=== PATIENT | female | born 1970 | race Caucasian/White ===

== ENCOUNTER → 2017-08-10 10:23 | Outpatient (POV) | payer BC, SELFPAY | PROVIDERS: Family Provider Nurse Practitioner Family; PCP Nurse Practitioner Family; Visit Provider Otolaryngology | DX: Z00.00 Encounter for general adult medical examination without abnormal findings (principal) ==

== ENCOUNTER → 2017-08-24 08:34 | Outpatient (CLI) | payer BC, SELFPAY ==
--- NOTE | 2017-08-24 08:46 | MR_ITS ---
MR lumbar spine wo/w con, MR 3-d myelogram/MRCP CLINICAL INDICATION: Low back pain with bilateral leg pain and numbness and tingling ITS.REASON: LOWER BACK INJURY ORDERING PHYSICIAN: Laura Smith PATIENT AGE: 46 years TECHNIQUE: Multiplanar multiecho sequences are performed without and with contrast. COMPARISON: None FINDINGS: There is normal alignment. The spinal cord ends at the L1-L2 level. There is a 2.3 x 1.4 cm well-circumscribed oval mass within the spinal cord epicentered at the T12-L1 level. This is intramedullary. This is hypointense on T1 and hyperintense on T2. No enhancement apparent. There is expansion of the spinal cord at this region. This is approximately 2 cm proximal to the cauda equina. L1-L2, L2-L3, and L3-L4 have an unremarkable appearance. L4-L5: Minimal bulging disc with mild facet and ligamentum hypertrophy with mild lateral recess and foraminal narrowing. L5-S1: Degenerative disc disease with decrease in the disc space and bulging disc with very minimal central disc protrusion. There is mild bilateral foraminal narrowing slightly greater on the left. No disc herniation or canal stenosis. 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 Differential diagnosis includes a spinal dermoid cyst or arachnoid cyst. Would recommend repeating the exam with [facility] for more specific catheterization as epidermoid cysts show restricted diffusion. A dermoid cyst and arachnoid cyst do not show restricted diffusion. Differential diagnosis would also include a spinal ependymoma however, one would expect contrast enhancement. Degenerative disc disease at L5-S1 with mild bulging disc at L4-L5 and L5-S1 and mild bilateral foraminal narrowing at L4-L5 and L5-S1
== END ==
PROVIDERS: Family Provider Nurse Practitioner Family; PCP Nurse Practitioner Family; Visit Provider Nurse Practitioner Family
DX: S39.92XA Unspecified injury of lower back, initial encounter (principal)
CPT/HCPCS: 72158; 76376; A9576

== ENCOUNTER → 2017-09-06 08:33 | Outpatient (CLI) | payer BC, SELFPAY ==
--- NOTE | 2017-09-06 08:36 | MR_ITS ---
MR head/brain wo/w con Ordering Physician: Rosy Lopez Age: 46 years: Female HISTORY: ITS.REASON: HX CVA, ISCHEMIC STROKE LEFT EYE To previous strokes reported last one occurred in June 2016. Patient reports memory loss blurred vision and comes and goes right hand weakness TECHNIQUE: : Precontrast Multiplanar FLAIR, T1, T2 weighted images along with axial diffusion/ADC imaging performed on 1.5 T. Siemens, MRI. Postcontrast imaging Following 18 mL mL ProHance T1-weighted images axial & coronal plane performed COMPARISON :Previous CT head without contrast 06/24/2020 FINDINGS . No mass lesion... . No areas of enhancement seen on the postcontrast images.. No extra-axial collections. No prior infarct evident on today's study No definitive deep white matter lesions are seen on the sensitive FLAIR image set. Only note & question an equivocal small less than 2 mm deep white matter high signal focus left frontal lobe axial image 17., Coronal FLAIR slice 6. Nonspecific. Equivocal \ Cervical cranial junction appears satisfactory. Sella and pituitary survey unremarkable.Ventricles and basal cisterns appear satisfactory. The small CSF space signal just inferior to the left basal ganglia, reflects extension of basal cistern recess beneath this area.-No gliosis is associated to suggest prior ischemic feature. I do not have any previous MR for comparison but this possibly may have been reported as old lacunar, but I do not believe this is the case given the lack of gliosis. Rather merely slight generous CSF space Posterior fossa appears satisfactory. CP angles, IACs ,unremarkable. No lesion nor enhancement along the course either cranial nerve cranial nerve VII and VIII.. Skinny with no significant findings. Only note trace signal from perivascular space at right cerebral peduncle.- No gliosis here on FLAIR images, which speaks against prior ischemia.. Mastoid air cells well-developed and clear. . Paranasal sinuses well-developed and clear with only borderline mucosal thickening at ethmoid air cells. Orbits are unremarkable. Globes unremarkable. Minimal dural venous sinuses IMPRESSION: No evidence of prior territorial infarct . No mass lesion. No abnormal areas of enhancement. Only equivocal less than 2 mm deep white matter focus left frontal lobe, peripheral to the anterior horn left lateral ventricle.. Barely appreciable.... Otherwise negative MR brain with no additional white matter findings.
== END ==
PROVIDERS: Family Provider Nurse Practitioner Family; PCP Nurse Practitioner Family; Visit Provider Physician Assistant
DX: Z86.73 Personal history of transient ischemic attack (TIA), and cerebral infarction without residual deficits (principal); R41.3 Other amnesia
CPT/HCPCS: 70553; A9576

== ENCOUNTER 2017-09-21 10:40 | Emergency (ER) | payer BC, SELFPAY ==
[2017-09-21 11:13] VITALS: BP 134/84; PULSE 83; RESP 26; TEMP 36.3; O2SAT 100; BMI 31.6
[2017-09-21 11:22] VITALS: BP 134/81; PULSE 77; RESP 22; TEMP 37; O2SAT 100; BMI 31.6
--- NOTE | 2017-09-21 11:22 | PC.NURSE ---
Triage nurse alerted me to pt's RR and labored breathing. pt reporting sudden worsening in SOA overnight. similar symptoms last week. Was seen in [place] where she reports she rcvd diuretics and lost 9 pounds allowing me to breath easier . Hx of COPD. Sees Dr. Lewis, probation officer. Sleeps w/ home oxygen. Referred to voice instructor last week. Appt not for several weeks. Reports they were concerned about new onset CHF. Worked yesterday. Mild SOA x one month. Sudden acute worsening last night. SPO2 stable but feels wearing her oxygen helps. Denies CP. Discussed possible differentials. pt agreeable to transfer to ER. Dr. West not available. Report called to Pb [facility]. Room 5 available. I assisted pt over via wheelchair. Helped her into bed, reattached her oxygen at 2LNC. Notified Pb she was in the room. Pt stable.
--- NOTE | 2017-09-21 11:34 | XR_ITS ---
XR chest 2V HISTORY: Shortness of breath ITS.REASON: sob ORDERING PHYSICIAN: Kathy West MD PATIENT AGE: 46 years COMPARISON: 06/21/2017 FINDINGS: The cardiomediastinal silhouette and pulmonary vascularity are within normal limits. The lungs are clear without infiltrates, suspicious nodules, or pleural effusions. No acute bony abnormalities. IMPRESSION: Negative chest, no acute finding
--- NOTE | 2017-09-21 12:00 | HMH.EDSOB ---
ED Disposition Clinical Impression: Congestive heart failure, COPD exacerbation, Respiratory alkalosis Disposition: Xfer Short-Term Hosp Condition on Discharge: Fair Referrals: Laura Smith [Primary Care Provider] - Forms: Transfer Record - ED - Critical Care Critical Care Time: No Attestation: On 09/21/17, the high probability of a clinically significant, sudden or life threatening deterioration of the following system(s) required my full and direct attention, intervention and personal management. The time I documented below is in addition to time spent performing reported procedures but includes the following listed in this critical care notation. Medical Decision Making - Medical Records Medical records reviewed: Yes: I reviewed the patient's medical records. Vital Signs: 09/21/17 11:13 09/21/17 11:22 Temperature 97.3 F L 98.6 F Temperature Source Temporal Artery Scan Oral Pulse Rate [Right Brachial] 83 77 Respiratory Rate 26 H 22 Blood Pressure [Right Arm] 134/84 134/81 Blood Pressure Mean [Right Arm] 100 98 Blood Pressure Source [Right Arm] Automatic Cuff Automatic Cuff Blood Pressure Position [Right Arm] Sitting Sitting 02 Sat by Pulse Oximetry 100 100 Oxygen Delivery Method Room Air Nasal Cannula Oxygen Flow Rate (LPM) 2 2 - Lab Data Lab Results 09/21/17 11:34: Specimen Source R brachial, O2 % 2lpm, ABG pH 7.67 H*, ABG pCO2 15.2 L, ABG pO2 82.0, ABG HCO3 17.2 L, ABG Total CO2 17.7 L, ABG O2 Saturation 98, ABG Base Excess -3.2 L, Balaji Test N/a 09/21/17 11:40: WBC 8.6, RBC 4.82, Hgb 14.0, Hct 40.2, MCV 83.3, MCH 29.0, MCHC 34.8, RDW 12.4, Plt Count 257, MPV 7.6, Neut % (Auto) 63.2, Lymph % (Auto) 28.6, [place] % (Auto) 4.8, Eos % (Auto) 2.6, Baso % (Auto) 0.9, Neut # (Auto) 5.4, Lymph # (Auto) 2.4, [place] # (Auto) 0.4, Eos # (Auto) 0.2, Baso # (Auto) 0.1 09/21/17 11:40: Sodium 142, Potassium 3.3 L, Chloride 105, Carbon Dioxide 24, Anion Gap 16.3 H, BUN 16, Creatinine 1.08 H, Estimated Creat Clear 87, Estimated GFR 54 L, Est GFR ( Amer) 66, Glucose 89, Calcium 9.7, Total Bilirubin 1.0, AST 61 H, ALT 91 H, Alkaline Phosphatase 194 H, Total Creatine Kinase 63, CK-MB (CK-2) < 0.5, CK-MB (CK-2) Rel Index 0.8, Troponin I < 0.02, Total Protein 8.4 H, Albumin 4.0, Globulin 4.4 H, Albumin/Globulin Ratio 0.9 L 09/21/17 11:40: B-Natriuretic Peptide 128 H 09/21/17 12:20: Lactic Acid 4.0 H 09/21/17 12:35: D-Dimer < 100 Result diagrams: 09/21/17 11:40 09/21/17 11:40 Orders (Tests/Meds): ED MEDICATIONS Discontinued Medications Generic Name Dose Route Start Last Admin Trade Name Lesvia PRN Reason Stop Dose Admin Albuterol/Ipratropium 3 ml 09/21/17 12:07 Duoneb 3ml Neb IH 09/21/17 12:08 ONCE ONE Famotidine 20 mg 09/21/17 12:07 09/21/17 12:48 Pepcid 20mg/2ml Vial IV 09/21/17 12:08 20 mg ONCE ONE Administration Ceftriaxone Sodium 1 gm/ 50 mls @ 100 mls/hr 09/21/17 12:07 09/21/17 12:47 Sodium Chloride IV 09/21/17 12:36 100 mls/hr ONCE ONE Administration Sodium Chloride 1,000 mls @ 999 mls/hr 09/21/17 13:30 09/21/17 13:25 Sod Chlor 0.9% 1000ml Bag IV 09/21/17 14:30 999 mls/hr .Q1H1M MARTINE Administration Methylprednisolone Sodium Succinate 125 mg 09/21/17 12:07 09/21/17 12:48 Solu-Medrol 125mg/2ml Vial IV 09/21/17 12:08 125 mg ONCE ONE Administration ORDERS Category Date Time Status Blood Culture Stat Micro 09/21/17 12:20 Received Sputum Culture & Gram Stain Stat Micro 09/21/17 12:07 Ordered - Radiology Data #1 Image(s): Chest Image Reviewed: Yes I reviewed the patient's radiology image Preliminary Findings: Abnormal (Chronic changes no acute finding. ) - ECG Data Tracing #1 Normal sinus rhythm 82/min right axis deviation and poor R-wave progression no acute finding. ECG initial impression date: 09/21/17 ECG initial impression time: 12:18 - Kevin Inquiry Pt receiving controlled substance: No Kevin was sid
[2017-09-21 12:01] LABS: Basophils # 0.1 K/mm3 (0-0.2); Basophils % 0.9 % (0.1-2.0); Eosinophils # 0.2 K/mm3 (0.0-0.4); Eosinophils % 2.6 % (0.1-12.0); Hematocrit 40.2 % (37.0-47.0); Lymphocytes # 2.4 K/mm3 (0.7-4.5); Lymphocytes % 28.6 K/mm3 (10-50); Mean Corpuscular HGB Conc 34.8 g/dL (31.8-35.4); Mean Corpuscular Volume 83.3 fl (81-99); Mean Platelet Volume 7.6 fl (7.4-10.4); Monocytes # 0.4 K/mm3 (0.1-1.0); Monocytes % 4.8 % (1.7-9.3); Neutrophils # 5.4 K/mm3 (1.8-7.8); Neutrophils % 63.2 % (37.0-80.0); Platelet Count 257 K/mm3 (142-424); Red Blood Count 4.82 M/mm3 (4.20-5.40); Red Cell Distribution Width 12.4 % (11.5-17.5); White Blood Count 8.6 K/mm3 (4.8-10.8)
--- NOTE | 2017-09-21 12:04 | ED_ITS ---
ED Disposition Clinical Impression: Congestive heart failure, COPD exacerbation, Respiratory alkalosis Disposition: Xfer Short-Term Hosp Condition on Discharge: Fair Referrals: Laura Smith [Primary Care Provider] - Forms: Transfer Record - ED - Critical Care Critical Care Time: No Attestation: On 09/21/17, the high probability of a clinically significant, sudden or life threatening deterioration of the following system(s) required my full and direct attention, intervention and personal management. The time I documented below is in addition to time spent performing reported procedures but includes the following listed in this critical care notation. Medical Decision Making - Medical Records Medical records reviewed: Yes: I reviewed the patient's medical records. Vital Signs: 09/21/17 11:13 09/21/17 11:22 Temperature 97.3 F L 98.6 F Temperature Source Temporal Artery Scan Oral Pulse Rate [Right Brachial] 83 77 Respiratory Rate 26 H 22 Blood Pressure [Right Arm] 134/84 134/81 Blood Pressure Mean [Right Arm] 100 98 Blood Pressure Source [Right Arm] Automatic Cuff Automatic Cuff Blood Pressure Position [Right Arm] Sitting Sitting 02 Sat by Pulse Oximetry 100 100 Oxygen Delivery Method Room Air Nasal Cannula Oxygen Flow Rate (LPM) 2 2 - Lab Data Lab Results 09/21/17 11:34: Specimen Source R brachial, O2 % 2lpm, ABG pH 7.67 H*, ABG pCO2 15.2 L, ABG pO2 82.0, ABG HCO3 17.2 L, ABG Total CO2 17.7 L, ABG O2 Saturation 98, ABG Base Excess -3.2 L, Balaji Test N/a 09/21/17 11:40: WBC 8.6, RBC 4.82, Hgb 14.0, Hct 40.2, MCV 83.3, MCH 29.0, MCHC 34.8, RDW 12.4, Plt Count 257, MPV 7.6, Neut % (Auto) 63.2, Lymph % (Auto) 28.6 , [place] % (Auto) 4.8, Eos % (Auto) 2.6, Baso % (Auto) 0.9, Neut # (Auto) 5.4, Lymph # (Auto) 2.4, [place] # (Auto) 0.4, Eos # (Auto) 0.2, Baso # (Auto) 0.1 09/21/17 11:40: Sodium 142, Potassium 3.3 L, Chloride 105, Carbon Dioxide 24, Anion Gap 16.3 H, BUN 16, Creatinine 1.08 H, Estimated Creat Clear 87, Estimated GFR 54 L, Est GFR ( Amer) 66, Glucose 89, Calcium 9.7, Total Bilirubin 1.0, AST 61 H, ALT 91 H, Alkaline Phosphatase 194 H, Total Creatine Kinase 63, CK-MB (CK-2) < 0.5, CK-MB (CK-2) Rel Index 0.8, Troponin I < 0.02, Total Protein 8.4 H, Albumin 4.0, Globulin 4.4 H, Albumin/Globulin Ratio 0.9 L 09/21/17 11:40: B-Natriuretic Peptide 128 H 09/21/17 12:20: Lactic Acid 4.0 H 09/21/17 12:35: D-Dimer < 100 Result diagrams: 09/21/17 11:40 09/21/17 11:40 Orders (Tests/Meds): ED MEDICATIONS Discontinued Medications Generic Name Dose Route Start Last Admin Trade Name Lesvia PRN Reason Stop Dose Admin Albuterol/Ipratropium 3 ml 09/21/17 12:07 Duoneb 3ml Neb IH 09/21/17 12:08 ONCE ONE Famotidine 20 mg 09/21/17 12:07 09/21/17 12:48 Pepcid 20mg/2ml Vial IV 09/21/17 12:08 20 mg ONCE ONE Administration Ceftriaxone Sodium 1 gm/ 50 mls @ 100 mls/hr 09/21/17 12:07 09/21/17 12:47 Sodium Chloride IV 09/21/17 12:36 100 mls/hr ONCE ONE Administration Sodium Chloride 1,000 mls @ 999 mls/hr 09/21/17 13:30 09/21/17 13:25 Sod Chlor 0.9% 1000ml Bag IV 09/21/17 14:30 999 mls/hr .Q1H1M MARTINE Administration Methylprednisolone Sodium Succinate 125 mg 09/21/17 12:07 09/21/17 12:48 Solu-Medrol 125mg/2ml Vial IV 09/21/17 12:08 125 mg ONCE ONE Administration
[2017-09-21 12:25] LABS: Alanine Aminotransferase 91 U/L (12-78); Albumin/Globulin Ratio 0.9 (1.1-1.8); Alkaline Phosphatase 194 U/L (46-116); Anion Gap 16.3 mEq/L (5-15); Aspartate Amino Transferase 61 U/L (15-37); Blood Urea Nitrogen 16 mg/dL (7-18); CKMB Relative Index 0.8 U/L (0-4.0); Calcium 9.7 mg/dL (8.5-10.1); Carbon Dioxide 24 mmol/L (21.0-32.0); Chloride 105 mmol/L (98-107); Creatine Kinase 63 U/L (26-192); Creatine Kinase MB < 0.5 mg/ml (0.0-3.6); Creatinine Clearance Estimated 87 mL/min (0-300); Creatinine,Serum 1.08 mg/dL (0.55-1.02); Estimated Glomerular Filt Rate 54 ml/min (>60); GFR (African American) 66 ML/MIN (>60); Globulin 4.4 gm/dl (1.3-3.2); Glucose 89 mg/dL (74-106); Potassium 3.3 mmoL/L (3.5-5.1); Sodium 142 mmol/L (136-145); Total Protein,Serum 8.4 gm/dL (6.4-8.2); Troponin I < 0.02 ng/ml (0.00-0.06)
--- NOTE | 2017-09-21 12:57 | PC.NURSE ---
notified ER of lactic acid critical
[2017-09-21 13:04] LABS: ABG Base Excess -3.2 mmol/L (-2.4-2.3); ABG HCO3 17.2 mmhg (22.0-26.0); ABG Oxygen Saturation 98 % (90-100); ABG TCO2 17.7 mmhg (23-27)
[2017-09-21 13:05] LABS: Oxygen 2LPM %; Source R BRACHIAL
[2017-09-21 13:06] LABS: ABG PH 7.67 mmol/L (7.35-7.45)
[2017-09-21 13:07] LABS: ABG PCO2 15.2 mmhg (35.0-45.0)
--- NOTE | 2017-09-21 13:29 | PC.NURSE ---
Drake has accetpted Pt by Dr Faith, to [address],
[2017-09-21 13:38] LABS: D-Dimer < 100 (0-400)
[2017-09-21 16:00] VITALS: BP 132/77; PULSE 85; RESP 18; TEMP 37; O2SAT 99
[2017-09-21 16:51] LABS: Reflex Lactic Add Lactic Reflex
== END 2017-09-21 16:05 | disposition short-term general hospital (02) ==
LOC: UTC 10:41 → ER 11:20
PROVIDERS: Emergency Provider Emergency Medicine; Family Provider Nurse Practitioner Family; PCP Nurse Practitioner Family
DX: J44.1 Chronic obstructive pulmonary disease with (acute) exacerbation (principal); Z91.040 Latex allergy status; Z88.1 Allergy status to other antibiotic agents; Z88.6 Allergy status to analgesic agent
CPT/HCPCS: 71046; 80053; 82550; 82553; 82803; 83605; 83880; 84484; 85025; 85378; 87040; 93005; 93041; 96365; 96367; 96375; 99284; 99291

== ENCOUNTER → 2017-10-11 09:25 | Outpatient (POV) | payer BC, SELFPAY | PROVIDERS: PCP Nurse Practitioner Family; Visit Provider Nurse Practitioner Acute Care | DX: Z00.00 Encounter for general adult medical examination without abnormal findings (principal) ==

== ENCOUNTER 2017-10-15 09:38 | Day surgery (SDC) | payer BC, SELFPAY ==
[2017-10-12 11:04] VITALS: BMI 33.3
[2017-10-15] VITALS (7 sets, daily range): BP systolic 110–147; BP diastolic 60–93; PULSE 67–84; RESP 18–20; TEMP 37–37.1; O2SAT 92–97
--- NOTE | 2017-10-15 11:28 | P.PCN_ITS ---
[facility] Procedure Note Procedure Note:: Upper Endoscopy Procedure Report: Esophagogastroduodenoscopy with cold biopsies and TTS balloon dilation Endoscopost: Clint Joseph II, MD Referring Physician: None Date of Procedure: October 15, 2017 Equipment: Olympus GIF 180 standard upper endoscope Sedation: MAC sedation Indications: Mrs. Carpio is a 46-year-old female with chronic GERD, dyspepsia and a history of Bill's esophagus. The patient does have some dysphagia. She reports epigastric abdominal discomfort, nausea, bloating, belching and regurgitation. She does get occasional retrosternal chest discomfort. EGD is performed for further evaluation. She does have loose bowel movements and attributes this to methotrexate. She reports no rectal bleeding, melena or weight loss. Procedure: Prior to the procedure, a history and physical exam was performed, and patient' s medications and allergies were reviewed. The risks, benefits and alternatives of the sedation and procedure were discussed with the patient. All questions were answered and informed consent was obtained. The patient was brought to the procedure room. Patient identification and proposed procedure were verified by the physician and the nurse. The patient was placed in a left lateral decubitus position and the scope was passed under direct vision. Throughout the procedure, the patient's blood pressure, pulse, and oxygen saturations were monitored continuously. The upper GI endoscopy was accomplished without difficulty. The patient tolerated the procedure well. Findings: The scope was passed directly into the upper esophagus and advanced to the third portion of the duodenum. The post bulbar duodenum and duodenal bulb were normal with normal mucosa and conniventes. The scope was withdrawn through a normal duodenal bulb and pylorus into the stomach. There was some linear erythema of the antrum with bile reflux consistent with mild linear reactive gastritis. The remainder of the antrum, body and fundus of the stomach were grossly normal. Upon retroflexion there was a small 2 cm hiatal hernia. 2 biopsies were taken in the antrum and along the lesser curvature for histology to rule out gastritis and/or H pylori. The scope was then withdrawn into the esophagus. There was no evidence of reflux esophagitis. There was a very short tongue of salmon colored mucosa that was biopsied to rule out very short segment esophagus Bill's esophagus. There were tertiary contractions and evidence of mild esophageal dysmotility. The entire esophagus was dilated to 60 Marshallese/20 mm with a TTS hydrostatic balloon was some resistance at the cricopharyngeus/upper esophageal sphincter. The remainder of the esophageal mucosa was normal. Impression: 1. Cricopharyngeal spasm status post dilation to 20 mm 2. Nonerosive GERD with mild esophageal dysmotility and small 2 cm hiatal hernia 3. Bile reflux with mild linear reactive gastritis Plan: I will follow up the biopsies. I do feel that the patient has functional dyspepsia and functional GERD. We will discuss additional dietary measures. I will follow up the biopsies to exclude Bill's esophagus. Certainly if there is histologic evidence of Bill's this is very short segment and I do not think that there is any dysplastic changes. I would continue PPI therapy if there is evidence of Bill's.
--- NOTE | 2017-10-15 14:45 | P.PN_ITS ---
[facility] Anesthesia Checklist - Patient Identification Patient Identification: Arm Band - Structural Data Admitted From: Home Planned Operative Procedure/s: egd Consent for Planned Operative Procedure(s) Verified: Yes Verified Documents: Surgical Consent, History and Physical - NPO Status Verified Time NPO: 00:00 - Additional verifications Anesthesia Reactions: Yes (ponv) - Airway Assessment C-Spine Mobility Assessed: Yes (mp2) TMJ Mobility Assessed: Yes - Neurological Assessment Level of Consciousness: Awake, Alert - Anesthesia Plan Anesthesia Risk discussed: Yes Anesthesia Plan: Verified ASA Class: III Anesthesia Type: MAC [facility] Anesthesia HX I have reviewed the patient's past medical history: Yes Medical History: Reports:: Congestive Heart Failure, Chronic Obstructive Pulmonary Disease (COPD), Heart Murmur, Hyperlipidemia, Hypertension, Lung Disease (copd,resp alkalosis,CHF) Denies:: Diabetes Mellitus Type 1, Diabetes Mellitus Type 2, Internal Pacemaker, Seizures Laterality Cases: Bilateral: Tonsillectomy Other Surgeries: Yes: Appendectomy, Cardiac Catheterization (2018), Other (maico ). No: Pacemaker
== END 2017-10-15 12:20 | disposition home or self-care (01) ==
LOC: OUTP 09:40
PROVIDERS: Family Provider Nurse Practitioner Family; PCP Nurse Practitioner Family; Visit Provider Internal Medicine Gastroenterology
PROC: 0DJ08ZZ Inspection of Upper Intestinal Tract, Via Natural or Artificial Opening Endoscopic (ICD-10-PCS; CPT 43235; principal; 2017-10-15 11:00)
DX: J39.2 Other diseases of pharynx (principal); K21.9 Gastro-esophageal reflux disease without esophagitis; K22.4 Dyskinesia of esophagus; K44.9 Diaphragmatic hernia without obstruction or gangrene; K29.60 Other gastritis without bleeding
CPT/HCPCS: 43239; 43249; C1726

== ENCOUNTER → 2017-10-27 13:16 | Outpatient (CLI) | payer BC, SELFPAY ==
--- NOTE | 2017-10-27 13:18 | CT_ITS ---
CT chest wo con HISTORY: ITS.REASON: RHEUMATOID ARTHRITIS, NOCTURAL HYPOXEMIA, DYSPNEA ON EXERTION ORDERING PHYSICIAN: José Miguel Chung MD PATIENT AGE: 46 years Technique: Axial images obtained. Sagittal and coronal reformatted images are also generated and reviewed. All CT scans at the facility use one or more dose reduction, viz: automated exposure control; ma/kV adjustment per patient size (including targeted exams where dose is matched to indication; i.e. head); or iterative reconstruction technique. CONTRAST: None COMPARISON: 05/04/2017 FINDINGS: No mediastinal or hilar mass or adenopathy. Normal heart size. No evidence of pericardial effusion. Bilateral subpectoral breast implants. There are minimal atelectatic/fibrotic changes in the left lung base posteriorly and within the lingula. Calcified granuloma is present within the left upper lobe medially. No lobar consolidation or collapse. No central obstructing lesions. High-resolution images are also obtained showing no evidence of interstitial fibrosis. No suspicious nodules are evident. No cavitating nodules. IMPRESSION: 1. Overall no significant change with no acute finding. 2. Minimal atelectatic or fibrotic change in the lingula and left lung base posteriorly. 3. No evidence of interstitial fibrosis or suspicious nodules
== END ==
PROVIDERS: Family Provider Nurse Practitioner Family; PCP Nurse Practitioner Family; Visit Provider Internal Medicine
DX: M06.9 Rheumatoid arthritis, unspecified (principal); R06.09 Other forms of dyspnea; G47.34 Idiopathic sleep related nonobstructive alveolar hypoventilation
CPT/HCPCS: 71250

== ENCOUNTER → 2017-11-26 16:10 | Outpatient (CLI) | payer BC, SELFPAY ==
--- NOTE | 2017-11-26 | MM_ITS ---
MM Dig SC mamm implant BI CAD UPDATED CORRECTED FINAL REPORT ORDERING PHYSICIAN : Laura Smith PATIENT AGE: 47 years GENDER: Female COMPARISON:. None Available. Prior studies requested from [facility] but were never obtained. INDICATION: 47-year-old with.. Routine screening study of the left breast. No hormones no new complaints Family history. Great grandmother . TECHNIQUE: Damian technique utilized. CC & MLO images were obtained of the breast tissue overlying implant, as well as a second set of images including the breast implant. Mammography is inherently limited due to the implants is a could obscure areas of breast R2 CAD reviewed. Standard CC and MLO images were obtained.. R2 CAD reviewed. FINDINGS: Mild to moderate fibroglandular elements throughout both breast breast.. Moderate density breast . No dominant mass nor suspicious calcifications in either breast.. Bilateral breast implants in place which do obscure areas of the breast but I see no areas of significant concern on today's study. Addendum may follow up prior studies do become available No areas of significant concern bilateral follow-up in one year recommended IMPRESSION: No areas of significant concern Moderate density breast with bilateral breast implants. Follow follow-up in one year recommended (We have been waiting prior studies from [facility] but they have never become available) BI-RADS Category: 1 Negative RECOMMENDED FOLLOW-UP: 1YR - 1 YEAR FOLLOW-UP (A letter has been sent to the patient regarding results of the study.)
== END ==
PROVIDERS: Family Provider Nurse Practitioner Family; PCP Nurse Practitioner Family; Visit Provider Nurse Practitioner Family
DX: Z12.31 Encounter for screening mammogram for malignant neoplasm of breast (principal)
CPT/HCPCS: 77067

== ENCOUNTER → 2017-12-15 11:00 | Outpatient (CLI) | payer BC, SELFPAY ==
--- NOTE | 2017-12-15 11:01 | MR_ITS ---
MR shoulder LT wo con HISTORY: Left shoulder pain radiating down the arms with limited range of motion ITS.REASON: Possible LT rotator cuff tear ORDERING PHYSICIAN: José Miguel Antonio MD PATIENT AGE: 47 years COMPARISON: 11/17/2017 TECHNIQUE: Standard multiplanar multiecho sequences are performed without contrast. FINDINGS: There are mild hypertrophic changes of the acromioclavicular joint. This however millimeters projects superiorly. There is however a low-lying acromion laterally with subacromial stenosis. The subacromial space measures approximately 5 mm at its lowest point. There is mild thickening of the supraspinatus and infraspinatus tendons with slight increased T2 signal distally consistent with tendinopathy/tendinosis. No obvious tear of the supraspinatus or infraspinatus tendon. The subscapularis and teres minor tendons are intact. There is slight increased T2 signal with mild thickening of the subscapularis tendon at its insertion on the humeral head consistent with tendinopathy/tendinosis. No labral tear apparent. The bicipital tendon is in place. No fracture or dislocation. Unremarkable glenohumeral joint. There is a small amount fluid in the subdeltoid region anteriorly IMPRESSION: 1. Mild acromioclavicular arthropathy with subacromial stenosis which may result in impingement symptomatology. 2. Tendinopathy/tendinosis of supraspinatus and infraspinatus and subscapularis tendons. 3. No evidence of rotator cuff tear or labral tear.
== END ==
PROVIDERS: Family Provider Nurse Practitioner Family; PCP Nurse Practitioner Family; Visit Provider Orthopaedic Surgery
DX: M25.512 Pain in left shoulder (principal)
CPT/HCPCS: 73221

== ENCOUNTER → 2018-01-05 08:52 | Outpatient (CLI) | payer BC, SELFPAY | PROVIDERS: PCP Emergency Medicine; Visit Provider Emergency Medicine | DX: R07.89 Other chest pain (principal); R00.2 Palpitations; I49.9 Cardiac arrhythmia, unspecified | CPT/HCPCS: 93225; 93226 ==

== ENCOUNTER → 2018-01-10 19:58 | Outpatient (CLI) | payer BC, SELFPAY | PROVIDERS: PCP Nurse Practitioner Family; Visit Provider Nurse Practitioner Family | DX: G47.10 Hypersomnia, unspecified (principal) | CPT/HCPCS: 95810 ==

== ENCOUNTER → 2018-02-28 07:54 | Outpatient (CLI) | payer BC, SELFPAY ==
[2018-02-28 08:20] VITALS: BP 133/92; BP 149/90; PULSE 58; PULSE 68; RESP 12; RESP 18; O2SAT 94; O2SAT 95
== END ==
PROVIDERS: Family Provider Nurse Practitioner Family; PCP Nurse Practitioner Family; Visit Provider Internal Medicine
DX: J44.9 Chronic obstructive pulmonary disease, unspecified (principal)
CPT/HCPCS: 94618

== ENCOUNTER → 2018-04-05 12:36 | Outpatient (POV) | payer BC, SELFPAY | PROVIDERS: Family Provider Nurse Practitioner Family; PCP Nurse Practitioner Family; Visit Provider Internal Medicine | DX: Z00.00 Encounter for general adult medical examination without abnormal findings (principal) ==

== ENCOUNTER → 2018-07-05 14:09 | Outpatient (POV) | payer BC, SELFPAY | PROVIDERS: Visit Provider Internal Medicine | DX: Z00.00 Encounter for general adult medical examination without abnormal findings (principal) ==

== ENCOUNTER → 2018-07-28 13:29 | Outpatient (CLI) | payer BC, SELFPAY ==
--- NOTE | 2018-07-28 13:32 | NVE_ITS ---
Venous Exam Indications: 729.5 Pain in limb left groin areasecondary to fall IMPRESSIONS 1. There is no evidence of significant Reflux. 2. No evidence of deep or superficial vein thrombosis involving the left lower extremity Left lower extremity venous duplex evaluation. Doppler flow study including spectral analysis, color and gregg scale imaging. CRITICAL FINDINGS - Reported to: Leonie Murcia - Read back and verified. - 07/28/18 - 1350 - GEOFF Fried Tables: Venous flow and imaging: + +-------+ + Location Overall Flow properties + +-------+ + Left common femoral Patent Normal phasicity; spontaneous; normal augmentation; compressible + +-------+ + Left saphenofemoral junction Patent Compressible + +-------+ + Left profunda femoral Patent Compressible + +-------+ + Left femoral Patent Normal phasicity; spontaneous; normal augmentation; compressible + +-------+ + Left greater saphenous Patent Normal phasicity; spontaneous; normal augmentation; compressible + +-------+ + Left popliteal Patent Normal phasicity; spontaneous; normal augmentation; compressible + +-------+ + Left posterior tibial Patent Compressible + +-------+ + Left peroneal Patent Compressible + +-------+ + Left gastrocnemius Patent Compressible + +-------+ + Left soleal Patent Compressible + +-------+ + (Report amended ) Electronically signed by: Balaji Welsh [id number]
== END ==
PROVIDERS: PCP Nurse Practitioner Family; Visit Provider Nurse Practitioner
DX: M79.606 Pain in leg, unspecified (principal)
CPT/HCPCS: 93971

== ENCOUNTER → 2018-09-13 13:05 | Outpatient (POV) | payer BC, SELFPAY ==
[2018-09-13 14:05] LABS: Adenovirus,PCR Not Detected (NotDetected); Bordetella Pertussis Not Detected (NotDetected); Chlamydophila Pneumoniae, PCR Not Detected (NotDetected); Coronavirus 229E Not Detected (NotDetected); Coronavirus NL63 Not Detected (NotDetected); Coronavirus OC43 Not Detected (NotDetected); Coronovirus HKU1,PCR Not Detected (NotDetected); Human Metapneumovirus Not Detected (NotDetected); Influenza A, PCR Not Detected (NotDetected); Influenza AH1, 2009 Not Detected (NotDetected); Influenza AH1, PCR Not Detected (NotDetected); Influenza AH3,PCR Not Detected (NotDetected); Influenza B, PCR Not Detected (NotDetected); Mycoplasma Pneumoniae, PCR Not Detected (NotDetected); Parainfluenza 1, PCR Not Detected (NotDetected); Parainfluenza 2, PCR Not Detected (NotDetected); Parainfluenza 3, PCR Not Detected (NotDetected); Parainfluenza 4, PCR Not Detected (NotDetected); Respiratory Syncytial Virus Not Detected (NotDetected); Rhinovirus/Enterovirus Not Detected (NotDetected)
== END ==
PROVIDERS: Visit Provider Internal Medicine
DX: R05 Cough (principal)
CPT/HCPCS: 87486; 87581; 87633; 87798

== ENCOUNTER → 2018-12-27 07:45 | Outpatient (CLI) | payer BC, SELFPAY ==
[2018-12-27 10:47] LABS: Alanine Aminotransferase 29 U/L (12-78); Albumin Level 4.2 gm/dL (3.4-5.0); Albumin/Globulin Ratio 1.3 (1.1-1.8); Alkaline Phosphatase 116 U/L (46-116); Anion Gap 15.9 mEq/L (5-15); Aspartate Amino Transferase 20 U/L (15-37); Bilirubin,Total 0.4 mg/dL (0.2-1.0); Blood Urea Nitrogen 20 mg/dL (7-18); Calcium 8.8 mg/dL (8.5-10.1); Carbon Dioxide 25 mmol/L (21.0-32.0); Chloride 103 mmol/L (98-107); Chol/HDL Ratio 4.9 (1-3.5); Cholesterol 216 mg/dL (140-200); Estimated Glomerular Filt Rate 53 ml/min (>60); Free T4 (Free Thyroxine) 1.04 ng/dl (0.76-1.46); GFR (African American) 64 ML/MIN (>60); Globulin 3.2 gm/dl (1.3-3.2); Glucose 88 mg/dL (74-106); HDL Cholesterol 44 mg/dL (29-89); LDL Cholesterol 137 mg/dL (0-130); Potassium 3.9 mmoL/L (3.5-5.1); Sodium 140 mmol/L (136-145); Thyroid Stimulating Hormone 0.15 uIU/ml (0.358-3.740); Total Protein,Serum 7.4 gm/dL (6.4-8.2); Triglycerides 177 mg/dL (30-200); VLDL Cholesterol 35 mg/dL (0-40)
[2018-12-28 10:07] LABS: Triiodothyronine (T3) Free 3.2 pg/mL (2.0-4.4); Vitamin D 25 Hydroxy 41.3 ng/mL (30.0-100.0)
== END ==
PROVIDERS: Visit Provider Nurse Practitioner Family
DX: E78.2 Mixed hyperlipidemia (principal); E55.9 Vitamin D deficiency, unspecified; E89.0 Postprocedural hypothyroidism
CPT/HCPCS: 36415; 80053; 80061; 82652; 84439; 84443; 84481

== ENCOUNTER → 2019-03-14 12:56 | Outpatient (POV) | payer BC, SELFPAY | PROVIDERS: Visit Provider Internal Medicine | DX: Z00.00 Encounter for general adult medical examination without abnormal findings (principal) ==

== ENCOUNTER → 2019-07-03 08:52 | Outpatient (CLI) | payer BC, SELFPAY ==
--- NOTE | 2019-07-03 08:57 | MR_ITS ---
PROCEDURE: MR HEAD/BRAIN WO/W CON CLINICAL INDICATION: POOR SHORT TERM MEMORY Short-term memory loss, headache, vertigo, history of Meniere's disease COMPARISON: No exams were available for comparison TECHNIQUE: Routine multiplanar multi echo sequences are performed without and with gadolinium enhancement. FINDINGS: No midline shift, mass effect, intracranial hemorrhage, hydrocephalus, or acute infarction. The cerebellopontine angles, cerebellum, and brainstem have an unremarkable appearance. There is a small linear area of increased T2 signal in the right aspect of pravin and may be due to perivascular dilated space nonspecific. There are other perivascular dilated spaces in the basal ganglia and there is a small cystic area in the left basal ganglia at approximately 6 mm which may be due to a choroidal fissure cyst, perivascular dilated space, or an old lacunar infarction with cystic changes. The pituitary, optic chiasm, corpus callosum, and craniocervical junction have an unremarkable appearance. No enhancing lesions are evident. No mastoid effusion or sinus air-fluid level. IMPRESSION: 1. Essentially negative MRI of the brain without and with contrast. No acute findings 2. Nonspecific nonacute findings as described above. Dictated by: Balaji Welsh MD 07/03/2019 20:03 Electronically signed by Balaji Welsh MD in [place] 07/04/2019 07:31
--- NOTE | 2019-07-03 09:53 | HMH.ITSHM ---
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 []ACTEMRA ALLOPURINOL BETAMETHASONE DIPROPIONATE BUSPIRONE AUTALBITAL-ACETAMINOPHEN CALCIUM CALCIUM CARBONATE DIAZEPAM DICYCLOMINE ELIQUIS FOLIC ACID FUROSEMIDE HYDROXYZINE HCL IPRATROPIUM ALBUTEROL KLOR-CON M20 MIRTAZAPINE NEXIUM NORCO POLYMYXIN B SULFATE PROMETHAZINE QUETIAPINE REQUIP SYNTHROID TRELEGY ELLIPTA TRETINOIN TRINTELLIX VENTOLIN VERAPAMIL VITAMIN D3
== END ==
PROVIDERS: PCP Nurse Practitioner Family; Visit Provider Nurse Practitioner Family
DX: R41.3 Other amnesia (principal)
CPT/HCPCS: 70553; A9576

== ENCOUNTER 2020-06-05 09:48 | Outpatient (CLI) | payer MEDICARE, SELFPAY ==
[2020-06-05] VITALS (10 sets, daily range): BP systolic 111–142; BP diastolic 71–88; PULSE 77–88; RESP 18; O2SAT 97
== END 2020-06-05 12:57 | disposition home or self-care (01) ==
LOC: INF 09:48
PROVIDERS: Visit Provider Internal Medicine
DX: M06.9 Rheumatoid arthritis, unspecified (principal)
CPT/HCPCS: 96413; 96415; J1745

== ENCOUNTER 2020-06-19 09:38 | Outpatient (CLI) | payer MEDICARE, SELFPAY ==
[2020-06-19] VITALS (9 sets, daily range): BP systolic 144–165; BP diastolic 87–98; PULSE 70–92; RESP 18; TEMP 36.6; O2SAT 97–98
== END 2020-06-19 13:00 | disposition home or self-care (01) ==
LOC: INF 09:38
PROVIDERS: Visit Provider Internal Medicine
DX: M06.9 Rheumatoid arthritis, unspecified (principal)
CPT/HCPCS: 96413; 96415; J1745

== ENCOUNTER 2020-07-18 12:15 | Outpatient (CLI) | payer MEDICARE, SELFPAY ==
[2020-07-18] VITALS (8 sets, daily range): BP systolic 123–140; BP diastolic 71–85; PULSE 81–97; RESP 18; TEMP 36.4; O2SAT 96
== END 2020-07-18 15:30 | disposition home or self-care (01) ==
LOC: INF 12:20
PROVIDERS: Visit Provider Internal Medicine
DX: M06.9 Rheumatoid arthritis, unspecified (principal)
CPT/HCPCS: 96413; 96415; J1745

== ENCOUNTER → 2022-06-09 14:40 | Outpatient (CLI) | payer MEDICARE, SELFPAY ==
--- NOTE | 2022-06-09 14:45 | MR_ITS ---
FINAL REPORT CLINICAL HISTORY: PSORIATIC ARTHRITIS left leg pain loss feeling in left leg x 2 years recent fall back in october 2021 , pain has gotten worse since COMPARISON: 08/24/2017 FINDINGS: MRI LUMBAR SPINE W/O CONTRAST Multiplanar MR imaging of the lumbar spine was performed without contrast. On the sagittal T2-weighted images, disc degeneration is seen at multiple levels. There is disc space narrowing and endplate changes at L5-S1. There is mild anterolisthesis of L4 on L5. There is no evidence of fracture. There is a cystic area in the conus centered at T12 which measures 12 mm transverse and 28 mm in height. This is similar to the prior and likely represents a focal syrinx, cystic mass is not entirely excluded. T11-12: An annular disc bulge is present. T12-L1: An annular disc bulge is present. L1-2: An annular disc bulge is present. L2-3: An annular disc bulge is present. L3-4: An annular disc bulge is present. A right foraminal disc protrusion with mild right neural foraminal narrowing is new. L4-5: There is an annular disc bulge with facet arthropathy. There is mild bilateral neural foraminal narrowing. L5-S1: There is an annular disc bulge with facet arthropathy and vertebral osteophytes. There is a small central disc protrusion which is similar to the prior with mild bilateral neural foraminal narrowing. IMPRESSION: Multilevel disc degeneration and spondylosis with neural foraminal narrowing at L3-4 through L5-S1. New right foraminal disc protrusion at L3-4 and a small central disc protrusion at L5-S1 which is similar to the prior. Cystic area in the conus similar to the prior exam and likely represents a focal syrinx, cystic mass not entirely excluded. If indicated, follow-up with contrast may be helpful. Reviewed, Interpreted and Dictated by Reginaldo Mcdermott III, MD Transcribed by Amanda Parsons Authenticated and [facility]
--- NOTE | 2022-06-09 14:59 | MR_ITS ---
FINAL REPORT CLINICAL HISTORY: PSORIATIC ARTHRITIS left leg pain loss feeling in left leg x 2 years recent fall back in october 2021 , pain has gotten worse since FINDINGS: Multiplanar MR images of the pelvis were performed without contrast. There is no fracture, bone bruising or marrow edema. There is mild spurring and sclerosis of the sacroiliac joints. There is no evidence of avascular necrosis. No significant joint effusion is seen. The musculature is intact. The tendons are intact. There is no soft tissue mass or cyst identified. IMPRESSION: Spurring and sclerosis of the sacroiliac joints. No acute abnormality identified. Reviewed, Interpreted and Dictated by Reginaldo Mcdermott III, MD Transcribed by Jessica Dasilva Authenticated and [facility]
--- NOTE | 2022-06-09 16:27 | MM_ITS ---
PROCEDURE INFORMATION: Exam: MG Bilateral Screening 3D Mammography Exam date and time: 06/09/2022 4:36 PM Age: 51 years old Clinical indication: Screening examination TECHNIQUE: Imaging protocol: Bilateral Screening tomosynthesis and 2D mammography including computer-aided detection (CAD) when performed. COMPARISON: 1. MG SCIMPBI MM Dig SC mamm implant BI CAD 11/26/2017 4:32 PM 2. MG MAMMO SCREEN DIGITAL IMPLNT 12/13/2014 10:20 AM FINDINGS: MAMMOGRAPHY: Breast composition: There are scattered areas of fibroglandular density. Mass: None. Architectural distortion: No new or suspicious architectural distortion. Calcifications: No new or suspicious calcifications are present Asymmetric density: No new or suspicious asymmetric density is present Skin thickening: None. Axillary adenopathy: None. Implants: Subpectoral saline augmentation implants are present. IMPRESSION: No mammographic evidence of malignancy. Recommend annual screening mammography unless otherwise clinically indicated. ASSESSMENT: BI-RADS category 2: Benign
== END ==
PROVIDERS: PCP Nurse Practitioner Family; Visit Provider Nurse Practitioner Family
DX: Z12.31 Encounter for screening mammogram for malignant neoplasm of breast (principal); M48.061 Spinal stenosis, lumbar region without neurogenic claudication; L40.50 Arthropathic psoriasis, unspecified
CPT/HCPCS: 72148; 72195; 76376; 77063; 77067

== ENCOUNTER → 2023-05-31 16:03 | Outpatient (CLI) | payer MEDICARE, SELFPAY ==
--- NOTE | 2023-05-31 16:08 | MR_ITS ---
FINAL REPORT CLINICAL HISTORY: POOR SHORT TERM MEMORY. headache, dizziness and blurred vision COMPARISON: September 06, 2017 FINDINGS: Multiplanar MR imaging of the brain was performed without contrast. There is no evidence of intracranial hemorrhage or mass. The ventricular size is normal. There is no evidence of shift of the midline structures. No area of restricted diffusion is identified. The posterior fossa and brainstem have an unremarkable appearance. Normal major vessel vascular flow voids are seen. IMPRESSION: Unremarkable brain with no focal abnormality identified. Authenticated and [facility]
== END ==
LOC: RAD 16:04
PROVIDERS: PCP Nurse Practitioner Family; Visit Provider Nurse Practitioner Family
DX: R41.3 Other amnesia (principal)
CPT/HCPCS: 70551

== ENCOUNTER 2023-12-04 12:51 | Emergency (ER) | payer MEDICARE, SELFPAY ==
[2023-12-04 12:52] VITALS: BP 159/75; PULSE 60; RESP 18; TEMP 36.8; O2SAT 100; BMI 22.4
[2023-12-04 13:48] LABS: Apearance,Urine Cloudy (Clear); Color,Urine Dark Yellow (Yellow); Specific Gravity, Urine 1.025 (1.005-1.030)
[2023-12-04 13:49] LABS: Bilirubin,Urine Negative (Negative); Blood, Urine 3+ (Negative); Glucose,Urine (UA) Negative (Negative); Ketones,Urine Negative (Negative); Protein,Urine 3+ (Negative); UTC Leukocyte Esterase,Urine 3+ (Negative); UTC Nitrate,Urine Negative (Negative); Urobilinogen,Urine 0.2 EU/dl (0.2)
--- NOTE | 2023-12-04 13:55 | EXP.UTC ---
Discharge Plan Disposition Patient Disposition: Home, Self-Care Condition: Good Prescriptions Prescriptions: New cephalexin 500 mg tablet 500 mg PO BID 7 Days Qty: 14 0RF No Action albuterol sulfate [Ventolin HFA] 90 MCG HFA aerosol inhaler 90 mcg inhalation NEEDED PRN (Reason: soa) loperamide 2 MG tablet 2 mg PO DAILY hydroxyzine pamoate [Vistaril] 50 MG capsule 50 mg PO HS buspirone 10 MG tablet 15 mg PO DAILY promethazine 25 MG tablet 25 mg PO Q8HP PRN (Reason: Nausea And Vomiting) dicyclomine 10 MG capsule 10 mg PO DAILY vortioxetine [Trintellix] 20 MG tablet 20 mg PO DAILY benzonatate [Tessalon Perles] 100 MG capsule 100 mg PO TID PRN (Reason: Cough) Qty: 30 0RF atorvastatin 40 MG tablet 40 mg PO HS prednisone 10 MG tablet 10 mg PO DAILY pantoprazole 40 MG tablet,delayed release (DR/EC) 40 mg PO HS azelastine 137 MCG/0.137 ML bottle 137 mcg NS DAILY isfsqnpfqp-cywuliuaosmwx-hfmx 1 EACH capsule 1 each PO DAILY PRN (Reason: migraines) furosemide 40 MG tablet 40 mg PO DAILY Patient Comments: levothyroxine 75 MCG tablet 112 mcg PO DAILY Patient Comments: potassium chloride [Klor-Con] 20 MEQ packet 20 meq PO DAILY folic acid 1 MG tablet 1 mg PO DAILY Patient Comments: apixaban [Eliquis] 5 MG tablet 5 mg PO BID Patient Comments: quetiapine 100 MG tablet 100 mg PO DAILY diazepam 5 MG tablet 5 mg PO DAILY PRN (Reason: Anxiety) efwkvmxlkdl-rzsxxkjpl-ihgvdpvm [Trelegy Ellipta] 100-62. blister with device 1 inh inhalation DAILY sarilumab [Kevzara] 200MG/1 pen injector 200 mg IM QOW ipratropium-albuterol 3 ML solution for nebulization 3 ml inhalation Q6HP PRN (Reason: Wheezing/cough) Qty: 30 0RF Referrals Follow up/Referrals: Provider,Referral, MD [Primary Care Provider] - See instructions Activity Restrictions/Add. Instructions Additional Instructions/Restrictions: Increase fluids, water and not soda or tea. Can drink cranberry juice or cranberry extract. Wipe front to back Wear cotton underwear Empty bladder after intercourse Start antibiotics immediately and make sure you take the full course although you may start to see improvement over the next 48 hours. You can eat yogurt or take probiotics to decrease diarrhea or yeast infection caused by the antibiotic Be sure to follow-up anytime for new or worsening symptoms in 48 hours for wound urine culture results be sure to let you PCP no recent urine for culture so they can request records and ensure that you have appropriate antibiotic if you are not getting better or getting worse. If symptoms worsen or do not improve return or be seen in the ER. Follow-up with primary care this week. Clinical Impressions Clinical Impression: UTI (urinary tract infection) Instructions Patient Instructions: DI for Urinary Tract Infection (UTI) Discharge ED Provider: Howard ([facility])Jonathan [facility] [place] HPI General Stated complaint: uti pain Mode of Arrival: Ambulatory Source of Information: Patient Time Seen by Provider: 12/04/23 13:55 Description of Symptoms (Recalled from Triage Doc. by RN): UTI, blood in urine, pressure and pulling sensation HEENT Symptoms (Recalled from RN notes): No Resp Symptoms (Recalled from RN notes): No Skin Symptoms (Recalled from RN notes): No MS Symptoms (Recalled from RN notes): No Functional Status (Recalled from RN notes): na History of Present Illness Provider Complaint: 53 yr old female presents for blood in urine, pressure and pulling sensation Related Data Home Medications Medication Instructions Recorded Confirmed apixaban 5 mg tablet (Eliquis) 5 mg PO BID blood clots 10/12/17 06/19/20 folic acid 1 mg tablet 1 mg PO DAILY Supplement 10/12/17 06/19/20 furosemide 40 mg tablet 40 mg PO DAILY fluid lungs 10/12/17 06/19/20 levothyroxine 75 mcg tablet 112 mcg PO DAILY thyroid 10/12/17 06/19/20 potassium chloride 20 mEq oral 20 meq PO DAILY Supplement 10/12/17 06/19/20 packet (Klor-Con) diazepam 5 mg tablet 5 mg PO DAILY PRN Anxiety 04/04/18 06/19/20 fluticasone fur. 100 mcg-umeclid 1 inh inhalation DAILY COPD 04/04/18 06/19/20 62.5 mcg-vilant 25 mcg inhalat.powder (Trelegy Ellipta) quetiapine 100 mg tablet 100 mg PO DAILY mood 04/04/18 06/19/20 sarilumab 200 mg/1.14 mL 200 mg IM QOW Rheumatoid arthritis 04/04/18 06/19/20 subcutaneous pen injector (Kevzara) albuterol sulfate 90 mcg/actuation 90 mcg inhalation NEEDED PRN soa 07/16/18 06/19/20 aerosol inhaler (Ventolin HFA) buspirone 10 mg tablet 15 mg PO DAILY Anxiety 08/27/18 06/19/20 dicyclomine 10 mg capsule 10 mg PO DAILY bowels 08/27/18 06/19/20 hydroxyzine pamoate 50 mg capsule 50 mg PO HS Anxiety 08/27/18 06/19/20 (Vistaril) loperamide 2 mg tablet 2 mg PO DAILY bowels 08/27/18 06/19/20 promethazine 25 mg tablet 25 mg PO Q8HP PRN Nausea And 08/27/18 06/19/20 Vomiting vortioxetine 20 mg tablet 20 mg PO DAILY Depression 08/27/18 06/19/20 (Trintellix) atorvastatin 40 mg tablet 40 mg PO HS Cholesterol 06/05/20 06/19/20 azelastine 137 mcg (0.1 %) nasal 137 mcg NS DAILY Breathing problems 06/05/20 06/19/20 spray aerosol jlnamghpfb-xbwnsuuccnqai-pdzsntiw 1 each PO DAILY PRN migraines 06/05/20 06/19/20 50 mg-300 mg-40 mg capsule pantoprazole 40 mg tablet,delayed 40 mg PO HS GERD 06/05/20 06/19/20 release prednisone 10 mg tablet 10 mg PO DAILY Breathing problems 06/05/20 06/19/20 Previous Rx's Medication Instructions Recorded ipratropium 0.5 mg-albuterol 3 mg 3 ml inhalation Q6HP PRN 07/15/18 (2.5 mg base)/3 mL nebulization Wheezing/cough #30 neb soln benzonatate 100 mg capsule 100 mg PO TID PRN Cough #30 caps 08/30/18 (Testejal Kim) cephalexin 500 mg tablet 500 mg PO BID 7 days #14 tabs 12/04/23 Allergies Allergy/AdvReac Type Severity Reaction Status Date / Time latex [LATEX] Allergy Intermediate I-RASH Verified 06/05/20 11:43 morphine [MORPHINE] Allergy Intermediate Verified 06/05/20 11:43 fentanyl [FENTANYL] Allergy Unknown Verified 06/05/20 11:43 lisinopril [LISINOPRIL] Allergy Unknown Verified 06/05/20 11:43 ofloxacin [From FLOXIN] Allergy Unknown Verified 06/05/20 11:43 prazosin AdvReac Verified 06/05/20 11:43 Worker's Comp Is this a Worker's Comp case?: No [facility] Dis[facility]: The information contained in this section may have been updated after the patient was seen, as this information can be updated by other users. Social History , [employer]OCK [employer]) Smoking Status: Never smoker alcohol intake: never current occupational status: employed Travel in the last 8 weeks: None household members: family housing: house caffeine: Yes ROS Obtained: Yes All systems reviewed & no additional complaints except as documented Constitutional Constitutional: Reports system reviewed and no additional complaints, except as documented Eyes Eyes: Reports system reviewed and no additional complaints, except as documented ENT Ears, Nose, Mouth, and Throat: Reports system reviewed and no additional complaints, except as documented Cardiovascular Cardiovascular: Reports system reviewed and no additional complaints, except as documented Respiratory Respiratory: Reports system reviewed and no additional complaints, except as documented Gastrointestinal Gastrointestingal: Reports system reviewed and no additional complaints, except as documented Genitourinary Female Genitourinary: Reports system reviewed and no additional complaints, except as documented, Reports as per HPI, Reports hematuria, Reports urinary frequency, Reports urinary hesitancy and Reports urinary urgency Musculoskeletal Musculoskeletal: Reports system reviewed and no additional complaints, except as documented Integumentary/Breasts Skin/Breast: Reports system reviewed and no additional complaints, except as documented Neurologic Neurologic: Reports system reviewed and no additional complaints, except as documented Hematologic/Lymphatic Henatologic/Lymphatic: Reports system reviewed and no additional complaints, except as documented Allergic/Immunologic Allergic/Immunologic: Reports system reviewed and no additional complaints, except as documented Physical Exam General General appearance: alert and in no apparent distress Head Head exam: atraumatic Eye Eye exam: Present normal appearance and PERRL ENT ENT exam: Present normal exam Respiratory Respiratory exam: Present normal lung sounds bilaterally Cardiovascular Cardiovascular exam: Present regular rate and normal rhythm Neurological Exam Neurological exam: Present alert and oriented X3 Medical Decision Making Medical Records Medical records reviewed: Yes I reviewed the patient's medical records. Kevin Inquiry Pt receiving controlled substance: No Kevin was queried for this patient: No Vital Signs: 12/04/23 12:52 Temperature 98.2 F Temperature Source Oral Pulse Rate [Left Radial] 60 Respiratory Rate 18 Blood Pressure [Right Arm] 159/75 H Blood Pressure Mean [Right Arm] 103 02 Sat by Pulse Oximetry 100 Oxygen Delivery Method Room Air Lab Data Lab results reviewed: Yes I reviewed the patient's lab results. Lab Results 12/04/23 13:47: Urine Color Dark yellow, Urine Appearance Cloudy, Urine pH 6.0, Ur Specific [place] 1.025, Urine Protein 3+, Urine Glucose (UA) Negative, Urine Ketones Negative, Urine Blood 3+, Urine Nitrate Negative, Urine Bilirubin Negative, Urine Urobilinogen 0.2, Ur Leukocyte Esterase 3+ A Orders (Tests/Meds): ORDERS Category Date Time Status Urine Culture Stat Micro 12/04/23 13:47 Ordered
[2023-12-04 14:12] VITALS: BP 159/75; PULSE 60; RESP 16; TEMP 36.8; O2SAT 100
== END 2023-12-04 14:15 | disposition home or self-care (01) ==
PROVIDERS: Emergency Provider Nurse Practitioner Family
DX: N39.0 Urinary tract infection, site not specified (principal); B96.89 Other specified bacterial agents as the cause of diseases classified elsewhere
CPT/HCPCS: 81003; 87086; 99204; 99212; G0463

== ENCOUNTER 2024-11-01 14:03 | Outpatient (CLI) | payer MEDICARE, MEDICAID, SELFPAY ==
--- NOTE | 2024-11-01 14:10 | MR_ITS ---
PROCEDURE INFORMATION: Exam: MR Head Without and With Contrast Exam date and time: 11/01/2024 4:57 PM Age: 53 years old Clinical indication: Pain; Headache; Additional info: Memory loss, forgetfulness of words and phrases TECHNIQUE: Imaging protocol: Magnetic resonance imaging of the head without and with contrast. Contrast material: ISOVUE; Contrast volume: 13 ml; Contrast route: IV; COMPARISON: MR HEAD/BRAIN WO CON 05/31/2023 4:40 PM FINDINGS: Brain: Normal. No acute infarct. No hemorrhage. No edema. No space-occupying masses or abnormal areas of enhancement. Few small nodular T2 hyperintensities within the periventricular white matter bilaterally secondary to chronic microvascular changes slightly progressed from prior study. Incidental perivascular space within the left basal ganglia, unchanged. Cerebral ventricles: Normal. No ventriculomegaly. Bones: Unremarkable. Paranasal sinuses: Normal as visualized. No acute sinusitis. Mastoid air cells: Normal as visualized. No mastoid effusion. Orbital cavities: Unremarkable. Soft tissues: Unremarkable. IMPRESSION: Minimal, chronic white matter microvascular changes otherwise unremarkable MRI examination of the brain.
--- NOTE | 2024-11-01 14:11 | MR_ITS ---
PROCEDURE INFORMATION: Exam: MR Left Upper Extremity Other Than Joint Without Contrast, Humerus. Exam date and time: 11/01/2024 3:36 PM Age: 53 years old Clinical indication: Pain; Additional info: Patient has pain and swelling / mass on the distal humerus. Area indicated with markers. TECHNIQUE: Imaging protocol: Magnetic resonance imaging of the left upper extremity other than joint without contrast. Exam focused on the humerus. COMPARISON: No relevant prior studies available. FINDINGS: Bones/joints: Unremarkable. No bone abnormalities. No underlying osseous lesion. There is a left breast implant partially visualized, intact. Soft tissues: Unremarkable. No soft tissue mass or soft tissue swelling detected. Muscle bundles are unremarkable. Vasculature: There are some linear shaped flow voids within the paired brachial veins that may be technical and artifactual in nature and inconclusive for venous thrombosis which could be further assessed on venous Doppler exam if clinically warranted. IMPRESSION: 1. Findings are inconclusive for venous thrombosis involving portion of the paired brachial veins within the left arm which could be clarified on venous Doppler exam. 2. Remainder of the study is unremarkable.
[2024-11-01 14:50] LABS: Blood Urea Nitrogen 19 mg/dl (7-17); Estimated Glomerular Filt Rate 65 ml/min (>60); GFR (African American) 79 ML/MIN (>60)
[2024-11-01] MEDS: GADOTERIDOL INJ 20ML SYRINGE 13 ML IV (18:14)
[2024-11-01] MEDS: SODIUM CHLORIDE 0.9% 10ML SYR (RAD ONLY) 10 ML IV (18:14)
== END 2024-11-01 23:59 | disposition home or self-care (01) ==
LOC: RAD 14:04
PROVIDERS: Visit Provider Nurse Practitioner Family
DX: Z12.31 Encounter for screening mammogram for malignant neoplasm of breast (principal); R41.3 Other amnesia; R22.32 Localized swelling, mass and lump, left upper limb; M79.622 Pain in left upper arm
CPT/HCPCS: 36415; 70553; 73218; 82565; 84520; A9576

== ENCOUNTER 2025-02-21 13:27 | Outpatient (CLI) | payer MEDICARE, MEDICAID, SELFPAY ==
--- NOTE | 2025-02-21 13:28 | MM_ITS ---
PROCEDURE INFORMATION: Exam: MG Bilateral Screening 3D Mammography Exam date and time: 02/21/2025 1:59 PM Age: 54 years old Clinical indication: Screening examination TECHNIQUE: Imaging protocol: Bilateral Screening tomosynthesis and 2D mammography including computer-aided detection (CAD) when performed. COMPARISON: 1. MG MM DIG SC MAMM IMPLANT BI CAD 06/09/2022 4:36 PM 2. MG SCIMPBI MM Dig SC mamm implant BI CAD 11/26/2017 4:32 PM FINDINGS: MAMMOGRAPHY: Breast composition: There are scattered areas of fibroglandular density. Mass: None. Architectural distortion: None. Calcifications: No suspicious calcifications. Asymmetric density: None. Skin thickening: None. Axillary adenopathy: None. Implants: Subpectoral saline breast implants are present. IMPRESSION: No mammographic evidence of malignancy. Annual screening is recommended unless otherwise clinically indicated. ASSESSMENT: BI-RADS Category 1: Negative.
--- OUTSIDE RECORDS SUMMARY | 2025-02-21 13:30 | XMS_ITS | Continuity of Care Document ---
Author Organization [facility] [address] [place] [id number] Care Team Providers Care Event Designer Name Role Phone [facility] Primary Care Provi emerita Assessment No assessment recorded. Plan of Treatment Reminders Order Date Submit Date Provider Last Modified By Organization Details Last Modified Time Details Appointments OV EST 15 2024 03:00P ABI FERNANDO Not available Not available Not available Lab drug confirmat ion, urine 2024 025 [facility] (Lab Registration) , [address] [place] [address] [place], [address], 02/06/2025 13:36:04 Referral None recorded. Procedures None recorded. Surgeries None recorded. Imaging None recorded. Medication Orders hydrocodo ne 7.5 mg-acetam inophen 325 mg tablet [address], [address], 01/31/2025 16:55:27 hydrocodo ne 7.5 mg-acetam inophen 325 mg tablet 2024 [email or web address], [address], 02/01/2025 14:59:09 Patient TargetsNo targets recorded. Patient Instructions Encounter Date Encounter Id Patient Instructions Last Modified By Organization Details Last Modified Time 01/31/2025 [id number] Treatment plan: Interventions: As detailed above Rehabilitation: Encouraged activity, home exercise and stretching as tolerated Screenings/Behavi oral: ORT Score: Low Risk Score: 0 Date of ORT: 04/05/2023. UDS performed today to monitor compliance and deter misuse and diversion. Medications: Kevin report was reviewed and appropriate prior to prescribing any controlled substances. Medications refilled for 2 months. We discussed safe use and storage of medications. Counseled patient to only take medications as prescribed, never to combine medications with other substances including sedatives and alcohol. Advised patient to never use pain medications from other sources without prior notification or approval and not to drive or operate equipment or machinery while taking medications. I have educated the patient on utilizing non-pharmacologic measures to alleviate pain such as heat, ice, rest, relaxation, repositioning, exercise, stretches, TENS unit and/or massage. Follow up in 2 months. An electronic signature was used to sign this document. Ricky James PA-C A total of 35 minutes was spent on this encounter. In addition to the time spent examining, evaluating and counseling the patient, this includes time spent reviewing labs, previous notes/documentati on and Kevin reports, interpreting results, placing orders/referrals and documenting the encounter. [email or web address] Not available 01/31/2025 14:03:46 Reason for Referral None Reported. Problems Name Problem SNOMED Code Status Onset Date Resolution Date Notes Provider Name and Address Organization Details Recorded Time History of cardiac catheteriza tion 6368021396936 0 Active Ronna Adi eric smith, [facility] - [place] & [place] 5 14:46:04 M ni re's disease 35641888 Active Briseida smith, [place] - [facility] - [place] & [place] 3 13:12:26 Chronic obstructive pulmonary disease 83459182 Active Briseida smith, [facility] - [place] & [place] 3 13:12:26 Psoriatic arthritis 070344471 Active 2021 [facility]ett [facility] - [place] & [place] 3 13:12:26 History of deep vein thrombosis 514133204 Active 2020 [facility] - [place] & [place] 3 13:12:26 Insomnia 799583713 Active Briseida smith, [place] [facility] & [place] 3 13:12:26 Fibromyalgi a 106016274 Active 2018 Briseida Ward null, [place] - [facility] - [place] & [place] 3 13:12:26 Cerebrovasc ular accident 373118392 Active Briseida smith[place] - [facility] - [place] & [place] 3 13:12:26 Gastroesoph ageal reflux disease 874927283 Active Briseida Ward null[place] - [facility] - [place] & [place] 3 13:12:26 Headache 74327515 Active Briseida Ward null[place] - [facility] - [place] & [place] 3 13:12:26 Gastroesoph ageal reflux disease without esophagitis 533856460 Active 2020 Briseida smith[place] - [facility] - [place] & [place] 3 13:12:26 Mixed hyperlipide demetrius 793317210 Active 2020 Briseida smith[place] - [facility] - [place] & [place] 3 13:12:26 Postoperati ve hypothyroid ism 28423385 Active 2020 Briseida smith[place] - [facility] - [place] & [place] 3 13:12:26 History of cerebrovasc ular accident 396708904 Active 2020 Briseida smith[place] - [facility] - [place] & [place] 3 13:12:26 Chest pain 81761524 Active Briseida Ward null[place] - [facility] - [place] & [place] 3 13:12:26 Restless legs 59147606 Active 2020 Briseida Ward null[place] - [facility] - [place] & [place] 3 13:12:26 Vitamin D deficiency 16179334 Active 2020 Briseida Ward null[place] - [facility] - [place] & [place] 3 13:12:26 Depressive disorder 32229059 Active Briseida Ward null[place] - [facility] - [place] & [place] 3 13:12:26 Panic disorder 047476764 Active Briseida smith, [facility] & [place] 3 13:12:26 Hypertensiv e disorder 91468039 Active Briseida smith, [place] - [facility] - [place] & [place] 3 13:12:26 Neuropathy 405635104 Active 2017 [facility] & [place] 3 13:12:26 Disorder of pituitary gland 366494845 Active Briseida smith, [place] - [facility] - [place] & [place] 3 13:12:26 Hypothyroid ism 79367153 Active Briseida smith, [facility] - [place] & [place] 3 13:12:26 Congestive heart failure 62507191 Active 2018 [facility] Lovett [facility] - [facility] & [place] 3 13:12:26 Hypokalemia 02498705 Active Briseida smith, [place] - [facility] - [place] & [place] 3 13:12:26 Pulmonary embolism 73765350 Active LOPE[facility] Lovett - [facility] - [place] & [place] 3 13:12:26 Rheumatoid arthritis 42845608 Active 2020 [facility]ett [facility] - & [place] 3 13:12:26 Long-term current use of anticoagula nt 216722648 Active 2020 Briseida smith, [place] - [facility] - [place] & [place] 3 13:12:26 Acquired absence of cervix and uterus 109620648 Active 2020 Briseida smith, [place] - [facility] - [place] & [place] 3 13:12:26 Gout 60673609 Active 2020 [facility] Lovett - [facility] - [place] & [place] 3 13:12:26 Chronic migraine without aura 5847019411508 05 Active 2022 Kyler Johnson MD [address], [address], [place], [address], [place] [facility] & [place] 3 14:31:10 Lumbar spondylosis 863233080 Active 2022 Kyler Johnson MD [address], [address], [place], [address], [place] - [facility] - [facility] & [place] 3 14:31:19 Cervical radiculitis 91633622 Active 2022 Kyler Johnson MD [address], [address], [place], [address], [place] - [facility] - [facility] & [place] 3 14:31:27 Arthritis of facet joint of cervical spine 4943282616771 9106 Active 2022 Kyler Johnson MD [address], [address], [place], [address], [place] - [facility] - [place] & [place] 3 16:30:05 Cervicogeni c headache 105267782 Active 2022 Kyler Johnson MD [address], [address], [place], [address], [place] - [facility] - [place] & [place] 3 16:30:17 Chronic pain syndrome 679842854 Active 2023 Kyler Johnson MD [address], [address], [place], [address], [place] [facility] & [place] 4 15:35:45 Notes:Some problems listed i n Document: #[id number] could not be added to this patient's chart. Please review this document and add these problems to the patient's chart manually as needed. Problem Notes None recorded. Procedures Surgical History Date Name Laterality Status Provider Name and Address Organization Details Recorded Time 08/09/19 24 Other completed Abbi Valdez [place] - [facility] - [place] & [place] 10/04/2024 13:35:14 08/09/19 23 Back Surgery completed Briseida Ward [place] - [facility] - [place] & [place] 12/09/2023 14:41:25 05/12/20 22 Most Recent Bone Density completed Fabiana MALCOLM [facility] & [place] 07/19/2024 14:37:25 08/09/19 15 Thyroid Surgery completed Briseida MALCOLM [facility] & [place] 12/09/2023 14:41:25 08/09/19 06 Head or Neck Surgery completed Briseida MALCOLM [facility] & [place] 12/09/2023 14:41:25 laparoscopic sleeve gastrectomy completed Briseida MALCOLM [facility] & [place] 04/05/2023 13:50:58 Other completed Fabiana MALCOLM [facility] & [place] 07/19/2024 14:37:34 Appendectomy completed Fabiana MALCOLM [facility] & [place] 07/19/2024 14:37:34 Cholecystectomy completed Fabiana MALCOLM [facility] & [place] 07/19/2024 14:37:34 Imaging Results None recorded. Procedure Notes None recorded. Medical Equipment None Reported. Allergies Allergen ID Allergen Name Allergen Category Reaction Reaction Severity Criticality Documentation Date Start Date Code Code System Note Provider Name and Address Organization Details Recorded Time 423459 latex environme nt,medica tion hives severe Not available 07/19/20242017 08928 91 RxNorm [facility]onna smith[facility] & [place] 5 14:45:41 299369 ofloxacin medicatio n rash severe Not available 08/28/20242017 7623 RxNorm Ronna griffiths luis, [place] - [facility] & [place] 5 14:45:41 372709 tramadol medicatio n Not available Not available Not available 08/28/20242017 08623 RxNorm Ronna griffiths luis, [facility] Kerr [facility] & [place] 5 14:45:41 [address]47[address] Substance with sulfonami de structure and antibacte rial mechanism of action (substanc e) medicatio n eye redness severe Not available 04/05/20232019 24199 8003 SNOMED Briseida smith, [facility] MALCOLM [facility] & [place] 13:12:22 [address] lisinopri l medicatio n cough severe Not available 04/05/20232017 11601 RxNorm Ronna [facility] eric smith, [facility] Kerr [facility] & [place] 5 14:45:41 07016 morphine medicatio n Not available Not available Not available 04/05/20232017 7052 RxNorm Ronna [facility] eric smith, [facility] & [place] 5 14:45:41 [address] fentanyl medicatio n anaphylax is severe Not available 04/05/20232017 4337 RxNorm Ronna [facility] eric smith, [facility] & [place] 14:45:41 [address]143 levothyro xine sodium medicatio n diarrhea Not available Not available 04/05/2023 [address]1212 RxNorm Briseida smith, [facility] & [place] 13:12:22 Medications Name Sig Start Date Stop Date Status Note LastModified by Organization Details LastModified Time verapamil ER (SR) 120 mg tablet,exte nded release 120 mg by oral route. active Not Available Not Available No t Available cyclobenzap rine 10 mg tablet TAKE ONE (1) TABLET EVERY DAY BY ORAL ROUTE AT BEDTIME FOR 90 DAYS. active Not Available Not Available No t Available amoxicillin 500 mg capsule TAKE ONE (1) CAPSULE EVERY 8 HOURS BY ORAL ROUTE FOR 7 DAYS. 12/05 completed Not Available Not Available Not Available furosemide 40 mg tablet 40 mg by oral route. 07/12 completed Not Available Not Available Not Available atorvastati n 40 mg tablet 1 q day 08/10 completed Not Available Not Available Not Available buspirone 5 mg tablet 5 mg by oral route. 07/12 completed Not Available Not Available Not Available hydralazine 10 mg tablet TAKE ONE (1) TABLET THREE (3) TIMES A DAY BY ORAL ROUTE. 11/26 completed Not Available Not Available Not Available promethazin e-DM 6.25 mg-15 mg/5 mL oral syrup TAKE FIVE (5) ML EVERY FOUR (4) HOURS BY ORAL ROUTE NEEDED. active Not Available Not Available No t Available clonidine HCl 0.1 mg tablet TAKE ONE (1) TABLET TWICE A DAY BY ORAL ROUTE NEEDED, FOR BP. active Not Available Not Available No t Available acetaminoph en 325 mg tablet 650 mg by oral route. 04/10 completed Not Available Not Available Not Available prednisone 10 mg tablet 10 mg by oral route. 07/12 completed Not Available Not Available Not Available ipratropium 0.5 mg-albutero l 3 mg (2.5 mg base)/3 mL nebulizatio n soln INHALE THREE (3) ML FOUR (4) TIMES A DAY BY NEBULIZAT ION ROUTE DIRECTED FOR FIVE (5) DAYS. 09/29 completed Not Available Not Available Not Available quetiapine 300 mg tablet 07/12 completed Not Available Not Available Not Available loperamide 2 mg capsule 06/22 completed Not Available Not Available Not Available trazodone 50 mg tablet TAKE ONE (1) TABLET EVERY DAY BY ORAL ROUTE AT BEDTIME. active Not Available Not Available No t Available azithromyci n 250 mg tablet TAKE 2 TABLETS TODAY, THEN TAKE 1 TABLET EVERY DAY FOR 4 DAYS 06/18 completed Not Available Not Available Not Available fluconazole 150 mg tablet TAKE ONE (1) TABLET BY MOUTH NOW AND REPEAT IN THREE (3) DAYS IF NOT RESOLVED active Not Available Not Available No t Available hydrocodone 5 mg-acetamin ophen 325 mg tablet 2023 active Not Available Not Available Not Avai lable prazosin 1 mg capsule 06/22 completed Not Available Not Available Not Available ondansetron HCl 8 mg tablet 8 mg by oral route. active Not Available Not Available No t Available Synthroid 125 mcg tablet TAKE ONE (1) TABLET(S) EVERY DAY BY ORAL ROUTE DIRECTED 03/04 completed Not Available Not Available Not Available prednisone 20 mg tablet TAKE TWO (2) TABLETS BY ORAL ROUTE ONCE DAILY FOR FIVE (5) DAYS 11/05 completed Not Available Not Available Not Available Synthroid 100 mcg tablet TAKE ONE (1) TABLET EVERY DAY BY ORAL ROUTE DIRECTED active Not Available Not Available No t Available prednisone 5 mg tablet TAKE ONE BY MOUTH THREE (3) TIMES DAILY X ONE (1) WEEK; ONE BY MOUTH TWICE DAILY X ONE (1) WEEK THEN ONE BY MOUTH DAILY X ONE (1) WEEK 04/04 completed Not Available Not Available Not Available quetiapine 200 mg tablet 1 tab qhs 02/22 completed Not Available Not Available Not Available hydroxyzine pamoate 50 mg capsule 50 mg by oral route. 07/12 completed Not Available Not Available Not Available potassium chloride ER 10 mEq tablet,exte nded release TAKE TWO (2) TABLETS EVERY DAY BY ORAL ROUTE BEFORE MEALS FOR 90 DAYS. active Not Available Not Available No t Available metronidazo le 500 mg tablet Take 1 tablet twice a day by oral route for 7 days. 09/06 completed Not Available Not Available Not Available hydroxyzine HCl 50 mg tablet TAKE 1 TABLET 3 TIMES DAILY. 09/29 completed Not Available Not Available Not Available allopurinol 100 mg tablet TAKE TWO (2) TABLETS EVERY DAY BY ORAL ROUTE DIRECTED active Not Available Not Available No t Available tretinoin 0.05 % topical cream APPLY TO THE AFFECTED AREA(S) BY TOPICAL ROUTE ONCE DAILY AT BEDTIME 09/08 completed Not Available Not Available Not Available doxepin 10 mg capsule TAKE ONE (1) ORAL CAPSULE AT BEDTIME 09/29 completed Not Available Not Available Not Available methotrexat e sodium 25 mg/mL injection solution 1 q weekly 06/22 completed Not Available Not Available Not Available ciprofloxac in 500 mg tablet Take 1 tablet twice a day by oral route for 7 days. 08/13 completed Not Available Not Available Not Available sulfamethox azole 800 mg-trimetho prim 160 mg tablet Take 1 tablet every 12 hours by oral route for 10 days. 06/24 completed Not Available Not Available Not Available hydrocodone 10 mg-acetamin ophen 325 mg tablet TAKE ONE (1) TABLET TWO (2) TO THREE (3) TIMES A DAY NEEDED 04/04 completed Not Available Not Available Not Available leflunomide 20 mg tablet 06/23 completed Not Available Not Available Not Available quetiapine 100 mg tablet TAKE 1 TABLET AT BEDTIME 09/29 completed Not Available Not Available Not Available triamterene 37.5 mg-hydrochl orothiazide 25 mg capsule 1 q day 08/10 completed Not Available Not Available Not Available butalbital- acetaminoph en-caffeine 50 mg-325 mg-40 mg tablet TAKE ONE (1) TABLET BY MOUTH THREE TIMES DAILY NEEDED active Not Available Not Available No t Available ondansetron 8 mg disintegrat ing tablet TAKE ONE (1) TABLET DISSOLVE ON TONGUE/SW ALLOW- THREE (3) TIMES A DAY NEEDED active Not Available Not Available No t Available levothyroxi ne 75 mcg tablet 0.075 mg by oral route. 07/12 completed Not Available Not Available Not Available Nitro-Bid 2 % transdermal ointment 1 in by transderm . route. 04/10 completed Not Available Not Available Not Available verapamil 120 mg tablet TAKE 1 TABLET TWICE A DAY. 07/07 completed Not Available Not Available Not Available oxycodone-a cetaminophe n 5 mg-325 mg tablet TAKE 1 TABLET BY MOUTH EVERY FOUR HOURS FOR PAIN 12/16 completed Not Available Not Available Not Available calcium 600 mg (as calcium carbonate 1,500 mg) tablet 600 mg by oral route. active Not Available Not Available No t Available amoxicillin 875 mg tablet TAKE ONE (1) TABLET EVERY 12 HOURS BY ORAL ROUTE FOR 7 DAYS. 04/04 completed Not Available Not Available Not Available potassium chloride ER 20 mEq tablet,exte nded release(par t/cryst) 07/12 completed Not Available Not Available Not Available amitriptyli ne 25 mg tablet TAKE ONE (1) TABLET EVERY DAY BY ORAL ROUTE AT BEDTIME FOR 90 DAYS. 12/05 completed Not Available Not Available Not Available methocarbam ol 750 mg tablet TAKE ONE (1) TABLET THREE (3) TIMES A DAY BY ORAL ROUTE NEEDED active Not Available Not Available No t Available famciclovir 500 mg tablet TAKE THREE (3) TABLETS BY MOUTH X ONE (1) DOSE active Not Available Not Available No t Available methotrexat e sodium 2.5 mg tablet 2.5 mg by oral route. 07/12 completed Not Available Not Available Not Available trazodone 100 mg tablet Take 1 tablet every day by oral route at bedtime for 30 days. 02/28 completed Not Available Not Available Not Available dicyclomine 20 mg tablet TAKE ONE (1) TABLET FOUR (4) TIMES A DAY BY ORAL ROUTE FOR 90 DAYS. active Not Available Not Available No t Available meclizine 25 mg tablet Take 1 tablet every day by oral route as needed for 5 days. 03/28 completed Not Available Not Available Not Available benzonatate 100 mg capsule Take 1 capsule 3 times a day by oral route as needed for 10 days. 03/28 completed Not Available Not Available Not Available doxycycline monohydrate 100 mg capsule 05/14 completed Not Available Not Available Not Available potassium chloride 40 mEq/15 mL oral liquid 06/23 completed Not Available Not Available Not Available hydrocodone 7.5 mg-acetamin ophen 325 mg tablet TAKE ONE (1) TABLET FOUR (4) TIMES A DAY BY ORAL ROUTE FOR 30 DAYS. active Not Available Not Available No t Available Betasept Surgical Scrub 4 % topical liquid SHOWER EACH DAY WITH SOLUTION FOR FIVE (5) DAYS BEGINNING FIVE (5) DAYS BEFORE SURGERY. 01/23 completed Not Available Not Available Not Available cephalexin 500 mg capsule TAKE 1 CAPSULE BY MOUTH TWICE DAILY FOR 7 DAYS 01/23 completed Not Available Not Available Not Available pantoprazol e 40 mg tablet,jeannette yed release TAKE ONE (1) TABLET EVERY DAY BY ORAL ROUTE DIRECTED FOR 90 DAYS. active Not Available Not Available No t Available erythromyci n 5 mg/gram (0.5 %) eye ointment 05/14 completed Not Available Not Available Not Available oseltamivir 75 mg capsule 12/26 completed Not Available Not Available Not Available tobramycin 0.3 % eye drops INSTILL 1 DROP INTO AFFECTED EYE(S) BY OPHTHALMI C ROUTE EVERY 4 HOURS 02/28 completed Not Available Not Available Not Available ropinirole 0.5 mg tablet TAKE ONE (1) TABLET BY MOUTH EVERY NIGHT AT BEDTIME 06/24 completed Not Available Not Available Not Available nystatin 100,000 unit/gram topical cream APPLY TO THE AFFECTED AREA(S) BY TOPICAL ROUTE 2 TIMES PER DAY 01/23 completed Not Available Not Available Not Available prednisone 50 mg tablet 08/10 completed Not Available Not Available Not Available promethazin e 25 mg tablet TAKE ONE (1) TABLET EVERY FOUR (4) TO SIX (6) HOURS NEEDED 09/29 completed Not Available Not Available Not Available polymyxin B sulfate 10,000 unit-trimet hoprim 1 mg/mL eye drops INSTILL 1 DROP INTO AFFECTED EYE(S) BY OPHTHALMI C ROUTE EVERY 6 HOURS 12/07 completed Not Available Not Available Not Available warfarin 5 mg tablet 06/23 completed Not Available Not Available Not Available indomethaci n 25 mg capsule TAKE ONE (1) CAPSULE THREE (3) TIMES A DAY BY ORAL ROUTE NEEDED FOR FIVE (5) DAYS. 07/16 completed Not Available Not Available Not Available acetylcyste ine 100 mg/mL (10 %) solution 08/10 completed Not Available Not Available Not Available nitroglycer in 0.4 mg sublingual tablet 0.4 mg by sublingua l route. 04/10 completed Not Available Not Available Not Available docusate sodium 100 mg capsule 100 mg by oral route. active Not Available Not Available No t Available gabapentin 300 mg capsule 09/29 completed Not Available Not Available Not Available triamterene 37.5 mg-hydrochl orothiazide 25 mg tablet 09/23 completed Not Available Not Available Not Available omeprazole 20 mg capsule,del ayed release active Not Available Not Available Not Available aspirin 81 mg chewable tablet 324 mg by oral route. 04/10 completed Not Available Not Available Not Available zinc gluconate 50 mg tablet 50 mg by oral route. active Not Available Not Available No t Available folic acid 1 mg tablet 1 mg by oral route. 07/12 completed Not Available Not Available Not Available codeine 10 mg-guaifene sin 100 mg/5 mL oral liquid 06/23 completed Not Available Not Available Not Available allopurinol 300 mg tablet 300 mg by oral route. active Not Available Not Available No t Available hydrochloro thiazide 25 mg tablet TAKE ONE (1) TABLET EVERY DAY BY ORAL ROUTE NEEDED active Not Available Not Available No t Available mupirocin 2 % topical ointment APPLY TO THE INSIDE OF EACH NOSTRIL WITH A COTTON SWAB TWO TIMES DAILY, MORNING AND EVENING, FOR FIVE (5) DAYS BEFORE SURGERY. DO NOT TOUCH Q-TIP TO TUBE AFTER APPLICATI ON 12/05 completed Not Available Not Available Not Available furosemide 20 mg tablet TAKE 1 TABLET ONCE DAILY DIRECTED. active Not Available Not Available No t Available Synthroid 112 mcg tablet Take 1 tablet every day by oral route as directed for 30 days. 09/28 completed Not Available Not Available Not Available mirtazapine 15 mg tablet Take 1 tablet every day by oral route at bedtime for 30 days. 06/24 completed Not Available Not Available Not Available gabapentin 100 mg capsule 100 mg by oral route. 07/12 completed Not Available Not Available Not Available dexamethaso ne sodium phosphate 4 mg/mL injection solution 8mg x1 dose now 07/07 completed Not Available Not Available Not Available azelastine 137 mcg (0.1 %) nasal spray [place] 1 spray every day by nasal route for 25 days. 03/28 completed Not Available Not Available Not Available hydroxychlo roquine 200 mg tablet 06/23 completed Not Available Not Available Not Available prednisone 5 mg tablets in a dose pack 05/10 completed Not Available Not Available Not Available polyethylen e glycol 3350 17 gram/dose oral powder 06/23 completed Not Available Not Available Not Available estradiol 0.01% (0.1 mg/gram) vaginal cream INSERT ONE (1) GRAM PER VAGINA WEDNESDAY, WEDNESDAY , AND WEDNESDAY. RX WILL LAST DAY SUPPLY active Not Available Not Available No t Available levofloxaci n 750 mg tablet 06/23 completed Not Available Not Available Not Available zolpidem 10 mg tablet TAKE ONE (1) TABLET ONCE DAILY AT BEDTIME. active Not Available Not Available No t Available methylpredn isolone 4 mg tablets in a dose pack TAKE ONE (1) DOSE PACKET BY ORAL ROUTE DIRECTED. active Not Available Not Available No t Available albuterol sulfate HFA 90 mcg/actuati on aerosol inhaler INHALE TWO (2) PUFFS EVERY FOUR (4) HOURS NEEDED FOR WHEEZING OR SHORTNESS OF BREATH (OR PROLONGED COUGH, CHEST CONGESTIO N, OR CHEST TIGHTNESS ). active Not Available Not Available No t Available colchicine 0.6 mg tablet TAKE TWO (2) TABS NOW THEN ONE (1) TAB ONE HOUR LATER 12/05 completed Not Available Not Available Not Available betamethaso ne dipropionat e 0.05 % topical ointment APPLY A THIN LAYER TO THE AFFECTED AREA(S) BY TOPICAL ROUTE 2-3 times DAILY 02/28 completed Not Available Not Available Not Available ondansetron 4 mg disintegrat ing tablet TAKE 1 TABLET EVERY SIX TO EIGHT HOURS NEEDED FOR NAUSEA. 09/29 completed Not Available Not Available Not Available cefdinir 300 mg capsule TAKE 1 CAPSULE TWICE DAILY FOR 7 DAYS active Not Available Not Available No t Available topiramate 100 mg tablet 06/23 completed Not Available Not Available Not Available dexamethaso ne sodium phosphate 10 mg/mL injection solution Take 10 mg by injection route. 08/10 completed Not Available Not Available Not Available fluticasone propionate 50 mcg/actuati on nasal spray,suspe nsion ADMINISTE R TWO (2) SPRAYS INTO EACH NOSTRIL DAILY. SHAKE GENTLY. BEFORE FIRST USE, PRIME PUMP. AFTER USE, CLEAN TIP AND REPLACE CAP. active Not Available Not Available No t Available cholecalcif vi (vitamin D3) 125 mcg (5,000 unit) capsule active Not Available Not Available Not Available dicyclomine 10 mg capsule 05/10 completed Not Available Not Available Not Available naproxen 500 mg tablet 06/23 completed Not Available Not Available Not Available diazepam 5 mg tablet TAKE ONE -MAY TAKE UP TO TWO TABLETS IF NEEDED- EVERY 8 HOURS NEEDED active Not Available Not Available No t Available metoclopram jose luis 10 mg tablet 10 mg by oral route. active Not Available Not Available No t Available amoxicillin 875 mg-potassiu m clavulanate 125 mg tablet TAKE ONE (1) TABLET EVERY 12 HOURS BY ORAL ROUTE DIRECTED FOR 7 DAYS. 07/16 completed Not Available Not Available Not Available amoxicillin 500 mg-potassiu m clavulanate 125 mg tablet TAKE ONE (1) TABLET THREE (3) TIMES A DAY BY ORAL ROUTE FOR 14 DAYS. active Not Available Not Available No t Available buspirone 15 mg tablet Take 1 tablet 3 times a day by oral route. 06/24 completed Not Available Not Available Not Available tobramycin 0.3 %-dexametha sone 0.1 % eye drops,suspe nsion INSTILL ONE (1) DROP INTO AFFECTED EYE(S) BY OPHTHALMI C ROUTE EVERY SIX (6) HOURS 09/29 completed Not Available Not Available Not Available hydroxyzine pamoate 25 mg capsule bid as needed 09/27 completed Not Available Not Available Not Available enoxaparin 60 mg/0.6 mL subcutaneou s syringe INJECT ONE (1) MG/KG BY SUBCUTANE OUS ROUTE EVERY IN THE MORNING BEFORE SURGERY DIRECTED BY OFFICE 11/05 completed Not Available Not Available Not Available enoxaparin 100 mg/mL subcutaneou s syringe INJECT 100MG SUBCUTANE OUSLY IN THE MORNING 09/29 completed Not Available Not Available Not Available enoxaparin 40 mg/0.4 mL subcutaneou s syringe INJECT 0.4 ML EVERY DAY BY SUBCUTANE OUS ROUTE FOR FIVE (5) DAYS. DISCARD ANY REMAINDER active Not Available Not Available No t Available morphine 2 mg/mL injection syringe 1 mg by injection route. 04/10 completed Not Available Not Available Not Available azithromyci n 500 mg tablet Take 1 tablet every day by oral route for 3 days. 02/22 completed Not Available Not Available Not Available escitalopra m 20 mg tablet 06/23 completed Not Available Not Available Not Available Humira 40 mg/0.8 mL subcutaneou s syringe kit 06/23 completed Not Available Not Available Not Available Restasis 0.05 % eye drops in a dropperette INSTILL ONE (1) DROP INTO AFFECTED EYE(S) BY OPHTHALMI C ROUTE EVERY 12 HOURS 07/16 completed Not Available Not Available Not Available Phenadoz 25 mg rectal suppository 06/23 completed Not Available Not Available Not Available Ciprodex 0.3 %-0.1 % ear drops,suspe nsion INSTILL 4 DROPS INTO AFFECTED EAR(S) BY OTIC ROUTE 2 TIMES PER DAY FOR 7 DAYS 02/28 completed Not Available Not Available Not Available potassium chloride ER 10 mEq tablet,exte nded release(par t/cryst) active Not Available Not Available Not Available nitrofurant oin monohydrate /macrocryst als 100 mg capsule active Not Available Not Available Not Available Enbrel 50 mg/mL (1 mL) subcutaneou s syringe 06/23 completed Not Available Not Available Not Available pregabalin 75 mg capsule TAKE ONE (1) CAPSULE TWICE A DAY BY ORAL ROUTE FOR 90 DAYS. active Not Available Not Available No t Available ramelteon 8 mg tablet TAKE ONE (1) ORAL TABLET AT BEDTIME 06/24 completed Not Available Not Available Not Available quetiapine 50 mg tablet Take 1 tablet every day by oral route. 03/28 completed Not Available Not Available Not Available calcium 600 mg (as carbonate)- vitamin D3 10 mcg (400 unit) tablet Take 1 tablet every day by oral route for 90 days. 09/29 completed Not Available Not Available Not Available ondansetron HCl (PF) 4 mg/2 mL injection solution 4 mg by injection route. 04/10 completed Not Available Not Available Not Available Alaway 0.025 % (0.035 %) eye drops INSTILL 1 DROP INTO AFFECTED EYE(S) BY OPHTHALMI C ROUTE EVERY 12 HOURS 02/28 completed Not Available Not Available Not Available BD PosiFlush Normal Saline 0.9 % injection syringe 10 mL by injection route. 04/10 completed Not Available Not Available Not Available diclofenac 1 % topical gel APPLY FOUR (4) GRAM(S) UP TO FOUR (4) TIMES A DAY 01/23 completed Not Available Not Available Not Available Vitamin D 2,000 unit capsule Take 1 capsule every day by oral route. 04/07 completed Not Available Not Available Not Available Cimzia 400 mg/2 mL (200 mg/mL x 2) subcutaneou s syringe kit INJECT TWO (2) ML EVERY FOUR (4) WEEKS BY SUBCUTANE OUS ROUTE FOR 30 DAYS. active Not Available Not Available No t Available Mucus Relief ER 600 mg tablet, extended release TAKE ONE (1) TABLET EVERY 12 HOURS BY ORAL ROUTE FOR 10 DAYS. 11/05 completed Not Available Not Available Not Available butalbital- acetaminoph en-caffeine 50 mg-300 mg-40 mg capsule TAKE 1 CAPSULE BY MOUTH THREE TIMES DAILY NEEDED FOR 30 DAYS 06/24 completed Not Available Not Available Not Available Vitamin D3 50 mcg (2,000 unit) capsule Take 3 capsules every day by oral route for 90 days. 01/12 completed Not Available Not Available Not Available Xeljanz 5 mg tablet 06/23 completed Not Available Not Available Not Available linaclotide 145 mcg capsule 07/12 completed Not Available Not Available Not Available Linzess 290 mcg capsule TAKE ONE (1) CAPSULE EVERY DAY BY ORAL ROUTE FOR 90 DAYS. active Not Available Not Available No t Available Eliquis 5 mg tablet TAKE ONE (1) TABLET TWICE A DAY. active Not Available Not Available No t Available Breo Ellipta 100 mcg-25 mcg/dose powder for inhalation Inhale 1 puff twice a day by inhalatio n route as needed for 30 days. 05/31 completed Not Available Not Available Not Available Actemra 162 mg/0.9 mL subcutaneou s syringe 05/14 completed Not Available Not Available Not Available Cosentyx 150 mg/mL subcutaneou s syringe INJECT ONE (1) ML EVERY FOUR (4) WEEKS BY SUBCUTANE OUS ROUTE. 04/04 completed Not Available Not Available Not Available Cosentyx Pen 150 mg/mL subcutaneou s pen injector 04/04 completed Not Available Not Available Not Available Nexium 24HR 20 mg tablet,jeannette yed release Take 2 tablets every day by oral route. 08/10 completed Not Available Not Available Not Available Trintellix 20 mg tablet TAKE ONE (1) TABLET ONCE DAILY. active Not Available Not Available No t Available Orencia ClickJect 125 mg/mL subcutaneou s auto-inject or 1 q week 12/05 completed Not Available Not Available Not Available Restasis MultiDose 0.05 % eye drops INSTILL 1 DROP INTO AFFECTED EYE(S) BY OPHTHALMI C ROUTE EVERY 12 HOURS 12/05 completed Not Available Not Available Not Available Dilaudid (PF) 0.5 mg/0.5 mL injection syringe 0.5 mg by injection route. 04/10 completed Not Available Not Available Not Available Nexium 24HR 20 mg capsule,del ayed release Take 1 capsule every day by oral route. 09/08 completed Not Available Not Available Not Available oxygen active Not Available Not Availa ble Not Available Trelegy Ellipta 100 mcg-62.5 mcg-25 mcg powder for inhalation INHALE ONE (1) PUFF BY MOUTH DAILY. active Not Available Not Available No t Available Kevzara 200 mg/1.14 mL subcutaneou s pen injector SQ every 2 weeks 03/28 completed Not Available Not Available Not Available Actemra ACTPen 162 mg/0.9 mL subcutaneou s pen injector medicatio n:Actemra ACTPen Subcutane ous Solution Auto-inje ctor 162 MG/0.9ML dose:0.0 route:CAMPBELL BCUT freq uency:ONC E WEEKLY 05/14 completed Not Available Not Available Not Available Bariatric Multivitami ns active Not Available Not Available Not Available Rinvoq 15 mg tablet,exte nded release TAKE ONE (1) TABLET EVERY DAY BY ORAL ROUTE. active Not Available Not Available No t Available allopurinol 200 mg tablet Take 1 tablet every day by oral route for 90 days. 2022 active Not Available Not Available Not Avai lable Vitals Date Recorded Body height Body mass index (BMI) Body weight Body temperature Heart rate Oxygen saturation Oxygen saturation in Arterial blood by Pulse oximetry Respiratory rate Systolic And Diastolic Provider Name and Address Organization Details Last Updated DateTime 5 165.1 cm 23.8 kg/m2 46951.7 1 g 97.7 [degF] 63 /min 99 % 99 % 20 /min 200/113 mm[Hg] Domi Wil [facility] & [place] 5 13:42:51 Social History Question Answer Notes LastModified by Organizat ion Details LastModified Time Tobacco Smoking Status Never Smoker [facility] [place] 04/05/2023 13:50:31 Do You Have An Advance Directive? No [email or web address] Information not available 07/19/2024 Are You Blind Or Do You Have Difficulty Seeing? Yes [email or web address] Information not available 07/19/2024 Are You Passively Exposed To Smoke? No [email or web address] Information not available 07/19/2024 Sex: Female Functional Status Question Answer Note LastModified by Organizat ion Details LastModified Time Do you use any illicit or recreational drugs? No Information not available 07/19/2024 What is your level of alcohol consumption? None Information not available 04/05/2023 What is your exercise level? None Information not available 12/09/2023 Mental Status None recorded. Family History Relationship Description Onset Age of this Age Resolved Age Notes LastModified by Organization Details LastModified Time Father No current problems or disability [email or web address] Not available 01/31/2025 13:22:52 Mother Hypertensive disorder 73 [email or web address] Not available 2022 13:52:31 Sister Neoplasm of brain 54 [email or web address] Not available 01/31 13:22:52 Medical History Condition Response Anxiety Disorder Y Gout Y Arthritis Y Congestive Heart Failure (CHF) Y Back Problems Y Stroke Y Thyroid Problems Y Depression Y COPD Y Asthma Y Clotting Disorder Y Reflux/GERD Y Rheumatoid Arthritis Y Fibromyalgia Y Headaches Y Hypertension Y Gynecological History Statement/Question Response Menses Monthly N Current Control Method Hysterectom y Date of LMP 07/12/2024 Most Recent Bone Density 05/12/2022 Sexually Active? Y Obstetrics History GPAL:G 0 P 0 0 0 0 Immunizations Vaccine Type Date Status Note Provider Nam e and Address Organization Details Recorded Time Influenza, split virus, quadrivalent, preservative 9 completed Briseida Ward null, [place] - [facility] - [place] & [place] 04/05/2023 13:12:27 Influenza, split virus, quadrivalent, preservative 8 completed Briseida Ward null, [place] - [facility] [place] & [place] 04/05/2023 13:12:27 COVID-19, mRNA, LNP-S, PF, 100 mcg/0.5mL dose or 50 mcg/0.25mL dose 2 completed Briseida Ward null, [place] - [facility] - [place] & [place] 12/09/2023 14:37:50 COVID-19, mRNA, LNP-S, PF, 100 mcg/0.5mL dose or 50 mcg/0.25mL dose 1 completed Briseida Ward null, [place] - [facility] - [place] & [place] 12/09/2023 14:37:50 Hep A, adult 9 completed Briseida Ward null, [place] - [facility] [place] & [place] 04/05/2023 13:12:27 Hep A, adult 8 completed Briseida smith, LOPEZ MALCOLM [facility] & [place] 04/05/2023 13:12:27 Influenza, split virus, quadrivalent, PF 0 completed Briseida smith, LOPEZ Kerr [facility] - [place] & [place] 12/09/2023 14:37:50 Influenza, split virus, quadrivalent, PF 8 completed Briseida smith, LOPEZ Kerr LPJEFF [facility] & [place] 04/05/2023 13:12:27 Influenza, split virus, quadrivalent, preservative 3 completed Kita smith, LOPEZ Kerr LPJEFF [facility] & [place] 07/31/2024 13:08:12 Past Encounters Encounter ID Performer Location Encounter Start Date Encounter Closed Date Diagnosis/Indication Diagnosis SNOMED-CT Code Diagnosis ICD10 Code Diagnosis Note [id number] Kyler Johnson MD [facility] - [address] [place] [phone] 01/31/2025 13:22:42 01/31/2025 14:08:10 Cervical post-laminectomy syndrome 562839612 M96.1 - Known history of C5-6 ACDF on 03/18/2009- Patient is s/p C4/C5 and C6/C7 discectomy and fusion on 12/19/[address] Zaldivar. I did personally review patients hospital notes Cervical spondylosis 387 577526 M47.812 - History, exam and imaging consistent with cervical spondylosi s and facet arthropath y- Patient has tried the following conservati ve treatments with minimal improvemen ts: OTC analgesics , NSAIDs, muscle relaxers, physical therapy, home exercise plan (completed since 03/2023)- Patient reports the following activities are difficult to complete because of their pain: prolonged standing, walking and activities of daily living- Patient did not respond well to cervical MBBs, had worsening neck pain- Patient did not tolerate 10 mg of hydrocodon e but reports tolerating the 7.5 mg without side effects. increasing patient's hydrocodon e to 4 times daily dosing for the month of February as patient recovers from her cervical fusion. Unfortunat nisha she has had a difficult recovery with some complicati ons. Reducing back to TID dosing for Aguust script. Patient in agreement and understand with plan of care. She has a follow-up appointmen t coming up with Dr. Zaldivar Cervical radiculopathy [id number] M54.12 Cervicogenic headache 27 [id number] G44.86 - Severe bilateral occipital neuralgia. Severe tenderness over the bilateral occiput. Likely due to underlying cervical facet arthritis. Could not consider bilateral occipital nerve block, patient currently on anticoagul ation with Eliquis. Lumbar post-laminectomy syndrome [id number] M96.1 - History of T12-L1 laminectom y in October 2022 Lumbar spondylosis 70934 0009 M47.896 - History, exam and imaging consistent with lumbar spondylosi s and facet arthropath y- Patient has tried the following conservati ve treatments with minimal improvemen ts: OTC analgesics , NSAIDs, muscle relaxers, physical therapy, home exercise plan (completed since 03/2023)- Patient reports the following activities are difficult to complete because of their pain: prolonged standing, walking and activities of daily living- Symptoms are currently well controlled with oral medication s and conservati ve treatments Rheumatoid arthritis 698 82417 M06.9 - Known loistania cullen history of rheumatoid arthritis, follows with [facility]- Patient is currently on immunosupp ression M ni re's disease [id number] H81.09 - Patient has loistania cullen history of Meniere's Disease, is prescribed Valium QHS for this. Report sthis is stable- Patient does utilize benzodiaze pines with opiate medication s. We have reviewed the FDA warning regarding risks and side effects of using these medication s together. Patient understand s not to take these medication s together, must allow for two hours in between. Patient has been prescribed Narcan and understand s how and when to use this. Anticoagulant therapy 18 [id number] Z79.01 - Patient is on anticoagul ation therapy due to previous CVA x2- Would need to obtain cardiac clearance should any procedures be considered in the future Chronic id iopathic constipation [id number] K59.04 - History of CIC, well controlled with fiber gummies. Will continue to monitor Chronic pain syndrome 37 2600442 G89.4 Long-term current use of opiate analgesic drug [id number] 05248 Z79.891 - Patient does utilize benzodiaze pines with opiate medication s. We have reviewed the FDA warning regarding risks and side effects of using these medication s together. Patient understand s not to take these medication s together, must allow for two hours in between. Patient has been prescribed Narcan and understand s how and when to use this. Health Concerns Section Related Observation LastModified by Organization Audra ls LastModified Time None Recorded Concern Status LastModified by Organization Details LastModified Time None Recorded Payers Encounter Date Sequence Insurance Name Policy Number Policy Hilliard Covered Member ID Hilliard Member ID Guarantor Name 01/31/2025 1 [employer] - DUAL ELIGIBLE (MEDICARE REPLACEMENT/A DVANTAGE - HMO) Imani Casanova [id number] Imani Casanova Notes Date Note Type Note Provider Name and Address Organization Details Recorded Time 01/31/2025 text/html Ms. 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 presented to clinic with complaints of significant neck and low back pain. Follow-up Visit 01/31/25Ms. Carpio presents today for a medication management follow up visit. Since her last appointment patient had a C4/C5 and C6/C7 discectomy and fusion on 12/19/[address] Zaldivar. States the recovery has been difficult. States about two weeks after she was still in a considerable amount of pain, had to be put on steroids. Does note she had a hard fall recently. She does not notice a significant improvement in her symptoms since her surgery. Reports she has a follow up with Dr. Zaldivar on February 12. Patient reports her primary complaints remain her neck, low back and global joint pain secondary to rheumatoid arthritis. Patient states that her neck pain has started to radiate into the left arm, stopping at the elbow. She continues to have numbness and tingling in the left hand despite recently having carpal tunnel surgery. She describes her low back pain as a constant ripping pain, this will radiate into the legs going all the way into the feet. She reports numbness and tingling in her feet but denies or weakness. Patient reports her pain is aggravated with prolonged standing, walking and activities of daily living. Patient reports current medication regimen continues to provide adequate relief. Denies any related side effects including constipation or oversedation. They have no other new changes or concerns to report today. Procedural HistoryCervical median branch block 07/15/23 - complicated by severe weakness on the left side, had worsening of neck pain ImagingMRI Cervical Spine OMPARISON: None.FINDINGS:BONES AND MARROW: The marrow signal is within normal limits. 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 Normal cervical lordosis.DEGENERATIVE CHANGES: Multilevel degenerative changes, as discussed below:C2-C3: No significant stenosis or degeneration.C3-C4: Intervertebral disc space narrowing with tiny posterior disc osteophyte complex. Facet arthropathy and uncovertebral hypertrophy resulting in moderate right neural foraminal stenosis.C4-C5: Intervertebral disc space narrowing with broad posterior disc osteophyte complex with facet arthropathy and uncovertebral hypertrophy.i??i??Mil d spinal canal and neural foraminal stenosis.C5-C6: Fusion with no significant stenosis.C6-C7: Intervertebral disc space narrowing with broad posterior disc osteophyte complex with facet arthropathy and uncovertebral hypertrophy. Right paracentral disc protrusion is present as well.i??i??Moderate spinal canal and mild neural foraminal stenosis.C7-T1: No significant stenosis or degeneration.CORD: Mild heterogeneous signal at the level C4-C5 with associated volume loss.CSF: Unremarkable.Posterio r FOSSA: The posterior fossa and visualized portions of the brain are normal in signal. There is no tonsillar herniation.PARASPINAL SOFT TISSUE: No focal soft tissue abnormality.IMPRESSIO N:Multilevel degenerative changes of the cervical spine, as discussed above. 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 Mild heterogeneous signal at the level C4-C5 with associated volume loss,likely representing myelomalacia. MRI of lumbar spine from March 2023Well circumscribed cyst within the right dorsal margin of conus medullaris at T12. Measuring about 1.3 cm and 0.6 cm in diameter.T12-L1, L1-L2 no focal disc protrusion or extrusion.L2-L3 no focal disc protrusion or extrusion. Facet joints unremarkable.L3-L4 broad-based disc bulge. Normal facet joint hypertrophy and ligamentum flavum thickening.L4-L5 circumferential disc bulge. Moderate facet joint arthropathy and ligamentum flavum thickening.L5-S1 circumferential disc bulge. Facet arthropathy and ligamentum flavum thickening. X-ray cervical spine May 2023Multilevel degenerative disc disease, severe at C4-C5 C6 and C7.No evidence of spondylolisthesis.C5- C6 vertebral bodies are completely fused.Straightening of cervical spine [facility] [address] [place] [address], [address], [place], [address], [place] - [facility] - [place] & [place] 02/01/2025 14:59:12 OBGyn Episode No OBEpisode recorded.
--- OUTSIDE RECORDS SUMMARY | 2025-02-21 13:30 | XMS_ITS | Clinical Summary ---
Author Organization [employer] ([place], [place], [place], [place]) Address [address] [place] [address] Care Team Providers Care Outboard Motorboat Operator Name Role Phone Laura Smith Primary Care Provider [phone] Allergies Active Allergy Reactions Criticality Noted Date Comments Chlorhexidine Rash Low 10/19/2022 Wipes caused rash and irritation. Hibiclens shower solution caused no issues. Fentanyl Anaphylaxis,Other (See Comments),Shortnes s Of Breath High 07/18/2012 reports it causes pulmonary edema reports it causes pulmonary edema; tolerated hydromorphone reports it causes pulmonary edema; tolerated hydromorphone reports it causes pulmonary edema reports it causes pulmonary edema; tolerated hydromorphone reports it causes pulmonary edema; tolerated hydromorphone reports it causes pulmonary edema reports it causes pulmonary edema; tolerated hydromorphone fentanyl Latex Rash,Hives,Itching ,Other (See Comments) High 10/24/2015 Levothyroxine Diarrhea Low 03/15/2023 levothyroxine sodium Lisinopril Other (See Comments) High 06/15/2016 Morphine Other (See Comments),Palpitat ions,Shortness Of Breath High 09/04/2016 Chest pains Chest pains; tolerated hydromorphone Chest pains; tolerated hydromorphone Chest pains Chest pains; tolerated hydromorphone Chest pains; tolerated hydromorphone Chest pains Chest pains; tolerated hydromorphone Ofloxacin Rash High 09/21/2017 Sulfa (Sulfonamide Antibiotics) Other (See Comments) High 12/08/2019 Tramadol Other (See Comments) 12/13/2024 Medications * This document contains information received from the source organization and may not represent a complete record from that organization. Synthroid 100 mcg tablet Take 1 tablet (100 mcg total) by mouth Daily (0600). Active albuterol 90 mcg/actuation inhaler Inhale 2 puffs by mouth every 4 (four) hours as needed. Active allopurinoL (ZYLOPRIM) 100 MG tablet Take 2 tablets (200 mg total) by mouth daily. Active butalbital-acetamin ophen-caffeine (FIORICET, ESGIC) 50-325-40 mg per tablet Take 1 tablet by mouth 3 (three) times daily. Active dicyclomine (BENTYL) 20 mg tablet Take 1 tablet (20 mg total) by mouth 4 (four) times daily. Active furosemide (LASIX) 20 MG tablet Take 1 tablet (20 mg total) by mouth daily. Active Linzess 290 mcg cap Take 1 capsule (290 mcg total) by mouth every morning before breakfast. Active methocarbamoL (ROBAXIN) 750 MG tablet Take 1 tablet (750 mg total) by mouth 3 (three) times daily. Active metoclopramide (REGLAN) 10 MG tablet Take 1 tablet (10 mg total) by mouth every 4 (four) hours as needed. Active fluticasone-umeclid in-vilanter 100-62.5-25 mcg dsdv Inhale 1 puff by mouth daily. Active zolpidem (AMBIEN) 10 mg tablet Take 1 tablet (10 mg total) by mouth every night as needed. Active pregabalin (LYRICA) 75 MG capsule Take 1 capsule (75 mg total) by mouth 2 (two) times daily. Active ondansetron (ZOFRAN-ODT) 8 MG disintegrating tablet Take 1 tablet (8 mg total) by mouth every 8 (eight) hours as needed. Active pantoprazole (PROTONIX) 40 MG tablet Take 1 tablet (40 mg total) by mouth Daily (0600). Active potassium chloride (KLOR-CON) 10 MEQ CR tablet Take 1 tablet (10 mEq total) by mouth 2 (two) times daily. Active Rinvoq 15 mg Take 1 tablet (15 mg total) by mouth daily. Active Trintellix 20 mg tablet Take 1 tablet (20 mg total) by mouth daily. Active rzzlhvoexdji-fum-dc on-FA-vit K (Bariatric Multivitamins) 45 mg iron- 800 mcg-120 mcg cap Take 1 tablet by mouth daily. Active lactobacillus acidophilus-L.bulga ricus (LACTINEX) 100 million cell oral granules Take 1 packet (1 g total) by mouth 2 (two) times daily. Active nicotinamide riboside chloride (NICOTINAMIDE RIBOSIDE, BULK, MISC) Take 900 mg by mouth daily. Active pumpkin seed oil/saw palmetto (SAW PALMETTO-PUMPKIN SEED OIL ORAL) Take 3,000 mg by mouth daily. Active Eliquis 5 MG tablet Take 1 tablet (5 mg total) by mouth 2 (two) times daily Hold for 7 days to follow 12/19/2024 surgery. Active HYDROcodone-acetami nophen (NORCO) 7.5-325 mg per tablet Take 1 tablet by mouth every 6 (six) hours as needed for pain. Max Daily Amount: 4 tablets Active Active Problems Problem Noted Date Diagnosed Date Acquired hypothyroidism 12/13/2024 Primary hypertension 12/13/2024 PONV (postoperative nausea and vomiting) 025 Encounters Date Type Department Care Team Description 12/19/2024 11:28 AM EDT - 12/19/2024 2:08 PM EDT Surgery [facility] Operating Room [address] [place] [address] Zachary Zaldivar MD C4 TO C7 ACDF (PREVIOUS C5 TO C6) 12/19/2024 10:34 AM EDT Anesthesia Event [facility] Operating [facility] 1 [place] [address] Jen Hutton MD [place], Keith, MD 12/19/2024 8:06 AM EDT - 12/20/2024 6:30 PM EDT Hospital Encounter [facility] [address] [place] [address] Zachary Zaldivar MD Discharge Disposition: Home or Self Care 12/19/2024 Travel 12/13/2024 8:49 AM EDT - 12/13/2024 11:59 PM EDT Hospital Encounter [facility] Preadmission Testing 1 [place] [address] Zachary Zaldivar MD Preop testing (Primary Dx); Acquired hypothyroidism; Primary hypertension; PONV (postoperative nausea and vomiting) Discharge Disposition: Home or Self Care from Last 3 Months Social History Tobacco Use Types Packs/Day Years Used Date Smoking Tobacco: Never Smokeless Tobacco: Never Tobacco Cessation:Counseling Given: Not Answered Alcohol Use Standard Drinks/Week Comments Never 0 (1 standard drink = 0.6 oz pur e alcohol) [facility] - Mental Health Answer Date Recorde d Little interest or pleasure in doing things Not at all 12/13/2024 Feeling down, depressed, or hopeless Not at all 12/13/2024 Feeling of Stress Not on file 12/13/2024 Family and Community Support Answer Kt e Recorded Help with Day to Day Activities Not on file 11/11/2023 Feeling Lonely or Isolated Not on file 11/10 Educational Attainment Answer Date Scott rded Speak language other than Peruvian at home Not on file 11/11/2023 Want help with school or training Not on file 11/11/2023 Substance Use Answer Date Recorded Used prescription meds for non-medical reasons N ot on file 11/11/2023 Used illegal drugs past 12 months Not on file 11/11/2023 Comments Unknown Sex and Gender Information Value Date Recorded Sex Assigned at Not on file Legal Sex Female 4:34 PM CDT Gender Identity Not on file Sexual Orientation Not on file Last Filed Vital Signs Vital Sign Reading Time Taken Comments Blood Pressure 148/72 12/20/2024 11:25 AM EDT Pulse 91 12/20/2024 11:25 AM EDT Temperature 37 C (98.6 F) 12/20/2024 11:25 AM EDT Respiratory Rate 20 12/20/2024 11:2 5 AM EDT Oxygen Saturation 99% 12/20/2024 11: 25 AM EDT Inhaled Oxygen Concentration - - Weight 66.1 kg (145 lb 12.8 oz) 12/19/2024 8:34 AM EDT Height 165.1 cm (5' 5 ) 12/13/2024 9:46 AM EDT Body Mass Index 24.26 12/13/2024 9:46 AM EDT Plan of Treatment Health Maintenance Due Date Last Done Comments CT Colonography 1968 Colonoscopy 1968 Colorectal Cancer Screening 1968 FOBT/FIT 1968 Fit-DNA (Cologuard) 1968 Sigmoidoscopy 1968 HIV Screening 11/22/1983 Hepatitis C Screening 1986 DTAP/TDAP/TD VACCINES (1 - Tdap) 11/22/1987 Pap Smear 1989 Breast Cancer Screening 2008 Lipid Panel 2013 Pneumococcal 50+ years (1 of 1 - PCV) 2018 Shingles Vaccine (Zoster) (1 of 2) 2018 COVID-19 VACCINE (3 - season) 04/09/202402/2022, 07/24/2021 Medicare Initial AWV [id number] 08/10/2024 Influenza Vaccine (#1) 2025 Depression Screening (12+) 12/13/2025 12/13/2024 Tobacco Cessation Counseling and Screening (12+) 12/13/2025 12/13/2024 Medical Devices Implanted Type Area Clay Washer Device Identifier Shelf Expiration Date Model / Serial / Lot Bone Vivigen Formable Bl-1600-001 - [id number] Implanted:Qt y: 1 on 12/19/2024 by Zachary Zaldivar MD at [facility] IMPLANTS N/A: Spine Cervical LIFENET:LIFENET TRANSPLANT SRV [id number] 08/15/2025 BL-[id number] 001 / [id number] / Cage Eit Cif H 5mm 8d L Enc2800g - [id number] Implanted:Qt y: 1 on 12/19/2024 by Zachary Zaldivar MD at [facility] IMPLANTS N/A: Spine Cervical J &J:DEPUY:DEPUY SPINE [id number] 02/05/2034 [id number] / / [id number] Cage Eit Cif H 4mm L [id number] - [id number] Implanted:Qt y: 1 on 12/19/2024 by Zachary Zaldivar MD at [facility] IMPLANTS N/A: Spine Cervical J &J:DEPUY:DEPUY SPINE 09/08/2026 [id number] / / [id number] Plt Ant Skyln Hybrd Lvl3 48 Mm - [id number] Implanted:Qt y: 1 on 12/19/2024 by Zachary Zaldivar MD at [facility] IMPLANTS N/A: Spine Cervical J &J:DEPUY:DEPUY ORTHOPAEDIC / / Scr Skyln Vari Sd 14mm 50-014 - [id number] Implanted:Qt y: 5 on 12/19/2024 by Zachary Zaldivar MD at [facility] IMPLANTS N/A: Spine Cervical J &J:DEPUY:DEPUY SPINE 1868-50- 014 / [id number] / Scr Skyln Vari-Ovsz 14mm 54-014 - [id number] Implanted:Qt y: 1 on 12/19/2024 by Zachary Zaldivar MD at [facility] IMPLANTS N/A: Spine Cervical J &J:DEPUY:DEPUY SPINE 854- 014 / 54- 014 / Scr Skyln Vari Sd 16mm 50-016 - [id number] Implanted:Qt y: 3 on 12/19/2024 by Zachary Zaldivar MD at [facility] IMPLANTS N/A: Spine Cervical J &J:DEPUY:DEPUY SPINE 850- 016 / 50- 016 / Procedures Procedure Name Priority Date/Time Associated Diagnosis Comments BASIC METABOLIC PANEL Routine 12/20/2024 3:18 AM EDT CBC HEMOGRAM (SJ-BKR) Routine 12/20/2024 3:18 AM EDT [place] C-ARM < 1 HOUR Routine 12/19/2024 12: 03 PM EDT ANESTHESIA INTUBATION Routine 12/19/2024 10:42 AM EDT [place] ARTHRD ANT INTERBODY DECOMPRESS CERVICAL BELW C2 12/19/2024 10:34 AM EDT Brachial neuritis Case Notes IN 0830, 2h(R), PASS NOVA GLUCOSE POC Routine 12/19/2024 9:36 AM EDT NOVA GLUCOSE POC Routine 12/19/2024 9:07 AM EDT ABO/RH CONFIRMATION/RETYPE ([place] BKR) STAT 12/13/2024 10:48 AM EDT Preop testing URINALYSIS W/ MICROSCOPIC Routine 12/13/2024 9:17 AM EDT Preop testing CBC W/ AUTO DIFF STAT 12/13/2024 9:17 AM EDT Preop testing BASIC METABOLIC PANEL STAT 12/13/2024 9:17 AM EDT Preop testing from Last 3 Months Results * (ABNORMAL) CBC - Hemogram (12/20/2024 3:18 AM EDT) [facility] WBC 8.0 4.0 - 10.0 K/ L 12/20/2024 4:10 AM EDT [facility] RBC 3.37(L) 3.93 - 5.22 M/ L 12/20/2024 4:10 AM EDT [facility] Hemoglobin 11.0(L) 11.2 - 15.7 GM/DL 12/20/2024 4:10 AM EDT [facility] Hematocrit 31.8(L) 34.1 - 44.9 % 12/20/2024 4:10 AM EDT [facility] MCV 94 79 - 95 fL 12/20/2024 4:10 AM EDT [facility] MCH 32.6(H) 25.6 - 32.2 pg 12/20/2024 4:10 AM EDT [facility] MCHC 34.6 32.2 - 35.5 GM/DL 12/20/2024 4:10 AM EDT [facility] RDW 11.6(L) 11.7 - 14.4 % 12/20/2024 4:10 AM EDT [facility] Platelets 128(L) 140 - 375 K/CU MM 12/20/2024 4:10 AM EDT [facility] MPV 10.2 9.4 - 12.3 fL 12/20/2024 4:10 AM EDT [facility] Blood Venipuncture / Unknown 12/20/2024 3:18 AM EDT 12/20/2024 3:44 AM EDT Jordyn Concepcion PA-C LAB BLOOD ORDERABLES Final Result [facility] [address] [phone] * (ABNORMAL) Basic Metabolic Panel (12/20/2024 3:18 AM EDT) Only the most recent of2 resultswithin the time period is included. Sodium 138 136 - 145 meq/L 12/20/2024 4:05 AM EDT [facility] Potassium 4.1 3.4 - 5.1 meq/L 12/20/2024 4:05 AM EDT [facility] CO2 28 22 - 29 meq/L 12/20/2024 4:05 AM EDT [facility] Chloride 104 98 - 112 meq/L 12/20/2024 4:05 AM EDT [facility] Glucose 106(H) 74 - 100 mg/dL 12/20/2024 4:05 AM EDT [facility] BUN 12.6 9.8 - 20.1 mg/dL 12/20/2024 4:05 AM EDT [facility] Creatinine 0.78 0.57 - 1.11 mg/dL 12/20/2024 4:05 AM EDT [facility] BUN/Creatinine 16 8 - 20 12/20/2024 4:05 AM EDT [facility] Calcium 8.9 8.4 - 10.2 mg/dL 12/20/2024 4:05 AM EDT [facility] Anion Gap 10 4 - 12 12/20/2024 4:05 AM EDT [facility] eGFR (mL/min/1.73m2) 89 >=60 mL/min/1.7 3m2 12/20/2024 4:05 AM EDT [facility] Osmolality Calc 276.1 mOsm/kg 4:05 AM EDT [facility] Blood Venipuncture / Unknown 12/20/2024 3:18 AM EDT 12/20/2024 3:44 AM EDT Jordyn Concepcion PA-C LAB BLOOD ORDERABLES Final Result [facility] [address] [phone] * FL C-ARM < 1 HOUR (12/19/2024 12:03 PM EDT) Anatomical Region Laterality Modality X-Ray 12/20/2024 7:43 AM EDT Impressions 12/20/2024 9:53 AM EDT See above. Please see the operative report. Images reviewed, interpreted, and dictated by Dr. Debbie Flores. Transcribed by Jordyn Estrada PA-C. Narrative 12/20/2024 9:53 AM EDT FLUORO TIME HISTORY: C4-C7 ACDF. PROCEDURE: Fluoroscopy in the operating room. FINDINGS: Fluoroscopy time was provided by the radiology department for the clinical service. 2 images demonstrate anterior cervical spine fusion. Fluoroscopy exposure time: 0.56 minutes. Radiation exposure in Reference air Kerma: 1 mGy Procedure Note Debbie Flores MD - 12/20/2024 FLUORO TIME HISTORY: C4-C7 ACDF. PROCEDURE: Fluoroscopy in the operating room. FINDINGS: Fluoroscopy time was provided by the radiology department for the clinical service. 2 images demonstrate anterior cervical spine fusion. Fluoroscopy exposure time: 0.56 minutes. Radiation exposure in Reference air Kerma: 1 mGy IMPRESSION: See above. Please see the operative report. Images reviewed, interpreted, and dictated by Dr. Debbie Flores. Transcribed by Jordyn Estrada PA-C. Zachary Zaldivar MD IMG FLUOROSCOPY ORDERABLES Final Result * AN SINGLE LUMEN INTUBATION (12/19/2024 10:42 AM EDT) Narrative Cassy Johnson CRNA - 12/19/2024 10:42 AM EDT Cassy Johnson CRNA 12/19/2024 11:01 AM Intubation Authorized by: Jen Hutton MD Performed by: Cassy Johnson CRNA Date/Time: 12/19/2024 10:42 AM Urgency: elective Indications and Patient Condition Indications for airway management: anesthesia and airway protection Spontaneous Ventilation: absent Sedation level: general anesthesia Preoxygenated: yes Patient position: sniffing MILS maintained throughout: yes Mask difficulty assessment: 1 - vent by mask Planned trial extubation: yes Final Airway Details Final airway type: endotracheal airway Endotracheal tube type: ETT Cuffed: yes Successful intubation technique: video laryngoscopy Facilitating devices/methods: intubating stylet Endotracheal tube insertion site: oral Blade: [place] Blade size: #3 ETT size (mm): 7.0 Cormack-Lehane Classification: grade IIa - partial view of glottis Placement verified by: chest auscultation and capnometry Cuff volume (mL): 8 Measured from: lips Number of attempts at approach: 1 Number of other approaches attempted: 0 Additional Comments Mac 3 hyhper ProView. Atraumatic Intubation. Lips, gums, and dentition unchanged and as preop. Bilateral BS and chest rise, ETCO2 confirmed Jen Hutton MD ANESTHESIA ORDERABLES Final Re sult * (ABNORMAL) Glucose, Nova Meter (12/19/2024 9:36 AM EDT) Only the most recent of2 resultswithin the time period is included. POC-GLUCOSE 121(H) 70 - 110 mg/dL 12/19/2024 9:38 AM EDT [facility] Comment: In the event of poor peripheral blood flow, venous or arterial blood should be used due to the potential of erroneous results. Protocols Followed Missile Inspector Preflight [id number] 12/19/2024 9:38 AM T [facility] Blood WHOLE BLOOD / Unknown 12/19/2024 9:36 AM EDT 12/19/2024 9:38 AM EDT Narrative [facility] - 12/19/2024 9:38 AM EDT Missile Inspector Preflight ID is - [id number] us Zachary Zaldivar MD POINT OF CARE TEST ORDERABLES Fi nal Result [facility] 1 [place], [place] [id number] [place] [address] * ABO/RH CONFIRMATION/RETYPE (12/13/2024 10:48 AM EDT) RETYPE A Positive 12/12/2024 8:00 PM EDT [facility] Blood Venipuncture / Unknown 12/13/2024 10:48 AM EDT 12/13/2024 12:13 PM EDT us Chapito Laboy MD [facility] TEST ORDERABLES Final Result Performing Organization Address [facility]/ZIP Co de Phone Number [facility]) [address] [place] [address], [place] [phone] * (ABNORMAL) CBC with automated diff (12/13/2024 9:17 AM EDT) WBC 4.5 4.0 - 10.0 K/ L 12/13/2024 9:56 AM EDT [facility] RBC 4.20 3.93 - 5.22 M/ L 12/13/2024 9:56 AM EDT [facility] Hemoglobin 13.6 11.2 - 15.7 GM/DL 12/13/2024 9:56 AM EDT [facility] Hematocrit 38.7 34.1 - 44.9 % 12/13/2024 9:56 AM EDT [facility] MCV 92 79 - 95 fL 12/13/2024 9:56 AM EDT [facility] MCH 32.4(H) 25.6 - 32.2 pg 12/13/2024 9:56 AM EDT [facility] MCHC 35.1 32.2 - 35.5 GM/DL 12/13/2024 9:56 AM EDT [facility] RDW 11.2(L) 11.7 - 14.4 % 12/13/2024 9:56 AM EDT [facility] Platelets 209 140 - 375 K/CU MM 12/13/2024 9:56 AM EDT [facility] MPV 9.9 9.4 - 12.3 fL 12/13/2024 9:56 AM EDT [facility] % Neutros 45 34 - 71 % 12/13/2024 9:56 AM EDT [facility] % Lymphs 44 19 - 52 % 12/13/2024 9:56 AM EDT [facility] % Monos 8 5 - 13 % 12/13/2024 9:56 AM EDT [facility] % Eos 1 1 - 6 % 12/13/2024 9:56 AM EDT [facility] % Baso 1 0 - 1 % 12/13/2024 9:56 AM EDT [facility] NRBC Absolute <0.01 0 - 0.012 K/ul 12/13/2024 9:56 AM EDT [facility] # Neutros 2.04 1.56 - 6.13 K/ L 12/13/2024 9:56 AM EDT [facility] # Lymphs 1.99 1.18 - 3.74 K/ L 12/13/2024 9:56 AM EDT [facility] # Monos 0.37 0.24 - 0.86 K/ L 12/13/2024 9:56 AM EDT [facility] # Eos 0.06 0.04 - 0.36 K/ L 12/13/2024 9:56 AM EDT [facility] # Baso 0.05 0.01 - 0.08 K/ L 12/13/2024 9:56 AM EDT [facility] Immature Granulocytes-Re lative 0.40 0.01 - 0.43 % 12/13/2024 9:56 AM EDT [facility] # IG <0.03 0.00 - 0.03 K/uL 12/13/2024 9:56 AM EDT [facility] Blood Venipuncture / Unknown 12/13/2024 9:17 AM EDT 12/13/2024 9:49 AM EDT [facility] - 12/13/2024 9:56 AM EDT When CBC w/ Auto Diff is ordered the lab will add a Manual Differential as a quality check at no additional charge if: Lymphocytes greater than seventy five percent with normal or increased WBC Monocytes greater than Fifteen percent Basophil greater than four percent Bands >10% or several immature myeloids are seen on scan Blast? Flag noted Atypical Lymph flag noted us Zachary Zaldivar MD LAB BLOOD ORDERABLES Final Resul t [facility] [address] [phone] * Urinalysis w/Microscopic (12/13/2024 9:17 AM EDT) Color, UA Colorless 12/13/2024 10:13 AM EDT [facility] Clarity, UA Clear Clear 12/13/2024 10:13 AM EDT [facility] Specific [place], UA 1.007 1.005 - 1.030 12/13/2024 10:13 AM EDT [facility] pH, UA 6.5 6.0 - 8.0 12/13/2024 10:13 AM EDT [facility] Leukocytes, UA Negative Negative 12/13/2024 10:13 AM EDT [facility] Nitrite, UA Negative Negative 12/13/2024 10:13 AM EDT [facility] Protein, UA Negative Negative 12/13/2024 10:13 AM EDT [facility] Glucose, UA Normal Normal 12/13/2024 10:13 AM EDT [facility] Ketones, UA Negative Negative 12/13/2024 10:13 AM EDT [facility] Urobilinogen, UA Normal Normal 12/13/2024 10:13 AM EDT [facility] Bilirubin, UA Negative Negative 12/13/2024 10:13 AM EDT [facility] Blood, UA Negative Negative 12/13/2024 10:13 AM EDT [facility] RBC, UA None Seen None Seen /HPF 12/13/2024 10:13 AM EDT [facility] WBC, UA None Seen None Seen /HPF 12/13/2024 10:13 AM EDT [facility] Bacteria, UA None Seen None Seen, Trace 12/13/2024 10:13 AM EDT [facility] SQUAMOUS EPITHELIAL None Seen None Seen /HPF 12/13/2024 10:13 AM EDT [facility] Specimen Source Urine, Clean Catch 12/13/2024 10:13 AM EDT [facility] Urine URINE SPECIMEN COLLECTION, CLEAN CATCH / Unknown 12/13/2024 9:17 AM EDT 12/13/2024 9:49 AM EDT us Zachary Zaldivar MD URINE ORDERABLES Final Result [facility] [address] [phone] from Last 3 Months Insurance [employer] MEDICARE HMO Advance Directives For more information, please contact: [phone] * Full Code (Latest Code Status on File) Date Activated Date Inactivated Comments 12/19/2024 1:19 PM 12/20/2024 7:43 PM Care Teams Outboard Motorboat Operator Relationship Specialty Start Date End Date Laura Smith [address] [place] [address] PCP - General 01/05/24
--- OUTSIDE RECORDS SUMMARY | 2025-02-21 13:30 | XMS_ITS | Encounter Summary ---
Author Organization [employer] ([place], [place], [place], [place]) Address [address] [place] [address] Care Team Providers Care Valet Parking Attendant Name Role Phone Laura Smith Tony Primary Care Provider [phone] Reason for Referral * Consultation (Routine) - Closed Specialty Diagnoses / Procedures Referred By Kylah hatch Referred To Contact Behavioral Health / Psychiatry Diagnoses Amnesia Isela Hamlin PA-C [address] [place] [address] [place] [address] Phone: tel: Referral ID Status Reason Start Date Expiration Date V isits Requested Visits Authorized [id number] Closed Specialty Services Required 11/11/2023 11/10/2024 1 1 Encounter Details Date Type Department Care Team (Late st Contact Info) Description 11/11/[address] [facility] Central Scheduling [address] [place] [address] Isela Hamlin PA-C [address] [place], [place] [id number] Amnesia (Primary Dx) Social History Tobacco Use Types Packs/Day Years Used Date Smoking Tobacco: Never Assessed C - Mental Health Answer Date Recorde d [...] Date Scott rded Speak language other than Salvadorean at home Not on file 11/11/2023 Want [...] on file Sexual Orientation Not on file documented as of this encounter Functional Status documented as of this encounter Plan of Treatment Scheduled Referrals Name Type Priority Associated Diagnoses Order Schedule Ambulatory referral to Behavioral Health Outpatient Referral Routine Amnesia Expected: 11/11/2023, Expires: 11/10/2024 documented as of this encounter Visit Diagnoses Diagnosis Amnesia- Primary Memory loss documented in this encounter Care Teams Valet Parking Attendant Relationship Specialty Start Date End Date Laura Smith [address] [place] [address] [place] [id number] PCP - General 01/05/24 documented as of this encounter
--- OUTSIDE RECORDS SUMMARY | 2025-02-21 13:31 | XMS_ITS | Data Portability ---
Author Organization [facility] & GOLD Chavez ADMIN Address [address] [place] [id number] Care Team Providers Care Kicking Machine Operator Name Role Phone [facility] Care Provi emerita Assessment No assessment recorded. Plan of Treatment Reminders Order Date Submit Date Provider Last Modified By Organization Details Last Modified Time Details Appointments OV EST 15 2024 03:00P M ABI LUKE Not available Not available Not available Lab drug confirmat ion, urine 2024 025 [id number] [facility] (Lab Registration) , [address] [place] [address] [place], [address], 02/06/2025 13:36:04 drug confirmat ion, urine 2024 025 [email or web address] [facility] (Lab Registration) , [address] [place] [address] [place], [address], 10/09/2024 08:35:27 Referral None recorded. Procedures None recorded. Surgeries None recorded. Imaging MRI, cervical spine, w/o contrast 2024 025 marcel Juan (Centralized Scheduling), [address] [place] [address] [place], [address], 09/14/2024 08:20:13 Medication Orders hydrocodo ne 7.5 mg-acetam inophen 325 mg tablet 2024 025 [facility], [address] [place] [address], [place], [address], 01/31/2025 16:55:27 hydrocodo ne 7.5 mg-acetam inophen 325 mg tablet [address], [address], 02/01/2025 14:59:09 hydrocodo ne 7.5 mg-acetam inophen 325 mg tablet [address], [address], 12/06/2024 17:12:52 hydrocodo ne 7.5 mg-acetam inophen 325 mg tablet [address], [address], 12/06/2024 17:12:52 hydrocodo ne 7.5 mg-acetam inophen 325 mg tablet [address], [address], 10/04/2024 15:59:41 hydrocodo ne 7.5 mg-acetam inophen 325 mg tablet [address], [address], 10/04/2024 15:59:41 Patient TargetsNo targets recorded. Patient InstructionsNo instructions recorded. Reason for Referral None Reported. Results Created Date Observation Date Name Description Value Unit Range Abnormal Flag Note LastModifiedBy Organization Detail LastModifiedTime 10/04/1910/04/2024 COMPL IANCE DRUG ANDREE SIS, UR note Unles s other ramachandran noted testi ng perfo rmed at: [facility] [address] [place] [address] Kurt perla MD Not Available [facility] (Pre-Op Clinic) [address] [place] [address] [place], [address], 10/12/2024 11:13:53 10/04/1910/12/2024 COMPL IANCE DRUG ANDREE SIS, UR summary FINAL ===== ===== ===== ===== ===== ===== ===== ===== ===== ===== ===== ===== ===== === TOXAS SURE COMP DRUG ANDREE SIS,U R ===== ===== ===== ===== ===== ===== ===== ===== ===== ===== ===== ===== ===== === Test Resul t Flag Uni ts Drug Prese nt Desme thyld iazep am 511 ng/ mg creat Oxaze elsa 582 ng/ mg creat Temaz epam 510 ng/ mg creat Desme thyld iazep am, oxaze elsa, and temaz epam are benzo diaze pine drugs , but may also be prese nt as commo n metab olite s of o ther benzo diaze pine drugs , inclu ding diaze elsa. [place] codon e 2224 ng/ mg creat [place] morph one 467 ng/ mg creat Dihyd rocod eine 260 ng/ mg creat Norhy droco done 2007 ng/ mg creat Sourc es of hydro codon e inclu de sched uled presc ripti on medic ation s. [place] morph one, dihyd rocod eine and norhy droco done are expec lucero metab olite s of hydro codon e. [place] morph one and dihyd rocod eine are also avail able as sched uled presc ripti on medic ation s. Butal bital PRESE NT Prega balin PRESE NT Metho carba mol PRESE NT Trazo done PRESE NT 1,3 chlor ophen yl piper azine PRESE NT 1,3-c hloro pheny l piper azine is an expec lucero metab olite of trazo done. Aceta minop hen PRESE NT Doxyl amine PRESE NT Verap oneida PRESE NT ===== ===== ===== ===== ===== ===== ===== ===== ===== ===== ===== ===== ===== === Test Resul t Flag Units Ref Ra nge Creat inine 104 mg/dL >=20 ===== ===== ===== ===== ===== ===== ===== ===== ===== ===== ===== ===== ===== === Decla red Medic ation s: Medic ation list was not provi ded. ===== ===== ===== ===== ===== ===== ===== ===== ===== ===== ===== ===== ===== === For clini johnny consu ltati on, pleas e call [phone]. ===== ===== ===== ===== ===== ===== ===== ===== ===== ===== ===== ===== ===== === Not Available [facility] (Pre-Op Clinic) [address] [place] [address] [place], [address], 10/12/2024 11:13:53 10/04/19 25 10/12/2024 COMPL IANCE DRUG ANDREE SIS, UR pdf . Perfo rmed at: [facility] [address], [place] [address] Lab Direc tor: Madonna velázquez [facility] , Phone : [phone] Perfo rmed at: [facility] [address], [place] [address] Lab Direc tor: Madonna velázquez PhrmD , Phone : [phone] Not Available [facility] (Pre-Op Clinic) [address] [place] [address] [place], [address], 10/12/2024 11:13:53 02/01/20 25 01/31/2025 COMPL IANCE DRUG ANDREE SIS, UR note Unles s other ramachandran noted testi ng perfo rmed at: [facility] [address] [place] [address] Kurt perla MD Not Available [facility] (Pre-Op Clinic) [address] [place] [address] [place], [address], 02/06/2025 10:13:08 02/01/20 25 02/06/2025 COMPL IANCE DRUG ANDREE SIS, UR summary FINAL ===== ===== ===== ===== ===== ===== ===== ===== ===== ===== ===== ===== ===== === TOXAS SURE COMP DRUG ANDREE SIS,U R ===== ===== ===== ===== ===== ===== ===== ===== ===== ===== ===== ===== ===== === Test Resul t Flag Uni ts Drug Prese nt Desme thyld iazep am 479 ng/ mg creat Oxaze elsa 817 ng/ mg creat Temaz epam 714 ng/ mg creat Desme thyld iazep am, oxaze elsa, and temaz epam are benzo diaze pine drugs , but may also be prese nt as commo n metab olite s of o ther benzo diaze pine drugs , inclu ding diaze elsa. [place] codon e 1879 ng/ mg creat [place] morph one 562 ng/ mg creat Dihyd rocod eine 269 ng/ mg creat Norhy droco done 1993 ng/ mg creat Sourc es of hydro codon e inclu de sched uled presc ripti on medic ation s. [place] morph one, dihyd rocod eine and norhy droco done are expec lucero metab olite s of hydro codon e. [place] morph one and dihyd rocod eine are also avail able as sched uled presc ripti on medic ation s. Prega balin PRESE NT Metho carba mol PRESE NT Zolpi dem PRESE NT Zolpi dem Acid PRESE NT Zolpi dem acid is an expec lucero metab olite of zolpi dem. Aceta minop hen PRESE NT ===== ===== ===== ===== ===== ===== ===== ===== ===== ===== ===== ===== ===== === Test Resul t Flag Units Ref Ra nge Creat inine 29 mg/dL >=20 ===== ===== ===== ===== ===== ===== ===== ===== ===== ===== ===== ===== ===== === Decla red Medic ation s: Medic ation list was not provi ded. ===== ===== ===== ===== ===== ===== ===== ===== ===== ===== ===== ===== ===== === For clini johnny consu ltati on, pleas e call . ===== ===== ===== ===== ===== ===== ===== ===== ===== ===== ===== ===== ===== === Not Available [facility] (Pre-Op Clinic) [address] [place] [address] [place], [address], 02/06/2025 10:13:08 02/01/20 25 02/06/2025 COMPL IANCE DRUG ANDREE SIS, UR pdf . Perfo rmed at: [facility] [address] [place], [place] [id number] Lab Direc tor: Madonna velázquez PhrmD , Phone : [phone] Not Available [facility] (Pre-Op Clinic) [address] [place] [address] [place], [address], 02/06/2025 10:13:08 09/13/19 25 09/13/2024 MRI, cervi johnny spine , w/o contr ast [facility] al [address] [place] [address] Phone: Fax: Name: IMANI SIERRA Exam Date: 09/13/19 : [birth year] Age 53 years Gender : F Access ion: [id number] Physic dago: HARI NAJERA Facili ty: [facility] HSV: Outpat ient Exam: MRI SPINE CERVIC AL WO CLINIC AL DATA: Neck pain with LUE radicu lopath y. Numbne ss in finger s on left hand TECHNI JOHNNY DATA: Multip lanar multie cho sequen tom were obtain ed of the cervic al spine utiliz ing T1 and T2 weight ing withou t the admini strati on of intrav enous contra st. COMPAR ANITRA: None. FINDIN GS: BONES AND MARROW : The marrow signal is within normal limits .i??i? ?Conge nital fusion involv ing the C5-C6 verteb ral bodies .i??i? ?Madeleine l cervic al lordos is. DEGENE RATIVE CHANGE S: Multil evel degene rative change s, as discus sed below: C2-C3: No signif icant stenos is or degene ration . C3-C4: Interv ertebr al disc space narrow ing with tiny quality assurance group leader ior disc osteop hyte comple x.i??i ??Face t arthro zoë and uncove rtebra l hypert rophy result ing in modera te right neural forami nal stenos is. C4-C5: Interv ertebr al disc space narrow ing with broad quality assurance group leader ior disc osteop hyte comple x with facet arthro zoë and uncove rtebra l hypert rophy. i??i?? Mild spinal canal and neural forami nal stenos is. C5-C6: Fusion with no signif icant stenos is. C6-C7: Interv ertebr al disc space narrow ing with broad quality assurance group leader ior disc osteop hyte comple x with facet arthro zoë and uncove rtebra l hypert rophy. Right parace ntral disc protru bernice is presen t as well.i ??i??M oderat e spinal canal and mild neural forami nal stenos is. C7-T1: No signif icant stenos is or degene ration . CORD: Mild hetero geneou s signal at the level C4-C5 with associ ated volume loss. CSF: Unrema rkable . Railroad Car Loader ior FOSSA: The quality assurance group leader ior fossa and visual ized portio ns of the brain are normal in signal . There is no tonsil lar hernia tion. PARASP INAL SOFT TISSUE : No focal soft tissue abnorm ality. IMPRES BERNICE: *i??i? ?Multi level degene rative change s of the cervic al spine, as discus sed above. *i??i? ?Conge nital fusion involv ing the C5-C6 verteb ral bodies . *i??i? ?Mild hetero geneou s signal at the level C4-C5 with associ ated volume loss, likely repres enting myelom alacia . COMMUN ICATIO N: Per this writte n report . CRITIC AL RESULT : No Electr onical ly Signed by: Ric Whittington MD Dictat ed By: Ric Whittington Transc ribed By: Transc ribed On: 09/13/19 12:15 PM Electr onical ly signed by: Ric Whittington 09/13/19 Legall y authen ticate d by GRAEME Beltre 09-13 12:15: 12 Thank you for referr IMANI Cummings to [facility]. Legall y authen ticate d by GRAEME Beltre 09-13 12:15: 12 CC'ed Logic: Orderi ng Provid er: PB MATUTE Attend ing Provid er: PB MATUTE Referr ing Provid er: PB MATUTE Admitt ing Provid er: PB enrique [facility] (Imaging) [address] [place] [address], [address], 09/13/2024 12:53:10 Result Notes Documentation Provider Name and Address Organization Details Recorded Time Mri, Cervical Spine, W/o Contrast : [address] [address] Name: IMANI SIERRA Exam Date: 09/13/2024 : 1970 Age 53 years Gender: F Physician: HARI NAJERA Facility: [facility] HSV: Outpatient Exam: MRI SPINE CERVICAL WO CLINICAL DATA: Neck pain with LUE radiculopathy. Numbness in fingers on left hand TECHNICAL DATA: Multiplanar multiecho sequences were obtained of the cervical spine utilizing T1 and T2 weighting without the administration of intravenous contrast. COMPARISON: None. FINDINGS: BONES AND MARROW: The marrow signal is within normal limits.i??i??Congenital fusion involving the C5-C6 vertebral bodies.i??i??Normal cervical lordosis. DEGENERATIVE CHANGES: Multilevel degenerative changes, as discussed below: C2-C3: No significant stenosis or degeneration. C3-C4: Intervertebral disc space narrowing with tiny posterior disc osteophyte complex.i??i??Facet arthropathy and uncovertebral hypertrophy resulting in moderate right neural foraminal stenosis. C4-C5: Intervertebral disc space narrowing with broad posterior disc osteophyte complex with facet arthropathy and uncovertebral hypertrophy.i??i??Mild spinal canal and neural foraminal stenosis. C5-C6: Fusion with no significant stenosis. C6-C7: Intervertebral disc space narrowing with broad posterior disc osteophyte complex with facet arthropathy and uncovertebral hypertrophy. Right paracentral disc protrusion is present as well.i??i??Moderate spinal canal and mild neural foraminal stenosis. C7-T1: No significant stenosis or degeneration. CORD: Mild heterogeneous signal at the level C4-C5 with associated volume loss. CSF: Unremarkable. Posterior FOSSA: The posterior fossa and visualized portions of the brain are normal in signal. There is no tonsillar herniation. PARASPINAL SOFT TISSUE: No focal soft tissue abnormality. IMPRESSION: *i??i??Multilevel degenerative changes of the cervical spine, as discussed above. 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 *i??i??Mild heterogeneous signal at the level C4-C5 with associated volume loss, likely representing myelomalacia. COMMUNICATION: Per this written report. CRITICAL RESULT: No Electronically Signed by: Ric Whittington MD Dictated By: Ric Whittington Transcribed By: Transcribed On: 09/13/2024 12:15 PM Electronically signed by: Ric Whittington 09/13/2024 Legally authenticated by GRAEME Beltre 2024-09-13 12:15:12 Thank you for referring IMANI SIERRA to [facility]. Legally authenticated by GRAEME Beltre 2024-09-13 12:15:12 CC'ed Logic: Ordering Provider: PB MATUTE Attending Provider: PB MATUTE Referring Provider: PB MATUTE Admitting Provider: PB Meadows luis, [place] - [facility] - [place] & [place] 09/13/2024 12:53:10 Problems Name Problem SNOMED Code Status Onset Date Resolution Date Notes Provider Name and Address Organization Details Recorded Time History of cardiac catheteriza tion 3867904395310 0 Active Ronna Baron-Kip reyes null, [place] - [facility] - [place] & [place] 5 14:46:04 M ni re's disease 93854343 Active Briseida Ward null, [place] - [facility] & Kathy 3 13:12:26 Chronic obstructive pulmonary disease 12187492 Active Briseida Ward null, [place] - [facility] - [facility] & [place] 3 13:12:26 Psoriatic arthritis 746376211 Active 2021 Briseida smith, [place] - [facility] - [facility] & [place] 3 13:12:26 History of deep vein thrombosis 135268425 Active 2020 Briseida Ward null, [place] - [place] - [place] & [place] 3 13:12:26 Insomnia 678613010 Active Briseida smith, [place] - [facility] - [place] & [place] 3 13:12:26 Fibromyalgi a 583954164 Active 2018 Briseida smith, [place] - [place] - [place] & [place] 3 13:12:26 Cerebrovasc ular accident 039810467 Active Briseida smith, [place] - [place] - & [place] 3 13:12:26 Gastroesoph ageal reflux disease 604825975 Active Briseida smith, [place] - [place] - & [place] 3 13:12:26 Headache 97677499 Active Briseida smith, [place] - [place] - & [place] 3 13:12:26 Gastroesoph ageal reflux disease without esophagitis 575309370 Active 2020 Briseida smith, [place] - [facility] - & [place] 3 13:12:26 Mixed hyperlipide demetrius 285487034 Active 2020 Briseida smith, [place] - [facility] - & [place] 3 13:12:26 Postoperati ve hypothyroid ism 51345676 Active 2020 Briseida smith, [place] - [facility] - & [place] 3 13:12:26 History of cerebrovasc ular accident 624476533 Active 2020 Briseida smith, [place] - [facility] - [place] & [place] 3 13:12:26 Chest pain 50058346 Active Briseida smith, [place] - [place] - [place] & [place] 3 13:12:26 Restless legs 25637358 Active 2020 Briseida smith, [place] - [place] - [place] & [place] 3 13:12:26 Vitamin D deficiency 76945153 Active 2020 Briseida smith, [place] - [facility] - & [place] 3 13:12:26 Depressive disorder 85061490 Active LOPEZ Lovett - [facility] - [facility] & [place] 3 13:12:26 Panic disorder 560507589 Active Briseida smith, [place] - [facility] - & Kathy 3 13:12:26 Hypertensiv e disorder 43418574 Active Briseida smith, [place] - [facility] - & [place] 3 13:12:26 Neuropathy 401167083 Active 2017 LOPEZ Lovett - [place] - [place] & [place] 3 13:12:26 Disorder of pituitary gland 133304636 Active LOPEZ Lovett - [facility] - & [place] 3 13:12:26 Hypothyroid ism 62102760 Active Briseida smith, [place] - [place] - [place] & [place] 3 13:12:26 Congestive heart failure 37828271 Active 2018 LOPEZ Lovett - [place] - [place] & [place] 3 13:12:26 Hypokalemia 73231465 Active LOPEZ Lovett - LP[facility] - & [place] 3 13:12:26 Pulmonary embolism 23297080 Active LOPEZ Lovett - [facility] - [place] & [place] 3 13:12:26 Rheumatoid arthritis 47703579 Active 2020 LOPEZ Lovett - [place] - [place] & [place] 3 13:12:26 Long-term current use of anticoagula nt 343529653 Active 2020 LOPEZ Lovett - [facility] - [place] & [place] 3 13:12:26 Acquired absence of cervix and uterus 933133174 Active 2020 LOPEZ Lovett - [facility] - [facility] & [place] 3 13:12:26 Gout 19133753 Active 2020 LOPEZ Lovett - [facility] - [place] & [place] 3 13:12:26 Chronic migraine without aura 5082304915954 05 Active 2022 Kyler Johnson MD [address], [address], [place], [address], [place] - [facility] - [place] & [place] 3 14:31:10 Lumbar spondylosis 724887250 Active 2022 Kyler Johnson MD [address], [address], [place], [address], [place] - [place] - [place] & [place] 3 14:31:19 Cervical radiculitis 43456325 Active 2022 Kyler Johnson MD [address], [address], [place], [address], [place] - [place] - [place] & [place] 3 14:31:27 Arthritis of facet joint of cervical spine 2754253875378 9106 Active 2022 Kyler Johnson MD [address], [address], [place], [address], [place] - [place] - [place] & [place] 3 16:30:05 Cervicogeni c headache 837201116 Active 2022 Kyler Johnson MD [address], [address], [place], [address], [place] - [place] - [place] & [place] 3 16:30:17 Chronic pain syndrome 011767858 Active 2023 Kyler Johnson MD [address], [address], [place], [address], [place] - [facility] - [place] & [place] 4 15:35:45 Notes:Some problems listed i n Document: #[id number] could not be added to this patient's chart. Please review this document and add these problems to the patient's chart manually as needed. Problem Notes None recorded. Procedures Surgical History Date Name Laterality Status Provider Name and Address Organization Details Recorded Time 08/09/19 24 Other completed Abbi Valdez [place] - [facility] - [place] & [place] 10/04/2024 13:35:14 08/09/19 23 Back Surgery completed Briseidamariam [facility] & [place] 12/09/2023 14:41:25 05/12/20 22 Most Recent Bone Density completed Fabiana [facility] & [place] 07/19/2024 14:37:25 08/09/19 15 Thyroid Surgery completed Briseida [facility] & [place] 12/09/2023 14:41:25 08/09/19 06 Head or Neck Surgery completed Briseida [facility] & [place] 12/09/2023 14:41:25 laparoscopic sleeve gastrectomy completed Briseida [facility] & [place] 04/05/2023 13:50:58 Other completed Fabiana [facility] & [place] 07/19/2024 14:37:34 Appendectomy completed Fabiana [facility] & [place] 07/19/2024 14:37:34 Cholecystectomy completed Fabiana [facility] & [place] 07/19/2024 14:37:34 Imaging Results None recorded. Procedure Notes None recorded. Medical Equipment None Reported. Allergies Allergen ID Allergen Name Allergen Category Reaction Reaction Severity Criticality Documentation Date Start Date Code Code System Note Provider Name and Address Organization Details Recorded Time 344209 latex environme nt,medica tion hives severe Not available 07/19/20242017 82015 91 RxNorm Ronna BaronKip griffiths luis, [place] [facility] & [place] 5 14:45:41 425210 ofloxacin medicatio n rash severe Not available 08/28/20242017 7623 RxNorm Ronna Joshi akis null, [place] - [facility] & [place] 5 14:45:41 413519 tramadol medicatio n Not available Not available Not available 08/28/20242017 44443 RxNorm Ronna Joshi akis null, [place] - [facility] & [place] 5 14:45:41 82318 Substance with sulfonami de structure and antibacte rial mechanism of action (substanc e) medicatio n eye redness severe Not available 04/05/20232019 01705 8003 SNOMED Briseida smith, [place] Kerr [facility] & [place] 3 13:12:22 09741 lisinopri l medicatio n cough severe Not available 04/05/20232017 03598 RxNorm Ronna [facility] eric smith, [place] Kerr [facility] & [place] 5 14:45:41 08169 morphine medicatio n Not available Not available Not available 04/05/20232017 7052 RxNorm Ronna [facility] eric smith, [place] Kerr [facility] & [place] 5 14:45:41 16928 fentanyl medicatio n anaphylax is severe Not available 04/05/20232017 4337 RxNorm Ronna [facility] eric smith, [place] Kerr [facility] & [place] 5 14:45:41 38519 levothyro xine sodium medicatio n diarrhea Not available Not available 04/05/2023 86155 RxNorm Briseida smith, [place] Kerr [facility] & [place] 3 13:12:22 Medications Name Sig Start Date Stop [...] azelastine 137 mcg (0.1 %) nasal spray Keller 1 spray every day by nasal route [...] WEDNESDAY , AND WEDNESDAY. RX WILL LAST 105 DAY SUPPLY active Not Available Not Available [...] subcutaneou s syringe INJECT 100MG SUBCUTANE OUSLY 1 IN THE MORNING 09/29 completed Not Available [...] saturation in Arterial blood by Pulse oximetry Systolic And Diastolic Provider Name and Address Organization Details Last Updated DateTime 5 165.1 cm 22.5 kg/m2 40712.9 7 g 98.1 [degF] 58 /min 97 % 97 % 149/79 mm[Hg] Abbi José Miguel MARROQUIN [facility] 5 13:31:12 Date Recorded Body height Body mass index (BMI) Body weight Body temperature Heart rate Oxygen saturation Oxygen saturation in Arterial blood by Pulse oximetry Systolic And Diastolic Provider Name and Address Organization Details Last Updated DateTime 5 165.1 cm 23.6 kg/m2 66351.1 2 g 98.1 [degF] 72 /min 97 % 97 % 134/77 mm[Hg] [facility] & [place] 5 13:03:39 Date Recorded Body height Body mass index (BMI) Body weight Body temperature Heart rate Oxygen saturation Oxygen saturation in Arterial blood by Pulse oximetry Respiratory rate Systolic And Diastolic Provider Name and Address Organization Details Last Updated DateTime 5 165.1 cm 23.8 kg/m2 98514.7 1 g 97.7 [degF] 63 /min 99 % 99 % 20 /min 200/113 mm[Hg] Domi De La Torre [facility] & [place] 13:42:51 Social History Question Answer Notes LastModified by Organizat ion Details LastModified Time Tobacco Smoking Status Never Smoker LOPEZ Lovett [facility] & [place] 04/05/2023 13:50:31 Do You Have An Advance Directive? No [email or web address] Information not available 07/19/2024 Are You Blind Or Do You Have Difficulty Seeing? Yes [email or web address] Information not available 07/19/2024 Are You Passively Exposed To Smoke? No [email or web address] Information not available 07/19/2024 Sex: Female Functional Status Question Answer Note LastModified by Organizat ion Details LastModified Time Do you use any illicit or recreational drugs? No [email or web address] Information not available 07/19/2024 What is your level of alcohol consumption? None Information not available 04/05/2023 What is your exercise level? None Information not available 12/09/2023 Mental Status None recorded. Family History Relationship Description Onset Age of this Age Resolved Age Notes LastModified by Organization Details LastModified Time Father No current problems or disability deceas ed [email or web address] Not available 01/31/2025 13:22:52 Mother Hypertensive disorder 73 [email or web address] Not available 2022 13:52:31 Sister Neoplasm of brain 54 [email or web address] Not available 01/31 13:22:52 Medical History Condition Response Anxiety Disorder Y Gout Y Arthritis Y Congestive Heart Failure (CHF) Y Back Problems Y Thyroid Problems Y Stroke Y Asthma Y COPD Y Depression Y Clotting Disorder Y Reflux/GERD Y Rheumatoid Arthritis Y Headaches Y Fibromyalgia Y Hypertension Y Gynecological History Statement/Question Response Menses Monthly N Current Control Method Hysterectom y Date of LMP 07/12/2024 Most Recent Bone Density 05/12/2022 Sexually Active? Y Obstetrics History GPAL:G 0 P 0 0 0 0 Immunizations Vaccine Type Date Status Note Provider Nam e and Address Organization Details Recorded Time Influenza, split virus, quadrivalent, preservative 9 completed LOPEZ Lovett [facility] & [place] 04/05/2023 13:12:27 Influenza, split virus, quadrivalent, preservative 8 completed Briseida Ward null, [place] - [facility] & [place] 04/05/2023 13:12:27 COVID-19, mRNA, LNP-S, PF, 100 mcg/0.5mL dose or 50 mcg/0.25mL dose 2 completed Briseida Ward null, [place] [facility] - [place] & [place] 12/09/2023 14:37:50 COVID-19, mRNA, LNP-S, PF, 100 mcg/0.5mL dose or 50 mcg/0.25mL dose 1 completed Briseida Ward null, [place] [facility] - [place] & [place] 12/09/2023 14:37:50 Hep A, adult 9 completed Briseida Ward [place] [facility] [place] & [place] 04/05/2023 13:12:27 Hep A, adult 8 completed Briseida Ward [place] [facility] [place] & [place] 04/05/2023 13:12:27 Influenza, split virus, quadrivalent, PF 0 completed Briseida Ward null[place] [facility] & [place] 12/09/2023 14:37:50 Influenza, split virus, quadrivalent, PF 8 completed Briseida Ward null[place] [facility] & [place] 04/05/2023 13:12:27 Influenza, split virus, quadrivalent, preservative 3 completed Kita Meadows null, [place] - [facility] & [place] 07/31/2024 13:08:12 Past Encounters Encounter ID Performer Location Encounter Start Date Encounter Closed Date Diagnosis/Indication Diagnosis SNOMED-CT Code Diagnosis ICD10 Code Diagnosis Note [id number] Kyler Johnson MD [facility] - [address] [place] [address] [id number] 04/05/2023 12:36:19 04/05/2023 14:22:36 Long-term drug therapy 109036972 Z79.899 Chronic opioid therapy: narcotic pain medication s is one of the number of treatment options for chronic pain patients and has been shown to be beneficial when used in conjugatio n with other treatment modalities . Narcotic pain medication s allow the patient with chronic pain to function and perform their activities of daily living, which may include, sleep, and physical activity like walking, sitting for prolonged, and to improve their overall quality of life. Narcotic pain medication s are known to have high abuse and addiction potential and have a narrow therapeuti c range. The goal of our treatment is to find the right balance of maximizing pain control and minimizing the adverse effects of narcotic use which including dependence , tolerance and addiction and other side effects. This was very clearly explained to the patient in detail. Significan t amount of time was spent explaining the uses, complicati ons, limitation s of the treatment. Chronic mi graine without aura [id number] 54877 G43.709 Symptoms confined to back of her neck. Patient has a significan t component of cervicogen ic headaches. Might benefit from cervical median branch blocks and RFA in the future Lumbar spondylosis 23652 0009 M47.896 Lumbar radiculiti s Bilateral L4-L5 radiculiti s Examinatio n history consistent with lumbar radiculiti s. Patient has history of lower back pain radiating down the legs bilaterall y, examinatio n has positive SLR, recent MRI of lumbar spine also supports the diagnosis. Patient has failed 1 Conservati ve management for more than six months 2 Oral opioids, hydrocodon e 3 Topical diclofenac gel 4 Gabapentin 5 NSAID 6 Home physical therapy Meanwhile treat the patient right oral opioids and membrane stabilizer s. Might consider intratheca l pain pump if she does not respond long-term to the epidural steroid injections . Cervical radiculitis 110 44991 M54.12 Significan t pain in the neck and radiating to the shoulders only No radicular signs +ve [place] No [facility] Recent MRI has shown changes consistent with the diagnosis. Has failed conservati ve therapy including rest, Physical therapy, oral opioids, Topical and Oral NSAID. We will schedule patient for cervical Median Branch Blocks only if patient has more than 80% pain relief will consider for RFA in the future. Rheumatoid arthritis 698 26060 M06.9 Known longstandi ng history of rheumatoid arthritis on immunosupp ression. She is also known to have gouty arthritis on allopurino l. [id number] Kyler Johnson MD [facility] - [address] [place] [address] LOPEZ HUGGINS [phone] 05/17/2023 15:21:34 05/17/2023 16:30:44 Long-term drug therapy [id number] Z79.899 Chronic opioid therapy: narcotic pain medication s is one of the number of treatment options for chronic pain patients and has been shown to be beneficial when used in conjugatio n with other treatment modalities . Narcotic pain medication s allow the patient with chronic pain to function and perform their activities of daily living, which may include, sleep, and physical activity like walking, sitting for prolonged, and to improve their overall quality of life. Narcotic pain medication s are known to have high abuse and addiction potential and have a narrow therapeuti c range. The goal of our treatment is to find the right balance of maximizing pain control and minimizing the adverse effects of narcotic use which including dependence , tolerance and addiction and other side effects. This was very clearly explained to the patient in detail. Significan t amount of time was spent explaining the uses, complicati ons, limitation s of the treatment. Chronic mi graine without aura [id number] 63857 G43.709 Symptoms confined to back of her neck. Patient has a significan t component of cervicogen ic headaches. Might benefit from cervical median branch blocks and RFA in the future Lumbar spondylosis 43672 0009 M47.896 Lumbar radiculiti s Bilateral L4-L5 radiculiti s Examinatio n history consistent with lumbar radiculiti s. Patient has history of lower back pain radiating down the legs bilaterall y, examinatio n has positive SLR, recent MRI of lumbar spine also supports the diagnosis. Patient has failed 1 Conservati ve management for more than six months 2 Oral opioids, hydrocodon e 3 Topical diclofenac gel 4 Gabapentin 5 NSAID 6 Home physical therapy Meanwhile treat the patient right oral opioids and membrane stabilizer s. Might consider intratheca l pain pump if she does not respond long-term to the epidural steroid injections . Rheumatoid arthritis 698 39014 M06.9 Known longstandi ng history of rheumatoid arthritis on immunosupp ression. She is also known to have gouty arthritis on allopurino l. Arthritis of facet joint of cervical spine [id number] 2624821 M46.92 Significan t pain in the neck and radiating to the shoulders only No radicular signs +ve [place] No [facility] We will get x-rays of cervical spine to delineate the pathology. Has failed conservati ve therapy including rest, Physical therapy, oral opioids, Topical and Oral NSAID. Patient has failed 1 Conservati ve management for more than six months 2 Oral opioids, hydrocodon e 3 Topical diclofenac gel 4 Gabapentin 5 NSAID 6 Home physical therapy 7 Patient does not like to take long-term oral opioids. Would like to consider interventi ons We will schedule the patient for cervical median branch blocks as soon as possible. Cervicogenic headache 27 0928915 G44.86 Severe bilateral occipital neuralgia. Severe tenderness over the bilateral occiput. Likely due to underlying cervical facet arthritis. Could not consider bilateral occipital nerve block, patient currently on anticoagul ation with Eliquis. [id number] Kyler Johnson MD [facility] - [address] [place] [address] [id number] 06/14/2023 14:38:49 06/14/2023 14:50:40 Long-term drug therapy [id number] Z79.899 Chronic opioid therapy: narcotic pain medication s is one of the number of treatment options for chronic pain patients and has been shown to be beneficial when used in conjugatio n with other treatment modalities . Narcotic pain medication s allow the patient with chronic pain to function and perform their activities of daily living, which may include, sleep, and physical activity like walking, sitting for prolonged, and to improve their overall quality of life. Narcotic pain medication s are known to have high abuse and addiction potential and have a narrow therapeuti c range. The goal of our treatment is to find the right balance of maximizing pain control and minimizing the adverse effects of narcotic use which including dependence , tolerance and addiction and other side effects. This was very clearly explained to the patient in detail. Significan t amount of time was spent explaining the uses, complicati ons, limitation s of the treatment. Chronic mi graine without aura [id number] 57857 G43.709 Symptoms confined to back of her neck. Patient has a significan t component of cervicogen ic headaches. Might benefit from cervical median branch blocks and RFA in the future Lumbar spondylosis 91062 0009 M47.896 Lumbar radiculiti s Bilateral L4-L5 radiculiti s Examinatio n history consistent with lumbar radiculiti s. Patient has history of lower back pain radiating down the legs bilaterall y, examinatio n has positive SLR, recent MRI of lumbar spine also supports the diagnosis. Patient has failed 1 Conservati ve management for more than six months 2 Oral opioids, hydrocodon e 3 Topical diclofenac gel 4 Gabapentin 5 NSAID 6 Home physical therapy Meanwhile treat the patient right oral opioids and membrane stabilizer s. Might consider intratheca l pain pump if she does not respond long-term to the epidural steroid injections . Rheumatoid arthritis 698 77065 M06.9 Known longstandi ng history of rheumatoid arthritis on immunosupp ression. She is also known to have gouty arthritis on allopurino l. Arthritis of facet joint of cervical spine [id number] 1812028 M46.92 Significan t pain in the neck and radiating to the shoulders only No radicular signs +ve [place] No [facility] We will get x-rays of cervical spine to delineate the pathology. Has failed conservati ve therapy including rest, Physical therapy, oral opioids, Topical and Oral NSAID. Patient has failed 1 Conservati ve management for more than six months 2 Oral opioids, hydrocodon e 3 Topical diclofenac gel 4 Gabapentin 5 NSAID 6 Home physical therapy 7 Patient does not like to take long-term oral opioids. Would like to consider interventi ons We will schedule the patient for cervical median branch blocks as soon as possible. if no response we might consider intratheca l pump trial. Cervicogenic headache 27 7590785 G44.86 Severe bilateral occipital neuralgia. Severe tenderness over the bilateral occiput. Likely due to underlying cervical facet arthritis. Could not consider bilateral occipital nerve block, patient currently on anticoagul ation with Eliquis. Cervical spondylosis 387 858380 M47.812 [id number] Kyler Johnson MD [facility] - [address] [place] [address] [id number] 07/16/2023 13:57:39 07/16/2023 14:20:42 Long-term drug therapy 986387004 Z79.899 Chronic opioid therapy: narcotic pain medication s is one of the number of treatment options for chronic pain patients and has been shown to be beneficial when used in conjugatio n with other treatment modalities . Narcotic pain medication s allow the patient with chronic pain to function and perform their activities of daily living, which may include, sleep, and physical activity like walking, sitting for prolonged, and to improve their overall quality of life. Narcotic pain medication s are known to have high abuse and addiction potential and have a narrow therapeuti c range. The goal of our treatment is to find the right balance of maximizing pain control and minimizing the adverse effects of narcotic use which including dependence , tolerance and addiction and other side effects. This was very clearly explained to the patient in detail. Significan t amount of time was spent explaining the uses, complicati ons, limitation s of the treatment. Chronic mi graine without aura [id number] 70150 G43.709 Symptoms confined to back of her neck. Patient has a significan t component of cervicogen ic headaches. Might benefit from cervical median branch blocks and RFA in the future Lumbar spondylosis 18986 0009 M47.896 Lumbar radiculiti s Bilateral L4-L5 radiculiti s Examinatio n history consistent with lumbar radiculiti s. Patient has history of lower back pain radiating down the legs bilaterall y, examinatio n has positive SLR, recent MRI of lumbar spine also supports the diagnosis. Patient has failed 1 Conservati ve management for more than six months 2 Oral opioids, hydrocodon e 3 Topical diclofenac gel 4 Gabapentin 5 NSAID 6 Home physical therapy Meanwhile treat the patient right oral opioids and membrane stabilizer s. Might consider intratheca l pain pump if she does not respond long-term to the epidural steroid injections . Rheumatoid arthritis 698 88623 M06.9 Known longstandi ng history of rheumatoid arthritis on immunosupp ression. She is also known to have gouty arthritis on allopurino l. Arthritis of facet joint of cervical spine [id number] 2569227 M46.92 Significan t pain in the neck and radiating to the shoulders only No radicular signs +ve [place] No [facility] developed stroke-lik e symptoms following cervical median branch block. Fortunatel y her workup was negative for strokeWe will treat the patient conservati vely. Has failed conservati ve therapy including rest, Physical therapy, oral opioids, Topical and Oral NSAID. Patient has failed 1 Conservati ve management for more than six months 2 Oral opioids, hydrocodon e 3 Topical diclofenac gel 4 Gabapentin 5 NSAID Cervicogenic headache 27 5977839 G44.86 Severe bilateral occipital neuralgia. Severe tenderness over the bilateral occiput. Likely due to underlying cervical facet arthritis. Could not consider bilateral occipital nerve block, patient currently on anticoagul ation with Eliquis. Cervical spondylosis 387 235453 M47.812 [id number] Kyler Johnson MD [facility] - [address] [place] [address] LOPEZ Velázquez [id number] 09/13/2023 13:35:36 09/13/2023 14:35:04 Lumbar spondylosis 390193873 M47.896 - History, exam and imaging consistent with lumbar spondylosi s and facet arthropath y- Might consider intratheca l pain pump if she does not respond long-term Rheumatoid arthritis 698 08633 M06.9 - Known longstandi ng history of rheumatoid arthritis on immunosupp ression. She is also known to have gouty arthritis on allopurino l. Cervicogenic headache 27 8989588 G44.86 - Severe bilateral occipital neuralgia. Severe tenderness over the bilateral occiput. Likely due to underlying cervical facet arthritis. Could not consider bilateral occipital nerve block, patient currently on anticoagul ation with Eliquis. Cervical spondylosis 387 661631 M47.812 - History, exam and imaging consistent with cervical spondylosi s and facet arthropath y- Patient did not respond well to cervical MBBs, had worsening neck pain Lumbar post-laminectomy syndrome 218305372 M96.1 - History of T12-L1 laminectom y in October 2022 Cervical post-laminectomy syndrome 189542703 M96.1 - Known history of C5-6 ACDF on 03/18/2009 Anticoagulant therapy 18 2796236 Z79.01 - Patient is on anticoagul ation therapy due to previous CVA x2- Would need to obtain cardiac clearance should any procedures be considered in the future Chronic pain syndrome 37 7750758 G89.4 Long-term current use of opiate analgesic drug [id number] 49538 Z79.891 - Patient asks about increasing medication today, does not feel it is helping her enough. Advised patient she would need to discuss this with Dr. Johnson as she is high risk due to her age, valium use and use of fiorcet. Patient voiced understand ing [id number] MD [facility] - [address] [place] [address] LOPEZ HUGGINS [phone] 11/05/2023 14:09:24 11/05/2023 15:29:03 Cervical post-laminectomy syndrome 380141166 M96.1 - Known history of C5-6 ACDF on 03/18/2009 Cervical spondylosis 387 477701 M47.812 - History, exam and imaging consistent with cervical spondylosi s and facet arthropath y- Patient did not respond well to cervical MBBs, had worsening neck pain Cervicogenic headache 27 8855591 G44.86 - Severe bilateral occipital neuralgia. Severe tenderness over the bilateral occiput. Likely due to underlying cervical facet arthritis. Could not consider bilateral occipital nerve block, patient currently on anticoagul ation with Eliquis. Lumbar spondylosis 62679 0009 M47.896 - History, exam and imaging consistent with lumbar spondylosi s and facet arthropath y- Might consider intratheca l pain pump if she does not respond long-term Lumbar post-laminectomy syndrome 769940696 M96.1 - History of T12-L1 laminectom y in October 2022 Rheumatoid arthritis 698 41149 M06.9 - Known longstandi ng history of rheumatoid arthritis on immunosupp ression. She is also known to have gouty arthritis on allopurino l. Anticoagulant therapy 18 4542670 Z79.01 - Patient is on anticoagul ation therapy due to previous CVA x2- Would need to obtain cardiac clearance should any procedures be considered in the future Chronic pain syndrome 37 1601968 G89.4 Chronic opioid therapy: narcotic pain medication s is one of the numberof treatment options for chronic pain patients and has been shown tim beneficial when used in conjugatio n with other treatmentm odalities. Narcotic pain medication s allow the patient with chronicpai n to function and perform their activities of daily living, whichmay include, sleep, and physical activity like walking, sitting forprolong ed, and to improve their overall quality of life.Narco tic pain medication s are known to have high abuse and addictionp otential and have a narrow therapeuti c range. The goal of ourtreatme nt is to find the right balance of maximizing pain control andminimiz ing the adverse effects of narcotic use which includingd ependence, tolerance and addiction and other side effects. This wasvery clearly explained to the patient in detail. Significan t amount oftime was spent explaining the uses, complicati ons, limitation s of thetreatme nt. Patient has agreed to discontinu e Fioricet. I could not stop the Valium because of her Meniere's disease. Long-term current use of opiate analgesic drug [id number] 92773 Z79.548 [id number] Kyler Johnson MD [facility] - [address] [place] [address] [phone] 12/09/2023 14:34:23 12/09/2023 15:22:32 Cervical post-laminectomy syndrome 193102711 M96.1 - Known history of C5-6 ACDF on 03/18/2009 Cervical spondylosis 387 744337 M47.812 - History, exam and imaging consistent with cervical spondylosi s and facet arthropath y- Patient did not respond well to cervical MBBs, had worsening neck pain Cervicogenic headache 27 8637465 G44.86 - Severe bilateral occipital neuralgia. Severe tenderness over the bilateral occiput. Likely due to underlying cervical facet arthritis. Could not consider bilateral occipital nerve block, patient currently on anticoagul ation with Eliquis. Lumbar spondylosis 43233 0009 M47.896 - History, exam and imaging consistent with lumbar spondylosi s and facet arthropath y- Might consider intratheca l pain pump if she does not respond long-term Lumbar post-laminectomy syndrome 051736538 M96.1 - History of T12-L1 laminectom y in October 2022 Rheumatoid arthritis 698 70203 M06.9 - Known longstandi ng history of rheumatoid arthritis on immunosupp ression. She is also known to have gouty arthritis on allopurino l. Anticoagulant therapy 18 0371361 Z79.01 - Patient is on anticoagul ation therapy due to previous CVA x2- Would need to obtain cardiac clearance should any procedures be considered in the future Chronic pain syndrome 37 0828636 G89.4 Chronic opioid therapy: narcotic pain medication s is one of the numberof treatment options for chronic pain patients and has been shown tim beneficial when used in conjugatio n with other treatmentm odalities. Narcotic pain medication s allow the patient with chronicpai n to function and perform their activities of daily living, whichmay include, sleep, and physical activity like walking, sitting forprolong ed, and to improve their overall quality of life.Narco tic pain medication s are known to have high abuse and addictionp otential and have a narrow therapeuti c range. The goal of ourtreatme nt is to find the right balance of maximizing pain control andminimiz ing the adverse effects of narcotic use which includingd ependence, tolerance and addiction and other side effects. This wasvery clearly explained to the patient in detail. Significan t amount oftime was spent explaining the uses, complicati ons, limitation s of thetreatme nt. Patient has agreed to discontinu e Fioricet. I could not stop the Valium because of her Meniere's disease. Long-term current use of opiate analgesic drug [id number] 16083 Z79.886 [id number] Kyler Johnson MD [facility] - [address] [place] [address] [phone] 01/26/2024 14:25:59 01/26/2024 15:13:51 Cervical post-laminectomy syndrome 758881268 M96.1 - Known history of C5-6 ACDF on 03/18/2009 Cervical spondylosis 387 188046 M47.812 - History, exam and imaging consistent [...] to cervical MBBs, had worsening neck pain- Symptoms are currently well controlled with oral medication s and conservati ve treatments . Patient did not tolerate 10 mg of hydrocodon e but reports tolerating the 7.5 mg without side effect Cervicogenic headache 27 3756073 G44.86 - Severe bilateral occipital neuralgia. Severe tenderness over the bilateral occiput. Likely due to underlying cervical facet arthritis. Could not consider bilateral occipital nerve block, patient currently on anticoagul ation with Eliquis. Lumbar spondylosis 64806 0003 M47.896 - History, exam and imaging consistent with lumbar spondylosi s and facet arthropath y- Patient has tried the following conservati ve treatments with minimal improvemen ts: OTC analgesics , NSAIDs, muscle relaxers, physical therapy, home exercise plan (completed since 03/2023)- Patient reports the following activities are difficult to complete because of their pain: prolonged standing, walking and activities of daily living- Might consider intratheca l pain pump if she does not respond long-term Lumbar post-laminectomy syndrome 151193618 M96.1 - History of T12-L1 laminectom y in October 2022 Rheumatoid arthritis 698 68972 M06.9 - Known longstandi ng history of rheumatoid arthritis on immunosupp ression. She is also known to have gouty arthritis on allopurino l. Anticoagulant therapy 18 1552333 Z79.01 - Patient is on anticoagul ation therapy due to previous CVA x2- Would need to obtain cardiac clearance should any procedures be considered in the future Chronic pain syndrome 37 4835742 G89.4 Long-term current use of opiate analgesic drug 2253971650 51839 Z79.012 [id number] Kyler Johnson MD [facility] - [address] [place] [address] [phone] 04/05/2024 13:34:04 04/05/2024 14:17:12 Cervical post-laminectomy syndrome 102372211 M96.1 - Known history of C5-6 ACDF on 03/18/2009 Cervical spondylosis 387 083001 M47.812 - History, exam and imaging consistent [...] to cervical MBBs, had worsening neck pain- Symptoms are currently well controlled with oral medication s and conservati ve treatments . Patient did not tolerate 10 mg of hydrocodon e but reports tolerating the 7.5 mg without side effect Cervicogenic headache 27 6745072 G44.86 - Severe bilateral occipital neuralgia. Severe tenderness over the bilateral occiput. Likely due to underlying cervical facet arthritis. Could not consider bilateral occipital nerve block, patient currently on anticoagul ation with Eliquis. Lumbar post-laminectomy syndrome 915345334 M96.1 - History of T12-L1 laminectom y in October 2022 Lumbar spondylosis 52345 0009 M47.896 - History, exam and imaging [...] and conservati ve treatments Rheumatoid arthritis 698 15839 M06.9 - Known longstandi ng history of rheumatoid arthritis on immunosupp ression Anticoagulant therapy 18 [id number] Z79.01 - Patient is on anticoagul ation therapy due to previous CVA x2- Would need to obtain cardiac clearance should any procedures be considered in the future Chronic pain syndrome 37 7759276 G89.4 Long-term current use of opiate analgesic drug [id number] 45100 Z79.302 [id number] Kyler Johnson MD [facility] [address] [place] [phone] 8 06/07/2024 14:21:04 06/07/2024 16:07:44 Cervical post-laminectomy syndrome 820230759 M96.1 - Known history of C5-6 ACDF on 03/18/2009 Cervical spondylosis 387 392101 M47.812 - History, exam and imaging consistent [...] to cervical MBBs, had worsening neck pain- Symptoms are currently well controlled with oral medication s and conservati ve treatments . Patient did not tolerate 10 mg of hydrocodon e but reports tolerating the 7.5 mg without side effects Cervicogenic headache 27 0512952 G44.86 - Severe bilateral occipital neuralgia. Severe tenderness over the bilateral occiput. Likely due to underlying cervical facet arthritis. Could not consider bilateral occipital nerve block, patient currently on anticoagul ation with Eliquis. Lumbar post-laminectomy syndrome 618918501 M96.1 - History of T12-L1 laminectom y in October 2022 Lumbar spondylosis 71530 0009 M47.896 - History, exam and imaging [...] and conservati ve treatments Rheumatoid arthritis 698 11172 M06.9 - Known ronny cullen history of rheumatoid arthritis, follows with [facility] Rheumatolo [facility]- Patient is currently on immunosupp ression Anticoagulant therapy 18 3338155 Z79.01 - Patient is on anticoagul ation therapy due to previous CVA x2- Would need to obtain cardiac clearance should any procedures be considered in the future Chronic pain syndrome 37 4963398 G89.4 Long-term current use of opiate analgesic drug 6276179542 54297 Z79.891 - Patient does utilize benzodiaze pines with opiate medication s. We have reviewed the FDA warning regarding risks and side effects of using these medication s together. Patient understand s not to take these medication s together, must allow for two hours in between. Patient has been prescribed Narcan and understand s how and when to use this. M ni re's disease 27740849 H81.09 - Patient has ronny cullen history of Meniere's Disease, is prescribed [...] s how and when to use this. [id number] ABI LUKE [facility] - [address] [place] [phone] 8 07/19/2024 14:24:40 07/19/2024 15:09:34 Cervical post-laminectomy syndrome 120744743 M96.1 - Known history of C5-6 ACDF on 03/18/2009 Cervical spondylosis 387 132411 M47.812 - History, exam and imaging consistent [...] to cervical MBBs, had worsening neck pain- Symptoms are currently well controlled with oral medication s and conservati ve treatments . Patient did not tolerate 10 mg of hydrocodon e but reports tolerating the 7.5 mg without side effects. Will continue current regimen and provide refills today Cervicogenic headache 27 8872731 G44.86 - Severe bilateral occipital neuralgia. Severe tenderness over the bilateral occiput. Likely due to underlying cervical facet arthritis. Could not consider bilateral occipital nerve block, patient currently on anticoagul ation with Eliquis. Lumbar post-laminectomy syndrome 111035851 M96.1 - History of T12-L1 laminectom y in October 2022 Lumbar spondylosis 39413 0009 M47.896 - History, exam and imaging [...] and conservati ve treatments Rheumatoid arthritis 698 29702 M06.9 - Known longstandi ng history of rheumatoid arthritis, follows with [facility] Rheumatolo [facility]- Patient is currently on immunosupp ression M ni re's disease 41391503 H81.09 - Patient has longstandi ng history of Meniere's Disease, is prescribed Valium [...] when to use this. Anticoagulant therapy 18 5529586 Z79.01 - Patient is on anticoagul ation therapy due to previous CVA x2- Would need to obtain cardiac clearance should any procedures be considered in the future Chronic pain syndrome 37 8611978 G89.4 Long-term current use of opiate analgesic drug 4227343961 72111 Z79.891 - Patient does utilize benzodiaze pines with opiate medication s. We have reviewed the FDA warning regarding risks and side effects of using these medication s together. Patient understand s not to take these medication s together, must allow for two hours in between. Patient has been prescribed Narcan and understand s how and when to use this. Chronic id iopathic constipation 54598147 K59.04 - History of CIC, well controlled with fiber gummies. Will continue to monitor [id number] Hari Najera MD [facility] [place] [address] 9 07/19/2024 09:41:32 07/19/2024 10:36:04 Carpal tunnel syndrome of left wrist 5924280232 82808 G56.02 Ulnar nerv e entrapment at elbow 102847922 G56.22 [id number] Hari Najera MD [facility] [place] [address] 9 07/31/2024 12:55:09 07/31/2024 13:31:22 Follow-up orthopedic assessment 973669702 Z47.89 [id number] JULIÁN HITCHCOCK NP [facility] [place] [phone] 08/07/2024 10:59:53 08/07/2024 12:01:12 Carpal tunnel syndrome of left wrist 5755466440 41379 G56.02 Follow-up orthopedic assessment 900128160 Z47.89 [id number] JULINÁ HITCHCOCK NP [facility] [place] [phone] 08/28/2024 14:35:09 08/28/2024 15:14:32 Follow-up orthopedic assessment 891706640 Z47.89 [id number] Hari Najera MD [facility] [address] [place] [address] 09/06/2024 08:18:03 09/06/2024 08:38:02 Follow-up orthopedic assessment 182890037 Z47.89 Cervical radiculitis 110 86671 M54.12 History of cervical spine fusion 1165631497 101 Z98.1 [id number] MD [facility] [address] [place] [phone] 09/20/2024 12:59:51 09/20/2024 13:27:05 Cervical radiculitis 88404724 M54.12 History of cervical spine fusion 1645247944 101 Z98.1 [id number] Kyler Johnson MD [facility] - [address] [place] [phone] 10/04/2024 13:20:40 10/04/2024 13:52:02 Cervical post-laminectomy syndrome 980186679 M96.1 - Known history of C5-6 ACDF on 03/18/2009 Cervical spondylosis 387 721742 M47.812 - History, exam and imaging consistent [...] to cervical MBBs, had worsening neck pain- Symptoms are currently well controlled with oral medication s and conservati ve treatments . Patient did not tolerate 10 mg of hydrocodon e but reports tolerating the 7.5 mg without side effects. Will continue current regimen and provide refills today Cervicogenic headache 27 2610627 G44.86 - Severe bilateral occipital neuralgia. Severe tenderness over the bilateral occiput. Likely due to underlying cervical facet arthritis. Could not consider bilateral occipital nerve block, patient currently on anticoagul ation with Eliquis. Lumbar post-laminectomy syndrome 587936327 M96.1 - History of T12-L1 laminectom y in October 2022 Lumbar spondylosis 43441 0009 M47.896 - History, exam and imaging [...] and conservati ve treatments Rheumatoid arthritis 698 09994 M06.9 - [facility], follows with [facility]- Patient is currently on immunosupp ression M ni re's disease 52907529 H81.09 - [facility] of Meniere's Disease, is prescribed Valium [...] when to use this. Anticoagulant therapy 18 2431911 Z79.01 - Patient is on anticoagul ation therapy due to previous CVA x2- Would need to obtain cardiac clearance should any procedures be considered in the future Chronic id iopathic constipation 16891081 K59.04 - History of CIC, well controlled with fiber gummies. Will continue to monitor Chronic pain syndrome 37 3114381 G89.4 Long-term current use of opiate analgesic drug 6336395556 62311 Z79.891 - Patient does utilize benzodiaze pines with opiate medication s. We have reviewed the FDA warning regarding risks and side effects of using these medication s together. Patient understand s not to take these medication s together, must allow for two hours in between. Patient has been prescribed Narcan and understand s how and when to use this. Cervical radiculopathy 07997761 M54.12 - Patient's orthopedic surgeon who performed carpal tunnel surgery on her left wrist believes that neuropathy in the left hand and upper extremity is due to pathology in the cervical spine. He ordered a cervical MRI and referred her to Neurosurge ry. I have personally reviewed the last 3 orthopedic notes and updated MRI.Jeannine hatch has appointmen t with Neurosurge ry coming up, we will follow-up at her next appointmen t [id number] Kyler Johnson MD [facility] - [address] [place] [address] LOPEZ HUGGINS [phone] 12/06/2024 12:54:12 12/06/2024 13:17:13 Cervical post-laminectomy syndrome 717286805 M96.1 - Known history of C5-6 ACDF on 03/18/2009 Cervical spondylosis 387 350931 M47.812 - History, exam and imaging consistent [...] to cervical MBBs, had worsening neck pain- Symptoms are currently well controlled with oral medication s and conservati ve treatments . Patient did not tolerate 10 mg of hydrocodon e but reports tolerating the 7.5 mg without side effects. Will continue current regimen and provide refills today Cervical radiculopathy 05916756 M54.12 - Patient's orthopedic surgeon who performed carpal tunnel surgery on her left wrist believes that neuropathy in the left hand and upper extremity is due to pathology in the cervical spine- Since her last appointmen t patient had her neurosurge ry consult with Dr. Zaldivar in October. She is scheduled for a cervical fusion revision on December 19. Discussed post op medication s with patient today Cervicogenic headache 27 8863625 G44.86 - Severe bilateral occipital neuralgia. Severe tenderness over the bilateral occiput. Likely due to underlying cervical facet arthritis. Could not consider bilateral occipital nerve block, patient currently on anticoagul ation with Eliquis. Lumbar post-laminectomy syndrome 454325798 M96.1 - History of T12-L1 laminectom y in October 2022 Lumbar spondylosis 03454 0009 M47.896 - History, exam and imaging [...] and conservati ve treatments Rheumatoid arthritis 698 75978 M06.9 - Known longstandi ng history of rheumatoid arthritis, follows with [facility]- Patient is currently on immunosupp ression M ni re's disease 41721857 H81.09 - Patient has longstandi ng history of Meniere's Disease, is prescribed Valium [...] when to use this. Anticoagulant therapy 18 9336833 Z79.01 - Patient is on anticoagul ation therapy due to previous CVA x2- Would need to obtain cardiac clearance should any procedures be considered in the future Chronic id iopathic constipation 31854882 K59.04 - History of CIC, well controlled with fiber gummies. Will continue to monitor Chronic pain syndrome 37 4853885 G89.4 Long-term current use of opiate analgesic drug 0425231117 63902 Z79.891 - Patient does utilize benzodiaze pines with opiate medication s. We have reviewed the FDA warning regarding risks and side effects of using these medication s together. Patient understand s not to take these medication s together, must allow for two hours in between. Patient has been prescribed Narcan and understand s how and when to use this. [id number] Kyler Johnson MD [facility] - [address] [place] [phone] 01/31/2025 13:22:42 01/31/2025 14:08:10 Cervical post-laminectomy syndrome 168062628 M96.1 - Known history of C5-6 ACDF on 03/18/2009- Patient is s/p C4/C5 and C6/C7 discectomy and fusion on 12/19/[address] Zaldivar. I did personally review patients hospital notes Cervical spondylosis 387 448122 M47.812 - History, exam and imaging consistent [...] coming up with Dr. Zaldivar Cervical radiculopathy 20024173 M54.12 Cervicogenic headache 27 9955729 G44.86 - Severe bilateral occipital neuralgia. Severe tenderness over the bilateral occiput. Likely due to underlying cervical facet arthritis. Could not consider bilateral occipital nerve block, patient currently on anticoagul ation with Eliquis. Lumbar post-laminectomy syndrome 027724047 M96.1 - History of T12-L1 laminectom y in October 2022 Lumbar spondylosis 23239 0009 M47.896 - History, exam and imaging [...] and conservati ve treatments Rheumatoid arthritis 698 48363 M06.9 - Known longstandi history of rheumatoid arthritis, follows with [facility]- Patient is currently on immunosupp ression M ni re's disease 73220620 H81.09 - Patient has longstandi ng history of Meniere's Disease, is prescribed Valium [...] when to use this. Anticoagulant therapy 18 5032422 Z79.01 - Patient is on anticoagul ation therapy due to previous CVA x2- Would need to obtain cardiac clearance should any procedures be considered in the future Chronic id iopathic constipation 68916433 K59.04 - History of CIC, well controlled with fiber gummies. Will continue to monitor Chronic pain syndrome 37 7126139 G89.4 Long-term current use of opiate analgesic drug 5173682717 98217 Z79.891 - Patient does utilize benzodiaze pines [...] Concerns Section Related Observation LastModified by Organization Detai ls LastModified Time None Recorded Concern Status LastModified by Organization Details LastModified Time None Recorded Advance Directives Directive N: Payers Insurance Date Sequence Insurance Name Policy Number Policy Hilliard Covered Member ID Hilliard Member ID Guarantor Name 01/28/2025 1 [employer] - DUAL ELIGIBLE (MEDICARE REPLACEMENT/AD VANTAGE - O) Imani Sierra [id number] Imani Sierra 12/05/2024 1 [place] - [place] (MEDICARE REPLACEMENT [facility]) [id number] Imani Sierra [id number] Imani Sierra Notes Date Note Type Note Provider Name and Address Organization Details Recorded Time 09/06/2024 text/html 53 y/o female he re today for follow up little over 5 weeks post op left carpal tunnel release; DOS- 07/28/2024. Pt saw Julián last visit and wanted pt to f/u with Dr. Najera. Symptoms are unchanged, still having a burning type pain. States she has to sleep in a chair with her hand propped upPatient takes Lyrica and [place] regularly. E3AP Hari Najera MD [address] [place] [address],[address], [place], [address], [facility] & [place] 09/08/2024 09:39:36 09/20/2024 text/html 53 y/o female he re today for MRI results. Symptoms are unchanged. 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 Hari Najera MD [address] [place] [address],[address], [place], [address], [facility] & [place] 09/21/2024 15:37:21 10/04/2024 text/html Ms. 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 Follow-up Visit 10/04/24Ms. Carpio presents today for a medication management follow up visit. since patient's last follow-up visit she has had carpal tunnel surgery on her left hand. States the surgery did not help at all and she feels like she is in worse shape than she was to begin with. She continues to have numbness and tingling in the left hand. The surgeon believes that this is coming from her neck, ordered an MRI and has referred her to Neurosurgery. States she has an appointment with Dr. Zaldivar on 11/06 for a neurosurgery consult. Patient reports her primary complaints remain her [...] the way into the feet. She reports tingling in her feet but denies any numbness or weakness. Patient reports her pain is [...] completely fused.Straightening of cervical spine ABI LUKE [address] [place] [address], [address], [place], [address], [facility] & [place] 10/05/2024 11:41:19 12/06/2024 text/html Ms. 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 Follow-up Visit 12/06/24Ms. Carpio presents today for a medication management follow up visit. Since her last appointment patient had her neurosurgery consult with Dr. Zaldivar in October. She is scheduled for a cervical fusion revision on December 19. Will be staying in the hospital following this. Patient states her neck pain has become very severe along with numbness, tingling and weakness in the hands as well as headaches. Patient reports her primary complaints remain her [...] completely fused.Straightening of cervical spine ABI LUKE [address] [place] [address], [address], [place], [address], [facility] & [place] 12/06/2024 21:50:34 01/31/2025 text/html Ms. 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
--- OUTSIDE RECORDS SUMMARY | 2025-02-21 13:31 | XMS_ITS | Data Portability ---
Author Organization [facility] Address [address] [place] [address] Care Team Providers Care Caretaker Name Role Phone KAYCEE DIMAS Referring Provider Assessment Encounter Date Assessment Date Assessment LastModified by Organization Details LastModified Time 11/06/2024 11/06/2024 Mrs. Sierra is a 53-year-old female with a history of a C5-6 ACDF, now with severe foraminal stenosis both above and below the fusion. She also has some right sided foraminal stenosis at C3-4. I think her best option at this time is to extend her fusion to C4-C7. She understands that she does have some issues going on in the right at C3-4, and to a much lesser degree bilaterally at C7-T1, and has a chance of needing these addressed in the future. However, C4-5 and C6-7 have some central stenosis which is most concerning. I also think her distribution of pain fits well with these segments. With a history of a prior cervical fusion, and thyroid resection, the approach to her anterior spine will present some additional risks. I told her that she is at an increased risk of swallowing difficulties and hoarseness. These are likely temporary, but and a rare instance may be permanent. She voiced good understanding of this and wishes to proceed. Other risks discussed included general anesthesia, infection, hardware failure, pseudoarthrosis, need for further levels addressed in the future. She will speak with Ann Marie, our surgery coordinator and find a date for surgery. We will have her fitted for a cervical collar. We may also give her a soft collar (from the hospital) to use at night. Not available 11/06/2024 13:45:22 02/12/2025 02/12/2025 Mrs. Perez is a 54-year-old female status post C4-C7 ACDF. Her x-rays today look great. I told her she may wean out of her cervical collar. I plan on seeing her back in 2 to 3 months with repeat x-rays of the cervical spine. At that follow-up visit I plan to order some standing flexion/extensio n lumbar x-rays as well as a lumbar MRI. We need to revisualize the lower thoracic cyst, to make sure it is stable. I also suspect that she may becoming symptomatic from a slight L4-5 spondylolisthesi s, last visualized on MRI back in 2022. Not available 02/12/2025 10:53:45 Plan of Treatment Reminders Order Date Submit Date Provider Last Modified By Organization Details Last Modified Time Details Appointments RHEUM RECHECK 2024 03:45P M GREGORIO RAM MD Not available Not available Not available RECHECK 2024 10:50A M CONSUELO GRANDE III, MD Not available Not available Not available RECHECK r 2024 10:45A M TASHA LAWRENCE MD Not available Not available Not available Lab Mycobacte rium tuberculo sis stimulate d gamma interfero n, qual, blood 2023 024 [facility] [address] [place] [address] , [place], [address], 07/17/2024 08:05:25 CBC w/ auto diff 2023 024 [email or web address] [id number] [facility] [address] [place] [address] [place], [address], 07/17/2024 08:05:24 CMP, serum or plasma 2023 024 [email or web address] [facility] [address] [place] [address] [place], [address], 07/17/2024 08:05:24 Referral None recorded. Procedures None recorded. Surgeries None recorded. Imaging None recorded. Medication Orders Rinvoq 15 mg tablet,ex tended release [address], [address], 07/10/2024 11:58:52 Cimzia 400 mg/2 mL (200 mg/mL x 2) subcutane ous syringe kit 2023 024 [facility], [address] [place] [address], [address], 06/20/2024 15:12:14 Patient TargetsNo targets recorded. Patient Instructions Encounter Date Encounter Id Patient Instructions Last Modified By Organization Details Last Modified Time 06/20/2024 [id number] medical record request* - last labs please from pcp [email or web address] Not available 06/27/2024 08:15:33 Reason for Referral None Reported. Results Created Date Observation Date Name Description Value Unit Range Abnormal Flag Note LastModifiedBy Organization Detail LastModifiedTime 01/24/20 25 01/22/2025 XR, cervi johnny spine , 2 or 3 view [facility] [address] [place] [address] Jackie hatch Name: IMANI hatch : 969 Jackie hatch 5 Orderi ng Provid er: PRESLI GERMÁN EXAM DATE: 2024 EXAM: XR CERVIC AL AP/LAT CLINIC AL INFORM ATION: Recent multil evel fusion . Follow -up evalua tion. IMAGES PROVID ED: AP, latera l, open mouth and submen george views of the cervic al spine COMPAR ANITRA: None. FINDIN GS AND IMPRES BERNICE: The jackie t has anteri or fusion extend ing from C4 to C7 with interb pau grafts and anteri or plate with screws . The alignm ent appear s satisf actory and no compli cating featur es are seen by plain film. There is mild disc space narrow ing and spurri ng at C3-4 above the fusion . Interp reted By: Jonathan almaguer MD Electr onical ly Signed By: Jonathan almaguer MD on 025 4:47 AM [email or web address] [facility] [address] [place], [address], 01/25/2025 19:01:54 02/13/20 25 02/12/2025 XR, cervi johnny spine , 2 or 3 view [facility] [address] [place] [address] [id number] Patien t Name: IMANI hatch : 969 Jackie hatch 5 Orderi ng Provid er: MARGIE LAWRENCE EXAM DATE: 2024 EXAM: XR CERVIC AL AP/LAT CLINIC AL INFORM ATION: Surger y follow -up IMAGES PROVID ED: AP, latera l, open mouth and submen george views of the cervic al spine COMPAR ANITRA: 025 FINDIN GS: Previo us C4-C7 anteri or fixati on and interb pau fusion . No hardwa re compli cation . No eviden ce of hardwa re fractu re or loosen ing. No prever tebral soft tissue swelli ng. No radiog raphic eviden ce of injury is seen. IMPRES BERNICE: Uncomp licate d appear ing C4-C7 fusion Interp reted By: Daniel Patel MD Electr onical ly Signed By: Daniel Patel MD on 02/13/20 10:26 AM SB [facility] [address] [place], [address], 02/12/2025 16:05:38 Result Notes Documentation Provider Name and Address Organization Details Recorded Time Xr, Cervical Spine, 2 Or 3 View : [facility] [address] [place] [address] Patient Name: IMANI SIERRA Patient : 1970 Patient Ordering Provider: SELVIN DUNLAP EXAM DATE: 01/22/2025 EXAM: XR CERVICAL AP/LAT CLINICAL INFORMATION: Recent multilevel fusion. Follow-up evaluation. IMAGES PROVIDED: AP, lateral, open mouth and submental views of the cervical spine COMPARISON: None. FINDINGS AND IMPRESSION: The patient has anterior fusion extending from C4 to C7 with interbody grafts and anterior plate with screws. The alignment appears satisfactory and no complicating features are seen by plain film. There is mild disc space narrowing and spurring at C3-4 above the fusion. Interpreted By: Jonathan Dominique MD IN DUNLAP PA-C [address] [place] [address], [phone] 01/25/2025 19:01:54 Xr, Cervical Spine, 2 Or 3 View : [facility] [address] [place] [address] Patient Name: IMANI SIERRA Patient : 1970 Patient Ordering Provider: TASHA LAWRENCE EXAM DATE: 02/12/2025 EXAM: XR CERVICAL AP/LAT CLINICAL INFORMATION: Surgery follow-up IMAGES PROVIDED: AP, lateral, open mouth and submental views of the cervical spine COMPARISON: 01/22/2025 FINDINGS: Previous C4-C7 anterior fixation and interbody fusion. No hardware complication. No evidence of hardware fracture or loosening. No prevertebral soft tissue swelling. No radiographic evidence of injury is seen. IMPRESSION: Uncomplicated appearing C4-C7 fusion Interpreted By: Daniel Patel MD A LAWRENCE MD [address] [place] [address], [phone], [facility] 02/12/2025 13:10:22 Problems Name Problem SNOMED Code Status Onset Date Resolution Date Notes Provider Name and Address Organization Details Recorded Time Hypertens margot disorder 08611818 Active 2014 From Automated Load;Provi emerita: Tacho Reis;Stat us: Active Not Available [facility] 6 01:25:55 Clinical finding Active 2014 From Automated Load;Provi emerita: Tacho Reis;Stat us: Active Not Available [facility] 6 01:25:55 Headache 08794265 Active 2014 From Automated Load;Provi emerita: Smiley, Tacho;Stat us: Active Not Available [facility] 6 01:25:55 Acute pulmonary embolism 761586798 Active 2014 From Automated Load;Provi emerita: Lauryn Celeste;S tatus: Active Not Available [facility] 6 01:25:55 Notes:Some problems listed i n Document: #[id number] could not be added to this patient's chart. Please review this document and add these problems to the patient's chart manually as needed. Problem Notes None recorded. Procedures Surgical History Date Name Laterality Status Provider Name and Address Organization Details Recorded Time 01/05/[address] [facility] 01/05/2024 09:36:50 01/05/[address] [facility] 01/05/2024 09:36:47 01/05/20 24 Cerumen removal - Instruments, Bilateral completed Chrystal Ward [facility] 01/05/2024 09:32:47 Back Surgery completed Jazmyne Petersen [facility] 11/22/2023 10:17:48 hysterectomy completed [facility] 11/06/2024 12:58:46 thyroidectomy completed [facility] 11/06/2024 12:58:53 Neck Surgery completed [facility] 11/06/2024 12:59:06 Appendectomy completed [facility] 11/06/2024 12:59:13 Breast augmentation w/implt completed [facility] 11/06/2024 12:59:36 Cholecystectomy completed [facility] 11/06/2024 12:59:48 placement of stent in cardiac conduit completed [facility] 11/06/2024 13:00:11 Imaging Results None recorded. Procedure Notes None recorded. Medical Equipment None Reported. Allergies Allergen ID Allergen Name Allergen Category Reaction Reaction Severity Criticality Documentation Date Start Date Code Code System Note Provider Name and Address Organization Details Recorded Time 307721 Floxin medicatio n Not available Not available Not available 07/02/20162007 8 RxNorm Comme nt: RASH Gayle [facility] 4 13:16:59 388091 Ultram medicatio n Not available Not available Not available 07/03/2016200760 6 RxNorm Comme nt: MUSCL E WEAKN ESS Gayle [facility] 4 13:17:07 808784 fentanyl medicatio n Not available Not available Not available 11/03/2023 4337 RxNorm Yamilex Geraldo [facility] 4 13:07:23 652304 morphine medicatio n Not available Not available Not available 11/03/2023 7052 RxNorm Yamilexsteff Chow [facility] 4 13:07:34 225224 lisinopri l medicatio n cough Not available Not available 11/03/2023 12465 RxNorm Yamilexsteff Chow [facility] 4 13:07:44 363073 Substance with sulfonami de structure and antibacte rial mechanism of action (substanc e) medicatio n eye redness severe Not available 12/02/20232019 49851 8003 SNOMED Rochelle Solares [facility] 4 09:06:50 130269 levothyro xine sodium medicatio n diarrhea Not available Not available 12/02/2023 70606 RxNorm Rochelle Solares [facility] 4 09:06:50 Medications Name Sig Start Date Stop Date Status Note LastModified by Organization Details LastModified Time Protonix 40 mg tablet,de layed release Take 1 tablet every day by oral route. active Not Available Not Available No t Available hydrocodo ne 5 mg-acetam inophen 325 mg tablet Take 1 tablet every 6 hours by oral route. active up to a 10 Not Available Not Available Not Available Medrol (Maximilian) 4 mg tablets in a dose pack as directed 2024 active Not Available Not Available Not Avai lable Synthroid 100 mcg tablet Take 1 tablet every day by oral route. active Not Available Not Available No t Available prednison e 5 mg tablet take one po tid x 1 week; one po bid x 1 week then one po daily x 1 week 2023 active Not Available Not Available Not Avai lable Bentyl 20 mg tablet Take 1 tablet 4 times a day by oral route. active Not Available Not Available No t Available methocarb aleks 750 mg tablet Take 1 tablet 3 times a day by oral route. active Not Available Not Available No t Available Valium 5 mg tablet Take 1 tablet twice a day by oral route. active Not Available Not Available No t Available hydrocodo ne 7.5 mg-acetam inophen 325 mg tablet Take 1 tablet every 6 hours by oral route as needed. 2024 active Not Available Not Available Not Avai lable Zofran ODT 8 mg disintegr ating tablet Place 1 tablet twice a day by translin gual route. active Not Available Not Available No t Available allopurin ol 300 mg tablet Take 1 tablet every day by oral route. active Not Available Not Available No t Available zinc 50 mg tablet Take by oral route. active Not Available Not Available No t Available Ortho Tri-Cycle n LO (28) 0.18 mg/0.215 mg/0.25 mg-25 mcg tablet Daily 11/02 completed Frequenc y: daily;Me dication Descript ion: ethinyl estradio l-norges timate; Dosage:1 ; Route:or al; refills: 0 Not Available Not Available Not Available pregabali n 75 mg capsule Take 1 capsule twice a day by oral route. active Not Available Not Available No t Available Cimzia 400 mg/2 mL (200 mg/mL x 2) subcutane ous syringe kit INJECT TWO (2) ML EVERY FOUR (4) WEEKS BY SUBCUTAN EOUS ROUTE FOR 30 DAYS. active Not Available Not Available No t Available Linzess 145 mcg capsule Take 1 capsule every day by oral route. 02/01 completed Not Available Not Available Not Available Eliquis 5 mg tablet Take 1 tablet twice a day by oral route. active Not Available Not Available No t Available Fioricet with Codeine 50 mg-300 mg-40 mg-30 mg capsule Take 1 capsule every 4 hours by oral route. active Not Available Not Available No t Available Cosentyx 150 mg/mL subcutane ous syringe Inject 2 mL every 4 weeks by subcutan eous route. 11/25 /2024 completed Not Available Not Available Not Available Trintelli x 20 mg tablet Take 1 tablet every day by oral route. active Not Available Not Available No t Available Trelenate Ellipta active Not Available Not Available Not Available Rinvoq 15 mg tablet,ex tended release Take by oral route for 30 days. 2024 active Not Available Not Available Not Avai lable albuterol 90 mcg-budes onide 80 mcg/actua tion HFA aerosol inhaler Inhale by inhalati on route. active Not Available Not Available No t Available potassium chloride 10 mEq oral packet Take 1 packet twice a day by oral route. active Not Available Not Available No t Available Vitals Date Recorded Body height Body mass index (BMI) Body weight Systolic And Diastolic Provider Name and Address Organization Details Last Updated DateTime 11/06/2024 165.1 cm 23.3 kg/m2 46957.93 g 126/82 mm[Hg] Celina Rubio [facility] 11/06/2024 13:04:14 Date Recorded Body height Provider Name an d Address Organization Details Last Updated DateTime 06/20/2024 165.1 cm HAYDE FRANZ, OBJECTS CONSERVATOR [address] [place], [address], [facility] 06/20/2024 15:08:47 Social History Question Answer Notes LastModified by Organizat ion Details LastModified Time Tobacco Smoking Status Never Smoker Yamilex Chow luis, [facility] 11/03/2023 13:06:21 What Was The Date Of Your Most Recent Tobacco Screening? 11/22/2023 [email or web address] Information not available 11/22/2023 Sex: Female Functional Status Question Answer Note LastModified by Organizat ion Details LastModified Time Do you use any illicit or recreational drugs? No [email or web address] Information not available 11/03/2023 What is your level of alcohol consumption? None [email or web address] Information not available 11/03/2023 Mental Status None recorded. Family History Relationship Description Onset Age of this Age Resolved Age Notes LastModified by Organization Details LastModified Time Mother Gout [email or web address] Not available 11/03/2023 13:03:31 Mother Arthritis O.A. [email or web address] Not availab le 11/03/2023 13:04:54 Mother Heart disease [email or web address] Not available 2023 13:05:25 Mother M ni re's disease [email or web address] Not available 09:21:55 Sister Autoimmune disease Sjogre ns [email or web address] Not available 11/03/2023 13:04:18 Father Heart disease Not available 2023 13:05:25 Maternal Grandmother Diabetes mellitus [email or web address] Not available 2023 13:05:59 Unspecified Relation Diabetes mellitus Not available 2023 13:05:59 Medical History Condition Response Gout Y Depression Y Anxiety Disorder Y Arthritis Y Fibromyalgia Y Heart Disease Y Hypertension Y Gynecological HistoryNo gynecological history recorded. Obstetrics History GPAL:G 0 P 0 0 0 0 Immunizations Vaccine Type Date Status Note Provider Nam e and Address Organization Details Recorded Time Influenza, split virus, quadrivalent, preservative 3 completed [facility] 12/02/2023 09:06:55 Influenza, split virus, quadrivalent, preservative 9 completed [facility] 12/02/2023 09:06:55 COVID-19, mRNA, LNP-S, PF, 100 mcg/0.5mL dose or 50 mcg/0.25mL dose 2 completed [facility] 12/02/2023 09:06:55 COVID-19, mRNA, LNP-S, PF, 100 mcg/0.5mL dose or 50 mcg/0.25mL dose 1 completed [facility] 12/02/2023 09:06:55 Hep A, adult 9 completed [facility] 12/02/2023 09:06:55 Hep A, adult 8 completed [facility] 12/02/2023 09:06:55 Influenza, split virus, quadrivalent, PF 0 completed [facility] 12/02/2023 09:06:55 Influenza, split virus, quadrivalent, PF 8 completed Rochelle [facility] 12/02/2023 09:06:55 Past Encounters Encounter ID Performer Location Encounter Start Date Encounter Closed Date Diagnosis/Indication Diagnosis SNOMED-CT Code Diagnosis ICD10 Code Diagnosis Note [id number] ILDA TOVAR PA-C NEUROLOGY [facility] [address] [place] [address] 11/03/2023 12:53:31 11/04/2023 04:40:07 Poor short-term memory 384906698 R41.3 [id number] HAYDE FRANZ APRN RHEUMATOL OGY [address] [place] [address] 11/22/2023 09:29:22 11/23/2023 04:21:01 Psoriatic arthritis 608349444 L40.50 behind the earcurrent ly on cosentyx and after 2 years it is now starting to be ineffectiv eshe is wanting to change to cimzia based on her sister having increased resultssee s pain management at [facility] will request coverage on cimzia with labs, TB test and request todayshe will start maintenanc e 400 mg SC x1 on wk 0, 2, 4she will further maintain 400 mg q 4 weeksshe has failed: mtx caused severe diarrhea, plaquenil, humira, enbrel, cosentyx, stelara, remicade, actemra, xeljanz, orencia Rheumatoid arthritis 698 [address]505 M06.9 will assess new labs today Tuberculos is screening 525705602 Z11.1 Gout 88112968 M10.9 h/otreated with pcp on allopurino l 300 mg daily x 5 years Pain of mu ltiple joints 39106882 M25.50 Long-term current use of immunosuppressive drug 853917045 Z79.60 [id number] SHARON MATAMOROS MD ENT [address] [place] [address] 01/05/2024 08:48:00 01/05/2024 13:00:51 Impacted cerumen of bilateral ears 8946964813 939648 H61.23 Removed from each canal. TMs look good. Dizziness 716771829 R42 Describes a history of Meniere's disease diagnosed by Dr. Pruett. Unsure which ear. Current dizziness does not sound consistent with Meniere's. Audiogram reviewed and interprete d. Hearing is normal. May have been the cerumen that was causing her hearing decrease. F/u prn [id number] SHAI ROLLINS, DILIA ENT [address] [place] [address] 01/05/2024 09:36:10 01/05/2024 11:00:10 Hearing examination 377591028 Z01.10 [id number] ILDA TOVAR PA-C NEUROLOGY [facility] [address] [place] [address] 02/02/2024 13:16:04 02/03/2024 04:05:30 Disturbance of attention 18612727 R41.840 [id number] HAYDE FRANZ APRN RHEUMATOL OGY [address] [place] [address] 02/21/2024 14:14:26 03/28/2024 04:49:00 Psoriatic arthritis 256841303 L40.50 behind the earcurrent ly on cosentyx and after 2 years it is now starting to be ineffectiv eshe is wanting to change to cimzia based on her sister having increased resultssee s pain management at [facility] will request coverage on cimzia with labs, TB test and request todayshe will start maintenanc e 400 mg SC x1 on wk 0, 2, 4she will further maintain 400 mg q 4 weeksshe has failed: mtx caused severe diarrhea, plaquenil, humira, enbrel, cosentyx, stelara, remicade, actemra, xeljanz, orencia Rheumatoid arthritis 698 17258 M06.9 will assess new labs today Tuberculos is screening 214386465 Z11.1 Gout 90674050 M10.9 h/otreated with pcp on allopurino l 300 mg daily x 5 years Long-term current use of immunosuppressive drug 810009772 Z79.60 [id number] HAYDE FRANZ APRN RHEUMATOL OGY [address] [place] [address] 06/20/2024 15:07:28 06/21/2024 04:31:43 Psoriatic arthritis 845648241 L40.50 behind the earcurrent ly on cosentyx and after 2 years it is now starting to be ineffectiv barb is wanting to change to cimzia based on her sister having [facility] with labs, TB test and request todayshe will maintenanc e 400 mg SC x1 q weeks she has failed: mtx caused severe diarrhea, plaquenil, humira, enbrel, cosentyx, stelara, remicade, actemra, xeljanz, orencia Rheumatoid arthritis 698 32952 M06.9 will assess new labs today Tuberculos is screening 377670878 Z11.1 11/22/2023 negative Gout 35596353 M10.9 h/otreated with pcp on allopurino l 300 mg daily x 5 years Long-term current use of immunosuppressive drug 408210680 Z79.60 [id number] HAYDE FRANZ APRN RHEUMATOL OGY [address] [place] [address] 07/10/2024 11:54:29 07/12/2024 14:43:46 Psoriatic arthritis 427803814 L40.50 behind the earcurrent ly on cosentyx and after 2 years it is now starting to be ineffectiv barb is wanting to change to cimzia based on her sister having increased resultssee s pain management at [facility] she has failed: mtx caused severe diarrhea, plaquenil, humira, enbrel, cosentyx, stelara, remicade, actemra, xeljanz, orencia and cimzia now with outbreaks 11/22/2023 negative TB Rheumatoid arthritis 698 30208 M06.9 will assess new labs today Tuberculos is screening 157191707 Z11.1 11/22/2023 negative Gout 68126941 M10.9 h/otreated with pcp on allopurino l 300 mg daily x 5 years Long-term current use of immunosuppressive drug 108829002 Z79.60 [id number] TASHA LAWRENCE MD NEUROSURG [facility]LEX [facility] [address] [place] [address] 11/06/2024 12:36:57 11/07/2024 07:05:28 Cervical radiculopathy 78870285 M54.12 [id number] TASHA LAWRENCE MD SURGERY SCHEDU[address] [place] [address] 12/26/2024 14:24:46 12/29/2024 08:34:05 [id number] TASHA LAWRENCE MD NEUROSURG ALEX [address] [place] [address] 02/12/2025 10:13:37 02/13/2025 04:43:01 Postoperative visit 142445694 Z48.89 Health Concerns Section Related Observation LastModified by Organization Detai ls LastModified Time None Recorded Concern Status LastModified by Organization Details LastModified Time None Recorded Advance Directives Directive None Recorded Payers Insurance Date Sequence Insurance Name Policy Number Policy Hilliard Covered Member ID Hilliard Member ID Guarantor Name 11/06/2024 1 BCBS-MD: [place] [employer] [place] [facility] MED[employer]UE ACCESS (MEDICARE REPLACEMENT REGIONAL PPO) [id number] Imani Sierra [id number] Imani Sierra 02/15/2025 2 MEDICAID-[facility] CHO[facility] - FFS/TRADITIONA L Imani Sierra [id number] Imani Sierra 11/03/2023 1 MEDICA[facility] CHO[facility] - FFS/TRADITIONA L Imani Carpio [id number] Imani Sierra 11/03/2023 1 [employer] - GOLD PLUS (MEDICARE REPLACEMENT/AD VANTAGE - HMO) Imani Carpio [id number] Imani Sierra 02/09/2025 1 [employer] - GOLD PLUS (MEDICARE REPLACEMENT/AD VANTAGE - HMO) Imani Sierra [id number] Imani Sierra 11/06/2024 2 [employer] (MEDICARE REPLACEMENT/AD VANTAGE - HMO) Imani Sierra [id number] Imani Sierra 11/03/2023 1 [employer] (MEDICARE REPLACEMENT/AD VANTAGE - PPO) Imani Carpio [id number] Imani Sierra Notes Date Note Type Note Provider Name and Address Organization Details Recorded Time 06/20/2024 text/html Visit today is b eing conducted via telehealth using both audio/video. The patient confirms that he/she is physically located in [place] at the time of this visit. Patient expressed understanding of audio/video telehealth as a billable visit and has consented. Patient also expressed understanding that not every condition can be appropriately addressed via telehealth and that this telehealth visit may need to be converted to an in-person visit or may even result in a recommendation to go to the E.R. at the provider s discretion in order to provide the best possible care.f/u on psa; she is currently on cimzia 400 mg q month; she has recurring multiple joint pain; she has increased h/o gout and is concerned about Ra; she is here for this assessment and treatment; all others are negativeshe cannot take nsaids due to gastric sleeveshe does take norco daily HAYED FRANZ APRN [address] [place], [address], [facility] 06/20/2024 15:14:27 11/06/2024 text/html Imani Sierra is a 53-year-old female with a history of a C5-[address] Jorge rosen. She has had 5 years of increasing neck pain, headaches and bilateral shoulder and arm pain. The pain is now 9 out of 10 and described as burning, sharp, stabbing with tightness and spasms. The pain is constant and getting worse. She denies any alleviating factors. The pain is increased with standing. She describes bilateral arm numbness, weakness. Some balance difficulties. No loss of bowel or bladder control. She has done physical therapy, TENS unit, [place], gabapentin and Valium as needed. She had a history of a cervical injection without improvement. She presents today with an MRI of the cervical spine performed at [facility] on September 13, 2024. TASHA LAWRENCE MD [address] [place], [address], [facility] 11/06/2024 13:45:55 02/12/2025 text/html Imani Sierra is a 54-year-old female status post C4-C7 ACDF, which was an extension up and down from her previous C5-6. This was performed at [facility] on December 19, 2024. She is doing well with relief of some of her pain. She continues to have pain, but it is slowly improving. She also has some hoarseness to her voice, but it seems strong today. With regards to her low back, this seems to be her primary issue now. She describes low back pain and left L5 radicular pain. She has a history of a lower thoracic cyst removed By Dr. Patel. TASHA LAWRENCE MD [facility] [place], [address], [facility] 02/12/2025 10:57:05 OBGyn Episode No OBEpisode recorded.
--- OUTSIDE RECORDS SUMMARY | 2025-02-21 13:32 | XMS_ITS | Encounter Summary ---
Author Organization Healthcare Address [address] [place] [address] Care Team Providers Care Siding Mechanic Name Role Phone Laura Smith Zuleima SINCLAIR Primary Care Provider [phone] Encounter Details Date Type Department Care Team (Late st Contact Info) Description 03/22/2023 Orders Only External Location [address] [place] [address] Provider, External Social History Tobacco Use Types Packs/Day Years Used Date Smoking Tobacco: Never Passive Smoke Exposure: Never Smokeless Tobacco: Never Alcohol Use Standard Drinks/Week Comments No 0 (1 standard drink = 0.6 oz pur e alcohol) PHQ-2 Answer Date Recorded Patient Health Questionnaire-2 Score 0 03/15/2023 PHQ-2A Answer Date Recorded Patient Health Questionnaire-2 Score 0 03/15/2023 Comments Unknown Sex and Gender Information Value Date Recorded Sex Assigned at Not on file Legal Sex Female 6:31 PM EDT Gender Identity Not on file Sexual Orientation Not on file documented as of this encounter Plan of Treatment Upcoming Encounters Date Type Department Care Team (Late st Contact Info) Description 11/06/2025 2:00 PM EDT Ancillary Procedure [facility] [address] [place] [address] 11/06/2025 3:10 PM EDT Office Visit [facility] [address] [place] [address] Nicole Beckman APRN [address] [place] [address] documented as of this encounter Procedures Procedure Name Priority Date/Time Associated Diagnosis Comments CT OUTSIDE IMAGES 03/22/2023 1:55 PM EDT documented in this encounter Results * CT OUTSIDE IMAGES (03/22/2023 1:55 PM EDT) Anatomical Region Laterality Modality Computed Tomogra phy 03/22/2023 1:55 PM EDT External Provider IMG CT PROCEDURES Final Result documented in this encounter Visit Diagnoses Not on filedocumented in this encounter Additional Health Concerns Assessment Noted Time A fall risk assessment has been complete d for the patient 03/15/2023 3:51 PM EDT documented as of this encounter Care Teams Siding Mechanic Relationship Specialty Start Date End Date Laura Smith APRN [address] [place] [id number] PCP - General 12/20/20 documented as of this encounter
--- OUTSIDE RECORDS SUMMARY | 2025-02-21 13:32 | XMS_ITS | Encounter Summary ---
Author Organization [employer] ([place], [place], [place], [place]) Address [address] [place] [address] Care Team Providers Care Assistance Coordinator Name Role Phone Laura Smith Primary Care Provider [phone] Encounter Details Date Type Department Care Team (Late st Contact Info) Description 03/20/2020 Transcribed Document [facility] [place] [address] [place] [address] ProviderShoshana MD [address], [place] [id number] Social History Tobacco Use Types Packs/Day Years Used Date Smoking Tobacco: Never Assessed Comments Unknown Sex and Gender Information Value Date Recorded Sex Assigned at Not on file Legal Sex Female 4:34 PM CDT Gender Identity Not on file Sexual Orientation Not on file documented as of this encounter Miscellaneous Notes * Cerner Conversion Note - Shoshana ProviderMD - 03/20/2020 2:09 PM CDT [facility] IntraOp Summary Primary Physician: DEYSI ARREGUIN MD-OPT Finalized Date/Time: 03/20/20 16:12:32 Pt. Name: IMANI FARR/Sex: 1970 Female Med Rec #: [id number] Physician: DEYSI ARREGUIN MD-OPT Financial #: [id number] Pt. Type: O Room/Bed: [facility] Admit/Disch: 03/20/20 10:14:00 - Institution: [facility] [place] Case Attendance Entry 1 Entry 2 Entry 3 Case Attendee DEYSI ARREGUIN ABNEY, MARSHALL, Sara Torres MD-OPT Pellet Machine Operator Role Performed Surgeon/Proceduralist, NUT SHELLER/Nurse Continuous Process Machine Operator Scrub, First First Time In 03/20/20 13:34:00 03/20/20 13:34:00 03/20/20 13:34:00 Time Out 03/20/20 16:13:00 03/20/20 16:13:00 03/20/20 16:13:00 Procedure Ptosis Repair Ptosis Repair Ptosis Repair Other Attendee Superficial Wound Closed By: Last Modified By: TABATHA CHAVEZ, TABATHA RITTER, TABATHA RITTER, GEOFF 03/20/20 16:12:28 03/20/20 16:12:28 03/20/20 16:12:28 Entry 4 Case Attendee TABATHA CHAVEZ RN Role Performed Skilled Nursing Facilities Professional, First Time In 03/20/20 13:34:00 Time Out 03/20/20 16:13:00 Procedure Ptosis Repair Other Attendee Superficial Wound Closed By: Last Modified By: TABATHA CHAVEZ, GEOFF 03/20/20 16:12:28 [facility] [place] Case Attendance Audit 03/20/20 16:12:28 Train Starter: TANJA Modifier: SHARMILANSU 1 <+> Time Out 1 <*> Procedure Ptosis Repair 2 <+> Time Out 2 <*> Procedure Ptosis Repair 3 <+> Time Out 3 <*> Procedure Ptosis Repair 4 <+> Time Out 4 <*> Procedure Ptosis Repair 03/20/20 14:32:30 Train Starter: TANJA Modifier: LEINSU <+> 1 Procedure 2 <*> Procedure Ptosis Repair 3 <*> Procedure Ptosis Repair 4 <*> Procedure Ptosis Repair 03/20/20 14:14:43 Train Starter: TANJA Modifier: LEINSU <+> 1 Time In 2 <+> Time In 2 <*> Procedure Ptosis Repair 3 <+> Time In 3 <*> Procedure Ptosis Repair 4 <+> Time In 4 <*> Procedure Ptosis Repair [facility] [place] Case Times Entry 1 Patient In Room Time 03/20/20 13:34:00 Out Room Time 03/20/20 16:13:00 Anesthesia Start Time 03/20/20 13:34:00 Stop Time 03/20/20 16:13:00 Anesthesia Ready 03/20/20 13:34:00 Surgery / Procedure Times Start Time 03/20/20 14:09:00 Stop Time 03/20/20 16:04:00 Last Modified By: TABATHA CHAVEZ RN 03/20/20 14:06:19 [facility] IntraOp Case Times Audit 03/20/20 16:12:19 Train Starter: LEINSU Modifier: LEINSU <+> 1 Out Room Time <+> 1 Stop Time 03/20/20 16:05:01 Train Starter: LEINSU Modifier: LEINSU <+> 1 Stop Time 03/20/20 14:09:23 Train Starter: LEINSU Modifier: LEINSU 1 <*> Start Time 03/20/20 14:01:00 [facility] IntraOp Cautery Entry 1 ESU Identification Cautery Type Monopolar ESU ID Number [id number] ID Type Hospital Number Cautery Settings Cut Setting 20 Coag Setting 20 ESU Grounding Pad Grounding Pad Site Left thigh Grounding Pad TABATHA CHAVEZ, RN Applied By Last Modified By: TABATHA CHAVEZ, GEOFF 03/20/20 14:06:46 [facility] IntraOp Communication Entry 1 Communication To Family/Significant other Communication By TABATHA CHAVEZ, RN Date and Time 03/20/20 14:25:00 Last Modified By: TABATHA CHAVEZ, GEOFF 03/20/20 14:28:15 [facility] IntraOp Counts Verification Entry 1 Procedure Ptosis Repair Count Info Count Type Sponge, Sharps Counts Verification Baseline/pre-procedure Sequence Count Results Correct, surgeon notified Counts Performed By Count Performed By Sara Weathers (Scrub) Pellet Machine Operator Count Performed By TABATHA CHAVEZ, RN (RN) Last Modified By: TABATHA CHAVEZ RN 03/20/20 14:07:41 [facility] IntraOp Counts Final Entry 1 Procedure Ptosis Repair Final Count Info Count Type Sponge, Sharps Counts Verification Skin Closure/end of Sequence procedure Count Results Correct, surgeon notified Counts Performed By Count Performed By Sara Weathers (Scrub) Pellet Machine Operator Count Performed By TABATHA CHAVEZ RN (RN) Last Modified By: TABATHA CHAVEZ RN 03/20/20 16:06:01 [facility] IntraOp Departure from OR Entry 1 Integumentary Assessment Transfer/Handoff Transfer to PACU Phase I Handoff Method Bedside/Face to face Post-op Transport Stretcher/Gurney Via Patient Transport TABATHA CHAVEZ, RN Accompanied by Last Modified By: TABATHA CHAVEZ RN 03/20/20 14:36:54 [facility] IntraOp Dressing and Packing Entry 1 Type Dressing Location bilateral upper l;ids Wound Dressing Item Steristrip Last Modified By: TABATHA CHAVEZ RN 03/20/20 16:05:47 [facility] IntraOp Fire Risk Assessment Entry 1 Fire Info Surgical Site or 1- Yes Incision Above the Xyphoid Open O2 Source 0- No (Mask or Cannula) Available Ignition 1- Yes (ESU, Laser, Light Source) Fire Risk 2 Assessment Score Fire Score Fire Risk Yes Assessment Complete Fire Risk TABATHA CHAVEZ RN Assessment Verified By Fire Risk 03/20/20 14:01:00 Assessment Verified Date/Time Fire Risk High Risk Protocol Yes Implemented Last Modified By: TABATHA CHAVEZ RN 03/20/20 14:25:27 [facility] IntraOp Fire Risk Assessment Audit 03/20/20 14:25:27 Train Starter: TANJA Modifier: TANJA <+> 1 Fire Risk Assessment Verified Date/Time <+> 1 High Risk Protocol Implemented [facility] IntraOp General Case Php Architect 1 Case Information OR OR 09 SJE Case Level 1 Room Verified Yes Wound Class I - Clean Specialty SN Ophthalmology Anesthesia Type General ASA Class 3 Diagnosis Preop Diagnosis upper lid ptosis Postop Same As Preop Yes Postop Diagnosis upper lid ptosis Last Modified By: TABATHA CHAVEZ RN 03/20/20 14:08:49 [facility] IntraOp Intraoperative Assessment Entry 1 Valid History / Yes Physical in Chart Preoperative Yes Checklist Reviewed/Evaluated Allergies Reviewed Yes Patient is Latex Yes, protocol initiated Sensitive Isolation Not applicable Precautions Noted Present Upon IVs Arrival to OR Last Modified By: TABATHA CHAVEZ RN 03/20/20 14:09:40 [facility] IntraOp Intraoperative Equipment Entry 1 Equipment Intraop Monitoring Electrocardiogram Three lead placement (ECG) Electrode Placement Antiembolic Devices Antiembolic Devices Sequential compression device, knee high Antiembolic Device Bilateral Location Antiembolic Device [id number] ID Number Scopes Photo/Video Documentation Last Modified By: TABATHA CHAVEZ RN 03/20/20 14:33:08 E IntraOp Medication Admin Entry 1 Medication/Irrigant Erythromycin 3.5Gm ophthalmic ointment - [id number] Route of topical on operative Administration eyes Dose Volume qs Administered By DEYSI ARREGUIN MD-OPT Procedure Irrigation Last Modified By: TABATHA CHAVEZ RN 03/20/20 14:37:32 General Comments: 2% lidocaine plain 10ml plus 1mg epenephrine, total ml injected E IntraOp Patient Positioning Entry 1 Procedure Ptosis Repair Body Position Supine Left Arm Position Tucked and padded at side Right Arm Position Tucked and padded at side Left Leg Position Uncrossed, parallel Right Leg Position Uncrossed, parallel Feet Uncrossed Yes Pressure Points Yes Checked Positioned By TABATHA CHAVEZ RN, DYLAN CHANEL CRNA Position Verified Positioning Yes Verified by Anesthesia Positioning Yes Verified by Surgeon Last Modified By: TABATHA CHAVEZ RN 03/20/20 14:32:52 [facility] IntraOp Patient Positioning Audit 03/20/20 14:32:52 Train Starter: TANJA Modifier: TANJA 1 <*> Body Position Supine 1 <*> Right Arm Position Tucked and padded at side 1 <*> Left Arm Position Tucked and padded at side 1 <*> Right Leg Position Uncrossed, parallel 1 <*> Left Leg Position Uncrossed, parallel 1 <*> Feet Uncrossed Yes 1 <*> Pressure Points Checked Yes 1 <*> Procedure Ptosis Repair 1 <+> Positioning Verified by Anesthesia 1 <+> Positioning Verified by Surgeon 1 <+> Positioned By Entry 2 was deleted. Higher numbered entries shifted one position to fill the gap. <-> 2 Body Position Supine <-> 2 Right Arm Position Tucked and padded at side <-> 2 Left Arm Position Tucked and padded at side <-> 2 Right Leg Position Uncrossed, parallel <-> 2 Left Leg Position Uncrossed, parallel <-> 2 Feet Uncrossed Yes <-> 2 Pressure Points Checked Yes <-> 2 Procedure Ptosis Repair <-> 2 Positioning Devices Pillows <-> 2 Positioning Verified by Anesthesia Yes <-> 2 Positioning Verified by Surgeon Yes <-> 2 Positioned By DYLAN CHANEL CRNA 03/20/20 14:32:27 Train Starter: TANJA Modifier: TANJA <+> 2 Body Position <+> 2 Right Arm Position <+> 2 Left Arm Position <+> 2 Right Leg Position <+> 2 Left Leg Position <+> 2 Feet Uncrossed <+> 2 Pressure Points Checked <+> 2 Procedure <+> 2 Positioning Devices <+> 2 Positioning Verified by Anesthesia <+> 2 Positioning Verified by Surgeon <+> 2 Positioned By [facility] IntraOp Sign In Entry 1 Patient, Site, Yes Procedure Identified Surgical Consent Yes Confirmed Relevant Surgical Yes Documents Available Surgical Site Yes Marked by person performing procedure Anesthesia Machine Yes Check Completed Medication Checks Yes Completed Allergies Yes Airway Difficult No Airway/Aspiration Risk Difficult Yes Airway/Aspiration Intervention Equipment Available Blood Loss Risk No Blood Loss No Intervention Equipment Prepared and Ready Blood Identifiers Not applicable Verified Per Policy Hypothermia Risk Yes Warming Measures Yes Taken Last Modified By: TABATHA CHAVEZ RN 03/20/20 14:14:35 [facility] Intra Op Sign Out Entry 1 RN Confirmation Surgical Yes Procedure(s) Identified Instrument, Sponge Yes and Sharps Counts Correct/Documented Equipment Problems N/A Documented Specimen Labeled N/A Correctly Urinary Catheter N/A Documented in IView Campos Patient Yes Recovery Concerns Reviewed with Anesthesia Provider, Surgeon and RN Campos Patient Yes Management Concerns Reviewed with Anesthesia Provider, Surgeon and RN Safety Checklist Yes Elements Complete? RN Sign Out TABATHA CHAVEZ, GEOFF Signature RN Sign Out 03/20/20 16:13:00 Signature Date/Time Plan of Care Outcome - Fire Risk OUTCOME STATEMENT: Goal met Patient is free from injury related to surgical fire Plan of Care Outcome - Pt Positioning OUTCOME STATEMENT: Goal met Absence of signs and symptoms of positioning injury. Plan of Care Outcome - Skin Prep OUTCOME STATEMENT: Goal met Intraoperative care is consistent with measures to prevent infection Plan of Care Outcome - Xray/Images OUTCOME STATEMENT: N/A Absence of observable signs or symptoms of radiation injury Plan of Care Outcome - Counts OUTCOME STATEMENT: Goal met Absence of signs and symptoms of injury related to extraneous objects Last Modified By: TABATHA CHAVEZ RN 03/20/20 14:25:53 [facility] Intra Op Sign Out Audit 08/12/20 16:12:25 Train Starter: TANJA Modifier: TANJA <+> 1 RN Sign Out Signature Date/Time [facility] IntraOp Skin Prep Entry 1 Procedure Ptosis Repair Prescribed N/A Pre-Surgical Prep Completed Prep Area full face Intraop Prep Prep Agents Betadine solution Prep by TABATHA CHAVEZ RN Hair Removal Last Modified By: TABATHA CHAVEZ RN 03/20/20 14:24:45 [facility] IntraOp Surgical Procedures Entry 1 Procedure Ptosis Repair Additional BILATERAL UPPER AND Procedure LOWER PTOSIS Description Primary Procedure Yes Primary Surgeon DEYSI ARREGUIN MD-OPT Start 03/20/20 14:09:00 Stop 03/20/20 16:04:00 Anesthesia Type General Specialty SN Ophthalmology Wound Class I - Clean Last Modified By: TABATHA CHAVEZ RN 03/20/20 14:32:29 [facility] IntraOp Surgical Procedures Audit 03/20/20 16:06:13 Train Starter: TANJA Modifier: TANJA 1 <*> Procedure Ptosis Repair 1 <+> Specialty 03/20/20 16:05:04 Train Starter: TANJA Modifier: TANJA <+> 1 Stop [facility] IntraOp Time Out Entry 1 Procedure to be Ptosis Repair Performed Time Out Time Out Pause Time 03/20/20 14:01:00 All activity Yes suspended (unless life threatening emergency) Team Verbally Correct patient Confirms Information identity, Correct side and site are marked, Consent form is present and accurate, Agreement on the procedure to be done, Correct patient position, Relevant images/results properly labeled/appropriately displayed, Confirm antibiotics have been administered, Confirm the skin prep has dried, Confirm prosthesis/implant/devic e is present, Performed in location of procedure after prepped/draped, Performed before each procedure if multiple procedures, Reconcile problems if responses among team members differ Antibiotic N/A Prophylaxis Administered Or In Progress Within the Last 60 Minutes Beta Delbert N/A Administered Venous Yes Thromboembolism Prophylaxis Required Anticipated Critical Events Surgeon None expected Anesthesia Provider Patient specific concerns Nursing Assures Sterility of instruments, Implant Availability Essential Imaging Yes Labeled and Displayed Last Modified By: TABATHA CHAVEZ RN 03/20/20 14:08:15 Case Comments <None> Finalized By: TABATHA CHAVEZ, RN Document Signatures Signed By: TABATHA CHAVEZ RN 03/20/20 16:12 documented in this encounter Plan of Treatment Not on file documented as of this encounter Visit Diagnoses Not on filedocumented in this encounter Care Teams Assistance Coordinator Relationship Specialty Start Date End Date Laura Smith [address] [place] [id number] PCP - General 01/05/24 documented as of this encounter
--- OUTSIDE RECORDS SUMMARY | 2025-02-21 13:32 | XMS_ITS | Encounter Summary ---
Author Organization [employer] ([place], [place], [place], [place]) Address [address] [place] [address] Care Team Providers Care Physician Coder Name Role Phone Laura Smith Primary Care Provider [phone] Encounter Details Date Type Department Care Team (Late st Contact Info) Description 03/20/2020 Transcribed Document [facility] [place] [address] [place] [address] ProviderShoshana MD [address] [place], [place] [id number] Social History Tobacco Use Types Packs/Day Years [...] 03/20/2020 2:09 PM CDT [facility] PostOp Summary Primary Physician: DEYSI ARREGUIN MD-OPT Finalized Date/Time: 03/20/20 17:48:27 Pt. Name: IMANI FARR/Sex: 1970 Female Med Rec #: [id number] Physician: DEYSI ARREGUIN MD-OPT Financial #: [id number] Pt. Type: O Room/Bed: [facility] Admit/Disch: 03/20/20 10:14:00 - Institution: [facility] OR PostOp Case Times Entry 1 In PACU II 03/20/20 16:57:00 Ready for PACU II 03/20/20 17:45:00 Discharge Discharge from PACU 03/20/20 17:45:00 II Last Modified By: Chastity Snyder, GEOFF 03/20/20 17:48:25 Finalized By: Chastity Snyder, RN Document Signatures Signed By: Chastity Snyder RN 03/20/20 17:48 documented in this encounter Plan of Treatment Not on file documented as of this encounter Visit Diagnoses Not on filedocumented in this encounter Care Teams Physician Coder Relationship Specialty Start Date End Date Laura Smith [address] [place] [phone] PCP - General 01/05/24 documented as of this encounter
--- OUTSIDE RECORDS SUMMARY | 2025-02-21 13:32 | XMS_ITS | Encounter Summary ---
Author Organization [facility] ([place], [place] Address [address] [place] [address] Care Team Providers Care Bale Tie Machine Operator Name Role Phone Laura Smith Primary Care Provider [phone] Encounter Details Date Type Department Care Team (Late st Contact Info) Description 03/20/2020 Transcribed Document [facility] [place] [address] Shoshana Whatley MD [address], [place] [id number] Social History Tobacco Use Types Packs/Day Years Used Date Smoking Tobacco: Never Assessed Comments Unknown Sex and Gender Information Value Date Recorded Sex Assigned at Not on file Legal Sex Female 4:34 PM CDT Gender Identity Not on file Sexual Orientation Not on file documented as of this encounter Miscellaneous Notes * Cerner Conversion Note - Shoshana Whatley MD - 03/20/2020 5:11 PM CDT Patient Education Materials Follows: General Anesthesia, Adult, Care After This sheet gives you information about how to care for yourself after your procedure. Your health care provider may also give you more specific instructions. If you have problems or questions, contact your health care provider. What can I expect after the procedure? After the procedure, the following side effects are common: ??? Pain or discomfort at the IV site. ??? Nausea. ??? Vomiting. ??? Sore throat. ??? Trouble concentrating. ??? Feeling cold or chills. ??? Weak or tired. ??? Sleepiness and fatigue. ??? Soreness and body aches. These side effects can affect parts of the body that were not involved in surgery. Follow these instructions at home: For at least 24 hours after the procedure: ??? Have a responsible adult stay with you. It is important to have someone help care for you until you are awake and alert. ??? Rest as needed. ??? Do not: ? Participate in activities in which you could fall or become injured. ? Drive. ? Use heavy machinery. ? Drink alcohol. ? Take sleeping pills or medicines that cause drowsiness. ? Make important decisions or sign legal documents. ? Take care of children on your own. Eating and drinking ??? Follow any instructions from your health care provider about eating or drinking restrictions. ??? When you feel hungry, start by eating small amounts of foods that are soft and easy to digest (bland), such as toast. Gradually return to your regular diet. ??? Drink enough fluid to keep your urine pale yellow. ??? If you vomit, rehydrate by drinking water, juice, or clear broth. General instructions ??? If you have sleep apnea, surgery and certain medicines can increase your risk for breathing problems. Follow instructions from your health care provider about wearing your sleep device: ? Anytime you are sleeping, including during daytime naps. ? While taking prescription pain medicines, sleeping medicines, or medicines that make you drowsy. ??? Return to your normal activities as told by your health care provider. Ask your health care provider what activities are safe for you. ??? Take bkmh-ucl-gormlxr and prescription medicines only as told by your health care provider. ??? If you smoke, do not smoke without supervision. ??? Keep all follow-up visits as told by your health care provider. This is important. Contact a health care provider if: ??? You have nausea or vomiting that does not get better with medicine. ??? You cannot eat or drink without vomiting. ??? You have pain that does not get better with medicine. ??? You are unable to pass urine. ??? You develop a skin rash. ??? You have a fever. ??? You have redness around your IV site that gets worse. Get help right away if: ??? You have difficulty breathing. ??? You have chest pain. ??? You have blood in your urine or stool, or you vomit blood. Summary ??? After the procedure, it is common to have a sore throat or nausea. It is also common to feel tired. ??? Have a responsible adult stay with you for the first 24 hours after general anesthesia. It is important to have someone help care for you until you are awake and alert. ??? When you feel hungry, start by eating small amounts of foods that are soft and easy to digest (bland), such as toast. Gradually return to your regular diet. ??? Drink enough fluid to keep your urine pale yellow. ??? Return to your normal activities as told by your health care provider. Ask your health care provider what activities are safe for you. This information is not intended to replace advice given to you by your health care provider. Make sure you discuss any questions you have with your health care provider. Document Released: 11/01/2001 Document Revised: 07/29/2018 Document Reviewed: 03/11/2018 [employer] Patient Education ? 2020 [employer]. Ptosis Repair, Care After This sheet gives you information about how to care for yourself after your procedure. Your health care provider may also give you more specific instructions. If you have problems or questions, contact your health care provider. What can I expect after the procedure? After the procedure, it is common to have: ??? Pain. ??? Swelling. ??? Bruising. ??? Trouble closing your eye, especially at night. ??? Dry eye. Follow these instructions at home: Incision care ??? Follow instructions from your health care provider about how to take care of the incision area. ??? You may have removable or absorbable stitches (sutures) in your eyelid incision. You may also have tiny adhesive strips placed over the incision. Leave the sutures or adhesive strips in place. They may need to stay in place for 2 weeks or longer. You may need to return to your surgeon to have these sutures and strips removed. ??? Check your incision area every day for signs of infection. Check for: ? More redness, swelling, or pain. ? Fluid or blood. ? Warmth. ? Pus or a bad smell. Medicines ??? Take jdov-zbc-mvvqngo and prescription medicines only as told by your health care provider. This includes any moistening eye drops. ??? If you were prescribed antibiotic eye drops, use them as told by your health care provider. Do not stop using the antibiotic even if your condition improves. General instructions ??? If directed, put ice on the affected eye. ? Put ice in a plastic bag. ? Place a towel between your skin and the bag. ? Leave the ice on for 20 minutes, 2?3 times a day. ??? Keep your head raised (elevated) on a few pillows when resting and sleeping. ??? Avoid rubbing your eye. ??? Do not take baths, swim, or use a hot tub until your health care provider approves. Ask your health care provider if you may take showers. You may only be allowed to take sponge baths. ??? Do not wear contact lenses until your health care provider approves. ??? Return to your normal activities as told by your health care provider. Ask your health care provider what activities are safe for you. ??? Keep all follow-up visits as told by your health care provider. This is important. Contact a health care provider if: ??? You have more redness, swelling, or pain in your eye. ??? You have a fever. ??? You have trouble closing your eye. ??? You develop new or worsening dry eye several weeks after surgery. ??? Your incision breaks open after being closed. ??? Your incision area feels warm to the touch. ??? You have a change in your vision. Get help right away if: ??? You have fluid, blood, or pus coming from your eyelids or eye. ??? You have severe loss of vision. Summary ??? Follow instructions from your health care provider about how to take care of the incision area. ??? Take ysoq-tlk-dyoewak and prescription medicines only as told by your health care provider. This includes any moistening eye drops. ??? Keep your head raised (elevated) on a few pillows when resting and sleeping. ??? Keep all follow-up visits as told by your health care provider. This information is not intended to replace advice given to you by your health care provider. Make sure you discuss any questions you have with your health care provider. Document Released: 08/21/2016 Document Revised: 07/31/2019 Document Reviewed: 07/31/2019 [employer] Patient Education ? 2019 [employer]. documented in this encounter Plan of Treatment Not on file documented as of this encounter Visit Diagnoses Not on filedocumented in this encounter Care Teams Bale Tie Machine Operator Relationship Specialty Start Date End Date Laura Smith [address] [place] [address] [place] [phone] PCP - General 01/05/24 documented as of this encounter
--- OUTSIDE RECORDS SUMMARY | 2025-02-21 13:32 | XMS_ITS | Continuity of Care Document ---
Author Organization [facility] c, NEUROSURGERY [address] [place] [address] Care Team Providers Care Circulation Man Name Role Phone KAYCEE DIMAS Referring Provider Assessment Encounter Date Assessment Date Assessment LastModified by Organization Details LastModified Time 02/12/2025 02/12/2025 Mrs. Perez is a 54-year-old female status post C4-C7 ACDF. Her x-rays today look great. I told her she may wean out of her cervical collar. I plan on seeing her back in 2 to 3 months with repeat x-rays of the cervical spine. At that follow-up visit I plan to order some standing flexion/extens ion lumbar x-rays as well as a lumbar MRI. We need to revisualize the lower thoracic cyst, to make sure it is stable. I also suspect that she may becoming symptomatic from a slight L4-5 spondylolisthe sis, last visualized on MRI back in 2022. [email or web address] Not available 02/12/2025 10:53:45 Plan of Treatment [...] Not available Not available Not available Lab None recorded . Referral None recorded . Procedures None recorded . Surgeries None recorded . Imaging None recorded . Medication Orders None recorded . Patient TargetsNo targets recorded. Patient InstructionsNo instructions recorded. Reason for Referral None Reported. Results Created Date Observation Date Name Description Value Unit Range Abnormal Flag Note LastModifiedBy Organization Detail LastModifiedTime 01/24/20 25 01/22/2025 XR, cervi johnny spine , 2 or 3 view [place] [facility] [address] [facility] [place] [address] [phone] Patigregorio t Name: IMANI hatch : [address] 5 Orderi ng Provid er: SELVIN GERMÁN EXAM DATE: 2024 EXAM: XR CERVIC AL AP/LAT CLINIC AL INFORM ATION: Recent multil evel fusion . Follow -up evalua tion. IMAGES PROVID ED: AP, latera l, open mouth and submen george views of the cervic al spine COMPAR ANITRA: None. FINDIN GS AND IMPRES BERNICE: The patien t has anteri or fusion extend ing [...] [email or web address] MD on 025 4:47 AM [email or web address] [facility] Radiology [address] [place], [address], 01/25/2025 19:01:54 02/13/20 25 02/12/2025 XR, cervi johnny spine , 2 or 3 view [place] [facility] [address] [facility] [place] [address] [phone] Patigregorio t Name: IMANI hatch : [address] 5 Orderi ng Provid er: MARGIE LAWRENCE EXAM DATE: 2024 EXAM: XR CERVIC AL AP/LAT CLINIC AL INFORM ATION: Surger y follow -up IMAGES PROVID ED: AP, latera l, open mouth and submen george views of the cervic al spine COMPAR ANITRA: 6/16/2 025 FINDIN GS: Previo us C4-C7 anteri [...] Daniel Patel MD on 02/13/20 10:26 AM [facility] Radiology [address] [place], [phone], 02/12/2025 16:05:38 Result Notes Documentation Provider Name and Address Organization Details Recorded Time Xr, Cervical Spine, 2 Or 3 View : [facility] [address] [place] [id number] Patient Name: IMANI SIERRA Patient : 1970 [...] By: Daniel Patel MD A LAWRENCE MD [address] [place] [address], [phone], [facility] 02/12/2025 13:10:22 Problems Name Problem SNOMED Code Status Onset Date Resolution Date Notes Provider Name and Address Organization Details Recorded Time 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 Active 2014 From Automated Load;Provi emerita: Tacho Reis;Stat us: Active Not Available [facility] 6 01:25:55 Clinical finding Active 2014 From Automated Load;Provi emerita: Tacho Reis;Stat us: Active Not Available [facility] 6 01:25:55 Headache 82134531 Active 2014 From Automated Load;Provi emerita: Tacho Reis;Stat us: Active Not Available [facility] 6 01:25:55 Acute pulmonary embolism 088747565 Active 2014 From Automated Load;Provi emerita: Celeste Combs;S tatus: Active Not Available [facility] 6 01:25:55 Notes:Some problems listed i n Document: #[id number] could not be added to this patient's chart. Please review this document and add these problems to the patient's chart manually as needed. Problem Notes None recorded. Procedures Surgical History Date Name Laterality Status Provider Name and Address Organization Details Recorded Time 01/05/20 24 Tympanogram completed [facility] 01/05/2024 09:36:50 01/05/20 24 Audiogram completed [facility] 01/05/2024 09:36:47 01/05/20 24 Cerumen removal - Instruments, Bilateral completed Chrystal Ward [facility] 01/05/2024 09:32:47 Back Surgery completed Jazmyne Petersen [facility] 11/22/2023 10:17:48 hysterectomy completed [facility] 11/06/2024 12:58:46 thyroidectomy completed [facility] 11/06/2024 12:58:53 Neck Surgery completed [facility] 11/06/2024 12:59:06 Appendectomy completed [facility] 11/06/2024 12:59:13 Breast augmentation w/implt completed [facility] 11/06/2024 12:59:36 Cholecystectomy completed [facility] 11/06/2024 12:59:48 placement of stent in cardiac conduit completed [facility] 11/06/2024 13:00:11 Imaging Results None recorded. Procedure Notes None recorded. Medical Equipment None Reported. Allergies Allergen ID Allergen Name Allergen Category Reaction Reaction Severity Criticality Documentation Date Start Date Code Code System Note Provider Name and Address Organization Details Recorded Time 822222 Floxin medicatio n Not available Not available Not available 07/02/2016200745 8 RxNorm Comme nt: RASH Gayle Melody [facility] 4 13:16:59 892194 Ultram medicatio n Not available Not available Not available 07/03/2016200760 6 RxNorm Comme nt: MUSCL E WEAKN ESS Gayle Melody [facility] 4 13:17:07 924901 fentanyl medicatio n Not available Not available Not available 11/03/2023 4337 RxNorm Yamilex Geraldo [facility] 4 13:07:23 159710 morphine medicatio n Not available Not available Not available 11/03/2023 7052 RxNorm Yamilexsteff Chow [facility] 4 13:07:34 304638 lisinopri l medicatio n cough Not available Not available 11/03/2023 19503 RxNorm Yamilexsteff Chow [facility] 4 13:07:44 486600 Substance with sulfonami de structure and antibacte rial mechanism of action (substanc e) medicatio n eye redness severe Not available 12/02/20232019 01251 8003 SNOMED Rochelle Solares [facility] 4 09:06:50 226405 levothyro xine sodium medicatio n diarrhea Not available Not available 12/02/2023 41045 RxNorm Rochelle Solares [facility] 4 09:06:50 Medications Name Sig Start Date [...] every 4 weeks by subcutan eous route. 07/03 completed Not Available Not Available Not Available Trintelli x 20 mg tablet Take 1 tablet every day by oral route. active Not Available Not Available No t Available Trelegy Ellipta active Not Available Not Available Not [...] Available Not Available No t Available Vitals None Recorded Social History Question Answer Notes LastModified by Organizat ion Details LastModified Time Tobacco Smoking Status Never Smoker Yamilex Geraldo [facility] 11/03/2023 13:06:21 What Was The Date Of Your Most Recent Tobacco Screening? 11/22/2023 [email or web address] Information not available 11/22/2023 Sex: Female Functional Status Question Answer Note LastModified by Organizat ion Details LastModified Time Do you use any illicit or recreational drugs? No [email or web address] Information not available 11/03/2023 What is your level of alcohol consumption? None [email or web address] Information not available 11/03/2023 Mental Status None recorded. Family History Relationship Description Onset Age of this Age Resolved Age Notes LastModified by Organization Details LastModified Time Mother Gout [email or web address] Not available 11/03/2023 13:03:31 Mother Arthritis O.A. [email or web address] Not availab le 11/03/2023 13:04:54 Mother Heart disease [email or web address] Not available 2023 13:05:25 Mother M ni re's disease [email or web address] Not available 09:21:55 Sister Autoimmune disease Sjogre ns [email or web address] Not available 11/03/2023 13:04:18 Father Heart disease Not available 2023 13:05:25 Maternal Grandmother Diabetes mellitus [email or web address] Not available 2023 13:05:59 Unspecified Relation Diabetes [...] Influenza, split virus, quadrivalent, preservative 3 [facility] 12/02/2023 09:06:55 Influenza, split virus, quadrivalent, preservative 9 completed [facility] 12/02/2023 09:06:55 COVID-19, mRNA, LNP-S, PF, 100 mcg/0.5mL dose or 50 mcg/0.25mL dose 2 completed [facility] 12/02/2023 09:06:55 COVID-19, mRNA, LNP-S, PF, 100 mcg/0.5mL dose or 50 mcg/0.25mL dose 1 completed [facility] 12/02/2023 09:06:55 Hep A, adult 9 completed [facility] 12/02/2023 09:06:55 Hep A, adult 8 completed [facility] 12/02/2023 09:06:55 Influenza, split virus, quadrivalent, PF 0 completed [facility] 12/02/2023 09:06:55 Influenza, split virus, quadrivalent, PF 8 completed [facility] 12/02/2023 09:06:55 Past Encounters Encounter ID Performer Location Encounter Start Date Encounter Closed Date Diagnosis/Indication Diagnosis SNOMED-CT Code Diagnosis ICD10 Code Diagnosis Note [id number] TASHA LAWRENCE MD NE[facility] [address] [place] [address] 02/12/2025 10:13:37 02/13/2025 04:43:01 Postoperative visit 212604397 Z48.89 Health Concerns Section Related Observation LastModified by Organization Detai ls LastModified Time None Recorded Concern Status LastModified by Organization Details LastModified Time None Recorded Payers Encounter Date Sequence Insurance Name Policy Number Policy Hilliard Covered Member ID Hilliard Member ID Guarantor Name 02/12/2025 1 [employer] - GOLD PLUS (MEDICARE REPLACEMENT/A DVANTAGE - HMO) Imani Sierra [id number] Imani Sierra Notes Date Note Type Note Provider Name and Address Organization Details Recorded Time 02/12/2025 text/html Imani Sierra is a 54-year-old female status post C4-C7 ACDF, which was an extension up and down from her previous C5-6. This was performed at [facility] on December 19, 2024. She is [...] removed By Dr. Patel. TASHA LAWRENCE MD [facility] [place], [address], [facility] 02/12/2025 10:57:05 OBGyn Episode No OBEpisode recorded.
--- OUTSIDE RECORDS SUMMARY | 2025-02-21 13:32 | XMS_ITS | Encounter Summary ---
Author Organization Healthcare Address [address] [place] [address] Care Team Providers Care Summer Clerk Name Role Phone Laura Smith Zuleima SINCLAIR Primary Care Provider [phone] Reason for Visit * Reason Onset Date Comments Med Refill 01/15/2025 Encounter Details Date Type Department Care Team (Late st Contact Info) Description 01/15/2025 [facility] [address] [place] [address] Nicole Beckman S, GEOLOGY TEACHER [address] [place] [address] Moderate persistent asthma without complication Social History Tobacco Use Types Packs/Day Years Used Date Smoking Tobacco: Never Passive Smoke Exposure: Never Smokeless Tobacco: Never Alcohol Use Standard Drinks/Week Comments No 0 (1 standard drink = 0.6 oz pur e alcohol) PHQ-2 Answer Date Recorded Patient Health Questionnaire-2 Score 0 11/02/2024 PHQ-9 Answer Date Recorded Patient Health Questionnaire-9 Score 0 11/02/2024 PHQ-2A Answer Date Recorded Depression Risk 0 11/02/2024 PHQ-9A Answer Date Recorded Depression Risk Score 0 11/02/2024 Comments Unknown Sex and Gender Information Value Date Recorded Sex Assigned at Not on file Legal Sex Female 6:31 PM EDT Gender Identity Not on file Sexual Orientation Not on file documented as of this encounter Plan of Treatment Upcoming Encounters Date Type Department Care Team (Late st Contact Info) Description 11/06/2025 2:00 PM EDT Ancillary Procedure [facility] [address] [place] [address] 11/06/2025 3:10 PM EDT Office Visit [facility] [address] [place] [address] Nicole Beckman APRN [address] [place] [address] documented as of this encounter Visit Diagnoses Diagnosis Moderate persistent asthma without complication documented in this encounter Additional Health Concerns Assessment Noted Time PHQ-9 Depression Total Score: 0 11/03/19 25 3:46 PM EDT A fall risk assessment has been complete d for the patient 11/02/2024 3:47 PM EDT A Body Mass Index follow-up plan has been documented for the patient 11/02/2024 4:15 PM EDT documented as of this encounter Care Teams Summer Clerk Relationship Specialty Start Date End Date Laura Smith APRN [address] [place] [id number] PCP - General 12/20/20 documented as of this encounter
--- OUTSIDE RECORDS SUMMARY | 2025-02-21 13:32 | XMS_ITS | Encounter Summary ---
Author Organization [employer] ([place], [place], [place], [place]) Address [address] [place] [address] Care Team Providers Care Gold Marker Name Role Phone Laura Smith Primary Care Provider [phone] Encounter Details Date Type Department Care Team (Late st Contact Info) Description 03/20/2020 Transcribed Document [facility] [place] Family Medicine [address] [place] [address] ProviderShoshana MD [address] [place], [place] [id number] Social History Tobacco Use Types Packs/Day Years [...] 03/20/2020 2:09 PM CDT [facility] PreOp Summary Primary Physician: DEYSI ARREGUIN MD-OPT Finalized Date/Time: 04/18/20 08:36:15 Pt. Name: IMANI FARR/Sex: 1970 Female Med Rec #: [id number] Physician: DEYSI ARREGUIN MD-OPT Financial #: [id number] Pt. Type: O Room/Bed: [facility] Admit/Disch: 03/20/20 10:14:00 - 03/20/20 17:45:00 Institution: [facility] PreOp Case Times Entry 1 In Preop 03/20/20 11:30:00 Ready for Holding n/a Room Patient Ready for n/a Surgery Patient Out of Preop 03/20/20 13:34:00 Patient Out of n/a Holding Room Last Modified By: SUSSY JON 04/18/20 08:36:13 Finalized By: SUSSY JON Document Signatures Signed By: SUSSY JON 04/18/20 08:36 documented in this encounter Plan of Treatment Not on file documented as of this encounter Visit Diagnoses Not on filedocumented in this encounter Care Teams Gold Marker Relationship Specialty Start Date End Date Laura Smith [address] [place] [address] [place] [phone] PCP - General 01/05/24 documented as of this encounter
--- OUTSIDE RECORDS SUMMARY | 2025-02-21 13:32 | XMS_ITS | Data Portability ---
Author Organization [facility] Address [address] [place] [address] Assessment No assessment recorded. Plan of Treatment Reminders Order Date Submit Date Provider Last Modified By Organization Details Last Modified Time Details Appointments [facility] PT 30 2024 09:00A M Laura Smith, DEMAND EQUIPMENT REPAIRER Not available Not available Not available Lab drug screen, 14 drugs (detecti med), urine 2024 025 [facility], [address], [address], [place], [address], 02/21/2025 07:33:54 noninvas margot colorect al cancer DNA + occult blood screenin g, QL, stool [address] TATTOFF (Cologuard Orders Only), [address], [address], [place], [address], 02/14/2025 14:51:43 urinalys is, dipstick 2024 025 [email or web address], [address] [facility], [place], [address], 12/01/2024 14:46:58 culture, urine 2024 025 SB [facility], [address], [address], [place], [address], 12/05/2024 22:10:24 BMP, serum or plasma 2024 025 SB [facility], [address], [address], [place], [address], 10/10/2024 04:09:52 uric acid, serum or plasma 2023 024 SB [facility], [address], [address], [place], [address], 06/15/2024 08:31:39 TSH + free T4, serum 2023 024 SB [facility], [address], [address], [place], [address], 06/15/2024 08:31:37 T3, free, serum or plasma 2023 024 SB [facility], [address], [address], [place], [address], 06/15/2024 08:31:40 vitamin D, 25-hydro xy, total, serum 2023 024 SB [facility], [address], [address], [place], [address], 06/15/2024 08:31:38 unlisted lab - complian ce drug anne, no THC 2023 024 SB [facility], [address], [address], [place], [address], 06/22/2024 17:10:42 Referral otolaryn gologist referral 2024 025 Janes Sanderson III, MD, [address] [facility], [facility] [address], [place], [address], 02/21/2025 07:54:25 orthoped ic surgeon referral 2023 024 SB Najera MD, [address] [facility] , [place], [address], 07/27/2024 12:54:22 Procedures None recorded . Surgeries None recorded . Imaging MAMMO, screenin g, bilatera l 2024 025 [facility] (X-Ray), [address], [place], [address], 02/14/2025 15:21:58 MRI, brain + brain stem, w/wo contrast - approval # [id number] 9 10/17/24 - 5 2024 025 [facility] (X-Ray), [address], [place], [address], 11/01/2024 22:04:14 US, upper arm - to rule out DVT 2024 025 SB Not available 10/09/2024 16:42:58 XR, chest, 2 view 2024 025 SB Not available 10/10/2024 11:27:43 MAMMO, screenin g, bilatera l [address] [place] [address] (X-Ray), [address], [place], [address], 01/16/2025 10:09:55 Medication Orders butalbit al-aceta minophen -caffein e 50 mg-325 mg-40 mg tablet 2024 025 [facility], [address] [place] [address], [place], [address], 02/14/2025 14:51:37 hydrochl orothiaz jose luis 25 mg tablet 2024 025 [facility], [address] [place] [address], [place], [address], 02/14/2025 14:51:33 diazepam 5 mg tablet 2024 025 [facility], [address] [place] [address], [address], 02/14/2025 14:51:37 Levbid 0.375 mg tablet,e xtended release [address], [address], 02/14/2025 14:51:33 Lyrica 75 mg capsule [address], [address], 02/14/2025 14:51:38 allopuri nol 100 mg tablet [address], [address], 02/14/2025 14:51:35 cycloben zaprine 10 mg tablet 2024 025 [facility], [address] [place] [address], [address], 02/14/2025 14:51:35 Medrol (Maximilian) 4 mg tablets in a dose pack [address], [address], 02/14/2025 14:51:34 zolpidem 10 mg tablet [address], [address], 02/14/2025 14:51:38 prometha zine-DM 6.25 mg-15 mg/5 mL oral syrup [address] [place], [address], 12/01/2024 14:46:59 amoxicil lis 500 mg-potas sium clavulan ate 125 mg tablet 2024 025 [facility], [address] [place] [address], [address], 12/22/2024 05:01:42 Trulance 3 mg tablet [address], [address], 10/09/2024 12:58:59 clonidin e HCl 0.1 mg tablet [address], [address], 10/09/2024 12:58:58 butalbit al-aceta minophen -caffein e 50 mg-325 mg-40 mg tablet 2024 025 [facility], [address] [place] [address], [address], 10/09/2024 12:59:03 hydrochl orothiaz jose luis 25 mg tablet 2024 025 [facility], [address] [place] [address], [address], 11/27/2024 14:39:05 Lyrica 75 mg capsule [address], [address], 10/09/2024 12:59:03 zolpidem 10 mg tablet [address], [address], 10/09/2024 12:59:03 potassiu m chloride ER 10 mEq tablet,e xtended release 2024 025 [facility], [address] [place] [address], [address], 10/09/2024 12:58:58 Lyrica 75 mg capsule [address], [address], 06/14/2024 14:38:09 butalbit al-aceta minophen -caffein e 50 mg-325 mg-40 mg tablet [address], [address], 06/14/2024 14:38:09 Patient TargetsNo targets recorded. Patient Instructions Encounter Date Encounter Id Patient Instructions Last Modified By Organization Details Last Modified Time 06/14/2024 [id number] lumbar spinal stenosis: care instructions rjessee Not available 06/14/2024 14:38:07 weight managemen t education rjessee Not available 06/14/2024 14:38:08 Refilled meds as discussed. We will call you with your lab results. Follow up with your other health care providers as scheduled. I would like to see you back in 3 months. rjessee Not available 06/14/2024 12:44:32 06/26/2024 [id number] carpal tunnel syndrome: care instructions [email or web address] Not available 06/26/2024 16:12:21 carpal tunnel syndrome: exercises [email or web address] Not available 06/26/2024 16:12:21 Plan: - RTC if s/sx persist or worsen. [email or web address] Not available 06/26/2024 16:17:35 10/09/2024 [id number] learning about tuberculosis (TB) rjessee Not available 10/09/2024 12:58:56 weight managemen t education rjessee Not available 10/09/2024 12:58:56 lumbar spinal stenosis: care instructions rjessee Not available 10/09/2024 12:58:56 learning about breast cancer screening rjessee Not available 10/09/2024 12:58:56 We will call you with test results. Follow up with your other health care providers as scheduled. I would like to see you back in 3 months. rjessee Not available 10/09/2024 13:06:03 12/01/2024 [id number] Urinary Tract Infection (UTI) in Women: Care Instructions [email or web address] Not available 12/01/2024 14:46:58 Acute Sinusitis: Care Instructions [email or web address] Not available 12/01/2024 14:46:58 Plan: - RTC if s/sx persist or worsen. [email or web address] Not available 12/01/2024 14:52:47 02/14/2025 [id number] mammogram: about this test rjessee Not available 02/14/2025 14:51:28 weight managemen t education rjessee Not available 02/14/2025 14:51:29 lumbar spinal stenosis: care instructions rjessee Not available 02/14/2025 14:51:28 hypothyroidism: care instructions rjessee Not available 02/14/2025 14:51:29 Change Dicyclomine to Levbid twice a day. Change Lyrica to brand name only. I refilled your diazepam, fioricet, and ambien. CLIVE ran and UDS obtained. Referred you to ENT for your Meniere's. Will get you set up for mammogram. Ordered cologuard. Follow up with your other health care providers as scheduled. I would like to see you back in 3 months. rjessee Not available 02/14/2025 14:57:56 Reason for Referral Orthopedic Surgeon Referral for Carpal tunnel syndrome of left wrist Referring Physician: Angel Mario, Family Medicine, Encounter Date: 06/26/2024 Luggage Attendant Referral fo r Bilateral Meniere's disease of inner ears Referring Physician: Laura Smith, Family Medicine, Encounter Date: 02/14/2025 Results Created Date Observation Date Name Description Value Unit Range Abnormal Flag Note LastModifiedBy Organization Detail LastModifiedTime 06/14/20 24 06/15/2024 TSH+F REE T4 TSH 0.068 uIU/m L 0.450- 4.500 below low normal Not Available [facility] ([facility]) [address] [facility], [place], [address], 06/15/2024 08:31:37 06/14/20 24 06/15/2024 TSH+F REE T4 T4,free(dire ct) 1.47 NG/dL 0.82-1 .77 normal Not Available [facility] ([facility]) [address] [facility], [place], [address], 06/15/2024 08:31:37 06/14/20 24 06/15/2024 VITAM IN D, 25-HY DROXY vitamin D, 25-hydroxy 101.0 NG/mL 30.0-1 00.0 above high normal Vitam in D defic iency has been defin ed by the Insti tute of Medic ine and an Endoc rine Socie ty pract ice guide line as a level of serum 25-OH vitam in D less than 20 ng/mL (1,2) . The Endoc rine Socie ty went on to furth er defin e vitam in D insuf ficie ncy as a level betwe en 21 and 29 ng/mL (2). 1. IOM (Inst itute of Medic ine). 2010. Casie ry refer ence yo es for calci um and D. Emy simmons [place]: The Natio nal [facility] Press . 2. Diana montes [place], Mel becerra [place], [place] off-F errar i DAVIS, et al. Evalu ation , treat ment, and preve ntion of vitam in D defic iency : an Endoc rine Socie ty clini johnny pract ice guide line. JCEM. 2010; 96(7) :1911 -30. Not Available [facility] ([facility]) [address] [facility], [place], [address], 06/15/2024 08:31:38 06/14/20 24 06/15/2024 URIC ACID uric acid 4.6 mg/dL 3.0-7. 2 normal Thera peuti c targe t for gout patie nts: <6.0 Not Available [facility] ([facility]) [address] [facility], [place], [address], 06/15/2024 08:31:39 06/14/20 24 06/15/2024 TRIIO DOTHY JAMA E (T3), FREE triiodothyro nine (T3), free 3.0 pg/mL 2.0-4. 4 normal Not Available [facility] ([facility]) [address] [facility], [place], [address], 06/15/2024 08:31:40 06/14/20 24 06/22/2024 COMPL IANCE DRUG ANNE , NO THC summary report (summary) FINAL ===== ===== ===== ===== ===== ===== ===== ===== ===== ===== ===== ===== ===== === TOXAS SURE COMP DRUG ANNE SIS,N O THC,U R ===== ===== ===== ===== ===== ===== ===== ===== ===== ===== ===== ===== ===== === Test Resul t Flag Units Drug Prese nt Desme thyld iazep am 236 ng/mg creat Oxaze elsa 544 ng/mg creat Temaz epam 489 ng/mg creat Desme thyld iazep am, oxaze elsa, and temaz epam are benzo diaze pine drugs , but may also be prese nt as commo n metab olite s of other benzo diaze pine drugs , inclu ding diaze elsa. [place] codon e 1305 ng/mg creat [place] morph one 675 ng/mg creat Dihyd rocod eine 135 ng/mg creat Norhy droco done 1725 ng/mg creat Sourc es of hydro codon e inclu de sched uled presc ripti on medic ation s. [place] morph one, dihyd rocod eine and norhy droco done are expec lucero metab olite s of hydro codon e. [place] morph one and dihyd rocod eine are also avail able as sched uled presc ripti on medic ation s. Butal bital PRESE NT Prega balin PRESE NT Metho carba mol PRESE NT Aceta minop hen PRESE NT Diphe nhydr amine PRESE NT Verap oneida PRESE NT ===== ===== ===== ===== ===== ===== ===== ===== ===== ===== ===== ===== ===== === Test Resul t Flag Units Ref Range Creat inine 134 mg/dL >=20 ===== ===== ===== ===== ===== ===== ===== ===== ===== ===== ===== ===== ===== === Decla red Medic ation s: Medic ation list was not provi ded. ===== ===== ===== ===== ===== ===== ===== ===== ===== ===== ===== ===== ===== === For clini johnny consu ltati on, pleas e call [phone]. ===== ===== ===== ===== ===== ===== ===== ===== ===== ===== ===== ===== ===== === Not Available [facility] ([facility]) [address], [place], [address], 06/22/2024 17:10:42 06/14/20 24 06/22/2024 COMPL HEATHE DRUG ANNE , NO THC pdf . Not Available [facility] ([facility]) [address] [facility] [place], [address], 06/22/2024 17:10:42 10/10/19 25 10/10/2024 BASIC METAB OLIC PANEL (8) glucose 78 mg/dL 70-99 normal Not Available [facility] ([facility]) [address] [facility] [place], [address], 10/10/2024 04:09:51 10/10/19 25 10/10/2024 BASIC METAB OLIC PANEL (8) BUN 16 mg/dL 6-24 normal Not Available [facility] ([facility]) [address] [facility] [place] [place], [address], 10/10/2024 04:09:51 10/10/19 25 10/10/2024 BASIC METAB OLIC PANEL (8) creatinine 0.81 mg/dL 0.57-1 .00 normal Not Available [facility] ([facility]) [address] [facility] [place] [place], [address], 10/10/2024 04:09:51 10/10/19 25 10/10/2024 BASIC METAB OLIC PANEL (8) eGFR 86 mL/mi n/1.7 3 >59 normal Not Available [facility] ([facility]) [address] [facility] [place] [place], [address], 10/10/2024 04:09:51 10/10/19 25 10/10/2024 BASIC METAB OLIC PANEL (8) BUN/creatini ne ratio 20 9-23 normal Not Available [facility] ([facility]) [address] [facility] [place] [place], [address], 10/10/2024 04:09:51 10/10/19 25 10/10/2024 BASIC METAB OLIC PANEL (8) sodium 142 mmol/ L 134-14 4 normal Not Available [facility] ([facility]) [address] [place], [address], 10/10/2024 04:09:51 10/10/1910/10/2024 BASIC METAB OLIC PANEL (8) potassium 4.0 mmol/ L 3.5-5. 2 normal Not Available [facility] ([facility]) [address] [place], [address], 10/10/2024 04:09:51 10/10/19 25 10/10/2024 BASIC METAB OLIC PANEL (8) chloride 104 mmol/ L 96-106 normal Not Available [facility] ([facility]) [address] [place], [address], 10/10/2024 04:09:51 10/10/1910/10/2024 BASIC METAB OLIC PANEL (8) carbon dioxide, total 25 mmol/ L 20-29 normal Not Available [facility] ([facility]) [address] [place], [address], 10/10/2024 04:09:51 10/10/1910/10/2024 BASIC METAB OLIC PANEL (8) calcium 8.9 mg/dL 8.7-10 .2 normal Not Available [facility] ([facility]) [address] [place], [address], 10/10/2024 04:09:51 12/02/1912/05/2024 URINE CULTU PAUL POPE urine culture, routine Final report abnormal Not Available [facility] ([facility]) [address] [place], [address], 12/05/2024 22:10:24 12/02/1912/05/2024 URINE CULTU REPAUL result 1 Escher ichia coli abnormal Cefaz rocio with an SAMAN <=16 predi cts susce ptibi lity to the oral agent s cefac nanci, cefdi katherin, cefpo doxim e, cefpr ozil, cefur oxime , cepha lexin , and lorac arbef when used for thera py of uncom plica lucero urina ry tract infec tions due to E. coli, Klebs iella pneum oniae , and Prote us mirab ilis. 50,00 0-100 ,000 colon y formi ng units per mL Not Available [facility] ([facility]) [address] [place], [address], 12/05/2024 22:10:24 12/02/19 25 12/05/2024 URINE CULTU RE, ROUTI NE result 2 COMMEN T Mixed uroge nital luis 10,00 0-25, 000 colon y formi ng units per mL Not Available [facility] ([facility]) [address] [place], [address], 12/05/2024 22:10:24 12/02/19 25 12/05/2024 URINE CULTU RE, ROUTI NE antimicrobia l susceptibili ty Commen t S = Susce ptibl e; I = Inter media te; R = Resis tant P = Posit margot; N = Negat margot MICS are expre ssed in micro grams per mL Antib iotic RSLT# 1 RSLT# 2 RSLT# 3 RSLT# 4 Amoxi cilli n/Cla vulan ic Acid S =4 Ampic illin R>=32 Cefaz rocio S =8 Cefep king S<=0. 12 Cefox itin S<=4 Cefpo doxim e S<=0. 25 Ceftr iaxon e S<=0. 25 Cipro floxa padmaja S<=0. 06 Ertap enem S<=0. 12 Genta micin S<=1 Levof loxac in S<=0. 12 Merop enem S<=0. 25 Nitro furan toin S<=16 Piper acill in/Ta zobac hua S<=4 Tetra cycli ne S<=1 Tobra mycin S<=1 Trime thopr im/Zelaya lfa S<=20 Not Available [facility] ([facility]) [address] [place], [address], 12/05/2024 22:10:24 12/02/1912/01/2024 urina lysis , dipst ick Leukocytes Modera te Not Available [facility] [address], [place], [address], 12/01/2024 14:32:19 12/02/1912/01/2024 urina lysis , dipst ick Nitrite negati ve Not Available [facility] [address], [place], [address], 12/01/2024 14:32:19 12/02/1912/01/2024 urina lysis , dipst ick Urobilinogen .2 Not Available [facility] [address], [place], [address], 12/01/2024 14:32:19 12/02/19 25 12/01/2024 urina lysis , dipst ick Protein Negati ve Not Available [facility] [address], [place], [address], 12/01/2024 14:32:19 12/02/19 25 12/01/2024 urina lysis , dipst ick pH 6.5 Not [address] [facility] [address], [place], [address], 12/01/2024 14:32:19 12/02/1912/01/2024 urina lysis , dipst ick Blood Non-He molyze d: Modera te Not Available [facility] [address], [place], [address], 12/01/2024 14:32:19 12/02/19 25 12/01/2024 urina lysis , dipst ick Specific [place] 1.020 Not Available [facility] [address], [place], [address], 12/01/2024 14:32:19 12/02/19 25 12/01/2024 urina lysis , dipst ick Ketone Negati ve Not Available [facility] [address], [place], [address], 12/01/2024 14:32:19 12/02/19 25 12/01/2024 urina lysis , dipst ick Bilirubin Negati ve Not Available [facility] [address], [place], [address], 12/01/2024 14:32:19 12/02/19 25 12/01/2024 urina lysis , dipst ick Glucose Negati ve Not Available [facility] [address] [facility], [place], [address], 12/01/2024 14:32:19 12/02/19 25 12/01/2024 urina lysis , dipst ick Appearance Clear Not Available [facility] [address], [place], [address], 12/01/2024 14:32:19 12/02/19 25 12/01/2024 urina lysis , dipst ick Color Pale Yellow Not Available [facility] [address] [facility], [place], [address], 12/01/2024 14:32:19 09/13/19 25 09/13/2024 MRI, cervi johnny spine , w/o contr ast No observ ation record ed. [email or web address] [facility] ([facility]) [address] [facility] , [place], [address], 09/14/2024 08:02:39 10/10/19 25 US, upper arm No observ ation record ed. Not Available 2024 07:53:29 10/11/19 25 XR, chest , 2 view No observ ation record ed. Not Available 2024 15:58:20 11/02/19 25 11/01/2024 MRI, upper extre mity, w/o contr ast No observ ation record ed. [facility] [address], [place], [place], [address], 11/02/2024 11:50:37 11/02/19 25 11/01/2024 MRI, brain + brain stem, w/wo contr ast No observ ation record ed. [facility] [address], [place], [address], 11/02/2024 11:44:30 Result Notes None recorded. Problems Name Problem SNOMED Code Status Onset Date Resolution Date Notes Provider Name and Address Organization Details Recorded Time Gastroesophag eal reflux disease 459573576 Active Crystal Earlywine null, [place] - [facility] 15:12:33 M ni re's disease 93910763 Active Crystal Earlywine [place] - [facility] 15:12:33 Hypertensive disorder 86386877 Active Crystal Earlywine [place] [facility] 15:12:33 Cerebrovascul ar accident 087402263 Active Crystal Earlywine [place] [facility] 15:12:33 Pulmonary embolism 41615134 Active Crystal Earlywine [place] [facility] 15:12:33 Headache 08415582 Active Crystal Earlywine [place] [facility] 15:12:33 Insomnia 155499672 Active Crystal Earlywine [place] [facility] 15:12:33 Depressive disorder 77670617 Active Crystal Earlywine [place] [facility] 15:12:33 Panic disorder 200066300 Active Crystal Earlywine [place] [facility] 15:12:33 Hypokalemia 74183321 Active Crystal Earlywine [place] [facility] 15:12:33 Disorder of pituitary gland 233223009 Active lesion Crystal Earlywine [place] - [facility] 9 15:12:33 Chronic obstructive pulmonary disease 41814980 Active Crystal Earlywine [place] - [facility] 9 15:12:33 Hypothyroidis m 50427968 Active Crystal Earlywine [place] - [facility] 9 15:12:33 Neuropathy 338730897 Active 2017 Crystal Earlywine [place] - [facility] 9 15:12:33 Congestive heart failure 93561096 Active 2018 Crystal Earlywine [place] - [facility] 9 15:12:33 Fibromyalgia 075136416 Active 2018 Crystal Earlywine [place] - [facility] 9 15:12:33 Chest pain 71029815 Active Crystal Earlywine [place] - [facility] 9 15:12:33 History of deep vein thrombosis 137772089 Active 2020 Laura Smith, DEMAND EQUIPMENT REPAIRER [address], [place], [address], [place] - [facility] 1 18:12:55 Rheumatoid arthritis 80349358 Active 2020 Laura Smith, DEMAND EQUIPMENT REPAIRER [address], [place], [address], [place] [facility] 1 18:12:58 Gastroesophag eal reflux disease without esophagitis 773318804 Active 2020 Laura Smith, DEMAND EQUIPMENT REPAIRER [address], [place], [address], [place] [facility] 1 18:13:04 Restless legs 01640569 Active 2020 Laura Smith, DEMAND EQUIPMENT REPAIRER [address], [place], [address], [place] [facility] 1 18:13:05 History of cerebrovascul ar accident 458781131 Active 2020 Laura Smith, DEMAND EQUIPMENT REPAIRER [address], [place], [address], [place] [facility] 1 18:13:15 Mixed hyperlipidemi a 182364595 Active 2020 Laura Smith, DEMAND EQUIPMENT REPAIRER [address], [place], [address], [place] [facility] 1 18:13:16 Vitamin D deficiency 77295880 Active 2020 Laura Smith, DEMAND EQUIPMENT REPAIRER [address], [place], [address], [place] [facility] 1 18:13:22 Postoperative hypothyroidis m 43232277 Active 2020 aLura Smith, DEMAND EQUIPMENT REPAIRER [address], [place], [address], [place] [facility] 1 18:13:24 Long-term current use of anticoagulant 228615411 Active 2020 Laura Smith, DEMAND EQUIPMENT REPAIRER [address], [place], [address], [place] [facility] 1 18:13:54 Gout 11832168 Active 2020 Laura Smith, DEMAND EQUIPMENT REPAIRER [address], [place], [address], [place] [facility] 1 18:13:57 Acquired absence of cervix and uterus 374744328 Active 2020 Laura Smith, DEMAND EQUIPMENT REPAIRER [address], [place], [address], [place] [facility] 1 18:14:19 Exposure to SARS-CoV-2 Active 2020 Jessica smith, [place] - [facility] 1 12:19:41 Psoriatic arthritis 793816564 Active 2021 Laura Smith, DEMAND EQUIPMENT REPAIRER [address], [place], [address], [place] [facility] 2 17:25:52 Acute urinary tract infection 527145397 Active 2022 Callie Filipe, DEMAND EQUIPMENT REPAIRER [address], [place], [address], [place] [facility] 3 14:02:44 Problem Notes None recorded. Procedures Surgical History Date Name Laterality Status Provider Name and Address Organization Details Recorded Time 05/14/20 20 Diastolic B/P less than 80 mm Hg completed Fariha Prajapati [place] - [facility] 05/14/2020 14:47:03 05/14/20 20 Systolic B/P 130-139 mm Hg completed Fariha Richardcell [place] - [facility] 05/14/2020 14:46:52 02/23/20 20 Systolic B/P less than 130 mm Hg completed Sarahi Jorgito [place] - [facility] 02/23/2020 14:49:32 02/23/20 20 Diastolic B/P 80-89 mm Hg completed Sarahi Jorgito [place] - [facility] 02/23/2020 14:49:17 01/29/20 20 Diastolic B/P 80-89 mm Hg completed Jessica Ward [place] - [facility] 01/29/2020 16:24:40 01/29/20 20 Systolic B/P 130-139 mm Hg completed Jessica Ward [place] - [facility] 01/29/2020 16:24:33 12/27/19 20 Systolic B/P less than 130 mm Hg completed Fariha Prajapati [place] - [facility] 12/27/2019 15:50:27 12/27/19 20 Diastolic B/P 80-89 mm Hg completed Fariha Prajapati [place] - [facility] 12/27/2019 15:50:38 09/27/19 20 Systolic B/P less than 130 mm Hg completed Jessica Ward [place] - [facility] 09/27/2019 14:20:14 09/27/19 20 Diastolic B/P less than 80 mm Hg completed Jessica Ward [place] [facility] 09/27/2019 14:20:24 09/08/19 20 Diastolic B/P 80-89 mm Hg completed Helen Simmons [place] [facility] 09/08/2019 15:22:11 09/08/19 20 Systolic B/P 130-139 mm Hg completed Helen Simmons [place] [facility] 09/08/2019 15:22:14 09/08/19 20 Medication Reconcilliation completed Helen Simmons [place] - [facility] 09/08/2019 15:07:10 03/28/20 19 Medication Reconcilliation completed Fariha Prajapati [place] - [facility] 03/28/2019 15:36:47 08/10/19 19 Medication Reconcilliation completed Salma Kessler [place] - [facility] 08/10/2018 08:36:58 01/08/20 17 completed Jessica Ward [place] - [facility] 06/23/2017 15:27:05 11/29/19 15 Date of Last Colonoscopy completed Romelia Coles RN [address], [place], [address], [place] - [facility] 10/29/2021 16:27:13 Hysterectomy completed Jessica Ward [place] - [facility] 10/27/2023 16:48:45 Unlisted px neck/thorax completed Jessica Ward [place] - [facility] 06/23/2017 15:31:00 Appendectomy completed Jessica Ward [facility] 06/23/2017 15:31:21 Tonsillectomy completed Jessica Wrad [facility] 06/23/2017 15:31:45 Cholecystectomy, laparoscopic completed Jessica Ward [facility] 06/23/2017 15:31:52 Imaging Results None recorded. Procedure Notes None recorded. Medical Equipment None Reported. Allergies Allergen ID Allergen Name Allergen Category Reaction Reaction Severity Criticality Documentation Date Start Date Code Code System Note Provider Name and Address Organization Details Recorded Time [id number] levothyro xine sodium medicatio n diarrhea Not available Not available 06/22/2018 25372 RxNorm per pt. cause s sever e diarr hea Fariha Victorina [facility] 8 17:12:49 [id number] lisinopri l medicatio n cough Not available Not available 08/10/2018 24808 RxNorm Salma Kessler [facility] 9 08:37:21 [id number] morphine medicatio n chest pain Not available Not available 09/08/2019 7052 RxNorm Helen Troy [place], [place] - [facility] 0 15:13:43 [id number] Substance with sulfonami de structure and antibacte rial mechanism of action (substanc e) medicatio n eye redness severe Not available 12/08/20192019 53063 8003 SNOMED skin burni ng Crystal Earlywine [facility], [place] - [facility] 0 14:41:24 [id number] fentanyl medicatio n other severe Not available 06/23/2017 4337 RxNorm stopp ed breat axel JessicaBeatrice [place], [place] - [facility] 7 15:11:06 Medications Name Sig Start Date Stop Date Status Note LastModified by Organization Details LastModified Time Prescript ion - New 09/29 completed infusion for covid antibody Not Available Not Available Not Available Prescript ion - Prior Authoriza tion Request active Not Available Not Available Not Available cyclobenz aprine 10 mg tablet Take 1 tablet every day by oral route at bedtime for 90 days. 2024 active Not Available Not Available Not Avai lable amoxicill in 500 mg capsule Take 1 capsule every 8 hours by oral route for 10 days. 07/26 completed Not Available Not Available Not Available furosemid e 40 mg tablet TAKE ONE (1) TABLET EVERY DAY 03/04 completed Not Available Not Available Not Available atorvasta tin 40 mg tablet 1 q day 08/10 completed Not Available Not Available Not Available buspirone 5 mg tablet tid 11/08 completed Not Available Not Available Not Available hydralazi ne 10 mg tablet TAKE ONE (1) TABLET THREE (3) TIMES A DAY BY ORAL ROUTE. 11/26 completed verapami l controll ed her BP better Not Available Not Available Not Available promethaz ine-DM 6.25 mg-15 mg/5 mL oral syrup TAKE FIVE (5) ML EVERY FOUR (4) HOURS BY ORAL ROUTE NEEDED. active Not Available Not Available No t Available clonidine HCl 0.1 mg tablet TAKE ONE (1) TABLET TWICE A DAY BY ORAL ROUTE NEEDED, FOR BP. active Not Available Not Available No t Available acetamino phen 325 mg tablet 650 mg by oral route. 04/10 completed Not Available Not Available Not Available prednison e 10 mg tablet as directed 06/24 completed Not Available Not Available Not Available ipratropi um 0.5 mg-albute rol 3 mg (2.5 mg base)/3 mL nebulizat ion soln INHALE THREE (3) ML FOUR (4) TIMES A DAY BY NEBULIZA TION ROUTE DIRECTED FOR FIVE (5) DAYS. 09/29 completed Not Available Not Available Not Available quetiapin e 300 mg tablet Take 1 tablet every day by oral route at bedtime. 09/29 completed Not Available Not Available Not Available loperamid e 2 mg capsule 06/22 completed Not Available Not Available Not Available trazodone 50 mg tablet TAKE ONE (1) TABLET EVERY DAY BY ORAL ROUTE AT BEDTIME. active Not Available Not Available No t Available azithromy padmaja 250 mg tablet TAKE 2 TABLETS TODAY, THEN TAKE 1 TABLET EVERY DAY FOR 4 DAYS 06/18 completed Not Available Not Available Not Available fluconazo le 150 mg tablet TAKE ONE (1) TABLET BY MOUTH NOW AND REPEAT IN THREE (3) DAYS IF NOT RESOLVED active Not Available Not Available No t Available hydrocodo ne 5 mg-acetam inophen 325 mg tablet TAKE ONE (1) TABLET TO TWO (2) -3 TIMES A DAY NEEDED FOR SEVERE PAIN 01/30 completed Not Available Not Available Not Available prazosin 1 mg capsule 06/22 completed Not Available Not Available Not Available ondansetr on HCl 8 mg tablet TAKE ONE (1) TABLET TWICE A DAY BY ORAL ROUTE NEEDED. 06/26 completed Not Available Not Available Not Available Synthroid 125 mcg tablet TAKE ONE (1) TABLET(S ) EVERY DAY BY ORAL ROUTE DIRECTED 03/04 completed decrease d to 100 mcg Not Available Not Available Not Available Medrol (Maximilian) 4 mg tablets in a dose pack Take 1 dose pk by oral route as directed . 2024 active Not Available Not Available Not Avai lable prednison e 20 mg tablet TAKE TWO (2) TABLETS BY ORAL ROUTE ONCE DAILY FOR FIVE (5) DAYS 11/05 completed Not Available Not Available Not Available Synthroid 100 mcg tablet TAKE ONE (1) TABLET EVERY DAY BY ORAL ROUTE DIRECTED active Not Available Not Available No t Available prednison e 5 mg tablet TAKE ONE BY MOUTH THREE (3) TIMES DAILY X ONE (1) WEEK; ONE BY MOUTH TWICE DAILY X ONE (1) WEEK THEN ONE BY MOUTH DAILY X ONE (1) WEEK 02/14 completed Not Available Not Available Not Available quetiapin e 200 mg tablet 1 tab qhs 02/22 completed Not Available Not Available Not Available hydroxyzi ne pamoate 50 mg capsule Take 1 capsule twice a day by oral route as needed. 05/31 completed switched to hcl TID Not Available Not Available Not Available potassium chloride ER 10 mEq tablet,ex tended release TAKE TWO (2) TABLETS EVERY DAY BY ORAL ROUTE BEFORE MEALS FOR 90 DAYS. active Not Available Not Available No t Available metronida zole 500 mg tablet Take 1 tablet twice a day by oral route for 7 days. 09/06 completed Not Available Not Available Not Available hydroxyzi ne HCl 50 mg tablet TAKE 1 TABLET 3 TIMES DAILY. 09/29 completed Not Available Not Available Not Available allopurin ol 100 mg tablet Take 2 tablets every day by oral route as directed for 90 days. 2024 active Not Available Not Available Not Avai lable tretinoin 0.05 % topical cream APPLY TO THE AFFECTED AREA(S) BY TOPICAL ROUTE ONCE DAILY AT BEDTIME 09/08 completed Not Available Not Available Not Available doxepin 10 mg capsule TAKE ONE (1) ORAL CAPSULE AT BEDTIME 09/29 completed Not Available Not Available Not Available methotrex ate sodium 25 mg/mL injection solution 1 q weekly 06/22 completed Not Available Not Available Not Available ciproflox acin 500 mg tablet Take 1 tablet twice a day by oral route for 7 days. 08/13 completed Not Available Not Available Not Available sulfameth oxazole 800 mg-trimet hoprim 160 mg tablet Take 1 tablet every 12 hours by oral route for 10 days. 06/24 completed Not Available Not Available Not Available hydrocodo ne 10 mg-acetam inophen 325 mg tablet TAKE ONE (1) TABLET TWO (2) TO THREE (3) TIMES A DAY NEEDED 01/30 completed Not Available Not Available Not Available leflunomi de 20 mg tablet 06/23 completed Not Available Not Available Not Available quetiapin e 100 mg tablet TAKE 1 TABLET AT BEDTIME 09/29 completed Not Available Not Available Not Available triamtere ne 37.5 mg-hydroc hlorothia zide 25 mg capsule 1 q day 08/10 completed Not Available Not Available Not Available butalbita l-acetami nophen-ca ffeine 50 mg-325 mg-40 mg tablet TAKE ONE (1) CAPSULE BY MOUTH THREE TIMES DAILY NEEDED 2024 active Not Available Not Available Not Avai lable ondansetr on 8 mg disintegr ating tablet TAKE ONE (1) TABLET DISSOLVE ON TONGUE/S WALLOW- THREE (3) TIMES A DAY NEEDED active Not Available Not Available No t Available levothyro xine 75 mcg tablet Take 1 tablet every day by oral route. 05/10 completed Not Available Not Available Not Available Nitro-Bid 2 % transderm al ointment 1 in by transder m. route. 04/10 completed Not Available Not Available Not Available verapamil 120 mg tablet TAKE 1 TABLET TWICE A DAY. 07/07 completed Not Available Not Available Not Available oxycodone -acetamin ophen 5 mg-325 mg tablet TAKE 1 TABLET BY MOUTH EVERY FOUR HOURS FOR PAIN 12/16 completed Not Available Not Available Not Available amoxicill in 875 mg tablet TAKE ONE (1) TABLET EVERY 12 HOURS BY ORAL ROUTE FOR 7 DAYS. 01/30 completed Not Available Not Available Not Available potassium chloride ER 20 mEq tablet,ex tended release(p art/cryst ) Take 2 tablets twice a day by oral route for 90 days. 09/29 completed Not Available Not Available Not Available amitripty line 25 mg tablet TAKE ONE (1) TABLET EVERY DAY BY ORAL ROUTE AT BEDTIME FOR 90 DAYS. active Not Available Not Available No t Available methocarb aleks 750 mg tablet TAKE ONE (1) TABLET THREE (3) TIMES A DAY BY ORAL ROUTE NEEDED 02/14 completed Not Available Not Available Not Available famciclov ir 500 mg tablet TAKE THREE (3) TABLETS BY MOUTH X ONE (1) DOSE active Not Available Not Available No t Available hyoscyami ne ER 0.375 mg tablet,ex tended release,1 2 hr active Not Available Not Available Not Available trazodone 100 mg tablet Take 1 tablet every day by oral route at bedtime for 30 days. 02/28 completed Not Available Not Available Not Available dicyclomi ne 20 mg tablet TAKE ONE (1) TABLET FOUR (4) TIMES A DAY BY ORAL ROUTE FOR 90 DAYS. 02/14 completed Not Available Not Available Not Available meclizine 25 mg tablet Take 1 tablet every day by oral route as needed for 5 days. 03/28 completed Not Available Not Available Not Available benzonata te 100 mg capsule Take 1 capsule 3 times a day by oral route as needed for 10 days. 03/28 completed Not Available Not Available Not Available doxycycli ne monohydra te 100 mg capsule 05/14 completed Not Available Not Available Not Available potassium chloride 40 mEq/15 mL oral liquid 06/23 completed Not Available Not Available Not Available hydrocodo ne 7.5 mg-acetam inophen 325 mg tablet TAKE ONE (1) TABLET FOUR (4) TIMES A DAY BY ORAL ROUTE FOR 30 DAYS. active Not Available Not Available No t Available Betasept Surgical Scrub 4 % topical liquid SHOWER EACH DAY WITH SOLUTION FOR FIVE (5) DAYS BEGINNIN G FIVE (5) DAYS BEFORE SURGERY. 05/12 completed Not Available Not Available Not Available cephalexi n 500 mg capsule TAKE 1 CAPSULE BY MOUTH TWICE DAILY FOR 7 DAYS 01/30 completed Not Available Not Available Not Available pantopraz ole 40 mg tablet,de layed release TAKE ONE (1) TABLET EVERY DAY BY ORAL ROUTE DIRECTED FOR 90 DAYS. active Not Available Not Available No t Available erythromy padmaja 5 mg/gram (0.5 %) eye ointment 05/14 completed Not Available Not Available Not Available oseltamiv ir 75 mg capsule 12/26 completed Not Available Not Available Not Available tobramyci n 0.3 % eye drops INSTILL 1 DROP INTO AFFECTED EYE(S) BY OPHTHALM IC ROUTE EVERY 4 HOURS 02/28 completed Not Available Not Available Not Available ropinirol e 0.5 mg tablet TAKE ONE (1) TABLET BY MOUTH EVERY NIGHT AT BEDTIME 06/24 completed Not Available Not Available Not Available nystatin 100,000 unit/gram topical cream APPLY TO THE AFFECTED AREA(S) BY TOPICAL ROUTE 2 TIMES PER DAY 03/04 completed Not Available Not Available Not Available prednison e 50 mg tablet 08/10 completed Not Available Not Available Not Available promethaz ine 25 mg tablet TAKE ONE (1) TABLET EVERY FOUR (4) TO SIX (6) HOURS NEEDED 09/29 completed Not Available Not Available Not Available polymyxin B sulfate 10,000 unit-trim ethoprim 1 mg/mL eye drops INSTILL 1 DROP INTO AFFECTED EYE(S) BY OPHTHALM IC ROUTE EVERY 6 HOURS 12/07 completed Not Available Not Available Not Available warfarin 5 mg tablet 06/23 completed Not Available Not Available Not Available indometha padmaja 25 mg capsule TAKE ONE (1) CAPSULE THREE (3) TIMES A DAY BY ORAL ROUTE NEEDED FOR FIVE (5) DAYS. 03/04 completed Not Available Not Available Not Available Calcium-6 00 600 mg (as calcium carbonate 1,500 mg) tablet Take 1 tablet 3 times a day by oral route for 30 days. 12/26 completed Not Available Not Available Not Available acetylcys teine 100 mg/mL (10 %) solution 08/10 completed Not Available Not Available Not Available nitroglyc fabricio 0.4 mg sublingua l tablet 0.4 mg by sublingu al route. 04/10 completed Not Available Not Available Not Available gabapenti n 300 mg capsule 09/29 completed Not Available Not Available Not Available omeprazol e 20 mg capsule,d elayed release TAKE ONE (1) CAPSULE ONCE A DAY active Not Available Not Available No t Available aspirin 81 mg chewable tablet 324 mg by oral route. 04/10 completed Not Available Not Available Not Available folic acid 1 mg tablet Take 1 tablet every day by oral route. 06/24 completed Not Available Not Available Not Available codeine 10 mg-guaife nesin 100 mg/5 mL oral liquid 06/23 completed Not Available Not Available Not Available allopurin ol 300 mg tablet TAKE ONE (1) TABLET(S ) EVERY DAY BY ORAL ROUTE DIRECTED 07/13 completed changed to 200 mg q day, 07/13/22 Not Available Not Available Not Available hydrochlo rothiazid e 25 mg tablet Take 1 tablet every day by oral route as needed for 30 days. 2024 active Not Available Not Available Not Avai lable mupirocin 2 % topical ointment APPLY TO THE INSIDE OF EACH NOSTRIL WITH A COTTON SWAB TWO TIMES DAILY, MORNING AND EVENING, FOR FIVE (5) DAYS BEFORE SURGERY. DO NOT TOUCH Q-TIP TO TUBE AFTER APPLICAT ION 05/12 completed Not Available Not Available Not Available furosemid e 20 mg tablet TAKE 1 TABLET ONCE DAILY DIRECTED . active Not Available Not Available No t Available Synthroid 112 mcg tablet Take 1 tablet every day by oral route as directed for 30 days. 09/28 completed Not Available Not Available Not Available mirtazapi ne 15 mg tablet Take 1 tablet every day by oral route at bedtime for 30 days. 06/24 completed Not Available Not Available Not Available gabapenti n 100 mg capsule qhs 08/10 completed Not Available Not Available Not Available dexametha sone sodium phosphate 4 mg/mL injection solution 8mg x1 dose now 07/07 completed Not Available Not Available Not Available azelastin e 137 mcg (0.1 %) nasal spray [place] 1 spray every day by nasal route for 25 days. 03/28 completed Not Available Not Available Not Available hydroxych loroquine 200 mg tablet 06/23 completed Not Available Not Available Not Available prednison e 5 mg tablets in a dose pack 05/10 completed Not Available Not Available Not Available polyethyl vania glycol 3350 17 gram/dose oral powder 06/23 completed Not Available Not Available Not Available estradiol 0.01% (0.1 mg/gram) vaginal cream INSERT ONE (1) GRAM PER VAGINA WEDNESDAY, , AND WEDNESDAY. RX WILL LAST 105 DAY SUPPLY active Not Available Not Available No t Available levofloxa padmaja 750 mg tablet 06/23 completed Not Available Not Available Not Available zolpidem 10 mg tablet TAKE ONE (1) TABLET ONCE DAILY AT BEDTIME. 2024 active Not Available Not Available Not Avai lable albuterol sulfate HFA 90 mcg/actua tion aerosol inhaler INHALE TWO (2) PUFFS EVERY FOUR (4) HOURS NEEDED FOR WHEEZING OR SHORTNES S OF BREATH (OR PROLONGE D COUGH, CHEST CONGESTI ON, OR CHEST TIGHTNES S). active Not Available Not Available No t Available colchicin e 0.6 mg tablet TAKE TWO (2) TABS NOW THEN ONE (1) TAB ONE HOUR LATER 03/04 completed Not Available Not Available Not Available betametha sone dipropion ate 0.05 % topical ointment APPLY A THIN LAYER TO THE AFFECTED AREA(S) BY TOPICAL ROUTE 2-3 times DAILY 02/28 completed Not Available Not Available Not Available ondansetr on 4 mg disintegr ating tablet TAKE 1 TABLET EVERY SIX TO EIGHT HOURS NEEDED FOR NAUSEA. 09/29 completed Not Available Not Available Not Available cefdinir 300 mg capsule TAKE 1 CAPSULE TWICE DAILY FOR 7 DAYS 12/01 completed Not Available Not Available Not Available topiramat e 100 mg tablet 06/23 completed Not Available Not Available Not Available dexametha sone sodium phosphate 10 mg/mL injection solution Take 10 mg by injectio n route. 08/10 completed Not Available Not Available Not Available fluticaso ne propionat e 50 mcg/actua tion nasal spray,lizet pension ADMINIST ER TWO (2) SPRAYS INTO EACH NOSTRIL DAILY. SHAKE GENTLY. BEFORE FIRST USE, PRIME PUMP. AFTER USE, CLEAN TIP AND REPLACE CAP. active Not Available Not Available No t Available dicyclomi ne 10 mg capsule 05/10 completed Not Available Not Available Not Available naproxen 500 mg tablet 06/23 completed Not Available Not Available Not Available diazepam 5 mg tablet TAKE ONE (1to 2) TABLETS BY MOUTH EVERY 8 HOURS NEEDED 2024 active Not Available Not Available Not Avai lable metoclopr amide 10 mg tablet TAKE ONE (1) TABLET FOUR (4) TIMES A DAY BY ORAL ROUTE FOR 30 DAYS. 02/14 completed Not Available Not Available Not Available amoxicill in 875 mg-potass ium clavulana te 125 mg tablet TAKE ONE (1) TABLET EVERY 12 HOURS BY ORAL ROUTE DIRECTED FOR 7 DAYS. 06/25 completed Not Available Not Available Not Available amoxicill in 500 mg-potass ium clavulana te 125 mg tablet Take 1 tablet 3 times a day by oral route for 14 days. 12/22 completed Not Available Not Available Not Available buspirone 15 mg tablet Take 1 tablet 3 times a day by oral route. 06/24 completed Not Available Not Available Not Available tobramyci n 0.3 %-dexamet hasone 0.1 % eye drops,lizet pension INSTILL ONE (1) DROP INTO AFFECTED EYE(S) BY OPHTHALM IC ROUTE EVERY SIX (6) HOURS 09/29 completed Not Available Not Available Not Available hydroxyzi ne pamoate 25 mg capsule bid as needed 09/27 completed Not Available Not Available Not Available enoxapari n 60 mg/0.6 mL subcutane ous syringe INJECT ONE (1) MG/KG BY SUBCUTAN EOUS ROUTE EVERY IN THE MORNING BEFORE SURGERY DIRECTED BY OFFICE 11/05 completed Not Available Not Available Not Available enoxapari n 100 mg/mL subcutane ous syringe INJECT 100MG SUBCUTAN EOUSLY 07/13/20 21 IN THE MORNING 09/29 completed Not Available Not Available Not Available enoxapari n 40 mg/0.4 mL subcutane ous syringe INJECT 0.4 ML EVERY DAY BY SUBCUTAN EOUS ROUTE FOR FIVE (5) DAYS. DISCAR D ANY REMAINDE R active Not Available Not Available No t Available morphine 2 mg/mL injection syringe 1 mg by injectio n route. 04/10 completed Not Available Not Available Not Available azithromy padmaja 500 mg tablet Take 1 tablet every day by oral route for 3 days. 02/22 completed Not Available Not Available Not Available escitalop ernestina 20 mg tablet 06/23 completed Not Available Not Available Not Available Humira 40 mg/0.8 mL subcutane ous syringe kit 06/23 completed Not Available Not Available Not Available Restasis 0.05 % eye drops in a dropperet te INSTILL ONE (1) DROP INTO AFFECTED EYE(S) BY OPHTHALM IC ROUTE EVERY 12 HOURS 05/12 completed Not Available Not Available Not Available Phenadoz 25 mg rectal supposito ry 06/23 completed Not Available Not Available Not Available Ciprodex 0.3 %-0.1 % ear drops,lizet pension INSTILL 4 DROPS INTO AFFECTED EAR(S) BY OTIC ROUTE 2 TIMES PER DAY FOR 7 DAYS 02/28 completed Not Available Not Available Not Available nitrofura ntoin monohydra te/macroc rystals 100 mg capsule TAKE 1 CAPSULE BY MOUTH TWICE DAILY FOR 7 DAYS 01/30 completed Not Available Not Available Not Available Enbrel 50 mg/mL (1 mL) subcutane ous syringe 06/23 completed Not Available Not Available Not Available ramelteon 8 mg tablet TAKE ONE (1) ORAL TABLET AT BEDTIME 06/24 completed Not Available Not Available Not Available Lyrica 75 mg capsule Take 1 capsule twice a day by oral route for 90 days. 2024 active Not Available Not Available Not Avai lable Miralax OTC active Not Available Not Avail able Not Available quetiapin e 50 mg tablet Take 1 tablet every day by oral route. 03/28 completed Not Available Not Available Not Available calcium 600 mg (as carbonate )-vitamin D3 10 mcg (400 unit) tablet Take 1 tablet every day by oral route for 90 days. 09/29 completed Not Available Not Available Not Available ondansetr on HCl (PF) 4 mg/2 mL injection solution 4 mg by injectio n route. 04/10 completed Not Available Not Available Not Available Alaway 0.025 % (0.035 %) eye drops INSTILL 1 DROP INTO AFFECTED EYE(S) BY OPHTHALM IC ROUTE EVERY 12 HOURS 02/28 completed Not Available Not Available Not Available BD PosiFlush Normal Saline 0.9 % injection syringe 10 mL by injectio n route. 04/10 completed Not Available Not Available Not Available diclofena c 1 % topical gel APPLY FOUR (4) GRAM(S) UP TO FOUR (4) TIMES A DAY 05/12 completed Not Available Not Available Not Available [...] completed Not Available Not Available Not Available butalbita l-acetami nophen-ca ffeine 50 mg-300 mg-40 mg capsule TAKE 1 CAPSULE BY MOUTH THREE TIMES DAILY NEEDED FOR 30 DAYS 06/24 completed Not Available Not Available Not Available Vitamin D3 50 mcg (2,000 unit) capsule Take 3 capsules every day by oral route for 90 days. 01/12 completed per laura gene Not Available Not Available Not Available Xeljanz 5 mg tablet 06/23 completed Not Available Not Available Not Available Linzess 145 mcg capsule TAKE ONE (1) CAPSULE EVERY DAY BY ORAL ROUTE. 05/12 completed Not Available Not Available Not Available Linzess 290 mcg capsule TAKE ONE (1) CAPSULE EVERY DAY BY ORAL ROUTE FOR 90 DAYS. active Not Available Not Available No t Available Eliquis 5 mg tablet TAKE ONE (1) TABLET TWICE A DAY. active Not Available Not Available No t Available Breo Ellipta 100 mcg-25 mcg/dose powder for inhalatio n Inhale 1 puff twice a day by inhalati on route as needed for 30 days. 05/31 completed Not Available Not Available Not Available Actemra 162 mg/0.9 mL subcutane ous syringe 05/14 completed Not Available Not Available Not Available Cosentyx 150 mg/mL subcutane ous syringe INJECT ONE (1) ML EVERY FOUR (4) WEEKS BY SUBCUTAN EOUS ROUTE. active Not Available Not Available No t Available Cosentyx Pen 150 mg/mL subcutane ous pen injector 02/10 completed Not Available Not Available Not Available Nexium 24HR 20 mg tablet,de layed release Take 2 tablets every day by oral route. 08/10 completed Not Available Not Available Not Available Trintelli x 20 mg tablet TAKE ONE (1) TABLET ONCE DAILY. active Not Available Not Available No t Available Orencia ClickJect 125 mg/mL subcutane ous auto-inje ctor 1 q week 05/12 completed Not Available Not Available Not Available Restasis MultiDose 0.05 % eye drops INSTILL 1 DROP INTO AFFECTED EYE(S) BY OPHTHALM IC ROUTE EVERY 12 HOURS 05/12 completed Not Available Not Available Not Available Trulance 3 mg tablet active Not Available Not Available Not Available Dilaudid (PF) 0.5 mg/0.5 mL injection syringe 0.5 mg by injectio n route. 04/10 completed Not Available Not Available Not Available Nexium 24HR 20 mg capsule,d elayed release Take 1 capsule every day by oral route. 09/08 completed Pt states her insuranc e wont pay for this anymore so she is needing a new one Not Available Not Available Not Available Trelegy Ellipta 100 mcg-62.5 mcg-25 mcg powder for inhalatio n INHALE ONE (1) PUFF BY MOUTH DAILY. active Not Available Not Available No t Available Kevzara 200 mg/1.14 mL subcutane ous pen injector SQ every 2 weeks 03/28 completed Not Available Not Available Not Available Actemra ACTPen 162 mg/0.9 mL subcutane ous pen injector medicati on:Actem ra ACTPen Subcutan eous Solution Auto-inj seda 162 MG/0.9ML dose:0. 0 route:S UBCUT fr equency: ONCE WEEKLY 05/14 completed Not Available Not Available Not Available Rinvoq 15 mg tablet,ex tended release TAKE ONE (1) TABLET EVERY DAY BY ORAL ROUTE. active Not Available Not Available No t Available allopurin ol 200 mg tablet Take 1 tablet every day by oral route for 90 days. 03/04 completed Not Available Not Available Not Available Vitals Date Recorded Body height Body mass index (BMI) Body weight Body temperature Heart rate Oxygen saturation Oxygen saturation in Arterial blood by Pulse oximetry Respiratory rate Systolic And Diastolic Provider Name and Address Organization Details Last Updated DateTime 5 167.64 cm 23.3 kg/m2 81401.4 g 98.1 [degF] 66 /min 98 % 98 % 16 /min 145/72 mm[Hg] Jessica Ward [employer] - [facility] 5 12:28:16 Date Recorded Body height Body mass index (BMI) Body weight Body temperature Heart rate Oxygen saturation Oxygen saturation in Arterial blood by Pulse oximetry Respiratory rate Systolic And Diastolic Provider Name and Address Organization Details Last Updated DateTime 5 167.64 cm 23 kg/m2 25577.2 2 g 98.3 [degF] 67 /min 99 % 99 % 17 /min 126/84 mm[Hg] Muriel Goldstein [place] - [facility] 5 14:31:06 Date Recorded Body height Body mass index (BMI) Body weight Body temperature Heart rate Oxygen saturation Oxygen saturation in Arterial blood by Pulse oximetry Respiratory rate Systolic And Diastolic Provider Name and Address Organization Details Last Updated DateTime 5 167.64 cm 22.9 kg/m2 45328.1 2 g 98.4 [degF] 57 /min 98 % 98 % 18 /min 112/60 mm[Hg] Jessica Ward [place] - [facility] 5 14:11:52 Date Recorded Body height Body mass index (BMI) Body weight Body temperature Heart rate Oxygen saturation Oxygen saturation in Arterial blood by Pulse oximetry Respiratory rate Systolic And Diastolic Provider Name and Address Organization Details Last Updated DateTime 4 167.64 cm 22.2 kg/m2 42041.5 5 g 98.4 [degF] 86 /min 98 % 98 % 18 /min 140/64 mm[Hg] Jessica Ward [place] - [facility] 4 14:31:02 Date Recorded Body height Body mass index (BMI) Body weight Body temperature Oxygen saturation Oxygen saturation in Arterial blood by Pulse oximetry Respiratory rate Heart rate Systolic And Diastolic Provider Name and Address Organization Details Last Updated DateTime 4 167.64 cm 22 kg/m2 26362.5 6 g 98.1 [degF] 99 % 99 % 18 /min 77 /min 130/90 mm[Hg] Murielmarla Goldstein [place] - [facility] 4 15:50:54 Social History Question Answer Notes LastModified by Zetoizat ion Details LastModified Time Tobacco Smoking Status Never Smoker Jessica Ward [place], [place] - [facility] 06/23/2017 15:28:42 Able To Swim? Yes Information not available 06/23/2017 Do You Have An Advance Directive? No Information not available 06/23/2017 Do You Wear A Helmet When Biking? No Information not available 06/23/2017 Are You Blind Or Do You Have Difficulty Seeing? No Information not available 06/23/2017 What Is Your Level Of Caffeine Consumption? Moderate Information not available 06/23/2017 Are You Deaf Or Do You Have Serious Difficulty Hearing? No Information not available 06/23/2017 What Type Of Diet Are You Following? REGULAR Information not available 06/23/2017 Which Illicit Or Recreational Drugs Have You Used? None Information not available 06/23/2017 What Is The Highest Grade Or Level Of School You Have Completed Or The Highest Degree You Have Received? [id number] [email or web address] Information not available 01/06/2023 Swimming/diving No Informati on not available 06/23/2017 Hard Of Hearing Or Deaf In One Or Both Ears? 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 With Others Information not available 06/23/2017 What Was The Date Of Your Most Recent Tobacco Screening? 10/09/2024 Information not available 10/09/2024 How Many Children Do You Have? 4 Information not available 06/23/2017 Do You Use Protection During Sex? No Information not available 06/23/2017 What Is Your Relationship Status? Information not available 06/23/2017 Seat Belts Used Routinely Yes Information not available 06/23/2017 Are You Sexually Active? Yes Information not available 06/23/2017 Smoke Alarm In Home Yes Information not available 06/23/2017 General Stress Level High Information not available 06/23/2017 Do You Use Sunscreen Routinely? No Information not available 06/23/2017 Has Tobacco Cessation Counseling Been Provided? Yes Information not available 11/05/2022 On What Date Was Tobacco Cessation Counseling Provided? 10/09/2024 Information not available 10/09/2024 Do You Have Difficulty Walking Or Climbing Stairs? No Information not available 06/23/2017 Do You Want To Talk About Contraception Or Prevention During Your Visit Today? No - I Do Not Want To Talk About Contraception Today Because I Am Here For Something Else [email or web address] Information not available 01/06/2023 Do You Have Any Future Plans To Get ? No, I Don't Want To Become [email or web address] Information not available 01/06/2023 Sex: Female Functional Status Question Answer Note LastModified by Organizat ion Details LastModified Time Do you or have you ever used smokeless tobacco? Never used smokeless tobacco Information not available 09/27/2019 Are you currently employed? Yes Information not available 06/23/2017 Do you have transportation difficulties? No [email or web address] Information not available 01/06/2023 Are you able to care for yourself? Yes Information n ot available 06/23/2017 Do you have difficulty dressing or bathing? No Information not available 06/23/2017 Do you or have you ever used e-cigarettes or vape? Never used electronic cigarettes Information not available 06/28/2019 What is your exercise level? None Information not available 06/23/2017 Do you use any illicit or recreational drugs? No [email or web address] Information not available 01/06/2023 Do you or have you ever used any other forms of tobacco or nicotine? No [email or web address] Information not available 01/06/2023 What is your level of alcohol consumption? None Information not available 06/23/2017 What is your status? Not [email or web address] Information no t available 01/06/2023 Are you able to walk? [email or web address] Information not available 06/23/2017 Do you have difficulty doing errands alone? No Information not available 06/23/2017 What is your occupation? [employer] Information not available 06/23/2017 Mental Status Question Answer Note LastModified by Organization D etails LastModified Time Do you have difficulty concentrating, remembering or making decisions? No Information no t available 06/23/2017 Family History Relationship Description Onset Age of this Age Resolved Age Notes LastModified by Organization Details LastModified Time Maternal Grandfather Cerebrovascu lar accident Not available 15:28:05 Maternal Uncle Malignant tumor of colon Not available 2016 15:28:16 Sister Neoplasm of brain 50 [email or web address] Not available 2019 15:20:28 Mother Hypertensive disorder [email or web address] Not available 2019 15:20:53 Mother Blood coagulation disorder [email or web address] Not available 2019 15:21:03 Medical History Condition Response Anxiety Disorder Y Acid Reflux (GERD) Y Insomnia Y Panic Disorder Y COPD Y Cerebrovascular Disease Y Gynecological History Statement/Question Response Abnormal Pap Y Date of Last Colonoscopy 11/28/2014 Date of Last Mammogram Date of LMP Date of Last Pap Smear Current Control Method Hysterectom y LMP Approximate 01/07/2017 Obstetrics History GPAL:G 4 P 0 0 0 3 Type Value Living 3 Total 4 Immunizations Vaccine Type Date Status Note Provider Nam e and Address Organization Details Recorded Time COVID-19, mRNA, LNP-S, PF, 100 mcg/0.5mL dose or 50 mcg/0.25mL dose 2 completed Helen Simmons null, [place] - [facility] 09/15/2021 16:28:11 Influenza, split virus, quadrivalent, preservative 3 completed Angel Mario, [employer] [address], [place], [address], [place] - [facility] 05/27/2023 11:49:03 Influenza, split virus, quadrivalent, preservative 8 completed Not Available [facility] 07/26/2023 11:31:50 Influenza, split virus, quadrivalent, preservative 9 completed Not Available [facility] 07/26/2023 11:31:50 COVID-19, mRNA, LNP-S, PF, 100 mcg/0.5mL dose or 50 mcg/0.25mL dose 1 completed Ilya [place] null, [place] - [facility] 12/18/2022 10:11:49 Hep A, adult 9 completed Ilya [place], [place] - [facility] 12/18/2022 10:11:49 Hep A, adult 8 completed Ilya [place], [place] - [facility] 12/18/2022 10:11:49 Influenza, split virus, quadrivalent, PF 0 completed Ilya [place] - [facility] 12/18/2022 10:11:49 Influenza, split virus, quadrivalent, PF 8 completed Ilya [place] null, [place] - [facility] 12/18/2022 10:11:49 Past Encounters Encounter ID Performer Location Encounter Start Date Encounter Closed Date Diagnosis/Indication Diagnosis SNOMED-CT Code Diagnosis ICD10 Code Diagnosis Note [id number] Laura Smith APRN [address] [place] [address] 06/23/2017 14:56:10 06/23/2017 16:18:46 Body mass index 30+ - obesity 804615316 Z68.32 Chronic ob structive pulmonary disease 53178117 J44.9 History of cerebrovascular accident 945115118 Z86.73 M ni re's disease 21589514 H81.03 Mixed hyperlipidemia 267 289009 E78.2 Rheumatoid arthritis 698 62409 M06.9 History of deep vein thrombosis 536903326 Z86.718 Fatigue 62865796 R53.83 Depressive disorder 3548 9007 F33.8 Vitamin D deficiency 347 19248 E55.9 Dysphagia 84635901 R13.1 0 Dry eyes 887612213 H04.1 29 [id number] Laura Smith [address] [place] [address] 07/07/2017 09:04:13 07/07/2017 10:23:30 Thyroiditis 23944820 E06.9 Body mass index 30+ - obesity 781012048 Z68.32 Chronic ob structive pulmonary disease 40876639 J44.9 History of cerebrovascular accident 801050423 Z86.73 M ni re's disease 62961151 H81.03 Mixed hyperlipidemia 267 911574 E78.2 Rheumatoid arthritis 698 44334 M06.9 History of deep vein thrombosis 698710895 Z86.718 Depressive disorder 3548 9007 F33.8 Vitamin D deficiency 347 00438 E55.9 Acquired hypothyroidism 849845250 E03.9 [id number] Laura Smith [address] [place] [address] 08/10/2017 14:10:53 08/10/2017 15:09:40 Body mass index 30+ - obesity 023124702 Z68.32 Chronic ob structive pulmonary disease 77731666 J44.9 History of cerebrovascular accident 496086159 Z86.73 M ni re's disease 80275034 H81.03 Mixed hyperlipidemia 267 377628 E78.2 Rheumatoid arthritis 698 42919 M06.9 History of deep vein thrombosis 608684989 Z86.718 Depressive disorder 3548 9007 F33.8 Vitamin D deficiency 347 30588 E55.9 Acquired hypothyroidism 271428201 E03.9 Hypokalemia 40961289 E87 .6 Lower back injury 286944 005 S39.92XA Restless legs 93753126 G 25.81 [id number] Laura Smith [address] [place] [address] 09/27/2017 11:39:04 09/27/2017 12:43:14 Body mass index 30+ - obesity 998854370 Z68.32 Chronic ob structive pulmonary disease 40254166 J44.9 History of cerebrovascular accident 353197210 Z86.73 M ni re's disease 28035674 H81.03 Mixed hyperlipidemia 267 525769 E78.2 Rheumatoid arthritis 698 35832 M06.9 History of deep vein thrombosis 331027199 Z86.718 Depressive disorder 3548 9007 F33.8 Vitamin D deficiency 347 33115 E55.9 Acquired hypothyroidism 994520675 E03.9 Nausea 165864572 R11.0 [id number] Laura Smith [address] [place] [address] 11/08/2017 15:33:41 11/08/2017 16:35:01 Disorder of pituitary gland 758115971 E23.7 Panic disorder 880489722 F41.0 Body mass index 30+ - obesity 686647361 Z68.33 Chronic ob structive pulmonary disease 77728791 J44.9 History of cerebrovascular accident 152447093 Z86.73 M ni re's disease 25118713 H81.03 Mixed hyperlipidemia 267 504999 E78.2 Rheumatoid arthritis 698 99876 M06.9 History of deep vein thrombosis 613978758 Z86.718 Depressive disorder 3548 9007 F33.8 Vitamin D deficiency 347 81282 E55.9 Acquired hypothyroidism 860574486 E03.9 Hypokalemia 78024706 E87 .6 Restless legs 04436742 G 25.81 Screening for malignant neoplasm of breast 221777352 Z12.31 [id number] Laura Smith [address] [place] [address] 02/07/2018 16:29:53 02/07/2018 17:38:51 Long-term drug therapy 123189288 Z79.899 Disorder o f pituitary gland 101392809 E23.7 Panic disorder 551073228 F41.0 Body mass index 30+ - obesity 802812047 Z68.33 Chronic ob structive pulmonary disease 49655159 J44.9 History of cerebrovascular accident 592398965 Z86.73 M ni re's disease 91784343 H81.03 Mixed hyperlipidemia 267 335469 E78.2 Rheumatoid arthritis 698 58202 M06.9 History of deep vein thrombosis 474522124 Z86.718 Depressive disorder 3548 9007 F33.8 Vitamin D deficiency 347 14682 E55.9 Acquired hypothyroidism 536565742 E03.9 Restless legs 87275856 G 25.81 Thyroid nodule 430098069 E04.1 [id number] Laura Smith [address] [place] [address] 03/29/2018 16:08:47 03/29/2018 18:06:30 Gastroesophageal reflux disease without esophagitis 184710632 K21.9 Long-term drug therapy 229022243 Z79.899 Disorder o f pituitary gland 233179063 E23.7 Panic disorder 303684366 F41.0 Body mass index 30+ - obesity 970239784 Z68.33 Chronic ob structive pulmonary disease 37506320 J44.9 History of cerebrovascular accident 171726704 Z86.73 M ni re's disease 39209017 H81.03 Mixed hyperlipidemia 267 918785 E78.2 Rheumatoid arthritis 698 50294 M06.9 History of deep vein thrombosis 254016181 Z86.718 Depressive disorder 3548 9007 F33.8 Vitamin D deficiency 347 75954 E55.9 Acquired hypothyroidism 937398478 E03.9 Restless legs 17324804 G 25.81 Thyroid nodule 509752297 E04.1 [id number] Laura Smith [address] [place] [address] 05/10/2018 14:47:34 05/10/2018 16:38:07 Gastroesophageal reflux disease without esophagitis 629012712 K21.9 Long-term drug therapy 810674254 Z79.899 Disorder o f pituitary gland 759450246 E23.7 Panic disorder 799130130 F41.0 Body mass index 30+ - obesity 288685674 Z68.33 Chronic ob structive pulmonary disease 04950776 J44.9 History of cerebrovascular accident 371984095 Z86.73 M ni re's disease 45783705 H81.03 Mixed hyperlipidemia 267 853817 E78.2 Rheumatoid arthritis 698 55303 M06.9 History of deep vein thrombosis 824628622 Z86.718 Depressive disorder 3548 9007 F33.8 Vitamin D deficiency 347 86401 E55.9 Restless legs 82053476 G 25.81 Postoperat margot hypothyroidism 89181035 E89.0 Hypocalcemia 3653921 E83 .51 Upper resp iratory infection 77532078 J06.9 [id number] Laura Smith [address] [place] [address] 06/22/2018 17:02:56 06/22/2018 18:10:52 M ni re's disease 77458360 H81.03 Gastroesop hageal reflux disease without esophagitis 384885928 K21.9 Nausea 309386245 R11.0 Restless legs 16312635 G 25.81 Long-term drug therapy 974513825 Z79.899 Disorder o f pituitary gland 504312059 E23.7 Panic disorder 029614252 F41.0 Body mass index 30+ - obesity 589385021 Z68.33 Chronic ob structive pulmonary disease 96812075 J44.9 History of cerebrovascular accident 927087930 Z86.73 Mixed hyperlipidemia 267 376609 E78.2 Rheumatoid arthritis 698 37688 M06.9 History of deep vein thrombosis 011676591 Z86.718 Depressive disorder 3548 9007 F33.8 Vitamin D deficiency 347 80015 E55.9 Postoperat margot hypothyroidism 17392169 E89.0 [id number] Laura Smith [address] [place] [address] 08/10/2018 08:31:48 08/10/2018 09:15:18 M ni re's disease 94691232 H81.03 Gastroesop hageal reflux disease without esophagitis 121945392 K21.9 Restless legs 77784640 G 25.81 Long-term drug therapy 416670689 Z79.899 Disorder o f pituitary gland 508072529 E23.7 Panic disorder 695693621 F41.0 Body mass index 30+ - obesity 410309302 Z68.33 Chronic ob structive pulmonary disease 37756607 J44.9 History of cerebrovascular accident 816780416 Z86.73 Mixed hyperlipidemia 267 983794 E78.2 Rheumatoid arthritis 698 29454 M06.9 History of deep vein thrombosis 049260139 Z86.718 Depressive disorder 3548 9007 F33.8 Vitamin D deficiency 347 14968 E55.9 Postoperat margot hypothyroidism 81527820 E89.0 Migraine with aura 63852 06 G43.109 C-reactive protein outside reference range 308594657 R79.82 [id number] Laura Smith [address] [place] [address] 09/27/2018 14:33:22 09/27/2018 15:50:58 M ni re's disease 18179170 H81.03 Gastroesop hageal reflux disease without esophagitis 109116253 K21.9 Restless legs 89175755 G 25.81 Long-term drug therapy 119766937 Z79.899 Disorder o f pituitary gland 264134380 E23.7 Panic disorder 833263461 F41.0 Body mass index 30+ - obesity 298276987 Z68.34 Chronic ob structive pulmonary disease 11725473 J44.9 History of cerebrovascular accident 751692505 Z86.73 Mixed hyperlipidemia 267 380749 E78.2 Rheumatoid arthritis 698 98943 M06.9 History of deep vein thrombosis 062653553 Z86.718 Depressive disorder 3548 9007 F33.8 Vitamin D deficiency 347 83298 E55.9 Postoperat margot hypothyroidism 11710318 E89.0 Migraine with aura 22433 06 G43.109 Renewal of prescription 620274830 Z76.0 Long-term current use of anticoagulant 685375716 Z79.01 Edema 634349080 R60.9 Hypokalemia 08377546 E87 .6 Nausea 887758145 R11.0 Hypothyroidism 60304321 E03.9 [id number] Laura Smith APRN [address] [place] [address] 12/26/2018 16:52:27 12/26/2018 17:26:37 M ni re's disease 53127487 H81.03 Gastroesop hageal reflux disease without esophagitis 316121635 K21.9 Restless legs 25049780 G 25.81 Long-term drug therapy 497235099 Z79.899 Disorder o f pituitary gland 260793097 E23.7 Panic disorder 760392862 F41.0 Body mass index 30+ - obesity 546620766 Z68.32 Chronic ob structive pulmonary disease 42379652 J44.9 History of cerebrovascular accident 155490121 Z86.73 Mixed hyperlipidemia 267 689684 E78.2 Rheumatoid arthritis 698 96493 M06.9 History of deep vein thrombosis 898534272 Z86.718 Depressive disorder 3548 9007 F33.8 Vitamin D deficiency 347 69898 E55.9 Postoperat margot hypothyroidism 08773268 E89.0 Migraine with aura 72462 06 G43.109 Renewal of prescription 137597182 Z76.0 Long-term current use of anticoagulant 764929257 Z79.01 Edema 836211361 R60.9 Hypokalemia 33885872 E87 .6 Nausea 469937366 R11.0 [id number] Coby Hassan [address] [place] [address] 02/01/2019 14:25:06 02/01/2019 15:46:08 Folliculitis 56000114 L73.9 encouraged to avoid scratching and picking. Senile hyperkeratosis 39 0627096 L82.1 offered reassuranc e regarding benign nature [place] 458664764 L81.4 [id number] Laura Smith [address] [place] [address] 03/28/2019 15:27:09 03/28/2019 16:09:32 Hypothyroidism 63537945 E03.9 Fibromyalgia 631391866 M 79.7 M ni re's disease 33238487 H81.03 History of deep vein thrombosis 039479479 Z86.718 Rheumatoid arthritis 698 09852 M06.9 Nausea 199604167 R11.0 Gastroesop hageal reflux disease without esophagitis 548534977 K21.9 Restless legs 87215263 G 25.81 Long-term drug therapy 845080763 Z79.899 Disorder o f pituitary gland 461233989 E23.7 Panic disorder 581753287 F41.0 Body mass index 30+ - obesity 968318804 Z68.32 Chronic ob structive pulmonary disease 16182176 J44.9 History of cerebrovascular accident 740145092 Z86.73 Mixed hyperlipidemia 267 288434 E78.2 Depressive disorder 3548 9007 F33.8 Vitamin D deficiency 347 03344 E55.9 Postoperat margot hypothyroidism 50048553 E89.0 Migraine with aura 86625 06 G43.109 Renewal of prescription 314520190 Z76.0 Long-term current use of anticoagulant 555200723 Z79.01 Edema 599066458 R60.9 Hypokalemia 41007042 E87 .6 [id number] Laura Smith APRN [address] [place] [address] 06/28/2019 14:48:39 06/28/2019 15:52:31 Hypothyroidism 99882956 E03.9 Conjunctivitis 8065942 H 10.9 Fibromyalgia 805820707 M 79.7 M ni re's disease 12201870 H81.03 History of deep vein thrombosis 253137581 Z86.718 Rheumatoid arthritis 698 72435 M06.9 Nausea 483187605 R11.0 Gastroesop hageal reflux disease without esophagitis 429388548 K21.9 Restless legs 15532486 G 25.81 Long-term drug therapy 837983278 Z79.899 Disorder o f pituitary gland 694663396 E23.7 Panic disorder 599858308 F41.0 Body mass index 30+ - obesity 678485352 Z68.32 Chronic ob structive pulmonary disease 91708025 J44.9 History of cerebrovascular accident 188579385 Z86.73 Mixed hyperlipidemia 267 848042 E78.2 Depressive disorder 3548 9007 F33.8 Vitamin D deficiency 347 48869 E55.9 Postoperat margot hypothyroidism 92313976 E89.0 Migraine with aura 54732 06 G43.109 Renewal of prescription 994497697 Z76.0 Long-term current use of anticoagulant 256211718 Z79.01 Edema 380462962 R60.9 Hypokalemia 36192908 E87 .6 Poor short -term memory 868894011 R41.3 Family his tory of Alzheimer's disease 078040959 Z81.8 Pain of le ft hip joint 1091994407 11904 M25.552 Knee pain 16152198 M25.5 [id number] Massimo Rosa MD [address] [place] [address] 08/10/2019 16:38:43 08/10/2019 17:59:41 Hypertensive disorder 59113941 I10 Hx of intoleranc e to HEATH-I and Thoazides. Takes Verapamil with a suboptimal BP control. Will add low dose Hydralazin e and titrate to achieve an optimal blood pressure. Recommende d to reduce dietary sodium intake to less than 100 mEq (2.3 g of sodium or 6 g of sodium chloride)/ day. Discussed weight loss, DASH diet and exercise program. Follow up with us in a week Conjunctivitis 7665119 H 10.9 Zaditor as prescribed . See us back or go to Er right away should get worse or develop any new symptoms or complaints . Follow up with us in a week. Inguinal pain 163468000 R10.[address] get CT abdomen pelvis (stat) on her but cant do PA at this point. I recommende d that she should go to hospital emergency department (ER) right now for further evaluation and management . I offered transfer to ER via ambulance but patient declined that. Follow up with us after hospital discharge. Patient agrees with the above plan. Will also get an elective MRI hip [id number] Nayeli Andrade APRN [facility] [address] [facility] [place] [address] 09/08/2019 14:58:41 09/08/2019 16:33:30 Long-term drug therapy 090907243 Z79.899 Low back pain 375151469 M54.5 [id number] Laura Smith APRN [address] [place] [address] 09/27/2019 14:06:19 09/27/2019 14:47:03 Fibromyalgia 573414036 M79.7 M ni re's disease 09892222 H81.03 History of deep vein thrombosis 863058160 Z86.718 Rheumatoid arthritis 698 42540 M06.9 Gastroesop hageal reflux disease without esophagitis 557071395 K21.9 Restless legs 19062667 G 25.81 Long-term drug therapy 602752931 Z79.899 Disorder o f pituitary gland 166805102 E23.7 Panic disorder 011379620 F41.0 Body mass index 30+ - obesity 343331043 Z68.32 Chronic ob structive pulmonary disease 43940185 J44.9 History of cerebrovascular accident 526603939 Z86.73 Mixed hyperlipidemia 267 779464 E78.2 Depressive disorder 3548 9007 F33.8 Vitamin D deficiency 347 88808 E55.9 Postoperat margot hypothyroidism 91135150 E89.0 Migraine with aura 64979 06 G43.109 Long-term current use of anticoagulant 708400390 Z79.01 Gout 17967025 M10.9 Excess skin of eyelid 24 8516896 H02.840 [id number] Nayeli Andrade APRN [place] [address] [place] [address] 12/08/2019 13:23:10 12/08/2019 13:52:38 Conjunctivitis 2439577 H10.9 [id number] Nayeli Andrade APRN [place] [address] [place] [address] 12/15/2019 13:03:39 12/15/2019 13:50:51 Conjunctivitis 2486620 H10.9 seek urgent care if symptoms worsen [id number] Laura Smith APRN [address] [place] [address] 12/27/2019 15:26:52 12/27/2019 16:16:02 Fibromyalgia 240942551 M79.7 M ni re's disease 16843647 H81.03 History of deep vein thrombosis 429956124 Z86.718 Rheumatoid arthritis 698 21052 M06.9 Gastroesop hageal reflux disease without esophagitis 251822353 K21.9 Restless legs 36287959 G 25.81 Long-term drug therapy 571210792 Z79.899 Disorder o f pituitary gland 409677122 E23.7 Panic disorder 136570052 F41.0 Body mass index 30+ - obesity 959915052 Z68.32 Chronic ob structive pulmonary disease 84915155 J44.9 History of cerebrovascular accident 283567898 Z86.73 Mixed hyperlipidemia 267 246569 E78.2 Depressive disorder 3548 9007 F33.8 Vitamin D deficiency 347 11853 E55.9 Postoperat margot hypothyroidism 11888621 E89.0 Migraine with aura 36713 06 G43.109 Long-term current use of anticoagulant 433844566 Z79.01 Gout 13100906 M10.9 Hypothyroidism 54600984 E03.9 Renewal of prescription 852942293 Z76.0 [id number] Laura Smith APRN [address] [place] [address] 01/29/2020 16:13:54 01/29/2020 17:36:50 Fibromyalgia 839207410 M79.7 M ni re's disease 47261065 H81.03 History of deep vein thrombosis 845664991 Z86.718 Rheumatoid arthritis 698 64911 M06.9 Gastroesop hageal reflux disease without esophagitis 800159552 K21.9 Restless legs 38873716 G 25.81 Long-term drug therapy 404170369 Z79.899 Disorder o f pituitary gland 650525338 E23.7 Panic disorder 877631687 F41.0 Body mass index 30+ - obesity 982088194 Z68.32 Chronic ob structive pulmonary disease 42424693 J44.9 History of cerebrovascular accident 090438647 Z86.73 Mixed hyperlipidemia 267 531133 E78.2 Depressive disorder 3548 9007 F33.8 Vitamin D deficiency 347 29748 E55.9 Postoperat margot hypothyroidism 31368165 E89.0 Migraine with aura 24002 06 G43.109 Long-term current use of anticoagulant 912692559 Z79.01 Gout 73527772 M10.9 Hypothyroidism 92208369 E03.9 Abdominal pain 58602793 R10.9 History of gastrointestinal bleed 952702136 Z87.19 [id number] [facility] [address] [place] [address] 02/23/2020 14:37:17 02/23/2020 16:16:02 Otalgia 62611839 H92.02 Probable mild AOM. Irritation of the L canal (maybe from the irrigation or mild OE) Pharyngitis 791635136 J0 2.9 1606095 Nayeli Andrade APRN [facility] [address] [place] [address] 02/29/2020 14:25:05 02/29/2020 15:18:54 Pre-surgery testing 208528028 Z01.89 no contraindi cation for surgery found on exam. 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 [address] 05/14/2020 14:22:13 05/14/2020 15:38:01 Fibromyalgia 776184595 M79.7 M ni re's disease 57060487 H81.03 History of deep vein thrombosis 312102164 Z86.718 Rheumatoid arthritis 698 57991 M06.9 Gastroesop hageal reflux disease without esophagitis 954118808 K21.9 Restless legs 97117503 G 25.81 Long-term drug therapy 956609300 Z79.899 Disorder o f pituitary gland 866360821 E23.7 Panic disorder 081071950 F41.0 Body mass index 30+ - obesity 029438805 Z68.34 Chronic ob structive pulmonary disease 87535284 J44.9 History of cerebrovascular accident 336838134 Z86.73 Mixed hyperlipidemia 267 380668 E78.2 Depressive disorder 3548 9007 F33.8 Vitamin D deficiency 347 56493 E55.9 Postoperat margot hypothyroidism 75688419 E89.0 Migraine with aura 12307 06 G43.109 Long-term current use of anticoagulant 426723217 Z79.01 Gout 39321916 M10.9 Renewal of prescription 143165033 Z76.0 Hypokalemia 40023071 E87 .6 Uric acid level above reference range 54635981 E79.0 Headache 97938577 R51.9 Edema 725363026 R60.9 Nausea 165667410 R11.0 Dark stools 37227179 R19 .5 [id number] Vi Jasso APRN [facility] [address] [place] [address] 06/03/2020 17:24:04 06/03/2020 18:04:15 Abdominal pain 15968222 R10.9 Long-term drug therapy 584398933 Z79.899 Occult blo od detected in feces 59126164 R19.5 History of Helicobacter pylori infection 7567109232 0176017 Z86.19 Diarrhea 44034570 R19.7 [id number] Laura Smith APRN [address] [place] [address] 08/13/2020 13:40:27 08/13/2020 15:33:25 Fibromyalgia 921162519 M79.7 M ni re's disease 29890904 H81.03 History of deep vein thrombosis 702966542 Z86.718 Rheumatoid arthritis 698 06621 M06.9 Gastroesop hageal reflux disease without esophagitis 272560627 K21.9 Restless legs 65303276 G 25.81 Long-term drug therapy 609752763 Z79.899 Disorder o f pituitary gland 690813393 E23.7 Panic disorder 109811370 F41.0 Body mass index 30+ - obesity 953745829 Z68.34 Chronic ob structive pulmonary disease 62775318 J44.9 History of cerebrovascular accident 269050117 Z86.73 Mixed hyperlipidemia 267 978905 E78.2 Depressive disorder 3548 9007 F33.8 Vitamin D deficiency 347 53130 E55.9 Postoperat margot hypothyroidism 65862501 E89.0 Migraine with aura 09317 06 G43.109 Long-term current use of anticoagulant 601921381 Z79.01 Gout 30428417 M10.9 Screening for malignant neoplasm of breast 060279400 Z12.31 Acquired a bsence of cervix and uterus 463271925 Z90.710 Hypothyroidism 16171854 E03.9 [id number] Vi Jasso [employer]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 [address] 11/26/2020 09:21:01 11/26/2020 12:08:20 Fibromyalgia 971066431 M79.7 M ni re's disease 15213614 H81.03 History of deep vein thrombosis 803349266 Z86.718 Rheumatoid arthritis 698 52710 M06.9 Gastroesop hageal reflux disease without esophagitis 238688667 K21.9 Restless legs 37324255 G 25.81 Long-term drug therapy 477506229 Z79.899 Disorder o f pituitary gland 826591968 E23.7 Panic disorder 540327194 F41.0 Body mass index 30+ - obesity 514092471 Z68.34 Chronic ob structive pulmonary disease 76058636 J44.9 History of cerebrovascular accident 014579902 Z86.73 Mixed hyperlipidemia 267 523748 E78.2 Depressive disorder 3548 9007 F33.8 Vitamin D deficiency 347 83264 E55.9 Postoperat margot hypothyroidism 79201599 E89.0 Migraine with aura 33218 06 G43.109 Long-term current use of anticoagulant 791545359 Z79.01 Gout 39458258 M10.9 Acquired a bsence of cervix and uterus 562118938 Z90.710 Pre-surgery testing 1104 27447 Z01.89 Renewal of prescription 531211960 Z76.0 [id number] DOTTIE [place] [address] [facility] [place] [address] 03/03/2021 12:05:25 03/03/2021 13:25:58 Fibromyalgia 156480129 M79.7 M ni re's disease 31664003 H81.03 History of deep vein thrombosis 975203607 Z86.718 Rheumatoid arthritis 698 64362 M06.9 Gastroesop hageal reflux disease without esophagitis 869297286 K21.9 Restless legs 05230338 G 25.81 Long-term drug therapy 648339094 Z79.899 Disorder o f pituitary gland 743991322 E23.7 Panic disorder 714522553 F41.0 Body mass index 30+ - obesity 111076297 Z68.34 Chronic ob structive pulmonary disease 31052999 J44.9 History of cerebrovascular accident 591048513 Z86.73 Mixed hyperlipidemia 267 431237 E78.2 Depressive disorder 3548 9007 F33.8 Vitamin D deficiency 347 53866 E55.9 Postoperat margot hypothyroidism 49508375 E89.0 Migraine with aura 05314 06 G43.109 Long-term current use of anticoagulant 974790124 Z79.01 Gout 69481838 M10.9 Acquired a bsence of cervix and uterus 058266860 Z90.710 Exposure t o SARS-CoV-2 230565371 Z20.822 Renewal of prescription 423796886 Z76.0 [id number] Vi Jasso APRN [facility] [address] [facility] [place] [address] 05/19/2021 11:24:30 05/19/2021 11:56:08 Acute bronchitis 67025520 J20.9 Acute exac erbation of chronic obstructive pulmonary disease 612755446 J44.1 uses trelegy for alan vora [id number] Callie Dent APRN [facility] [address] [facility] [place] [address] 06/10/2021 11:14:16 06/10/2021 11:58:32 Cough 31896568 R05.2 Ongoing for >2 weeks Acute exac erbation of chronic obstructive pulmonary disease 890573371 J44.1 Acute on chronic (this exacerbati on has been continuing for >2 weeks)Michaela ent recently completed a course of azithromyc in and a medrol pack Viral screening 46054655 4 Z11.52 [id number] DOTTIE Barneyzeenat [facility] [address] [place] [address] 06/18/2021 10:40:35 06/18/2021 11:50:32 High risk medication monitoring indicated 4377815185 4528602 Z76.89 Pre-surger y evaluation 725313778 Z01.818 There are no contraindi cations as of this date for surgery.Wi ll fax all test results to surgeon as requested once available. [id number] Laura Smith APRN [address] [place] [address] 06/24/2021 16:04:49 06/24/2021 17:01:27 Fibromyalgia 741987053 M79.7 Long-term current use of anticoagulant 953920086 Z79.01 History of deep vein thrombosis 456522072 Z86.718 Renewal of prescription 986670237 Z76.0 Conjunctivitis 1537141 H 10.9 Serum crea tinine above reference range 713887047 R79.89 Body mass index 30+ - obesity 872127934 Z68.32 M ni re's disease 29131360 H81.03 Rheumatoid arthritis 698 52065 M06.9 Gastroesop hageal reflux disease without esophagitis 892182624 K21.9 Restless legs 80446146 G 25.81 Long-term drug therapy 739555974 Z79.899 Disorder o f pituitary gland 654847740 E23.7 Panic disorder 257362708 F41.0 Chronic ob structive pulmonary disease 75517921 J44.9 History of cerebrovascular accident 437829120 Z86.73 Mixed hyperlipidemia 267 192939 E78.2 Depressive disorder 3548 9007 F33.8 Vitamin D deficiency 347 14109 E55.9 Postoperat margot hypothyroidism 07292763 E89.0 Migraine with aura 68682 06 G43.109 Gout 12875301 M10.9 Acquired a bsence of cervix and uterus 059612509 Z90.710 Dry eyes 949864261 H04.1 29 Patient nd dical record not available 244994979 Z76.89 [id number] Vi Jasso APRN [facility] [address] [place] [address] 09/15/2021 16:13:59 09/15/2021 16:26:28 Administration of SARS-CoV-2 antigen vaccine 696899854 Z23 [id number] Laura Smith APRN [address] [place] [address] 09/29/2021 16:24:58 09/29/2021 17:35:37 Fibromyalgia 804445721 M79.7 Long-term current use of anticoagulant 131374946 Z79.01 History of deep vein thrombosis 778393034 Z86.718 M ni re's disease 61976085 H81.03 Rheumatoid arthritis 698 28538 M06.9 Gastroesop hageal reflux disease without esophagitis 923737059 K21.9 Restless legs 60455857 G 25.81 Long-term drug therapy 977684873 Z79.899 Disorder o f pituitary gland 436097326 E23.7 Panic disorder 987532611 F41.0 Chronic ob structive pulmonary disease 57956378 J44.9 History of cerebrovascular accident 313760098 Z86.73 Mixed hyperlipidemia 267 103906 E78.2 Depressive disorder 3548 9007 F33.8 Vitamin D deficiency 347 83195 E55.9 Postoperat margot hypothyroidism 19460751 E89.0 Migraine with aura 74256 06 G43.109 Gout 97197009 M10.9 Acquired a bsence of cervix and uterus 787482551 Z90.710 Body mass index 25-29 - overweight 994380023 Z68.27 History of bariatric surgical procedure 678985557 Z98.84 [id number] Laura Smith APRN [address] [place] [address] 12/30/2021 16:24:17 12/30/2021 17:14:23 Fibromyalgia 963155979 M79.7 Long-term current use of anticoagulant 629531977 Z79.01 History of deep vein thrombosis 526370836 Z86.718 M ni re's disease 82124324 H81.03 Rheumatoid arthritis 698 31722 M06.9 Gastroesop hageal reflux disease without esophagitis 250209567 K21.9 Restless legs 67102711 G 25.81 Long-term drug therapy 446593633 Z79.899 Disorder o f pituitary gland 001140745 E23.7 Panic disorder 365241430 F41.0 Chronic ob structive pulmonary disease 89426072 J44.9 History of cerebrovascular accident 364969223 Z86.73 Mixed hyperlipidemia 267 058375 E78.2 Depressive disorder 3548 9007 F33.8 Vitamin D deficiency 347 03229 E55.9 Postoperat margot hypothyroidism 70784112 E89.0 Migraine with aura 66123 06 G43.109 Gout 27798131 M10.9 Acquired a bsence of cervix and uterus 371980243 Z90.710 History of bariatric surgical procedure 437617291 Z98.84 Renewal of prescription 569997947 Z76.0 Postmenopausal state 764 48655 Z78.0 Body mass index 25-29 - overweight 467459127 Z68.27 [id number] DOTTIE Barney [facility] [place] [address] [facility] [place] [address] 01/13/2022 10:30:27 01/13/2022 10:57:25 Lumbago with sciatica 853023641 M54.42 Patient reports low back pain that radiates to her left buttock and down her left leg.Follow up in 2 weeks if symptoms persist.Prateek adler encouraged to stretch lower back. Nausea, vo miting and diarrhea 0718912 R11.2 Patient reports intermitte nt nausea, vomiting, and diarrhea since having gastric sleeve in July 2021. Patient reports that she has a follow up appointmen t with her bariatric surgeon tomorrow. Encouraged patient to report her symptoms to her surgeon.Fo llow up in 2 weeks as needed. [id number] DOTTIE Barney [facility] [place] [address] 01/28/2022 12:46:01 01/28/2022 13:21:06 Injury of left hip region 1908410110 4570477 S79.912D Patient reports fall injury 2 months ago that resulted in a broken knee and foot on the left side. Patient has had hip pain since and requests x-ray.Pain is worse when going from sitting to standing and to bear weight on this leg. Radiating pain from hip to knee. No numbness or tingling.D iscussed referral to ortho. Patient would like to see Dr. Elise [id number] Laura Smith APRN [address] [place] [address] 04/01/2022 16:07:49 04/01/2022 17:17:34 Fibromyalgia 384448270 M79.7 Long-term current use of anticoagulant 468559444 Z79.01 History of deep vein thrombosis 191396992 Z86.718 M ni re's disease 28089079 H81.03 Rheumatoid arthritis 698 09999 M06.9 Gastroesop hageal reflux disease without esophagitis 411733496 K21.9 Restless legs 88125135 G 25.81 Long-term drug therapy 150762244 Z79.899 Disorder o f pituitary gland 197511095 E23.7 Panic disorder 138288450 F41.0 Chronic ob structive pulmonary disease 16157880 J44.9 History of cerebrovascular accident 800102233 Z86.73 Mixed hyperlipidemia 267 097513 E78.2 Depressive disorder 3548 9007 F33.8 Vitamin D deficiency 347 66034 E55.9 Postoperat margot hypothyroidism 80348021 E89.0 Migraine with aura 46013 06 G43.109 Gout 26545869 M10.9 Acquired a bsence of cervix and uterus 499665996 Z90.710 History of bariatric surgical procedure 129298655 Z98.84 Postmenopausal state 764 68628 Z78.0 Body mass index 20-24 - normal 250570519 Z68.21 Candidiasis of vagina 72 185844 B37.3 Persistent insomnia 1919 81953 G47.09 [id number] DOTTIE Barney [facility] [address] [place] [address] 04/15/2022 10:24:11 04/15/2022 10:56:22 Gout 59750460 M10.9 Left hand second finger DIP joint- redness, swellingPa tient has tried colchicine without resolution of symptoms.P atient takes allopurino l dailyFollo w up in 1 week if symptoms persist Essential hypertension 73495978 I10 Bounding pulse in abdomenPat ient has a history of CVA and has hypertensi on. Non-smoker .Patient requests testing for abdominal aortic aneurysm.F ollow up based on results. [id number] Laura Smith APRN [address] [place] [address] 04/28/2022 12:39:45 04/28/2022 13:19:44 Fibromyalgia 737375681 M79.7 Long-term current use of anticoagulant 204679479 Z79.01 History of deep vein thrombosis 128937053 Z86.718 M ni re's disease 53055718 H81.03 Rheumatoid arthritis 698 39261 M06.9 Gastroesop hageal reflux disease without esophagitis 633789739 K21.9 Restless legs 42617489 G 25.81 Long-term drug therapy 783380329 Z79.899 Disorder o f pituitary gland 239999464 E23.7 Panic disorder 998124467 F41.0 Chronic ob structive pulmonary disease 70523029 J44.9 History of cerebrovascular accident 225563649 Z86.73 Mixed hyperlipidemia 267 520722 E78.2 Depressive disorder 3548 9007 F33.8 Vitamin D deficiency 347 82650 E55.9 Postoperat margot hypothyroidism 79724080 E89.0 Migraine with aura 94656 06 G43.109 Gout 62166585 M10.9 Acquired a bsence of cervix and uterus 911745903 Z90.710 History of bariatric surgical procedure 653413384 Z98.84 Postmenopausal state 764 48810 Z78.0 Body mass index 20-24 - normal 351823674 Z68.21 Persistent insomnia 1919 81922 G47.09 Screening for malignant neoplasm of breast 516871204 Z12.31 Spinal dioni nosis of lumbar region 54362400 M48.581 [id number] Laura Smith APRN [address] [place] [address] 07/07/2022 16:31:17 07/07/2022 17:45:26 Rheumatoid arthritis 67736235 M06.9 Long-term drug therapy 935310970 Z79.899 Vitamin D deficiency 347 77671 E55.9 Postoperat margot hypothyroidism 18342303 E89.0 Gout 56093746 M10.9 History of bariatric surgical procedure 202130872 Z98.84 Body mass index 20-24 - normal 021921868 Z68.21 Persistent insomnia 1919 79461 G47.09 Fibromyalgia 993669654 M 79.7 Long-term current use of anticoagulant 892620225 Z79.01 History of deep vein thrombosis 564258528 Z86.718 M ni re's disease 47887884 H81.03 Gastroesop hageal reflux disease without esophagitis 955418444 K21.9 Restless legs 99313259 G 25.81 Disorder o f pituitary gland 030169325 E23.7 Panic disorder 586964758 F41.0 Chronic ob structive pulmonary disease 64343706 J44.9 History of cerebrovascular accident 453742254 Z86.73 Mixed hyperlipidemia 267 797521 E78.2 Depressive disorder 3548 9007 F33.8 Migraine with aura 72900 06 G43.109 Acquired a bsence of cervix and uterus 473501469 Z90.710 Postmenopausal state 764 96135 Z78.0 Spinal dioni nosis of lumbar region 24392710 M48.061 Psoriatic arthritis 1563 30784 L40.50 Renewal of prescription 826789276 Z76.0 [id number] [facility] [address] [facility] [place] [address] 09/11/2022 12:59:57 09/11/2022 13:51:25 Exposure to SARS-CoV-2 142457991 Z20.822 Viral screening 46478942 4 Z11.59 Pain in throat 745992603 R07.0 Viral uppe r respiratory tract infection 893236767 J06.9 Encouraged increased oral fluid intake as toleratedD iscussed use of tylenol/mo tessa as neededDisc ussed use of salt-water gargles as neededFoll ow up in 1-2 weeks if symptoms persist. [id number] Laura Smith APRN [address] [place] [address] 11/05/2022 12:01:56 11/05/2022 12:22:04 Persistent insomnia 030047789 G47.09 Rheumatoid arthritis 698 78329 M06.9 Long-term drug therapy 483454730 Z79.899 Body mass index 20-24 - normal 369158142 Z68.21 Spinal dioni nosis of lumbar region 13466691 M48.061 Vitamin D deficiency 347 74876 E55.9 Postoperat margot hypothyroidism 57415380 E89.0 Gout 15269637 M10.9 History of bariatric surgical procedure 031860942 Z98.84 Fibromyalgia 997653246 M 79.7 Long-term current use of anticoagulant 933445503 Z79.01 History of deep vein thrombosis 348552546 Z86.718 M ni re's disease 51000162 H81.03 Gastroesop hageal reflux disease without esophagitis 845516423 K21.9 Restless legs 18755153 G 25.81 Disorder o f pituitary gland 063335045 E23.7 Panic disorder 455465521 F41.0 Chronic ob structive pulmonary disease 56054026 J44.9 History of cerebrovascular accident 065244432 Z86.73 Mixed hyperlipidemia 267 252563 E78.2 Depressive disorder 3548 9007 F33.8 Migraine with aura 65037 06 G43.109 Acquired a bsence of cervix and uterus 650850266 Z90.710 Postmenopausal state 764 23443 Z78.0 Psoriatic arthritis 1563 89336 L40.50 [id number] Vi [facility]asso [facility]N [facility] [address] [facility] [place] [address] 12/18/2022 10:03:32 12/18/2022 11:54:51 Pain of left wrist 6709197448 12094 M25.532 Numbness of hand 6286718 04 R20.0 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 0094330782 05279 G56.02 History of bariatric surgical procedure 877400164 Z98.84 [id number] Laura Smith APRN [address] [place] [address] 01/06/2023 12:11:50 01/06/2023 12:55:51 Rheumatoid arthritis 32421651 M06.9 Long-term drug therapy 397667384 Z79.899 Body mass index 20-24 - normal 488227097 Z68.21 Spinal dioni nosis of lumbar region 36443971 M48.061 Vitamin D deficiency 347 22627 E55.9 Postoperat margot hypothyroidism 88711569 E89.0 Gout 38642785 M10.9 History of bariatric surgical procedure 935538320 Z98.84 Persistent insomnia 1919 85144 G47.09 Fibromyalgia 763459997 M 79.7 Long-term current use of anticoagulant 758793983 Z79.01 History of deep vein thrombosis 002809271 Z86.718 M ni re's disease 80708623 H81.03 Gastroesop hageal reflux disease without esophagitis 624562881 K21.9 Restless legs 10274941 G 25.81 Disorder o f pituitary gland 436790334 E23.7 Panic disorder 104584804 F41.0 Chronic ob structive pulmonary disease 79775075 J44.9 History of cerebrovascular accident 955051375 Z86.73 Mixed hyperlipidemia 267 828743 E78.2 Depressive disorder 3548 9007 F33.8 Migraine with aura 12740 06 G43.109 Acquired a bsence of cervix and uterus 914519461 Z90.710 Postmenopausal state 764 98140 Z78.0 Psoriatic arthritis 1563 34488 L40.50 Hypothyroidism 52503814 E03.9 Renewal of prescription 063943578 Z76.0 Nausea 772979703 R11.0 [id number] Laura Smith APRN [address] [place] [address] 02/10/2023 13:45:12 02/10/2023 15:13:00 Rheumatoid arthritis 88809240 M06.9 Long-term drug therapy 973708809 Z79.899 Body mass index 20-24 - normal 376564094 Z68.21 Spinal dioni nosis of lumbar region 51970099 M48.061 Vitamin D deficiency 347 11030 E55.9 Postoperat margot hypothyroidism 71499286 E89.0 Gout 68541851 M10.9 History of bariatric surgical procedure 330765919 Z98.84 Persistent insomnia 1919 07350 G47.09 Fibromyalgia 146808997 M 79.7 Long-term current use of anticoagulant 721644542 Z79.01 History of deep vein thrombosis 664349625 Z86.718 M ni re's disease 43691859 H81.03 Gastroesop hageal reflux disease without esophagitis 639574824 K21.9 Restless legs 27868774 G 25.81 Disorder o f pituitary gland 598864277 E23.7 Panic disorder 730025524 F41.0 Chronic ob structive pulmonary disease 92929421 J44.9 History of cerebrovascular accident 787098105 Z86.73 Mixed hyperlipidemia 267 001705 E78.2 Depressive disorder 3548 9007 F33.8 Migraine with aura 39283 06 G43.109 Acquired a bsence of cervix and uterus 608874816 Z90.710 Postmenopausal state 764 89108 Z78.0 Psoriatic arthritis 1563 37771 L40.50 Hypothyroidism 68563332 E03.9 [id number] Jossy Hogue [address] [place] [address] 03/04/2023 14:08:17 03/04/2023 15:06:20 Hypokalemia 41229944 E87.6 Body mass index 20-24 - normal 371881202 Z68.22 Rheumatoid arthritis 698 96312 M06.9 Long-term drug therapy 786355251 Z79.899 Fibromyalgia 822094158 M 79.7 Low back pain 827500559 M54.50 [id number] Laura mSith [address] [place] [address] 05/12/2023 09:36:28 05/12/2023 10:10:52 Chronic constipation 554389681 K59.09 Poor short -term memory 343937069 R41.3 Rheumatoid arthritis 698 40199 M06.9 Long-term drug therapy 290903454 Z79.899 Body mass index 20-24 - normal 990810463 Z68.21 Spinal dioni nosis of lumbar region 32830361 M48.061 Vitamin D deficiency 347 48230 E55.9 Postoperat margot hypothyroidism 17888865 E89.0 Gout 64084169 M10.9 History of bariatric surgical procedure 545001062 Z98.84 Persistent insomnia 1919 44212 G47.09 Fibromyalgia 754188748 M 79.7 Long-term current use of anticoagulant 916560594 Z79.01 History of deep vein thrombosis 598827835 Z86.718 M ni re's disease 33336852 H81.03 Gastroesop hageal reflux disease without esophagitis 561800870 K21.9 Restless legs 38434459 G 25.81 Disorder o f pituitary gland 311439914 E23.7 Panic disorder 109562875 F41.0 Chronic ob structive pulmonary disease 01976300 J44.9 History of cerebrovascular accident 759226380 Z86.73 Mixed hyperlipidemia 267 907485 E78.2 Depressive disorder 3548 9007 F33.8 Migraine with aura 51389 06 G43.109 Acquired a bsence of cervix and uterus 247954391 Z90.710 Postmenopausal state 764 00556 Z78.0 Psoriatic arthritis 1563 62965 L40.50 Hypothyroidism 13696119 E03.9 [id number] DOTTIE [place] [address] [place] [address] 05/27/2023 10:53:09 05/27/2023 11:31:01 Muscle spasm of cervical muscle of neck 8510876968 04 M62.838 Influenza vaccine needed 0385212306 106 Z23 [id number] DOTTIE Barney [facility] [address] [place] [address] 06/11/2023 13:31:07 06/11/2023 14:01:06 Dysuria 99168492 R30.0 Acute urin choco tract infection 406377155 N39.0 Encouraged increased oral fluid intake as toleratedD iscussed not holding urine for long periods of time.Follo w up based on urine culture. [id number] DOTTIE [place] [address] [facility] [place] [address] 06/25/2023 13:37:50 06/25/2023 14:02:10 Acute sinusitis 86596443 J01.90 Muscle spa sm of cervical muscle of neck 0506798471 04 M62.838 COVID-19 364427727 U07.1 [id number] Laura Smith [address] [place] [address] 07/26/2023 11:30:28 07/26/2023 12:18:21 Fibromyalgia 328907061 M79.7 Uric acid level above reference range 41440881 E79.0 Renewal of prescription 837074123 Z76.0 Muscle spa sm of cervical muscle of neck 8069831962 04 M62.838 Spinal dioni nosis of lumbar region 18334267 M48.061 Long-term drug therapy 245601592 Z79.899 Long-term current use of anticoagulant 934124245 Z79.01 Body mass index 20-24 - normal 753238907 Z68.22 Rheumatoid arthritis 698 38447 M06.9 Vitamin D deficiency 347 48765 E55.9 Postoperat margot hypothyroidism 32374683 E89.0 Gout 70716607 M10.9 History of bariatric surgical procedure 195219610 Z98.84 Persistent insomnia 1919 50171 G47.09 History of deep vein thrombosis 334559764 Z86.718 M ni re's disease 21567054 H81.03 Gastroesop hageal reflux disease without esophagitis 572329635 K21.9 Restless legs 64488080 G 25.81 Disorder o f pituitary gland 881441796 E23.7 Panic disorder 321367851 F41.0 Chronic ob structive pulmonary disease 60195589 J44.9 History of cerebrovascular accident 200794220 Z86.73 Mixed hyperlipidemia 267 749508 E78.2 Depressive disorder 3548 9007 F33.8 Migraine with aura 06787 06 G43.109 Acquired a bsence of cervix and uterus 433303637 Z90.710 Postmenopausal state 764 10113 Z78.0 Psoriatic arthritis 1563 67582 L40.50 Hypothyroidism 24296514 E03.9 [id number] Laura Smith [address] [place] [address] 10/27/2023 16:36:48 10/27/2023 17:50:53 Fibromyalgia 555898660 M79.7 Uric acid level above reference range 69002933 E79.0 Muscle spa sm of cervical muscle of neck 1645495723 04 M62.838 Spinal dioni nosis of lumbar region 45873342 M48.061 Long-term drug therapy 636887150 Z79.899 Long-term current use of anticoagulant 845462129 Z79.01 Body mass index 20-24 - normal 100113950 Z68.22 Rheumatoid arthritis 698 11572 M06.9 Vitamin D deficiency 347 68386 E55.9 Postoperat margot hypothyroidism 76188265 E89.0 Gout 56491231 M10.9 History of bariatric surgical procedure 523996540 Z98.84 Persistent insomnia 1919 82044 G47.09 History of deep vein thrombosis 331122818 Z86.718 M ni re's disease 35732408 H81.03 Gastroesop hageal reflux disease without esophagitis 081382471 K21.9 Restless legs 02185275 G 25.81 Disorder o f pituitary gland 629902752 E23.7 Panic disorder 580740354 F41.0 Chronic ob structive pulmonary disease 08770103 J44.9 History of cerebrovascular accident 311231593 Z86.73 Mixed hyperlipidemia 267 142514 E78.2 Depressive disorder 3548 9007 F33.8 Migraine with aura 94178 06 G43.109 Acquired a bsence of cervix and uterus 355688004 Z90.710 Postmenopausal state 764 20777 Z78.0 Psoriatic arthritis 1563 33825 L40.50 Hypothyroidism 93168961 E03.9 Renewal of prescription 869957656 Z76.0 Nausea 100565913 R11.0 Family his tory of leukemia 950756242 Z80.6 [id number] Laura Smith APRN [address] [place] [address] 01/31/2024 16:42:41 01/31/2024 17:14:55 Fibromyalgia 711195043 M79.7 Spinal dioni nosis of lumbar region 90999116 M48.061 Long-term drug therapy 590153754 Z79.899 Long-term current use of anticoagulant 056780795 Z79.01 Body mass index 20-24 - normal 023228802 Z68.22 Rheumatoid arthritis 698 19815 M06.9 Vitamin D deficiency 347 90290 E55.9 Postoperat margot hypothyroidism 92305659 E89.0 Gout 10272801 M10.9 History of bariatric surgical procedure 980997692 Z98.84 Persistent insomnia 1919 97596 G47.09 History of deep vein thrombosis 162494621 Z86.718 M ni re's disease 63160103 H81.03 Gastroesop hageal reflux disease without esophagitis 175203982 K21.9 Restless legs 30177257 G 25.81 Disorder o f pituitary gland 805544835 E23.7 Panic disorder 146758443 F41.0 Chronic ob structive pulmonary disease 52784025 J44.9 History of cerebrovascular accident 296562920 Z86.73 Mixed hyperlipidemia 267 040445 E78.2 Depressive disorder 3548 9007 F33.8 Migraine with aura 49468 06 G43.109 Acquired a bsence of cervix and uterus 489466942 Z90.710 Postmenopausal state 764 12017 Z78.0 Psoriatic arthritis 1563 75885 L40.50 Family his tory of leukemia 836485347 Z80.6 Hypothyroidism 22201444 E03.9 Nausea 520627891 R11.0 Renewal of prescription 251693811 Z76.0 Uric acid level above reference range 95462989 E79.0 [id number] Laura Smith APRN [address] [place] [address] 06/14/2024 14:03:19 06/14/2024 14:51:15 Fibromyalgia 926436550 M79.7 Spinal dioni nosis of lumbar region 23517132 M48.061 Long-term drug therapy 957010751 Z79.899 Long-term current use of anticoagulant 738788295 Z79.01 Body mass index 20-24 - normal 926852129 Z68.22 Rheumatoid arthritis 698 63391 M06.9 Vitamin D deficiency 347 37071 E55.9 Postoperat margot hypothyroidism 46952698 E89.0 Gout 90480253 M10.9 History of bariatric surgical procedure 358019067 Z98.84 Persistent insomnia 1919 68210 G47.09 History of deep vein thrombosis 860207393 Z86.718 M ni re's disease 12706658 H81.03 Gastroesop hageal reflux disease without esophagitis 332769898 K21.9 Restless legs 54849103 G 25.81 Disorder o f pituitary gland 643668865 E23.7 Panic disorder 414538384 F41.0 Chronic ob structive pulmonary disease 95043470 J44.9 History of cerebrovascular accident 314403103 Z86.73 Mixed hyperlipidemia 267 285117 E78.2 Depressive disorder 3548 9007 F33.8 Migraine with aura 21771 06 G43.109 Acquired a bsence of cervix and uterus 932704040 Z90.710 Postmenopausal state 764 93814 Z78.0 Psoriatic arthritis 1563 22540 L40.50 Family his tory of leukemia 858150881 Z80.6 Renewal of prescription 666748749 Z76.0 [id number] Angel Mario [facility] [address] [place] [address] 06/26/2024 15:33:34 06/26/2024 16:15:31 Carpal tunnel syndrome of left wrist 4262089829 38522 G56.02 [id number] Laura Smith [address] [place] [address] 10/09/2024 12:18:56 10/09/2024 13:12:20 Fibromyalgia 198116817 M79.7 Spinal dioni nosis of lumbar region 72075422 M48.061 Long-term drug therapy 589799983 Z79.899 Long-term current use of anticoagulant 038726303 Z79.01 Body mass index 20-24 - normal 263863016 Z68.22 Rheumatoid arthritis 698 24124 M06.9 Vitamin D deficiency 347 49996 E55.9 Postoperat margot hypothyroidism 67120220 E89.0 Gout 67371359 M10.9 History of bariatric surgical procedure 031653434 Z98.84 Persistent insomnia 1919 38245 G47.09 History of deep vein thrombosis 770181356 Z86.718 M ni re's disease 95729067 H81.03 Gastroesop hageal reflux disease without esophagitis 926904205 K21.9 Restless legs 37340688 G 25.81 Disorder o f pituitary gland 523536196 E23.7 Panic disorder 596972177 F41.0 Chronic ob structive pulmonary disease 63487774 J44.9 History of cerebrovascular accident 123799214 Z86.73 Mixed hyperlipidemia 267 579303 E78.2 Depressive disorder 3548 9007 F33.8 Migraine with aura 19375 06 G43.109 Acquired a bsence of cervix and uterus 381919455 Z90.710 Postmenopausal state 764 14786 Z78.0 Psoriatic arthritis 1563 40395 L40.50 Family his tory of leukemia 528106312 Z80.6 Renewal of prescription 873070005 Z76.0 Screening for malignant neoplasm of breast 279029176 Z12.31 Hypokalemia 15952792 E87 .6 Hypertensive disorder 38 025528 I10 Chronic constipation 236 137013 K59.09 Mass of upper limb 49313 5008 R22.30 Poor short -term memory 160119521 R41.3 Tuberculos is screening 788172073 Z11.1 [id number] Angel Mario [facility] [address] [place] [address] 12/01/2024 14:13:02 12/01/2024 14:48:41 Acute frontal sinusitis 08320635 J01.10 Urinary tr act infectious disease 82637533 N39.0 [id number] Laura Smith [address] [place] [address] 02/14/2025 13:56:15 02/14/2025 14:51:04 Fibromyalgia 784092136 M79.7 Spinal dioni nosis of lumbar region 65071870 M48.061 Long-term drug therapy 919618700 Z79.899 Long-term current use of anticoagulant 761715468 Z79.01 Body mass index 20-24 - normal 722400798 Z68.22 Rheumatoid arthritis 698 22742 M06.9 Vitamin D deficiency 347 61838 E55.9 Postoperat margot hypothyroidism 72644526 E89.0 Gout 86091095 M10.9 History of bariatric surgical procedure 875565509 Z98.84 Persistent insomnia 1919 46413 G47.09 History of deep vein thrombosis 797420359 Z86.718 M ni re's disease 91251340 H81.03 Gastroesop hageal reflux disease without esophagitis 873088246 K21.9 Restless legs 57034068 G 25.81 Disorder o f pituitary gland 786134870 E23.7 Panic disorder 865747898 F41.0 Chronic ob structive pulmonary disease 89019269 J44.9 History of cerebrovascular accident 067953702 Z86.73 Mixed hyperlipidemia 267 780779 E78.2 Depressive disorder 3548 9007 F33.8 Migraine with aura 40439 06 G43.109 Acquired a bsence of cervix and uterus 982896555 Z90.710 Postmenopausal state 764 80075 Z78.0 Psoriatic arthritis 1563 96445 L40.50 Family his tory of leukemia 101533312 Z80.6 Renewal of prescription 544521759 Z76.0 Hypokalemia 80813206 E87 .6 Hypertensive disorder 38 166876 I10 Chronic constipation 236 522388 K59.09 Screening mammography 24 301353 Z12.31 Hypothyroidism 42153451 E03.9 Bilateral Meniere's disease of inner ears 8317499498 090464 H81.03 Irritable bowel syndrome characterized by constipation 340252895 K58.1 Screening for malignant neoplasm of colon 350060094 Z12.11 Uric acid level above reference range 27827328 E79.0 Repeated prescription 18 5386495 Z76.0 Health Concerns Section Related Observation LastModified by Organization Detai ls LastModified Time None Recorded Concern Status LastModified by Organization Details LastModified Time None Recorded Advance Directives Directive N: Payers Insurance Date Sequence Insurance Name Policy Number Policy Hilliard Covered Member ID Hilliard Member ID Guarantor Name 02/11/2025 1 [employer] - GOLD PLUS (MEDICARE REPLACEMENT/A DVANTAGE - HMO) Imani Casanova [id number] Imani Casanova 10/12/2024 2 [employer] (MEDICARE SUPPLEMENT) Imani Casanova [id number] Imani Casanova 03/12/2022 2 [employer] [place] (MEDICAID HMO) Imani Carpio [id number] Imani Casanova 10/11/2024 2 [place]MEDICARE REPLACEMENT REGIONAL O) [id number] Imani Casanova [id number] Imani Casanova 02/11/2025 2 MEDICAID-[facility] CHOICES - FFS/TRADITION AL Imani Denson [id number] Imani Casanova 10/27/2023 1 [employer] (MEDICARE REPLACEMENT/A DVANTAGE - PPO) Imani Carpio [id number] Imani Carusoy 02/11/2025 [id number] Imani Carpio [id number] Imani Casanova 03/12/2022 1 [place] [id number] Imani Carpio [id number] Imani Casanova Notes Date Note Type Note Provider Name and Address Organization Details Recorded Time 4 text/html Imani presents for a f/u on her medications, refills and urine drug screen. Lumbar MRI showed multilevel disc degeneration and spondylosis with neural foraminal narrowing at L3-4 through L5-S1. New right foraminal disc protrusion at L3-4 and a small central disc protrusion at L5-S1 with is similar to the prior. Cystic area in the conus similar to the prior exam and likely represents a focal syrinx, cystic mass not entirely excluded.She underwent T12-L1 laminectomy on 10/19/2022. She continues to struggle with back pain and is requesting referral to pain clinic. She had elective total thyroidectomy on 05/06/2018 and is currently on DNS Synthroid 100 mcg daily. She denies any symptoms of over replacement. She had gastric sleeve at [facility] 07/14/2021. She has lost over 60 lbs. She is on allopurinol 300 mg daily for gout. She has seen a rehanger for recurrent DVT's in the past. Remains on anticoagulant. She has had 2 strokes. She is blind in her right eye and now has problems with her short and halfway memory. She sees irrigator head for rheumatoid arthritis and fibromyalgia. She sees a neurologist for chronic headaches and meniere's disease. She sees a undercover operator for COPD. She can't take NSAID's due to being on an anticoagulant, Eliquis. She is also seeing a pain specialist. Her mother has recently been diagnosed with leukemia. States she has 4 family members with leukemia. Requesting genetic testing to be checked for leukemia marker. Her mom recently . Last mammogram 06/09/2022Last dexa 02/10/2022 - normals/p hysterectomyColonoscopy 08/30/2014Never smoked Chronic issues reviewed and stable. Laura Smith, DEMAND EQUIPMENT REPAIRER [address], [place], [address], [place] [facility] 06/14/2024 14:43:29 4 text/html Patient Imani Casanova, presents today with complaints of left hand pain from carpel tunnel that is radiating into lower arm.Had EMG done on 01/05/23. results in chart. Heat does help the pain. Feels like its pulsating into hand and into arm as well. States that her hand is drawing up from the pain. Angel Mario, DEMAND EQUIPMENT REPAIRER [address], [place], [address], [place] [facility] 06/26/2024 16:17:40 5 text/html Imani presents for a f/u on her medications, refills and urine drug screen. Lumbar MRI showed multilevel disc degeneration and spondylosis with neural foraminal narrowing at L3-4 through L5-S1. New right foraminal disc protrusion at L3-4 and a small central disc protrusion at L5-S1 with is similar to the prior. Cystic area in the conus similar to the prior exam and likely represents a focal syrinx, cystic mass not entirely excluded.She underwent T12-L1 laminectomy on 10/19/2022. She continues to struggle with back pain and is requesting referral to pain clinic. She had elective total thyroidectomy on 05/06/2018 and is currently on DNS Synthroid 100 mcg daily. She denies any symptoms of over replacement. She had gastric sleeve at [facility] 07/14/2021. She has lost over 60 lbs. She is on allopurinol 300 mg daily for gout. She has seen a rehanger for recurrent DVT's in the past. Remains on anticoagulant. She has had 2 strokes. 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 She sees irrigator head for rheumatoid arthritis and fibromyalgia. She sees a neurologist for chronic headaches and meniere's disease. She has problems with her memory and lately is having problems getting her words to come out right. She sees a undercover operator for COPD. She can't take NSAID's due to being on an anticoagulant, Eliquis. She is also seeing a pain specialist. Her mother has recently been diagnosed with leukemia. States she has 4 family members with leukemia. Requesting genetic testing to be checked for leukemia marker. Her mom recently . She is constipated even with highest dose of Linzess. Last mammogram 06/09/2022Last dexa 02/10/2022 - normals/p hysterectomyColonoscopy 06/30/2021Never smoked Chronic issues reviewed and stable. Laura Smith, DEMAND EQUIPMENT REPAIRER [address], [place], [address], [place] [facility] 10/09/2024 13:06:47 5 text/html Patient Imani Casanova, presents today with complaints of dysuria and cloudy urine, and frequency started about 4 days ago. Additionally, she is in the office today with URI s/sx of congestion and cough. This started a few days ago. Angel Mario, DEMAND EQUIPMENT REPAIRER [address], [place], [address], [place] [facility] 12/01/2024 14:52:51 5 text/html Imani presents for a f/u on her medications, refills and urine drug screen. Lumbar MRI showed multilevel disc degeneration and spondylosis with neural foraminal narrowing at L3-4 through L5-S1. New right foraminal disc protrusion at L3-4 and a small central disc protrusion at L5-S1 with is similar to the prior. Cystic area in the conus similar to the prior exam and likely represents a focal syrinx, cystic mass not entirely excluded.She underwent T12-L1 laminectomy on 10/19/2022. She continues to struggle with back pain and is requesting referral to pain clinic. She had elective total thyroidectomy on 05/06/2018 and is currently on DNS Synthroid 100 mcg daily. She denies any symptoms of over replacement. She had gastric sleeve at [facility] 07/14/2021. She has lost over 60 lbs. She is on allopurinol 300 mg daily for gout. She has seen a rehanger for recurrent DVT's in the past. Remains on anticoagulant. She has had 2 strokes. 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 She sees irrigator head for rheumatoid arthritis and fibromyalgia. She sees a neurologist for chronic headaches and meniere's disease. She has problems with her memory and lately is having problems getting her words to come out right. She sees a undercover operator for COPD. She can't take NSAID's due to being on an anticoagulant, Eliquis. She is also seeing a pain specialist. She has IBS-C and Dicyclomine isn't working. She states brand name Lyrica helps her pain much better than the generic. Last mammogram 06/09/2022Last dexa 02/10/2022 - normals/p hysterectomyColonoscopy 06/30/2021Never smoked Chronic issues reviewed and stable. Laura Smith, DEMAND EQUIPMENT REPAIRER [address], [place], [address], [place] [facility] 02/14/2025 14:58:42 OBGyn Episode No OBEpisode recorded.
--- OUTSIDE RECORDS SUMMARY | 2025-02-21 13:32 | XMS_ITS | Encounter Summary ---
Author Organization [facility] ([place], [place], [place], [place] Address [address] [place] [address] Care Team Providers Care Remote Control Assembler Name Role Phone Laura Smith Primary Care Provider [phone] Encounter Details Date Type Department Care Team (Late st Contact Info) Description 03/20/2020 Transcribed Document [facility] [place] Family Medicine [address] [place] [address] ProviderShoshana MD [address], [place] [id number] Social History Tobacco Use Types Packs/Day Years Used Date Smoking Tobacco: Never Assessed Comments Unknown Sex and Gender Information Value Date Recorded Sex Assigned at Not on file Legal Sex Female 4:34 PM CDT Gender Identity Not on file Sexual Orientation Not on file documented as of this encounter Miscellaneous Notes * Cerner Conversion Note - Shoshana Whatley MD - 03/20/2020 11:21 AM CDT Pre Procedure Adult Entered On: 03/20/2020 11:26 EDT Performed On: 03/20/2020 11:21 EDT by TAMEKA PILLAI RN Height and Weight, Clinical Dosing Height Source : Stated Height Entry Format : [place] Height, Feet : 5 ft(Converted to: 152 cm, 60 Inch) Height, Inches : 5 Inch(Converted to: 0 ft 5 Inch, 12.70 cm) Clinical Height : 165.1 cm Weight Source : Standing scale Weight Entry Format : Ralls Clinical Dosing Weight : 91.36 kg Weight, Pounds : 201 lb Body Surface Area (BSA) : 1.98 m2 Body Mass Index : 33.5 kg/m2 (HI) [place] Body Weight : 57 kg TAMEKA PILLAI RN - 03/20/2020 11:21 EDT Health Histories Smoking Status : Never (less than 100 in lifetime; none in last 30 days) Smokeless Tobacco Status : Never TAMEKA PILLAI RN - 03/20/2020 11:21 EDT Social History (As Of: 03/20/2020 11:26:32 EDT) Tobacco: Smoking Status Never smoker. (Last Updated: 11/06/2013 12:35:01 EDT by EAN GOMEZ RN) Never (less than 100 in lifetime) Smoking Status. Never Smokeless Tobacco Status. (Last Updated: 03/20/2020 11:21:04 EDT by TAMEKA PILLAI RN) Alcohol: Use in Last 12 Months: No. (Last Updated: 11/06/2013 12:35:13 EDT by EAN GOMEZ RN) Alcohol Use History No. (Last Updated: 03/20/2020 11:21:04 EDT by TAMEKA PILLAI RN) Substance Abuse: Drug Use Hx: No. Use in Last 12 Months: No. (Last Updated: 11/06/2013 12:35:23 EDT by EAN GOMEZ RN) Drug Use Hx: No. (Last Updated: 03/20/2020 11:21:04 EDT by TAMEKA PILLAI RN) Infectious Disease History Has the patient ever been tested for COVID-19? : Yes, Patient stated results Negative Date of COVID-19 test known? : Yes Does patient have symptoms of COVID-19? : No COVID19 Screening : No Experiencing Infectious Disease Symptoms : No symptoms Physical contact outside [place] in the last 30 days : No Infectious Disease History : Chicken pox/Shingles, Influenza, Mumps Tuberculosis Symptoms : None TAMEKA PILLAI RN - 03/20/2020 11:21 EDT COVID19 PreProcedure Screening Is this an Emergent or Add on Procedure? : No Has patient been isolated since the test : Yes Exposed to COVID19 symptoms since test? : No TAMEKA PILLAI RN - 03/20/2020 11:21 EDT Anesthesia/Transfusion History Family History of Anesthesia Reaction : No prior transfusion(s) Transfusion History : Prior anesthesia without reaction Family History of Anesthesia Reaction : None TAMEKA PILLAI RN - 03/20/2020 11:21 EDT Functional Assessment Living Situation : Home Patient Lives With : Adult Child/Children Current Daily Living Assistance : None Current Home Treatments : Nebulizer treatments, Oxygen therapy TAMEKA PILLAI RN - 03/20/2020 11:21 EDT [place] Suicide Severity Rating Scale (C-SSRS) CSSRS Past Month Wish to be : No CSSRS Past Month Suicidal Thoughts : No CSSRS Lifetime Suicide Behavior : No Suicide Severity Rating Score : 0 Suicide Severity Rating : No Additional Care Required at this time TAMEKA PILLAI RN - 03/20/2020 11:21 EDT Psychosocial History Do You Have a History of the Following? : Anxiety, Depression Currently in Unsafe Situation : No TAMEKA PILLAI RN - 03/20/2020 11:21 EDT Advance Directive Patient has Advance Directive *Q : No, patient refuses Advance Directive information TAMEKA PILLAI RN - 03/20/2020 11:21 EDT Teaching/Learning Assessment Barriers To Learning : None evident Individuals Taught : Patient Readiness to Learn : Cooperative TAMEKA PILLAI RN - 03/20/2020 11:21 EDT General Info Want Family/Rep/Phys Notified of Admit : No Emergency Contact #1 : brii Olivera Emergency Contact #1 4 Emergency Contact #1 Relationship : mother Emergency Contact #2 : - Emergency Contact #2 Phone Number : - Emergency Contact #2 Relationship : - Primary Language : Thai Preferred Communication Mode : Verbal Communication Barrier : None Cellar Packer Needed : No TAMEKA PILLAI RN - 03/20/2020 11:21 EDT Sleep Apnea Risk Assmt Hx of Obstructive Sleep Apnea Diagnosis : No Snore Loudly : Yes Tired, Fatigued, or Sleepy During Day : No Observed Stopping Breathing During Sleep : No Have/Are Being Treated for Hypertension : Yes BMI Greater Than 35 kg/m2 : No Age over 50 Years Old : Yes Neck Circumference Greater Than 40 cm : No Gender Male : No STOP-BANG Sleep Apnea Risk Level Score : 3 TAMEKA PILLAI RN - 03/20/2020 11:21 EDT Marko Scale Marko Sensory Perception : No impairment Marko Moisture : Rarely moist Marko Activity : Walks frequently Marko Mobility : No limitation Marko Nutrition : Adequate Marko Friction and Shear : No apparent problem Marko Score : 22 TAMEKA PILLAI RN - 03/20/2020 11:21 EDT Oxygen Therapy Oxygen Therapy Mode : Room air TAMEKA PILLAI RN - 03/20/2020 11:21 EDT Pain Assessment Pain Assessment : Initial assessment Pain Scale Used : 0-10 Scale TAMEKA PILLAI RN - 03/20/2020 11:21 EDT Fall Risk Scales ABCs Fall Injury Risk Identification : Surgery ABC Fall Injury Risk : Moderate to high injury risk RAUSCH Hx Falls Immediate/Within 3 Months : Yes Rausch Secondary Diagnosis : Yes RAUSCH Use of Ambulatory Aid : None RAUSCH IV Therapy or IV Access : Yes Rausch Gait/Transferring : Normal, bedrest, immobile Rausch Mental Status : Oriented to own ability Rausch Fall Risk Score : 60 RAUSCH Fall Scale Risk Level : 46 or > High Risk [place] Fall Interventions : Adequate lighting, Assistive devices within reach, Bed in low position, Call device within reach, Fall prevention handout/education per facility policy, Frequent orientation to call device, Frequent orientation to surroundings, Hourly comfort/safety rounds, Non-slip footwear, Personal items within reach, Reinforced to call for assistance before getting out of bed, Room free of clutter/spills, Upper side-rails up, Wheels locked, Wires/Cords secured TAMEKA PILLAI RN - 03/20/2020 11:21 EDT Education Topics, Day of Surgery DayofSurgery Education Grid Fall Risks : Verbalizes understanding IV's : Verbalizes understanding Plan of Care : Verbalizes understanding Responsible Adult : Verbalizes understanding TAMEKA PILLAI RN - 03/20/2020 11:21 EDT Valuables and Belongings Valuables and Belongings : Clothing Clothing : Common streetwear Clothing Disposition : Sent to locker TAMEKA PILLAI RN - 03/20/2020 11:21 EDT Pain Scale Intensity : 0 TAMEKA PILLAI RN - 03/20/2020 11:21 EDT Image 4 - Images currently included in the form version of this document have not been included in the text rendition version of the form. documented in this encounter Plan of Treatment Not on file documented as of this encounter Visit Diagnoses Not on filedocumented in this encounter Care Teams Remote Control Assembler Relationship Specialty Start Date End Date Laura Smith [address] [facility] [address] [place] [address] [place] [id number] PCP - General 01/05/24 documented as of this encounter
--- OUTSIDE RECORDS SUMMARY | 2025-02-21 13:32 | XMS_ITS | Encounter Summary ---
Author Organization [employer] ([place], [place], [place], [place]) Address [address] [place] [address] Care Team Providers Care Twist Maker Name Role Phone Laura Smith Primary Care Provider [phone] Encounter Details Date Type Department Care Team (Late st Contact Info) Description 03/20/2020 Transcribed Document [facility] [address] [place] [address] ProviderShoshana MD [address] [place] [address] Social History Tobacco Use Types Packs/Day Years Used Date Smoking Tobacco: Never Assessed Comments Unknown Sex and Gender Information Value Date Recorded Sex Assigned at Not on file Legal Sex Female 4:34 PM CDT Gender Identity Not on file Sexual Orientation Not on file documented as of this encounter Miscellaneous Notes * Cerner Conversion Note - Shoshana ProviderMD - 03/20/2020 5:34 [place] [address] IMANI FARR :1970 Visit Time:03/20/2020 What to do next Your Diagnosis Mechanical ptosis of bilateral eyelids, Mechanical ptosis of bilateral eyelids, Mechanical ptosis of bilateral eyelids Instructions From Your Care Team Please see post op instruction sheet. May restart Eliquis tomorrow 03/21. You have a prescription for Oxycodone/Acetaminophen 5mg/325mg 1 to 2 tablets by mouth every 6 hours as needed for pain- last dose given to you 03/20 @ 1720. 1. Apply ice packs every 30 minutes while awake for 24 hours then warm compresses every 8 hours for 1 week. 2. Sleep with head elevated for 3 days. 3. 3-7 days off of work, no strenuous activity for 1 week including bending over of lifting more than 20 pounds. 4. a. Take prescription for pain medications for 3 days as directed (written in office). b. Continue prescription for antibiotics by mouth for 14 days (written in office). c. Apply antibiotic/steroid ointment to incisions every 8 hours for 14 days and inside eyelids every 2-4 hours while awake for the first 3 days (written in office). 5. Protect eye from wind and dust. 6. Bathe as normal bu avoid water in incisions. 7. Follow-up by phon in evening. Email photos of eye to [email or web address]. 8. Keep office visit, follow up in 1 week or as needed. Call if any sudden pain or decrease in vision. 9. Resume diet as tolerated. Follow-Up Appointments Follow Up with DEYSI ARREGUIN MD-OPT When 03/27/2020 03:45 PM EDT Comments Appointment has been made Where: [address] [place] [address]- Medications What How Much When Instructions Next Dose pantoprazole (Protonix 40 mg oral delayed release tablet) 1 Tablet(s) Oral Every Day acetaminophen-hydrocodone (Carnation 5 mg-325 mg oral tablet) 1 Tablet(s) Oral Every 4 Hours as needed for for pain acetaminophen/ butalbital/ caffeine (acetaminophen/ butalbital/ caffeine 325 mg-50 mg-40 mg oral capsule) 1 Capsule(s) Oral Every 4 Hours as needed for as needed albuterol (Ventolin HFA 90 mcg/ inh inhalation aerosol) 2 Puff(s) Inhalation Every 6 Hours as needed for as needed for wheezing allopurinol 300 Milligram(s) Oral Every Day apixaban (Eliquis 5 mg oral tablet) 1 Tablet(s) Oral Two Times A Day calcium carbonate (calcium (as carbonate) 600 mg oral tablet) Oral Every Day cholecalciferol (Vitamin D3) 10,000 International Units Oral Every Day cyclobenzaprine (Flexeril) 10 Milligram(s) Oral Three Times A Day as needed for as needed for muscle spasm cyclobenzaprine (Flexeril) 10 Milligram(s) Oral Three Times A Day diazePAM 5 Milligram(s) Oral Every 6 Hours dicyclomine (dicyclomine 10 mg oral capsule) 2 Capsule(s) Oral Three Times A Day fluticasone/ umeclidinium/ vilanterol (Trelegy Ellipta) 1 Puff(s) Inhalation Every Day furosemide (furosemide 40 mg oral tablet) 1 Tablet(s) Oral Every Day hydrOXYzine (Vistaril 50 mg oral capsule) 1 Capsule(s) Oral Three Times A Day levothyroxine (Synthroid 100 mcg (0.1 mg) oral tablet) 1 Tablet(s) Oral Every Day promethazine (promethazine 25 mg oral tablet) 1 Tablet(s) Oral Every 4 Hours as needed for as needed for nausea/vomiting QUEtiapine (SEROquel) 300 Milligram(s) Oral Every Day tocilizumab (Actemra ACTPen 162 mg/ 0.9 mL subcutaneous solution) 162 Milligram(s) SubCutaneous Weekly vortioxetine (Trintellix) 20 Milligram(s) Oral Every Day Take your medications faithfully. Do NOT skip medication. Do NOT stop taking medications without the direction of a physician. Carry a list of your medications with you at all times, and take this medication list with you to your first follow up visit. Report any side effects. Avoid herbal remedies unless discussed with your physician. As part of your treatment plan, your physician may have prescribed a limited course of a controlled substance. This medication may be given to help people with moderate or severe pain or for other medical conditions, but there are risks involved with treatment. Common side effects may include nausea, constipation, drowsiness, sweating, itching, dry mouth, and rash. More serious side effects may include cognitive and motor impairment, like problems with thinking, concentrating, alertness, and movement (e.g. slowed reflexes), and driving and operating heavy machinery can be dangerous. It is important for you to talk to your physician if you have these side effects or questions. These controlled substances can produce physical dependence and be habit-forming if taken for an extended period of time, which means that the body has gotten used to them and may experience withdrawal symptoms if they are abruptly stopped. Withdrawal symptoms can include runny nose, sweating, goose bumps, diarrhea, abdominal cramping, rapid heartbeat, difficulty sleeping, and nervousness. Please dispose of unused and medications per pharmacy guidance. Education Materials General Anesthesia, Adult, Care After This sheet [...] activities are safe for you. ??? Take [id number]-[id number] and prescription medicines only as told by [...] 11/01/2001 Document Revised: 07/29/2018 Document Reviewed: 03/11/2018 [employer] Patient Education ?? 2020 [employer] Ptosis Repair, Care After This sheet gives [...] or a bad smell. Medicines ??? Take lzoz-sig-pvwjsqd and prescription medicines only as told by [...] Leave the ice on for 20 minutes, 2???3 times a day. ??? Keep your head [...] care of the incision area. ??? Take lhok-xdb-kfmcvbx and prescription medicines only as told by [...] 08/21/2016 Document Revised: 07/31/2019 Document Reviewed: 07/31/2019 [employer] Patient Education ?? 2020 [employer]. acetaminophen and oxycodone (a SEET a MIN oh fen and OX i KOE done) Endocet 10/325, Endocet 2.5/325, Endocet 5/325, Endocet 7.5/325, Nalocet, Percocet, Primlev What is the most important information I should know about acetaminophen and oxycodone? MISUSE OF OPIOID MEDICINE CAN CAUSE ADDICTION, OVERDOSE, OR . Keep the medication in a place where others cannot get to it. An overdose of acetaminophen can damage your liver or cause . Call your doctor at once if you have pain in your upper stomach, loss of appetite, dark urine, or jaundice (yellowing of your skin or eyes). Taking opioid medicine during may cause life-threatening withdrawal symptoms in the . Fatal side effects can occur if you use opioid medicine with alcohol, or with other drugs that cause drowsiness or slow your breathing. Stop taking this medicine and call your doctor right away if you have skin redness or a rash that spreads and causes blistering and peeling. What is acetaminophen and oxycodone? Acetaminophen and oxycodone is a combination medicine used to relieve moderate to severe pain. Acetaminophen and oxycodone may also be used for purposes not listed in this medication guide. What should I discuss with my healthcare provider before taking acetaminophen and oxycodone? You should not use this medicine if you are allergic to acetaminophen or oxycodone, or if you have: ?? severe asthma or breathing problems; or ?? a blockage in your stomach or intestines. Tell your doctor if you have ever had: ?? breathing problems, sleep apnea; ?? liver disease; ?? a drug or alcohol addiction; ?? kidney disease; ?? a head injury or seizures; ?? urination problems; or ?? problems with your thyroid, pancreas, or gallbladder. If you use opioid medicine while you are , your baby could become dependent on the drug. This can cause life-threatening withdrawal symptoms in the baby after it is born. Babies born dependent on opioids may need medical treatment for several weeks. Do not breastfeed. This medicine can pass into breast milk and cause drowsiness, breathing problems, or in a nursing baby. How should I take acetaminophen and oxycodone? Follow all directions on your prescription label. Never take this medicine in larger amounts, or for longer than prescribed. An overdose can damage your liver or cause . Tell your doctor if you feel an increased urge to use more of this medicine. Never share this medicine with another person, especially someone with a history of drug abuse or addiction. MISUSE CAN CAUSE ADDICTION, OVERDOSE, OR . Keep the medicine in a place where others cannot get to it. Selling or giving away acetaminophen and oxycodone is against the law. Measure liquid medicine carefully. Use the dosing syringe provided, or use a medicine dose-measuring device (not a kitchen spoon). If you need surgery or medical tests, tell the doctor ahead of time that you are using this medicine. You should not stop using this medicine suddenly. Follow your doctor's instructions about tapering your dose. Store at room temperature away from moisture and heat. Keep track of your medicine. You should be aware if anyone is using it improperly or without a prescription. Do not keep leftover opioid medication. Just one dose can cause in someone using this medicine accidentally or improperly. Ask your pharmacist where to locate a drug take-back disposal program. If there is no take-back program, flush the unused medicine down the toilet. What happens if I miss a dose? Since this medicine is used for pain, you are not likely to miss a dose. Skip any missed dose if it is almost time for your next dose. Do not use two doses at one time. What happens if I overdose? Seek emergency medical attention or call the Poison Help line at . An overdose of acetaminophen and oxycodone can be fatal. The first signs of an acetaminophen overdose include loss of appetite, nausea, vomiting, stomach pain, sweating, and confusion or weakness. Later symptoms may include pain in your upper stomach, dark urine, and yellowing of your skin or the whites of your eyes. Overdose can also cause severe muscle weakness, pinpoint pupils, very slow breathing, extreme drowsiness, or coma. What should I avoid while taking acetaminophen and oxycodone? Avoid driving or operating machinery until you know how this medicine will affect you. Dizziness or drowsiness can cause falls, accidents, or severe injuries. Do not drink alcohol. Dangerous side effects or could occur. Ask a doctor or pharmacist before using any other medicine that may contain acetaminophen (sometimes abbreviated as APAP). Taking certain medications together can lead to a fatal overdose. What are the possible side effects of acetaminophen and oxycodone? Get emergency medical help if you have signs of an allergic reaction: hives; difficulty breathing; swelling of your face, lips, tongue, or throat. Opioid medicine can slow or stop your breathing, and may occur. A person caring for you should seek emergency medical attention if you have slow breathing with long pauses, blue colored lips, or if you are hard to wake up. In rare cases, acetaminophen may cause a severe skin reaction that can be fatal. This could occur even if you have taken acetaminophen in the past and had no reaction. Stop taking this medicine and call your doctor right away if you have skin redness or a rash that spreads and causes blistering and peeling. Call your doctor at once if you have: ?? noisy breathing, sighing, shallow breathing, breathing that stops during sleep; ?? a light-headed feeling, like you might pass out; ?? weakness, tiredness, fever, unusual bruising or bleeding; ?? confusion, unusual thoughts or behavior; ?? problems with urination; ?? liver problems--nausea, upper stomach pain, tiredness, loss of appetite, dark urine, kaleb-colored stools, jaundice (yellowing of the skin or eyes); or ?? low cortisol levels-- nausea, vomiting, loss of appetite, dizziness, worsening tiredness or weakness. Seek medical attention right away if you have symptoms of serotonin syndrome, such as: agitation, hallucinations, fever, sweating, shivering, fast heart rate, muscle stiffness, twitching, loss of coordination, nausea, vomiting, or diarrhea. Serious side effects may be more likely in older adults and those who are overweight, malnourished, or debilitated. Long-term use of opioid medication may affect fertility (ability to have children) in men or women. It is not known whether opioid effects on fertility are permanent. Common side effects include: ?? dizziness, drowsiness, feeling tired; ?? feelings of extreme happiness or sadness; ?? nausea, vomiting, stomach pain; ?? constipation; or ?? headache. This is not a complete list of side effects and others may occur. Call your doctor for medical advice about side effects. You may report side effects to FDA at 6-702-EJO-6976. What other drugs will affect acetaminophen and oxycodone? You may have breathing problems or withdrawal symptoms if you start or stop taking certain other medicines. Tell your doctor if you also use an antibiotic, antifungal medication, heart or blood pressure medication, seizure medication, or medicine to treat HIV or hepatitis C. Opioid medication can interact with many other drugs and cause dangerous side effects or . Be sure your doctor knows if you also use: ?? cold or allergy medicines, bronchodilator asthma/COPD medication, or a diuretic ('water pill'); ?? medicines for motion sickness, irritable bowel syndrome, or overactive bladder; ?? other narcotic medications--opioid pain medicine or prescription cough medicine; ?? a sedative like Valium--diazepam, alprazolam, lorazepam, Xanax, Klonopin, Versed, and others; ?? drugs that make you sleepy or slow your breathing--a sleeping pill, muscle relaxer, medicine to treat mood disorders or mental illness; ?? drugs that affect serotonin levels in your body--a stimulant, or medicine for depression, Parkinson's disease, migraine headaches, serious infections, or nausea and vomiting. This list is not complete. Other drugs may affect acetaminophen and oxycodone, including prescription and whrc-cxq-avdptwk medicines, vitamins, and herbal products. Not all possible interactions are listed here. Where can I get more information? Your doctor or pharmacist can provide more information about acetaminophen and oxycodone. Remember, keep this and all other medicines out of the reach of children, never share your medicines with others, and use this medication only for the indication prescribed. Every effort has been made to ensure that the information provided by [employer]. [employer]') is accurate, up-to-date, and complete, but no guarantee is made to that effect. Drug information contained herein may be time sensitive. [employer] information has been compiled for use by healthcare practitioners and consumers in the [place] and therefore [employer] does not warrant that uses outside of the [place] are appropriate, unless specifically indicated otherwise. [employer] drug information does not endorse drugs, diagnose patients or recommend therapy. [employer] drug information is an informational resource designed to assist licensed healthcare practitioners in caring for their patients and/or to serve consumers viewing this service as a supplement to, and not a substitute for, the expertise, skill, knowledge and judgment of healthcare practitioners. The absence of a warning for a given drug or drug combination in no way should be construed to indicate that the drug or drug combination is safe, effective or appropriate for any given patient. [employer] does not assume any responsibility for any aspect of healthcare administered with the aid of information [employer] provides. The information contained herein is not intended to cover all possible uses, directions, precautions, warnings, drug interactions, allergic reactions, or adverse effects. If you have questions about the drugs you are taking, check with your doctor, nurse or pharmacist. Copyright 4882-2154 [employer]. Version: 20.. Revision Date: 08/30/2019. Emergency Awareness and Preventative Care STROKE is an EMERGENCY Every Minute Counts Act FAST and Check for these signs: FACE Does the face look uneven? ARM Does one arm drift down? SPEECH Does their speech sound strange? TIME Call at any sign of stroke Stroke Risk Factors Atrial Fibrillation (irregular heartbeat) Diabetes Family history of stroke Heart Disease Heavy alcohol use High Blood Pressure High Cholesterol Physical inactivity and obesity Smoking Cigarette Smoking The facts are clear, cigarette smoking will shorten your life. Smoking can cause many illnesses along the way. As a healthcare provider, we recommend that you stop smoking. Assistance with quitting is available by contacting 0-359-LPXZ-NOW. This is a free resource providing counseling, support, and referral. Or you may contact your personal physician. National Suicide Prevention Lifeline: The National Suicide Prevention Lifeline is a national network of local crisis centers that provides free and confidential emotional support to people in suicidal crisis or emotional distress 24 hours a day, 7 days a week. Don't Wait! Stop a Heart Attack Before it Starts What is a heart attack? A heart attack is damage or to a part of the heart from severely decreased or lack of blood flow to the heart. Over time, arteries can become narrow from the buildup of fat and cholesterol, which is called plaque. The plaque can rupture causing a blood clot to form. When the blood clot forms, the artery can become severely narrowed or completely blocked, causing a heart attack. Heart attack is the leading cause of in the [place]. 85% of muscle damage occurs within the first 2 hours. Delay in the recognition of heart attack symptoms increases the chances of . Know the early symptoms of a heart attack: Nausea Feeling of fullness in chest Jaw Pain Pain that travels down one or both arms Fatigue/being tired Anxiety Back Pain Chest pressure, squeezing, or discomfort Shortness of breath Sweating, or a cold sweat Feeling of impending doom There are unusual signs of a heart attack, too! Women, the elderly, and diabetics may present with atypical symptoms: Fainting/dizziness Weakness Confusion Risk Factors for a Heart Attack Some heart disease risk factors, such as age and family history, cannot be changed. Others, like smoking and lack of exercise, can be changed. Smoking High Cholesterol High Blood Pressure Family History Obesity Age Gender (Males are at higher risk) Lack of Exercise Diabetes Diet Stress Excessive Alcohol Intake If you or someone you know is experiencing the signs and symptoms of a heart attack, DON???T DELAY. Call immediately and seek help. If someone collapses, perform CPR! Do not attempt to drive if you are having symptoms of heart attack. Hands-Only CPR Why Hands-Only CPR? Hands-Only CPR has been shown to be as effective as conventional CPR for cardiac arrests that occur outside of a hospital. Survival depends on immediately receiving CPR from someone nearby. How do you perform Hands-Only CPR? There are two easy steps: Call if you see a teen or adult collapse Push hard and fast in the center of the chest at a beat of 100 beats per minute. Save a life! 4 WAYS TO GET AHEAD OF SEPSIS SEPSIS is a MEDICAL EMERGENCY. Time matters! Infections put you and your family at risk for a life-threatening condition called sepsis. Sepsis is the body's extreme response to an infection. It is life-threatening, and without timely treatment, sepsis can rapidly lead to tissue damage, organ failure, and . Sepsis happens when an infection you already have-in your skin, lungs, urinary tract or somewhere else-triggers a chain reaction throughout your body. 1 PREVENT INFECTIONS Take good care of chronic conditions. Talk to your doctor about getting the recommended vaccines. 2 PRACTICE GOOD HYGIENE Wash your hands frequently. Keep cuts or open sores clean and covered until they are healed. 3 KNOW THE SYMPTOMS Confusion or disorientation Shortness of breath High heart rate Fever, shivering, or feeling very cold Extreme pain or discomfort Clammy or sweaty skin 4 ACT FAST Get medical care IMMEDIATELY if you suspect sepsis or if you have an infection that is not getting better or is getting worse. To learn more about sepsis and how to prevent infections, visit www.cdc.gov/sepsis. Test Results Laboratory or Other Results This Visit (last charted value for your 03/20/2020 visit) Microbiology 03/18/2020 12:56 PM Novel Coronavirus 2019: Not Detected General Chemistry 03/20/2020 11:39 AM Potassium Level: 4.0 mmol/L -- Normal range between ( 3.5 and 5.1 ) Patient Name:IMANI FARR I have received this information and was given the opportunity to ask questions. Patient/Truck Driver Flatbed Name: Patient/Truck Driver Flatbed Signature: Relationship to Patient: Clinician/Hospital Truck Driver Flatbed Signature: Date: Electronically signed by Jabari, [facility] Conversion Nurse Examiner Cerner at 11/25/2022 7:20 AM CDT documented in this encounter Plan of Treatment Not on file documented as of this encounter Visit Diagnoses Not on filedocumented in this encounter Care Teams Twist Maker Relationship Specialty Start Date End Date Laura Smith [address] [place] [address] [place], [place] [address], [place]Z [id number] PCP - General 01/05/24 documented as of this encounter
--- OUTSIDE RECORDS SUMMARY | 2025-02-21 13:32 | XMS_ITS | Encounter Summary ---
Author Organization [employer] ([place], [place], [place], [place]) Address [address] [place] [address] Care Team Providers Care Registered Radiologic Technologist Name Role Phone Laura Smith Primary Care Provider [phone] Encounter Details Date Type Department Care Team (Late st Contact Info) Description 03/20/2020 Transcribed Document [facility] [address] [place] [address] ProviderShoshana MD [address] [place] [address] Social History Tobacco Use Types Packs/Day Years Used Date Smoking Tobacco: Never Assessed Comments Unknown Sex and Gender Information Value Date Recorded Sex Assigned at Not on file Legal Sex Female 4:34 PM CDT Gender Identity Not on file Sexual Orientation Not on file documented as of this encounter Miscellaneous Notes * Cerner Conversion Note - Historical ProviderMD - 03/20/2020 12:00 PM CDT Event Note Entered On: 03/20/2020 12:01 EDT Performed On: 03/20/2020 12:00 EDT by TAMEKA PILLAI RN Event Note Event Date/Time : 03/20/2020 12:00 EDT Description of Event : called Rosi Olivera, patients mother, to inform her that the preop process is complete and if there is any delays we will call and let her know TAMEKA PILLAI RN - 03/20/2020 12:00 EDT documented in this encounter Plan of Treatment Not on file documented as of this encounter Visit Diagnoses Not on filedocumented in this encounter Care Teams Registered Radiologic Technologist Relationship Specialty Start Date End Date Laura Smith [address] [place] [id number] PCP - General 01/05/24 documented as of this encounter
--- OUTSIDE RECORDS SUMMARY | 2025-02-21 13:32 | XMS_ITS | Encounter Summary ---
Author Organization [employer] ([place], [place], [place], [place]) Address [address] [place] [address] Care Team Providers Care Manager Technical Name Role Phone Laura Smith Primary Care Provider [phone] Encounter Details Date Type Department Care Team (Late st Contact Info) Description 03/20/2020 Transcribed Document [facility] [place] [address] [place] [address] ProviderShoshana MD [address] [place] [address] Social History Tobacco Use Types Packs/Day Years Used Date Smoking Tobacco: Never Assessed Comments Unknown Sex and Gender Information Value Date Recorded Sex Assigned at Not on file Legal Sex Female 4:34 PM CDT Gender Identity Not on file Sexual Orientation Not on file documented as of this encounter Miscellaneous Notes * Cerner Conversion Note - Shoshana ProviderMD - 03/20/2020 5:35 PM CDT [place] [id number] IMANI FARR :1970 Visit Time:03/20/2020 What to do next Your Diagnosis Mechanical ptosis of bilateral eyelids, Mechanical ptosis of bilateral eyelids, Mechanical ptosis of bilateral eyelids Instructions From Your Care Team Please see post op instruction sheet. May restart Eliquis tomorrow 03/21 if no bleeding. You have a prescription for Oxycodone/Acetaminophen 5mg/325mg [...] in evening. Email photos of eye to [email or web address]. Keep office visit, follow up in 1 week or as needed. Call if any sudden pain or decrease in vision. 9. Resume diet as tolerated. Follow-Up Appointments Follow Up with DEYSI ARREGUIN MD-OPT When 03/27/2020 03:45 PM EDT Comments Appointment has been made Where: [address] [place] [address]- Medications What How Much When Instructions Next Dose pantoprazole (Protonix 40 mg oral delayed release tablet) 1 Tablet(s) Oral Every Day acetaminophen-hydrocodone (Protem 5 mg-325 mg oral tablet) 1 Tablet(s) [...] activities are safe for you. ??? Take cnzh-xtt-bqvtuzb and prescription medicines only as told by [...] 11/01/2001 Document Revised: 07/29/2018 Document Reviewed: 03/11/2018 Retidoc Patient Education ?? 2020 Retidoc Inc. Ptosis Repair, Care After This sheet [...] or a bad smell. Medicines ??? Take jznx-htu-ygcknlm and prescription medicines only as told by [...] care of the incision area. ??? Take xpiy-zrk-wvgwxwb and prescription medicines only as told by [...] 08/21/2016 Document Revised: 07/31/2019 Document Reviewed: 07/31/2019 Retidoc Patient Education ?? 2020 Optimata. acetaminophen and oxycodone (a SEET a MIN [...] may report side effects to FDA at 3-392-KLT-7141. What other drugs will affect acetaminophen and [...] affect acetaminophen and oxycodone, including prescription and zxag-lxy-mvdfvsi medicines, vitamins, and herbal products. Not all [...] to ensure that the information provided by Michael Bieker. ('Mult[employer]') is accurate, up-to-date, and complete, but no guarantee is made to that effect. Drug information contained herein may be time sensitive. [employer] information has been compiled for use by healthcare practitioners and consumers in the [place] and therefore [employer] does not warrant that uses outside of the [place] are appropriate, unless specifically indicated otherwise. [employer] drug information does not endorse drugs, diagnose patients or recommend therapy. [employer] drug information is an informational resource designed [...] effective or appropriate for any given patient. [employer] does not assume any responsibility for any aspect of healthcare administered with the aid of information [employer] provides. The information contained herein is not intended to cover all possible uses, directions, precautions, warnings, drug interactions, allergic reactions, or adverse effects. If you have questions about the drugs you are taking, check with your doctor, nurse or pharmacist. Copyright 1967-5531 Michael Bieker. Version: 20.. Revision Date: 08/30/2019. Emergency Awareness [...] Assistance with quitting is available by contacting 4-311-HJKN-NOW. This is a free resource providing counseling, [...] was given the opportunity to ask questions. Patient/Supervisor Tellers Name: Patient/Supervisor Tellers Signature: Relationship to Patient: Clinician/Hospital Supervisor Tellers Signature: Date: Electronically signed by Jabari, [facility] Conversion Lookback Coordinator Cerner at 11/25/2022 7:27 AM CDT documented in this encounter Plan of Treatment Not on file documented as of this encounter Visit Diagnoses Not on filedocumented in this encounter Care Teams Manager Technical Relationship Specialty Start Date End Date Laura Smith [address] [place] [address] [place] [phone] PCP - General 01/05/24 documented as of this encounter
--- OUTSIDE RECORDS SUMMARY | 2025-02-21 13:32 | XMS_ITS | Encounter Summary ---
Author Organization [employer] ([place], [place], [place], [place]) Address [address] [place] [address] Care Team Providers Care Judge Name Role Phone Laura Smith Primary Care Provider Encounter Details Date Type Department Care Team (Late st Contact Info) Description 03/20/2020 Transcribed Document [facility] [place] Family Medicine [address] [place] [address] ProviderShoshana MD [address] [place] [address] Social History Tobacco Use Types Packs/Day Years Used Date Smoking Tobacco: Never Assessed Comments Unknown Sex and Gender Information Value Date Recorded Sex Assigned at Not on file Legal Sex Female 4:34 PM CDT Gender Identity Not on file Sexual Orientation Not on file documented as of this encounter Miscellaneous Notes * Cerner Conversion Note - Shoshana ProviderMD - 03/20/2020 5:22 PM CDT [place] [id number] IMANI FARR :1970 Visit Time:03/20/2020 What to do next Your Diagnosis Mechanical ptosis of bilateral eyelids, Mechanical ptosis of bilateral eyelids, Mechanical ptosis of bilateral eyelids Instructions From Your Care Team Please see post op instruction sheet. You have a prescription for Oxycodone/Acetaminophen 5mg/325mg 1 to 2 tablets by mouth every 6 hours as needed for pain. 1. Apply ice packs every 30 minutes [...] in evening. Email photos of eye to [email or web address]. 8. Keep office visit, follow up in 1 week or as needed. Call if any sudden pain or decrease in vision. 9. Resume diet as tolerated. Follow-Up Appointments Follow Up with DEYSI ARREGUIN MD-OPT When 03/27/2020 03:45 PM EDT Comments Appointment has been made Where: [address] [place] [address]- Medications What How Much When Instructions Next Dose pantoprazole (Protonix 40 mg oral delayed release tablet) 1 Tablet(s) Oral Every Day acetaminophen-hydrocodone ([place] 5 mg-325 mg oral tablet) 1 Tablet(s) [...] activities are safe for you. ??? Take rpmk-jlu-kxphalq and prescription medicines only as told by [...] 11/01/2001 Document Revised: 07/29/2018 Document Reviewed: 03/11/2018 Else4INFO Patient Education ?? 2020 Elsevier Inc. Ptosis Repair, Care After This sheet [...] or a bad smell. Medicines ??? Take pqfp-dkr-iwpbahj and prescription medicines only as told by [...] care of the incision area. ??? Take jcfi-ods-ldyivxy and prescription medicines only as told by [...] 08/21/2016 Document Revised: 07/31/2019 Document Reviewed: 07/31/2019 CureSquare Patient Education ?? 2020 DormNoise. acetaminophen and oxycodone (a SEET a MIN [...] may report side effects to FDA at 8-088-MOO-8810. What other drugs will affect acetaminophen and [...] affect acetaminophen and oxycodone, including prescription and fgcs-rya-szzmjoy medicines, vitamins, and herbal products. Not all [...] to ensure that the information provided by [employer] ('Multum') is accurate, up-to-date, and complete, but no guarantee is made to that effect. Drug information contained herein may be time sensitive. [employer] information has been compiled for use by healthcare practitioners and consumers in the [place] and therefore [employer] does not warrant that uses outside of the [place] are appropriate, unless specifically indicated otherwise. [employer] drug information does not endorse drugs, diagnose patients or recommend therapy. [employer] drug information is an informational resource designed [...] effective or appropriate for any given patient. [employer] does not assume any responsibility for any aspect of healthcare administered with the aid of information [employer] provides. The information contained herein is not intended to cover all possible uses, directions, precautions, warnings, drug interactions, allergic reactions, or adverse effects. If you have questions about the drugs you are taking, check with your doctor, nurse or pharmacist. Copyright 3347-1447 [employer]. Version: 20.01. Revision Date: 08/30/2019. Emergency Awareness and Preventative [...] Assistance with quitting is available by contacting 5-871-AKYY-NOW. This is a free resource providing counseling, [...] was given the opportunity to ask questions. Patient/Flash Developer Name: Patient/Flash Developer Signature: Relationship to Patient: Clinician/Hospital Flash Developer Signature: Date: documented in this encounter Plan of Treatment Not on file documented as of this encounter Visit Diagnoses Not on filedocumented in this encounter Care Teams Judge Relationship Specialty Start Date End Date Laura Smith [address] [place] [facility] [place], [place] [phone] PCP - General 01/05/24 documented as of this encounter
--- OUTSIDE RECORDS SUMMARY | 2025-02-21 13:32 | XMS_ITS | Referral Summary ---
Author Organization [employer] ([place], [place], [place], [place]) Address [address] [place] [address] Care Team Providers Care Whiskey Filterer Name Role Phone Laura Smith Primary Care Provider [phone] Encounters Date Type Department Care Team Description 12/19/2024 8:06 AM EDT - 12/20/2024 6:30 PM EDT Hospital Encounter [facility] [address] [place] [address] Zachary Zaldivar MD Discharge Disposition: Home or Self Care 12/19/2024 Travel 12/19/2024 11:28 AM EDT - 12/19/2024 2:08 PM EDT Surgery [facility] Operating Room [address] [place] [address] Zachary Zaldivar MD C4 TO C7 ACDF (PREVIOUS C5 TO C6) 12/19/2024 10:34 AM EDT Anesthesia Event [facility] Operating Room [address] [place] [address] Jen Hutton MD [place], Keith, MD 12/13/2024 8:49 AM EDT - 12/13/2024 11:59 PM EDT Hospital Encounter [facility] Preadmission Testing [address] [place] [address] Zachary Zaldivar MD Preop testing (Primary Dx); Acquired hypothyroidism; Primary hypertension; PONV (postoperative nausea and vomiting) Discharge Disposition: Home or Self Care from Last 3 Months Allergies Active Allergy Reactions Criticality Noted Date [...] (20 mg total) by mouth daily. Active fqptjdvnljpf-ksw-vf on-FA-vit K (Bariatric Multivitamins) 45 mg iron- [...] 12/13/2024 PONV (postoperative nausea and vomiting) 025 Social History Tobacco Use Types Packs/Day Years Used Date Smoking Tobacco: Never Smokeless Tobacco: Never Tobacco Cessation:Counseling Given: Not Answered Alcohol Use Standard Drinks/Week Comments Never 0 (1 standard drink = 0.6 oz pur e alcohol) [facility] - Mental Health Answer Date [...] Date Scott rded Speak language other than [place] at home Not on file 11/11/2023 Want [...] 12/13/2024 9:46 AM EDT Plan of Treatment Not on file Medical Devices Implanted Type Area Data Warehouse Specialist Device Identifier Shelf Expiration Date Model / Serial / Lot Bone Vivigen Formable [facility]-1600-001 - [id number] Implanted:Qt y: 1 on 12/19/2024 by Zachary Zaldivar MD at [facility] IMPLANTS N/A: Spine Cervical LIFENET:LIFENET TRANSPLANT SRV [id number] 08/15/2025 -1600- 001 / [id number] / Cage Eit Cif H 5mm 8d L [id number] - [id number] Implanted:Qt y: 1 on 12/19/2024 by Zachary Zaldivar MD at [facility] IMPLANTS N/A: Spine Cervical J &J:DEPUY:DEPUY SPINE [id number] 02/05/2034 [id number] / / [id number] Cage Eit Cif H 4mm L [id number] - [id number] Implanted:Qt y: 1 on 12/19/2024 by Zachary Zaldivar MD at [facility] IMPLANTS N/A: Spine Cervical J &J:DEPUY:DEPUY SPINE 09/08/2026 [id number] / / [id number] Plt Ant Skyln Hybrd Lvl3 48 Mm - Implanted:Qt y: 1 on 12/19/2024 by Zachary Zaldivar MD at [facility] IMPLANTS N/A: Spine Cervical J &J:DEPUY:DEPUY ORTHOPAEDIC / / Scr Skyln Vari Sd 14mm - Implanted:Qt y: 5 on 12/19/2024 by Zachary Zaldivar MD at [facility] IMPLANTS N/A: Spine Cervical J &J:DEPUY:DEPUY SPINE / / Scr Skyln Vari-Ovsz 14mm - Implanted:Qt y: 1 on 12/19/2024 by Zachary Zaldivar MD at [facility] IMPLANTS N/A: Spine Cervical J &J:DEPUY:DEPUY SPINE / 014 / Scr Skyln Vari Sd 16mm -016 - [id number] Implanted:Qt y: 3 on 12/19/2024 by Zachary Zaldivar MD at [facility] IMPLANTS N/A: Spine Cervical J &J:DEPUY:DEPUY SPINE / / Procedures Procedure Name Priority Date/Time Associated Diagnosis Comments BASIC METABOLIC PANEL Routine 12/20/2024 3:18 AM EDT CBC HEMOGRAM (SJ-BKR) Routine 12/20/2024 3:18 AM EDT FL C-ARM < 1 HOUR Routine 12/19/2024 12: 03 PM EDT ANESTHESIA INTUBATION Routine 12/19/2024 10:42 AM EDT MS ARTHRD ANT INTERBODY DECOMPRESS CERVICAL BELW C2 [...] CBC - Hemogram (12/20/2024 3:18 AM EDT) WBC 8.0 4.0 - 10.0 K/ L 12/20/2024 4:10 AM EDT [facility] RBC 3.37(L) 3.93 - 5.22 M/ L 12/20/2024 4:10 AM EDT [facility] Hemoglobin 11.0(L) 11.2 - 15.7 GM/DL 12/20/2024 4:10 AM EDT [facility] Hematocrit 31.8(L) 34.1 - 44.9 % 12/20/2024 4:10 AM EDT [facility] MCV 94 79 - 95 fL 12/20/2024 4:10 AM EDT [facility] MCH 32.6(H) 25.6 - 32.2 pg 12/20/2024 4:10 AM EDT [facility] MCHC 34.6 32.2 - 35.5 GM/DL 12/20/2024 4:10 AM EDT [facility] RDW 11.6(L) 11.7 - 14.4 % 12/20/2024 4:10 AM EDT [facility] Platelets 128(L) 140 - 375 K/CU MM 12/20/2024 4:10 AM EDT [facility] MPV 10.2 9.4 - 12.3 fL 12/20/2024 4:10 AM EDT [facility] Blood Venipuncture / Unknown 12/20/2024 3:18 AM EDT 12/20/2024 3:44 AM EDT Jordyn Concepcion PA-C LAB BLOOD ORDERABLES Final Result [facility] [address] [phone] * (ABNORMAL) Basic Metabolic Panel (12/20/2024 3:18 AM EDT) Only the most recent of2 resultswithin the time period is included. Sodium 138 136 - 145 meq/L 12/20/2024 4:05 AM EDT [facility] Potassium 4.1 3.4 - 5.1 meq/L 12/20/2024 4:05 AM EDT [facility] CO2 28 22 - 29 meq/L 12/20/2024 4:05 AM EDT [facility] Chloride 104 98 - 112 meq/L 12/20/2024 4:05 AM EDT [facility] Glucose 106(H) 74 - 100 mg/dL 12/20/2024 4:05 AM EDT [facility] BUN 12.6 9.8 - 20.1 mg/dL 12/20/2024 4:05 AM EDT [facility] Creatinine 0.78 0.57 - 1.11 mg/dL 12/20/2024 4:05 AM EDT [facility] BUN/Creatinine 16 8 - 20 12/20/2024 4:05 AM EDT [facility] Calcium 8.9 8.4 - 10.2 mg/dL 12/20/2024 4:05 AM EDT [facility] Anion Gap 10 4 - 12 12/20/2024 4:05 AM EDT [facility] eGFR (mL/min/1.73m2) 89 >=60 mL/min/1.7 3m2 12/20/2024 4:05 AM EDT [facility] Osmolality Calc 276.1 mOsm/kg 4:05 AM EDT [facility] Blood Venipuncture / Unknown 12/20/2024 3:18 AM EDT 12/20/2024 3:44 AM EDT Jordyn Concepcion PA-C LAB BLOOD ORDERABLES Final Result [facility] [address] [phone] * FL C-ARM < 1 HOUR (12/19/2024 [...] Debbie Flores. Transcribed by Jordyn Estrada PA-C. us Zachary Zaldivar MD IMG FLUOROSCOPY ORDERABLES Final [...] Bilateral BS and chest rise, ETCO2 confirmed us Jen Hutton MD ANESTHESIA ORDERABLES Final Re sult * (ABNORMAL) Glucose, Nova Meter (12/19/2024 9:36 AM EDT) Only the most recent of2 resultswithin the time period is included. POC-GLUCOSE 121(H) 70 - 110 mg/dL 12/19/2024 9:38 AM EDT [facility] Comment: In the event of poor peripheral blood flow, venous or arterial blood should be used due to the potential of erroneous results. Protocols Followed Platform Engineer [id number] 12/19/2024 9:38 AM EDT [facility] Blood WHOLE BLOOD / Unknown 12/19/2024 9:36 AM EDT 12/19/2024 9:38 AM EDT Narrative [facility] - 12/19/2024 9:38 AM EDT Platform Engineer ID is - [id number] us Zachary Zaldivar MD POINT OF CARE TEST ORDERABLES Fi nal Result Performing Organization Address [facility]/ZIP Co de Phone Number [facility] [address] [place] [address] * ABO/RH CONFIRMATION/RETYPE (12/13/2024 10:48 AM EDT) RETYPE A Positive 12/12/2024 8:00 PM EDT [facility] Blood Venipuncture / Unknown 12/13/2024 10:48 AM EDT 12/13/2024 12:13 PM EDT us Chapito Laboy MD [facility] TEST ORDERABLES Final Result Performing Organization Address [facility]/ZIP Co de Phone Number [facility]) [address] [place] [address], [facility] [phone] * (ABNORMAL) CBC with automated diff (12/13/2024 9:17 AM EDT) WBC 4.5 4.0 - 10.0 K/ L 12/13/2024 9:56 AM EDT [facility] RBC 4.20 3.93 - 5.22 M/ L 12/13/2024 9:56 AM EDT [facility] Hemoglobin 13.6 11.2 - 15.7 GM/DL 12/13/2024 9:56 AM EDT [facility] Hematocrit 38.7 34.1 - 44.9 % 12/13/2024 9:56 AM EDT [facility] MCV 92 79 - 95 fL 12/13/2024 9:56 AM EDT [facility] MCH 32.4(H) 25.6 - 32.2 pg 12/13/2024 9:56 AM EDT [facility] MCHC 35.1 32.2 - 35.5 GM/DL 12/13/2024 9:56 AM EDT [facility] RDW 11.2(L) 11.7 - 14.4 % 12/13/2024 9:56 AM EDT [facility] Platelets 209 140 - 375 K/CU MM 12/13/2024 9:56 AM EDT [facility] MPV 9.9 9.4 - 12.3 fL 12/13/2024 9:56 AM EDT [facility] % Neutros 45 34 - 71 % 12/13/2024 9:56 AM EDT [facility] % Lymphs 44 19 - 52 % 12/13/2024 9:56 AM EDT [facility] % Monos 8 5 - 13 % 12/13/2024 9:56 AM EDT [facility] % Eos 1 1 - 6 % 12/13/2024 9:56 AM EDT [facility] % Baso 1 0 - 1 % 12/13/2024 9:56 AM EDT [facility] NRBC Absolute <0.01 0 - 0.012 K/ul 12/13/2024 9:56 AM EDT [facility] # Neutros 2.04 1.56 - 6.13 K/ L 12/13/2024 9:56 AM EDT [facility] # Lymphs 1.99 1.18 - 3.74 K/ L 12/13/2024 9:56 AM EDT [facility] # Monos 0.37 0.24 - 0.86 K/ L 12/13/2024 9:56 AM EDT [facility] # Eos 0.06 0.04 - 0.36 K/ L 12/13/2024 9:56 AM EDT [facility] # Baso 0.05 0.01 - 0.08 K/ L 12/13/2024 9:56 AM EDT [facility] Immature Granulocytes-Re lative 0.40 0.01 - 0.43 % 12/13/2024 9:56 AM EDT [facility] # IG <0.03 0.00 - 0.03 K/uL 12/13/2024 9:56 AM EDT [facility] Blood Venipuncture / Unknown 12/13/2024 9:17 AM EDT 12/13/2024 9:49 AM EDT Narrative [facility] - 12/13/2024 9:56 AM EDT When [...] MD LAB BLOOD ORDERABLES Final Resul t [facility] [address] [phone] * Urinalysis w/Microscopic (12/13/2024 9:17 AM EDT) Color, UA Colorless 12/13/2024 10:13 AM EDT [facility] Clarity, UA Clear Clear 12/13/2024 10:13 AM EDT [facility] Specific [place], UA 1.007 1.005 - 1.030 12/13/2024 10:13 AM EDT [facility] pH, UA 6.5 6.0 - 8.0 12/13/2024 10:13 AM EDT [facility] Leukocytes, UA Negative Negative 12/13/2024 10:13 AM EDT [facility] Nitrite, UA Negative Negative 12/13/2024 10:13 AM EDT [facility] Protein, UA Negative Negative 12/13/2024 10:13 AM EDT [facility] Glucose, UA Normal Normal 12/13/2024 10:13 AM EDT [facility] Ketones, UA Negative Negative 12/13/2024 10:13 AM EDT [facility] Urobilinogen, UA Normal Normal 12/13/2024 10:13 AM EDT [facility] Bilirubin, UA Negative Negative 12/13/2024 10:13 AM EDT [facility] Blood, UA Negative Negative 12/13/2024 10:13 AM EDT [facility] RBC, UA None Seen None Seen /HPF 12/13/2024 10:13 AM EDT [facility] WBC, UA None Seen None Seen /HPF 12/13/2024 10:13 AM EDT [facility] Bacteria, UA None Seen None Seen, Trace 12/13/2024 10:13 AM EDT [facility] SQUAMOUS EPITHELIAL None Seen None Seen /HPF 12/13/2024 10:13 AM EDT [facility] Specimen Source Urine, Clean Catch 12/13/2024 10:13 AM EDT [facility] Urine URINE SPECIMEN COLLECTION, CLEAN CATCH / Unknown 12/13/2024 9:17 AM EDT 12/13/2024 9:49 AM EDT us Zachary Zaldivar MD URINE ORDERABLES Final Result [facility] [address] [place], [place] [address] [phone] from Last 3 Months Insurance [employer] MEDIC[employer] HMO Advance Directives For more information, please contact: [phone] * Full Code (Latest Code Status on File) Date Activated Date Inactivated Comments 12/19/2024 1:19 PM 12/20/2024 7:43 PM Care Teams Whiskey Filterer Relationship Specialty Start Date End Date Laura Smith [address] [place] [address] Dr [place] [address] [place] [phone] PCP - General 01/05/24
--- OUTSIDE RECORDS SUMMARY | 2025-02-21 13:32 | XMS_ITS | Clinical Summary ---
Author Organization [facility] Address [address] [place] [address] Care Team Providers Care Seal Mixer Name Role Phone LuisLaura perez Zuleima SINCLAIR Primary Care Provider [phone] Allergies Active Allergy Reactions Criticality Noted Date Comments Chlorhexidine Rash Low 10/19/2022 Wipes caused rash and irritation. Hibiclens shower solution caused no issues. Fentanyl Anaphylaxis,Other - please document in the comment field,Shortness of breath,Unknown - Patient states they do not know rxn details High 07/18/2012 reports it causes pulmonary edema reports it causes pulmonary edema; tolerated hydromorphone reports it causes pulmonary edema; tolerated hydromorphone reports it causes pulmonary edema reports it causes pulmonary edema; tolerated hydromorphone Latex Itching,Rash,Unknown - Patient states they do not know rxn details Medium 10/24/2015 Levothyroxine Diarrhea Low 03/15/2023 Lisinopril Cough,Unknown - Patient states they do not know rxn details Low 06/15/2016 Morphine Other - please document in the comment field,Shortness of breath,Unknown - Patient states they do not know rxn details High 09/04/2016 Chest pains Chest pains; tolerated hydromorphone Chest pains; tolerated hydromorphone Chest pains Chest pains; tolerated hydromorphone Ofloxacin Rash Low 10/01/2017 Prazosin Other - please document in the comment field Low 06/05/2020 Sulfa Drugs Other - please document in the comment field High 12/08/2019 Tramadol Other - please document in the comment field Low 10/01/2017 Lost muscle tone; tolerated hydromorphone Medications zolpidem (Ambien) 10 MG tablet Active cloNIDine (Catapres) 0.1 MG tablet TAKE ONE (1) TABLET TWICE A DAY BY ORAL ROUTE NEEDED. 04/23/20 21 Active cyclobenzaprine (Flexeril) 10 MG tablet 05/14/20 20 Active diazePAM (Valium) 5 MG tablet 05/16/20 20 Active dicyclomine (Bentyl) 20 MG tablet 05/14/20 20 Active folic acid (Folvite) 1 MG tablet TAKE 1 TABLET DAILY. 11/19/19 18 Active furosemide (Lasix) 40 MG tablet TAKE ONE (1) TABLET EVERY DAY 04/16/20 21 Active hydrOXYzine HCl (Atarax) 50 MG tablet Take 1 tablet (50 mg) by mouth 3 (three) times a day. 04/21/20 21 Active Synthroid 100 MCG tablet TAKE ONE (1) TABLET EVERY DAY BY ORAL ROUTE DIRECTED 04/16/20 21 Active loperamide (Imodium) 2 MG capsule 11/19/19 18 Active pantoprazole (ProtoNix) 40 MG EC tablet TAKE ONE (1) TABLET EVERY DAY BY ORAL ROUTE DIRECTED FOR 90 DAYS. 03/06/20 21 Active potassium chloride CR (Klor-Con M20) 20 MEQ ER tablet 10/05/19 17 Active Tqlfodss-Qph-Nz-FA ( 1 + IRON PO) Active promethazine (Phenergan) 25 MG tablet 06/06/20 20 Active verapamil (Calan) 120 MG tablet 02/18/20 21 Active Trintellix 20 MG tablet TAKE ONE (1) ORAL TABLET ONCE A DAY 04/28/20 21 Active Calcium Citrate-Vitamin D (Calcium Citrate + D3) 200-250 MG-UNIT tablet Activ e butalbital-acetami nophen-caffeine (Fioricet) 50-300-40 MG capsule 08/11/19 19 Active allopurinol (Zyloprim) 300 MG tablet TAKE ONE (1) TABLET(S) EVERY DAY BY ORAL ROUTE DIRECTED FOR 90 DAYS. 02/06/20 21 Active acetaminophen (Tylenol) 500 MG tablet 06/17/20 17 Active Eliquis 5 MG tablet 08/21/19 21 Active Secukinumab (Cosentyx Sensoready Pen) 150 MG/ML solution auto-injectorIndic ations:Psoriatic arthropathy (CMS/HCC) Inject 150 mg under the skin every 28 (twenty-eight) days. 1 mL 12/29/19 Active Additional Information Patient not taking.Reported on 11/02/2024 Multiple Vitamin (MULTIVITAMIN ADULT PO) 07/23/20 Active diphenhydrAMINE (Benadryl) 25 MG tablet 02/07/20 Active enoxaparin (Lovenox) 120 MG/0.8ML solution prefilled syringe Inject under the skin. Active allopurinol (Zyloprim) 100 MG tablet Take 2 tablets (200 mg) by mouth 1 (one) time each day. 01/07/20 Active amitriptyline (Elavil) 25 MG tablet amitriptyline 25 mg tablet Active amoxicillin-clavul anate (Augmentin) 875-125 MG tablet TAKE ONE (1) TABLET EVERY 12 HOURS BY ORAL ROUTE FOR 10 DAYS. 07/22/20 Active chlorhexidine (Betasept Surgical Scrub) 4 % external liquid SHOWER EACH DAY WITH SOLUTION FOR FIVE (5) DAYS BEGINNING FIVE (5) DAYS BEFORE SURGERY. Active colchicine 0.6 MG tablet colchicine 0.6 mg tablet TAKE TWO (2) TABS NOW THEN ONE (1) TAB ONE HOUR LATER Active cycloSPORINE (Restasis) 0.05 % ophthalmic emulsion INSTILL ONE (1) DROP INTO AFFECTED EYE(S) BY OPHTHALMIC ROUTE EVERY 12 HOURS Active diclofenac (Voltaren) 1 % topical gel APPLY FOUR (4) GRAM(S) UP TO FOUR (4) TIMES A DAY Active GNP Mucus ER 600 MG 12 hr tablet TAKE ONE (1) TABLET EVERY 12 HOURS BY ORAL ROUTE FOR 10 DAYS. 07/22/20 Active indomethacin (Indocin) 25 MG capsule TAKE ONE (1) CAPSULE THREE (3) TIMES A DAY BY ORAL ROUTE NEEDED FOR FIVE (5) DAYS. 04/15/20 Active linaCLOtide (Linzess) 145 MCG capsule TAKE ONE (1) CAPSULE EVERY DAY BY ORAL ROUTE. 07/15/20 Active methylPREDNISolone (Medrol Dospak) 4 MG tablets TAKE DIRECTED PER PACKAGE INSTRUCTIONS 12/19/19 Active mupirocin (Bactroban) 2 % ointment APPLY TO THE INSIDE OF EACH NOSTRIL WITH A COTTON SWAB TWO TIMES DAILY, MORNING AND EVENING, FOR FIVE (5) DAYS BEFORE SURGERY. DO NOT TOUCH Q-TIP TO TUBE AFTER APPLICATION Active nitrofurantoin, macrocrystal-monoh ydrate, (Macrobid) 100 MG capsule nitrofurantoin monohydrate/macro crystals 100 mg capsule TAKE 1 CAPSULE TWICE DAILY FOR 7 DAYS Active nystatin (Mycostatin) cream nystatin 100,000 unit/gram topical cream 05/11/20 Active omeprazole (PriLOSEC) [address] capsule TAKE ONE (1) CAPSULE ONCE A DAY Active ondansetron ODT (Zofran-ODT) [address] ONE (1) TABLET THREE (3) TIMES A DAY ON TONGUE-SWALLOW- NEEDED 05/11/20 22 Active ondansetron (Zofran) 8 MG tablet 1 tablet (8 mg). 07/23/20 22 Active trimethoprim-polym yxin b (Polytrim) ophthalmic solution polymyxin B sulfate 10,000 unit-trimethoprim 1 mg/mL eye drops Active potassium chloride CR (Klor-Con) 10 MEQ ER tablet 03/15/20 23 Active pregabalin (Lyrica) 75 MG capsule TAKE ONE (1) CAPSULE TWICE A DAY BY ORAL ROUTE FOR 90 DAYS. Active Zinc 30 MG tablet 07/23/20 22 Active Fluticasone-Umecli din-Vilant (Trelegy Ellipta) 200-62.5-25 MCG/ACT aerosol powder Inhale 1 puff 1 (one) time each day. 60 each 11 03/15/20 23 Active Linzess 290 MCG capsule TAKE ONE (1) CAPSULE EVERY DAY BY ORAL ROUTE FOR 90 DAYS. 11/17/19 24 Active methocarbamol (Robaxin) 750 MG tablet TAKE ONE (1) TABLET THREE (3) TIMES A DAY BY ORAL ROUTE NEEDED FOR 90 DAYS. Active HYDROcodone-acetam inophen ([place]) 7.5-325 MG tablet take one (1) tablet three (3) times a day by oral route for 30 days. 10/06/19 25 Active Upadacitinib (Rinvoq LQ) 1 MG/ML solution Take by mouth. Active fluticasone (Flonase) 50 MCG/ACT nasal sprayIndications:A llergic rhinitis, unspecified seasonality, unspecified trigger Administer 2 sprays into each nostril daily. Shake gently. Before first use, prime pump. After use, clean tip and replace cap. 16 g 11 11/03/19 25 026 Active albuterol 108 (90 Base) MCG/ACT inhalerIndications :Moderate persistent asthma without complication Inhale 2 puffs every 4 hours as needed for wheezing or shortness of breath (or prolonged cough, chest congestion, or chest tightness). 18 g 3 01/16/20 25 Active Trelegy Ellipta 100-62.5-25 MCG/ACT aerosol powderIndications: Moderate persistent asthma without complication Inhale 1 puff daily. 28 each 5 01/16/20 25 Active Active Problems Problem Noted Date Diagnosed Date Chest pain 03/15/2023 03/15/2023 Chronic bronchiolitis 03/15/2023 03/15/2023 Depressive disorder 03/15/2023 03/15/2023 Hypertensive disorder 03/15/2023 03/15/2023 Hypokalemia 03/15/2023 03/15/2023 Insomnia 03/15/2023 03/15/2023 Panic disorder 03/15/2023 03/15/2023 Pulmonary embolism 03/15/2023 03/15/2023 Stroke 03/15/2023 03/15/2023 Headache 03/15/2023 03/15/2023 Excess skin 01/14/2023 Overview (01/14/2023): Added automatically from request for surgery [id number] Spinal cord cysts 10/19/2022 03/15/2023 Spinal arachnoid cyst 09/23/2022 03/15/2023 Overview (03/15/2023): Added automatically from request for surgery [id number] Psoriatic arthritis 07/07/2022 03/15/2023 Seronegative rheumatoid arthritis of both hands 09/25/2021 Therapeutic drug monitoring 09/25/2021 Fibromyalgia 09/25/2021 Exposure to severe acute res piratory syndrome coronavirus 2 (SARS-CoV-2) 03/03/2021 03/15/2023 Aortic ejection murmur 12/19/2020 CKD (chronic kidney disease), stage III 11/27/19 21 03/15/2023 Acquired absence of both cervix and uterus 11/2503/15/2023 Gout 11/25/2020 03/15/2023 Mixed hyperlipidemia 11/25/2020 03/15/2023 Postoperative hypothyroidism 11/25/202002/2023 Restless legs 11/25/2020 03/15/2023 Rheumatoid arthritis 11/25/2020 03/15/2023 Vitamin D deficiency 11/25/2020 03/15/2023 Ear pain 04/24/2020 03/15/2023 Epistaxis 10/13/2019 03/15/2023 CHF (congestive heart failure) 03/23/2019 0 03/15/2023 Intractable migraine without aura and without status migrainosus 08/11/2018 03/15/2023 Cerebrovascular accident (CVA) 08/11/2018 0 03/15/2023 Neuropathy 06/29/2018 03/15/2023 Goiter 05/06/2018 03/15/2023 Overview (03/15/2023): Nontoxic goiter, unspecified COPD (chronic obstructive pulmonary disease) 03/15/2023 Multinodular goiter 03/21/2018 03/15/2023 Obstructive chronic bronchitis 11/04/2017 0 03/15/2023 Bill esophagus 09/30/2017 03/15/2023 Excessive daytime sleepiness 09/30/201702/2023 Gastroesophageal reflux disease without esophagi tis 09/30/2017 03/15/2023 Nocturnal hypoxemia 09/30/2017 03/15/2023 Asthma, extrinsic 07/29/2017 03/15/2023 Meniere's disease 07/29/2017 03/15/2023 Bilateral presbyopia 06/17/2017 03/15/2023 Coagulopathy 06/17/2017 03/15/2023 Other localized visual field defect, left eye 03/15/2023 Myofascial muscle pain 03/01/2017 Chronic daily headache 12/29/2016 Cervical spondylosis 12/23/2016 03/15/2023 Visual problems 12/10/2016 03/15/2023 Occipital pain 12/10/2016 03/15/2023 Pituitary cyst 10/22/2016 03/15/2023 Overview (03/15/2023): lesion Subclinical hypothyroidism 10/22/201603/15 Obesity 10/22/2016 03/15/2023 Heart murmur 09/08/2016 03/15/2023 Acute ischemic stroke 09/08/2016 03/15/2023 Encounters Date Type Department Care Team Description 01/15/2025 Refill [facility] [address] [place] [address] Nicole Beckman S, WIPING CLOTH CUTTER Moderate persistent asthma without complication from Last 3 Months Immunizations Immunization Administration Dates Next Due Hep A, Adult 12/29/2018,06/29/2018 Influenza, injectable, quadrivalent 05/27/2023,1 ,06/07/2018 Influenza, injectable, quadr ivalent, preservative free 04/25/2020,05/23/2018 Influenza, seasonal, injectable 07/19/2012 Family History Medical History Relation Name Comments Mathur-Luis Daniel syndrome Maternal Grandmother Asthma Mother Diabetes type II Mother Hypertension Mother Rheum arthritis Mother Colon cancer Other 1 Colon cancer Other 2 Hypertension Other 3 Heart attack Other 4 Rheum arthritis Other 5 Diabetes type I Other 6 Psoriatic arthritis Sister 1 Rheum arthritis Sister 2 Conversions - Other Sister 3 Sjogren' s disease Asthma Son Relation Name Status Comments Maternal Grandmother Mother Other 1 Other 2 Other 3 Other 4 Other 5 Other 6 Sister 1 Sister 2 Sister 3 Son Social History Tobacco Use Types Packs/Day Years Used Date Smoking Tobacco: Never Passive Smoke Exposure: Never Smokeless Tobacco: Never Tobacco Cessation:Counseling Given: Not Answered Alcohol Use Standard Drinks/Week Comments No 0 [...] Sign Reading Time Taken Comments Blood Pressure 167/101 11/19/2023 1:41 PM EDT Pulse 57 11/19/2023 1:41 PM EDT Temperature 36.7 C (98.1 F) 11/19/2023 1:41 PM EDT Respiratory Rate 18 11/02/2024 3:48 PM EDT Oxygen Saturation 99% 11/19/2023 1:41 PM EDT RA Inhaled Oxygen Concentration - - Weight 61.2 kg (135 lb) 11/02/2024 3:48 PM EDT Height 165.1 cm (5' 5 ) 11/02/2024 3:48 PM EDT Body Mass Index 22.47 11/02/2024 3:48 PM EDT Plan of Treatment Upcoming Encounters Date Type Department Care Team (Late st Contact Info) Description 11/06/2025 2:00 PM EDT Ancillary Procedure [facility] [address] [place] [address] 11/06/2025 3:10 PM EDT Office Visit [facility] [address] [place] [address] Nicole Beckman S, WIPING CLOTH CUTTER [address] [place] [address] Health Maintenance Due Date Last Done Comments [facility]-HIV Screening 1970 [facility]-Medicare Annual Wellness (AWV) 1970 [facility]-Infant/Child/Adol SDOH Screenings 1970 [facility]- SDOH Screenings 1986 [facility]-Adult SDOH Screenings 1986 [facility]-DTaP,Tdap,and Td Vaccines (1 - Tdap) 11/22/1987 [facility]-Hepatitis B Vaccines (1 of 3 - 19+ 3-dose series) 11/22/1987 [facility]-Pneumococcal Vaccine: 50+ Years (1 of 2 - PCV) 11/22/1987 CT Colonography 2013 Colonoscopy 2013 FIT-DNA 2013 FIT 2013 FOBT 2013 Sigmoidoscopy 2013 [facility]-Colorectal Cancer Screening 2013 [facility]-Zoster Vaccines (1 of 2) 2018 [id number] Vaccine (3 - Moderna risk series) 10/13/2021 09/15/2021, 07/24/2021 [facility]-Breast Cancer Screening 04/28/202404/10, 08/13/2020, 11/08/2017 [facility]-Influenza Vaccine (#1) 04/09/202505/27, 04/25/2020, 06/05/2019, Additional history exists [facility]-Depression Screening 11/02/2025 025, 11/02/2024, 11/02/2024, Additional history exists [facility]-Hepatitis C Screening Completed 08/04/2018, [facility]-Hepatitis A Vaccines Aged Out 12/29/2018, 06/10 No longer eligible based on patient's age to complete this topic [facility]-Obesity Intervention Completed 025, 11/19/2023, 04/30/2022 HPV Vaccines Aged Out No longer eligi ble based on patient's age to complete this topic [facility]-HIB Vaccines Aged Out No longer e ligible based on patient's age to complete this topic [facility]-IPV Vaccines Aged Out No longer e ligible based on patient's age to complete this topic [facility]-Rotavirus Vaccines Aged Out No lo nger eligible based on patient's age to complete this topic Procedures Procedure Name Priority Date/Time Associated Diagnosis Comments HEPATITIS C ANTIBODY - ED W/REFLEX TO HCV QUANT PCR Routine 08/04/2018 5:00 PM EST from Last 3 Months or Most Recently Relevant to Health Maintenance Results * [place] Hepatitis C Antibody (08/04/2018 5:00 PM EST) [place] Hepatitis C Ab NEGATIVE Reference Range: Negative SUNQUEST 08/04/2018 5:00 PM EST 08/04/2018 5:09 PM EST Alyssia Roberts MD LAB BLOOD ORDERABLES Mariana l Result SUNQUEST from Last 3 Months or Most Recently Relevant to Health Maintenance Insurance [employer] MEDICARE Care Teams Seal Mixer Relationship Specialty Start Date End Date Laura Smith APRN [address] [place] [address] PCP - General 12/20/20
--- OUTSIDE RECORDS SUMMARY | 2025-02-21 13:32 | XMS_ITS | Encounter Summary ---
Author Organization [employer] ([place], [place], [place], [place]) Address [address] [place] [address] Care Team Providers Care Cloak Room Attendant Name Role Phone Laura Smith Primary Care Provider [phone] Encounter Details Date Type Department Care Team (Late st Contact Info) Description 03/20/2020 Transcribed Document [facility] Family Medicine [address] [place] [address] ProviderShoshana MD [address], [place] [id number] Social History Tobacco Use Types Packs/Day Years [...] 03/20/2020 2:09 PM CDT [facility] Main OR PACU Summary Primary Physician: DEYSI ARREGUIN MD-OPT Finalized Date/Time: 03/20/20 17:11:08 Pt. Name: IMANI FARR/Sex: 1970 Female Med Rec #: [id number] Physician: DEYSI ARREGUIN MD-OPT Financial #: [id number] Pt. Type: O Room/Bed: [facility] Admit/Disch: 03/20/20 10:14:00 - Institution: [facility] Main OR PACU Case Times Entry 1 In PACU I 03/20/20 16:15:00 Ready for PACU 03/20/20 17:00:00 Discharge Discharge from PACU 03/20/20 17:00:00 I Last Modified By: Magnolia Martinez RN 03/20/20 17:11:01 [facility] Main OR PACU Case Times Audit 03/20/20 17:11:01 Diamond Broker: SXPOWERS Modifier: SXPOWERS <+> 1 Ready for PACU Discharge <+> 1 Discharge from PACU I Finalized By: Magnolia Martinez, RN Document Signatures Signed By: Magnolia Martinez RN 03/20/20 17:11 documented in this encounter Plan of Treatment Not on file documented as of this encounter Visit Diagnoses Not on filedocumented in this encounter Care Teams Cloak Room Attendant Relationship Specialty Start Date End Date Laura Smith [address] [facility] [address] [address] [place] [address] [place] [phone] PCP - General 01/05/24 documented as of this encounter
--- OUTSIDE RECORDS SUMMARY | 2025-02-21 13:33 | XMS_ITS | Continuity of Care Document ---
Author Organization [facility] On license of [facility] Address [address] [place] [address] Assessment No assessment recorded. Plan of Treatment Reminders Order Date Submit Date Provider Last Modified By Organization Details Last Modified Time Details Appointments [facility] PT 30 2024 09:00A M Jennifer Smith, TOILET ATTENDANT Not available Not available Not available Lab drug screen, 14 drugs (detecti med), urine 2024 025 [facility], [address], [address], [place], [address], 02/21/2025 07:33:54 noninvas margot colorect al cancer DNA + occult blood screenin g, QL, stool 2024 025 [facility] (Cologuard Orders Only), [address], [address], [place], [address], 02/14/2025 14:51:43 Referral otolaryn gologist referral 2024 025 Janes Sanderson III, MD, [address], [address], [place], [address], 02/21/2025 07:54:25 Procedures None recorded . Surgeries None recorded . Imaging MAMMO, screenin g, bilatera l 2024 025 [facility] (X-Ray), [address], [place], [address], 02/14/2025 15:21:58 Medication Orders butalbit al-aceta minophen -caffein e 50 mg-325 mg-40 mg tablet 2024 025 [facility], [address] [place] [address], [address], 02/14/2025 14:51:37 hydrochl orothiaz jose luis 25 mg tablet 2024 025 [facility], [address] [place] [address], [address], 02/14/2025 14:51:33 diazepam 5 mg tablet 2024 025 [facility], [address] [place] [address], [address], 02/14/2025 14:51:37 Levbid 0.375 mg tablet,e xtended release 2024 025 [facility], [address] [place] [address], [address], 02/14/2025 14:51:33 Lyrica 75 mg capsule 2024 025 [facility], [address] [place] [address], [address], 02/14/2025 14:51:38 allopuri nol 100 mg tablet 2024 025 [facility], [address] [place] [address], [address], 02/14/2025 14:51:35 cycloben zaprine 10 mg tablet 2024 025 [facility], [address] [place] [address], [address], 02/14/2025 14:51:35 Medrol (Maximilian) 4 mg tablets in a dose pack [address], [address], 02/14/2025 14:51:34 zolpidem 10 mg tablet [address], [address], 02/14/2025 14:51:38 Patient TargetsNo targets recorded. Patient Instructions Encounter Date Encounter Id Patient Instructions Last Modified By Organization Details Last Modified Time 02/14/2025 [id number] mammogram: about this test rjessee Not available [...] to see you back in 3 months. 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 Referral fo r Bilateral Meniere's disease of inner ears Referring Physician: Jennifer Smith, Family Medicine, Encounter Date: 02/14/2025 Problems Name Problem SNOMED Code Status Onset Date Resolution Date Notes Provider Name and Address Organization Details Recorded Time Gastroesophag eal reflux disease 410238110 Active Crystal Earlywine null, [place] - [facility] 15:12:33 M ni re's disease 33732581 Active Crystal Earlywine null[place] - [facility] 9 15:12:33 Hypertensive disorder 93092011 Active Crystal Earlywine [place] [facility] 15:12:33 Cerebrovascul ar accident 524775117 Active Crystal Earlywine [place] [facility] 9 15:12:33 Pulmonary embolism 88525529 Active Crystal Earlywine [place] [facility] 9 15:12:33 Headache 47482126 Active Crystal Earlywine [place] [facility] 15:12:33 Insomnia 305935370 Active Crystal Earlywine [place] [facility] 15:12:33 Depressive disorder 31852067 Active Crystal Earlywine [place] [facility] 15:12:33 Panic disorder 811622863 Active Crystal Earlywine [place] [facility] 15:12:33 Hypokalemia 47133191 Active Crystal Earlywine [place] [facility] 15:12:33 Disorder of pituitary gland 612719121 Active lesion Crystal Earlywine [place] [facility] 15:12:33 Chronic obstructive pulmonary disease 03718631 Active Crystal Earlywine [place] [facility] 15:12:33 Hypothyroidis m 93351032 Active Crystal Earlywine [place] [facility] 15:12:33 Neuropathy 759290495 Active 2017 Crystal Earlywine [place] [facility] 9 15:12:33 Congestive heart failure 84012191 Active 2018 Crystal Earlywine [place] [facility] 9 15:12:33 Fibromyalgia 047155329 Active 2018 Crystal Earlywine [place] [facility] 9 15:12:33 Chest pain 84674360 Active Crystal Earlywine [place] [facility] 15:12:33 History of deep vein thrombosis 175652860 Active 2020 Jennifer Smith, TOILET ATTENDANT [address], [place], [address] [place] - [facility] 1 18:12:55 Rheumatoid arthritis 29582101 Active 2020 Jennifer Tonyiron Smith, TOILET ATTENDANT [address], [place], [address], [place] - [facility] 1 18:12:58 Gastroesophag eal reflux disease without esophagitis 567146972 Active 2020 Jennifer Smith, TOILET ATTENDANT [address], [place], [address], [place] [facility] 1 18:13:04 Restless legs 51123257 Active 2020 Jenniferdiony Smith, TOILET ATTENDANT [address], [place], [address], [place] [facility] 1 18:13:05 History of cerebrovascul ar accident 627076254 Active 2020 Jennifer Smith, TOILET ATTENDANT [address], [place], [address], [place] [facility] 1 18:13:15 Mixed hyperlipidemi a 569856758 Active 2020 Jennifer Smith, TOILET ATTENDANT [address], [place], [address], [place] [facility] 1 18:13:16 Vitamin D deficiency 53791757 Active 2020 Jennifer Smith, TOILET ATTENDANT [address], [place], [address], [place] [facility] 1 18:13:22 Postoperative hypothyroidis m 16653007 Active 2020 Jennifer Smith, TOILET ATTENDANT [address], [place], [address], [place] [facility] 1 18:13:24 Long-term current use of anticoagulant 114126722 Active 2020 Jennifer Smith, TOILET ATTENDANT [address], [place], [address], [place] [facility] 1 18:13:54 Gout 16432172 Active 2020 Jennifer Smith, TOILET ATTENDANT [address], [place], [address], [place] [facility] 1 18:13:57 Acquired absence of cervix and uterus 730446290 Active 2020 Jennifer Smith, TOILET ATTENDANT [address], [place], [address], [place] [facility] 1 18:14:19 Exposure to SARS-CoV-2 Active 2020 Jessica Ward [facility], [place] - [facility] 1 12:19:41 Psoriatic arthritis 233237519 Active 2021 Jennifer Smith, TOILET ATTENDANT [address], [place], [address], [place] - [facility] 2 17:25:52 Acute urinary tract infection 432504533 Active 2022 Callie Dent, TOILET ATTENDANT [address], [place], [address], [place] - [facility] 3 14:02:44 Problem Notes [...] 20 Diastolic B/P 80-89 mm Hg completed Helendanny Simmons [place] - [facility] 09/08/2019 15:22:11 09/08/19 20 Systolic B/P 130-139 mm Hg completed Helendanny Simmons [place] - [facility] 09/08/2019 15:22:14 09/08/19 20 Medication Reconcilliation completed Helendanny Simmons [place] - [facility] 09/08/2019 15:07:10 03/28/20 19 Medication Reconcilliation completed Fariha Prajapati [place] - [facility] 03/28/2019 15:36:47 08/10/19 19 Medication Reconcilliation completed Salma Kessler [place] - [facility] 08/10/2018 08:36:58 01/08/20 17 completed Jessica Razoyles [place] - [facility] 06/23/2017 15:27:05 11/29/19 15 Date of Last Colonoscopy completed Romelia Coles RN [address], [place], [address] [place] - [facility] 10/29/2021 16:27:13 Hysterectomy completed Jessica Ward [place] - [facility] 10/27/2023 16:48:45 Unlisted px neck/thorax completed Jessica Ward [place] - [facility] 06/23/2017 15:31:00 Appendectomy completed Jessica Ward [employer] - [facility] 06/23/2017 15:31:21 Tonsillectomy completed Jessica Ward [place] - [facility] 06/23/2017 15:31:45 Cholecystectomy, laparoscopic completed Jessica Ward [place] - [facility] 06/23/2017 15:31:52 Imaging Results None recorded. Procedure Notes None recorded. Medical Equipment None Reported. Allergies Allergen ID Allergen Name Allergen Category Reaction Reaction Severity Criticality Documentation Date Start Date Code Code System Note Provider Name and Address Organization Details Recorded Time 956926 levothyro xine sodium medicatio n diarrhea Not available Not available 06/22/2018 73627 RxNorm per pt. cause s sever e diarr hea Fariha Prajapati null, [place] - [facility] 8 17:12:49 256291 lisinopri l medicatio n cough Not available Not available 08/10/2018 63021 RxNorm Salma Kessler null, [place] - [facility] 9 08:37:21 841213 morphine medicatio n chest pain Not available Not available 09/08/2019 7052 RxNorm Helen [place] null, [place] - [facility] 0 15:13:43 648249 Substance with sulfonami de structure and antibacte rial mechanism of action (substanc e) medicatio n eye redness severe Not available 12/08/20192019 28908 8003 SNOMED skin burni ng Crystal Earlywine null, [place] - [facility] 0 14:41:24 62931 fentanyl medicatio n other severe Not available 06/23/2017 4337 RxNorm stopp ed breat axel Jessica Ed null[place] - [facility] 7 15:11:06 Medications [...] e 137 mcg (0.1 %) nasal spray [place] 1 spray every day by nasal route [...] route for 90 days. 01/12 completed per jennifer gene Not Available Not Available Not Available [...] Updated DateTime 5 167.64 cm 22.9 kg/m2 68036.1 2 g 98.4 [degF] 57 /min 98 % 98 % 18 /min 112/60 mm[Hg] Jessica Ward [place] - [facility] 14:11:52 Social History Question Answer Notes LastModified by Organizat ion Details LastModified Time Tobacco Smoking Status Never Smoker Jessica smith, [place] - [facility] 06/23/2017 15:28:42 Able To Swim? Yes Information [...] Or The Highest Degree You Have Received? [id number] [email or web address] Information not available 01/06/2023 Swimming/diving No Informati [...] Because I Am Here For Something Else [email or web address] Information not available 01/06/2023 Do You Have Any Future Plans To Get ? No, I Don't Want To Become Information not available 01/06/2023 Sex: Female Functional Status Question Answer Note LastModified by Organizat ion Details LastModified Time Do you or have you ever used smokeless tobacco? Never used smokeless tobacco Information not available 09/27/2019 Are you currently employed? Yes Information not available 06/23/2017 Do you have transportation difficulties? No [email or web address] Information not available 01/06/2023 Are you able [...] use any illicit or recreational drugs? No [email or web address] Information not available 01/06/2023 Do you or have you ever used any other forms of tobacco or nicotine? No Information not available 01/06/2023 What is your level of alcohol consumption? None Information not available 06/23/2017 What is your status? Not Information no t available 01/06/2023 Are you able to walk? [email or web address] Information not available 06/23/2017 Do you have difficulty doing errands alone? No Information not available 06/23/2017 What is your occupation? [employer] Information not available 06/23/2017 Mental Status Question [...] or 50 mcg/0.25mL dose 2 completed Helen smith[place] - [facility] 09/15/2021 16:28:11 Influenza, split virus, quadrivalent, preservative 3 completed Angel Mario, TOILET ATTENDANT [address], [place], [address], [place] [facility] 05/27/2023 11:49:03 Influenza, split virus, quadrivalent, preservative 8 completed Not Available [facility] 07/26/2023 11:31:50 Influenza, split virus, quadrivalent, preservative 9 completed Not Available [facility] 07/26/2023 11:31:50 COVID-19, mRNA, LNP-S, PF, 100 mcg/0.5mL dose or 50 mcg/0.25mL dose 1 completed Ilya [place] [facility] 12/18/2022 10:11:49 Hep A, adult 9 completed Ilya [place] [facility] 12/18/2022 10:11:49 Hep A, adult 8 completed Ilya [place] [facility] 12/18/2022 10:11:49 Influenza, split virus, quadrivalent, PF 0 completed Ilya [place] [facility] 12/18/2022 10:11:49 Influenza, split virus, quadrivalent, PF 8 completed Ilya [place] [facility] 12/18/2022 10:11:49 Past Encounters Encounter ID Performer Location Encounter Start Date Encounter Closed Date Diagnosis/Indication Diagnosis SNOMED-CT Code Diagnosis ICD10 Code Diagnosis Note [id number] Jennifer Smith APRN [address] [place] [address] 02/14/2025 13:56:15 02/14/2025 14:51:04 Fibromyalgia 393554423 M79.7 Spinal dioni nosis of lumbar region 41799229 M48.061 Long-term drug therapy 043250816 Z79.899 Long-term current use of anticoagulant 776534876 Z79.01 Body mass index 20-24 - normal 014257701 Z68.22 Rheumatoid arthritis 698 75852 M06.9 Vitamin D deficiency 347 25604 E55.9 Postoperat margot hypothyroidism 22866023 E89.0 Gout 02959232 M10.9 History of bariatric surgical procedure 015127960 Z98.84 Persistent insomnia 1919 88311 G47.09 History of deep vein thrombosis 932089516 Z86.718 M ni re's disease 46424371 H81.03 Gastroesop hageal reflux disease without esophagitis 632677158 K21.9 Restless legs 97711466 G 25.81 Disorder o f pituitary gland 776922696 E23.7 Panic disorder 274588896 F41.0 Chronic ob structive pulmonary disease 49955645 J44.9 History of cerebrovascular accident 801335896 Z86.73 Mixed hyperlipidemia 267 083228 E78.2 Depressive disorder 3548 9007 F33.8 Migraine with aura 10185 06 G43.109 Acquired a bsence of cervix and uterus 723602989 Z90.710 Postmenopausal state 764 28831 Z78.0 Psoriatic arthritis 1563 54602 L40.50 Family his tory of leukemia 109830212 Z80.6 Renewal of prescription 393232265 Z76.0 Hypokalemia 78140947 E87 .6 Hypertensive disorder 38 325741 I10 Chronic constipation 236 372061 K59.09 Screening mammography 24 275341 Z12.31 Hypothyroidism 54594525 E03.9 Bilateral Meniere's disease of inner ears 5732246339 047536 H81.03 Irritable bowel syndrome characterized by constipation 439932993 K58.1 Screening for malignant neoplasm of colon 138542508 Z12.11 Uric acid level above reference range 91952924 E79.0 Repeated prescription 18 9978735 Z76.0 Health Concerns Section Related Observation LastModified by Organization Detai ls LastModified Time None Recorded Concern Status LastModified by Organization Details LastModified Time None Recorded Payers Encounter Date Sequence Insurance Name Policy Number Policy Hilliard Covered Member ID Hilliard Member ID Guarantor Name 02/14/2025 2 [place] [employer] - FFS/TRADITIO NAL Imani Denson [id number] Imani Casanova 02/14/2025 1 [employer] - G[employer]US (MEDICARE REPLACEMENT/ ADVANTAGE - HMO) Imani Casanova [id number] Imani Casanova Notes Date Note Type Note Provider Name and Address Organization Details Recorded Time 5 text/html Imani presents for a f/u [...] over replacement. She had gastric sleeve at [facility] 07/14/2021. She has lost over 60 lbs. She is on allopurinol 300 mg daily for gout. She has seen a security analyst for recurrent DVT's in the past. Remains on anticoagulant. She has had 2 strokes. She is blind in her right eye and now has problems with her short and dry box tender memory. She sees director paid media for rheumatoid arthritis and fibromyalgia. She sees a neurologist for chronic headaches and meniere's disease. She has problems with her memory and lately is having problems getting her words to come out right. She sees a computer information systems professor for COPD. She can't take NSAID's due to being on an anticoagulant, Eliquis. She is also seeing a pain specialist. She has IBS-C and Dicyclomine isn't working. She states brand name Lyrica helps her pain much better than the generic. Last mammogram 06/09/2022Last dexa 02/10/2022 - normals/p hysterectomyColonoscopy 06/30/2021Never smoked Chronic issues reviewed and stable. Jennifer Smith, TOILET ATTENDANT [address], [place], [address], [place] [facility] 02/14/2025 14:58:42 OBGyn Episode No OBEpisode recorded.
== END 2025-02-21 23:59 | disposition home or self-care (01) ==
LOC: RAD 13:27
PROVIDERS: PCP Nurse Practitioner Family; Visit Provider Nurse Practitioner Family
DX: Z12.31 Encounter for screening mammogram for malignant neoplasm of breast (principal); R92.323 Mammographic fibroglandular density, bilateral breasts
CPT/HCPCS: 77063; 77067